=== PATIENT | female | born 1970 | race Caucasian/White ===

== ENCOUNTER 2017-04-05 10:56 | Inpatient (IN) | payer OTHER ==
[~2017-04-05] VITALS: Ht 165.1 cm; Wt 72.6 kg
[2017-04-05] VITALS (13 sets, daily range): BP systolic 102–128; BP diastolic 58–75; PULSE 102–123; TEMP 37.3–39.3; O2SAT 97–100; Ht 165.1 cm; Wt 72.6 kg
[~2017-04-05 10:56] MED LIST: CITA10TA8 PO; CRAN500C2 PO; MULT-506 PO
[2017-04-05] MEDS ORDERED: NORE5TAB5 PO (11:58)
[2017-04-05] MEDS ORDERED: FERR1TAB13 PO (11:58)
[2017-04-05] MEDS ORDERED: SODIUM CHLORIDE 0.9% 1000ML 1,000 ML IV STA ×2 (12:06)
[2017-04-05] MEDS ORDERED: ACETAMINOPHEN IV 650 MG in EMPTY BAG 0 ML IV STA (12:12)
--- NOTE | 2017-04-05 12:16 | EMERGENCY ROOM VISIT NOTE ---
History Report prepared by Garth: Ulices Lujan Under the Supervision of: Dr. Etelvina Barrientos M.D. First contact with patient: 11:41 Chief Complaint: FEVER Stated Complaint: IN FOR SURG., FEVER, V, SEVERE BACK/ABD. PAIN History of Present Illness The patient is a 46 year old female who presents to the Emergency Room with complaints of an acute fever occurring today. The patient was scheduled to have D&C and endometrial ablation today. She was at [facility] for pre- op when they detected the fever, so she was referred to the ED. The patient vomited en route to the ED. She has been very fatigued over the past week and her appetite has been very poor. She denies any urinary symptoms. The patient was having surgery for adenomyosis and fibroids found via pelvic US. The patient has been experiencing 9 weeks of constant vaginal bleeding. She doubles up on pads and has to change them frequently. The patient has also been experiencing pelvic cramping. She has never had a transfusion before. The patient had a D&C two years ago but did not have an ablation. She follows up with 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 She was found to be anemic one year ago even though she did not have bleeding issues at that time. Source of History: patient Onset: today Position: other (global) Quality: other (fever) Timing: other (acute) Associated Symptoms: + vomiting, + abdominal pain (pelvic), + fatigue, No urinary symptoms Review of Systems See HPI for pertinent positives & negatives. A total of 10 systems reviewed and were otherwise negative. Past Medical & Surgical Medical Problems: (1) [place] (2) Depression (3) Foot injury Surgical Problems: (1) H/O lumpectomy (2) H/O: Family History Cancer Social History Smoking Status: Never Smoker Alcohol Use: occasionally Drug Use: none Marital Status: Housing Status: lives with family Occupation Status: employed Current/Historical Medications Scheduled Ciprofloxacin Hcl (Cipro), 1 TAB PO BID Citalopram Hydrobromide (Celexa), 10 MG PO DAILY Cranberry (Vaccinium Macrocarp (Cranberry), 500 MG PO DAILY Enoxaparin (Lovenox), 70 MG SQ Q12@0800,2000 Ferrous Sulfate (Kp Ferrous Sulfate), 1 TAB PO DAILY Multivitamin (Multivitamin), 1 TAB PO DAILY Norethindrone (Aygestin), 2 TAB PO DAILY Warfarin Sod (Coumadin), 7.5 MG PO DAILY@16 Allergies Coded Allergies: No Known Allergies (Unverified , 04/05/17) Physical Exam Vital Signs Date Time Temp Pulse Resp B/P (MAP) Pulse Ox O2 Delivery O2 Flow Rate FiO2 04/05/17 13:10 119 20 124/73 99 Room Air 04/05/17 12:34 126 18 108/56 99 Room Air 04/05/17 12:19 128 04/05/17 11:00 37.8 123 18 118/58 100 Room Air Physical Exam Vital signs reviewed. General: Well-appearing female, in no significant distress. Noted to be tachycardic, normotensive, mildly febrile. HEENT: No scleral icterus, PERRLA, neck supple. Atraumatic. Cardiovascular: Regular rate and rhythm, no extra sounds. Pulmonary: Clear to auscultation bilaterally, normal work of breathing. Abdomen: Soft, mild left lower quadrant tenderness, nondistended, positive bowel sounds. Musculoskeletal: Atraumatic, no peripheral edema. Neurologic: Patient awake alert and oriented x 3, full strength in all 4 extremities. Cranial nerves 2 through 12 grossly intact. Skin: Warm, dry, no rash Medical Decision & Procedures ER Provider Diagnostic Interpretation: X-ray results as stated below per interpretation by me and the radiologist: Radiology results as stated below per my review and radiologist interpretation: CHEST ONE VIEW PORTABLE CLINICAL HISTORY: fever SEVERE BACK PAIN COMPARISON STUDY: No previous studies for comparison. FINDINGS: The cardiac and mediastinal contours are normal. There is no evidence of focal pulmonary consolidation. There is no evidence of failure. No pleural effusions are visualized.[ IMPRESSION: No active disease in the chest. Electronically signed by: Woodrow Webb M.D. 04/05/2017 12:36 PM Dictated Date/Time: 04/05/2017 12:30 PM EXAMINATION: PELVIC ULTRASOUND CLINICAL HISTORY: Dysfunctional uterine bleeding. Fever, left lower quadrant pelvic pain COMPARISON STUDY: FINDINGS: The uterus measured 12.6 x 7.9 x 9.5 cm. The uterus is heterogeneous in echotexture. Adenomyosis cannot be excluded. There is an equivocal 6 cm left fundal fibroid.. The endometrial stripe was difficult to visualize, but appear to measure 8 mm. The right ovary measured 17 x 27 x 14 mm. There is a 13 mm follicle.. The left ovary measured 31 x 18 x 33 mm. There is a 16 mm follicle.. There is no ultrasonographic evidence of ovarian torsion. It should be noted that ovarian torsion can be present with normal Doppler ultrasonographic findings. There was no evidence of pathologic free pelvic fluid. IMPRESSION: 1. Enlarged heterogeneous uterus with a possible 6 cm left fundal fibroid. Adenomyosis cannot be excluded. If further evaluation is desired, an MRI would be considered the test of choice. 2. Ultrasonographically normal ovaries. Electronically signed by: Woodrow Webb M.D. 04/05/2017 2:40 PM Dictated Date/Time: 04/05/2017 2:36 PM Laboratory Results Test 04/05/17 11:30 04/05/17 12:18 04/05/17 12:47 Direct Bilirubin 0.1 mg/dl (0-0.2) Total Creatine Kinase 42 U/L (26-192) Creatine Kinase MB < 0.5 ng/ml (0.5-3.6) Creatine Kinase MB Ratio (0-3.0) Bedside Hemoglobin 7.1 g/dl (12.0-16.0) Bedside Hematocrit 21 % (37-47) Bedside Sodium 139 mEq/L (135-144) Bedside Potassium 3.7 mEq/L (3.3-5.0) Bedside Chloride 108 mEq/L (101-112) Bedside Total CO2 17 mEq/l (24-31) Bedside Blood Urea Nitrogen 6 mg/dl (7-18) Bedside Creatinine 0.7 mg/dl (0.6-1.3) Bedside Glucose (other) 103 mg/dl (70-99) Bedside Ionized Calcium (Willy) 1.12 mmol/l (1.12-1.32) Bedside Lactic Acid Venous 0.79 mmol/L (0.90-1.70) Laboratory results per my review. Medications Administered Medications (Trade) Dose Ordered Sig/Davy Route Start Time Stop Time Status Last Admin Dose Admin Sodium Chloride 1,000 ml @ 125 mls/hr Q8H STAT IV 04/05/17 12:06 04/05/17 18:45 DC 04/05/17 13:40 125 MLS/HR Sodium Chloride 1,000 ml @ 999 mls/hr Q1H1M STAT IV 04/05/17 12:06 6/1/17 13:06 DC 04/05/17 12:32 999 MLS/HR Acetaminophen 650 mg/Empty Bag 65 ml @ 260 mls/hr NOW STAT IV 04/05/17 12:12 04/05/17 12:26 DC 04/05/17 12:32 260 MLS/HR ECG Indication: tachycardia Rate (beats per minute): 120 Rhythm: sinus tachycardia Findings: no ectopy, other (T wave flattening anterolateral leads) ED Course 1200: Past medical records reviewed. The patient was evaluated in room C9. A complete history and physical examination was performed. 1206: NSS 1000 ml @ 999 mls/hr, NSS 1000 ml @ 125 mls/hr. 1212: Acetaminophen 650 mg / empty bag 65 ml @ 260 mls/hr. 1230: Discussed the case with Dr. Garay (Service Station Cashier), who agreed to evaluate the patient. 1352: Dr. Garay is admitting the patient. 1415: Blood Consent signed. 1432: Tylenol 325 mg MN. 1518: Rocephin 1 gm IV. Medical Decision Differential diagnosis: Etiologies such as ectopic , dysfunction uterine bleeding, bleeding dyscrasia, trauma, infection, as well as others were entertained. Medication Reconciliation: I attest that I have personally reviewed the patient' s current medication list. Blood Pressure Screening: Patient was found to have normal blood pressure on screening and does not require follow-up. This pt was evaluated and appeared to be in no distress. IV access was obtained and lab work was drawn. Pt was type and crossed for 2 U PRBC. Hgb is 6.4. Pt is noted to be febrile and given 650 mg IV tylenol. Lactic acid is normal. Pt was hydrated with NSS. She remained tachycardic. Blood transfusion was ordered and pt was consented. UA is contaminated but questionable for infection. PT was given 1 gm IV ceftriaxone after blood cultures were drawn. A CT Chest was performed d/t persistent tachycardia, SOB, unexplained fever and progesterone use. This study is negative for PE. I discussed the case with Dr Garay of [facility]. He was asked to evaluate the pt for admission and further management. I offered to consult medicine at this time, but Dr Garay felt he would see the pt first. Pt is aware of the plan and agrees. Consults Time Called: 1220 Consulting Physician: Dr. Garay (Service Station Cashier) Returned Call: 1230 He agreed to evaluate the patient. Impression Primary Impression: Vaginal bleeding Additional Impressions: Severe anemia Fever UTI (urinary tract infection) Critical Care I have personally spent greater than 60 minutes of critical care time in the direct management of this patient. This includes bedside care, interpretation of diagnostic studies, and testing, discussion with consultants, patient, and family members, and other required patient management activities. This 60 minutes is in excess of all separately billable procedures. Scribe Attestation The scribe's documentation has been prepared under my direction and personally reviewed by me in its entirety. I confirm that the note above accurately reflects all work, treatment, procedures, and medical decision making performed by me. Departure Information Dispostion Admitted as an inpatient (by Service Station Cashier) Prescriptions Ciprofloxacin Hcl (CIPRO) 500 Mg Tab 1 TAB PO BID for 5 Days, #10 TAB Prov: Pooja. Lozano S 04/08/17 Warfarin Sod (Coumadin) 5 Mg Tab 7.5 MG PO DAILY@16 for 20 Days Prov: Pooja. Lozano S 04/08/17 Enoxaparin (LOVENOX) 80 Mg/0.8 Ml Inj 70 MG SQ Q12@0800,2000 for 10 Days Prov: Pooja. Lozano S 04/08/17 Referrals Vicky Lewis D.O. (PCP) Patient Instructions My [facility] Problem Qualifiers
[2017-04-05] MEDS ORDERED: ACETAMINOPHEN 1000 MG/100 ML IV IV ONE (12:20)
[2017-04-05 12:29] LABS: ISTAT CREATININE 0.7 mg/dl (0.6-1.3); ISTAT HEMOGLOBIN 7.1 g/dl (12.0-16.0); ISTAT IONIZED CALCIUM 1.12 mmol/l (1.12-1.32)
[2017-04-05 12:33] LABS: ALT/SGPT 51 U/L (12-78); BLOOD UREA NITROGEN 8 mg/dl (7-18); BUN/CREATININE RATIO 9.1 (10-20); CARBON DIOXIDE 19 mmol/L (21-32); CHLORIDE 110 mmol/L (98-107); CREATININE 0.88 mg/dl (0.60-1.20); GLUCOSE 99 mg/dl (70-99); MAGNESIUM 1.7 mg/dl (1.8-2.4); POTASSIUM 3.7 mmol/L (3.5-5.1); SODIUM 140 mmol/L (136-145)
[2017-04-05 12:34] LABS: HEMATOCRIT 20.2 % (37-47); MEAN CELL VOLUME 82.8 fL (80-100); MEAN CORPUSCULAR HEMOGLOBIN 26.2 pg (25-34); MEAN CORPUSCULAR HGB CONC 31.7 g/dl (32-36); MEAN PLATELET VOLUME 10.4 fL (7.4-10.4); PLATELET COUNT 256 K/uL (130-400); RED BLOOD COUNT 2.44 M/uL (4.2-5.4); WHITE BLOOD COUNT 13.15 K/uL (4.8-10.8)
[2017-04-05 12:35] LABS: CALCIUM 8.2 mg/dl (8.5-10.1)
[2017-04-05 12:37] LABS: ALKALINE PHOSPHATASE 61 U/L (45-117); AST/SGOT 17 U/L (15-37)
--- NOTE | 2017-04-05 12:38 | DIAGNOSTIC IMAGING REPORT ---
CHEST ONE VIEW PORTABLE CLINICAL HISTORY: fever SEVERE BACK PAIN COMPARISON STUDY: No previous studies for comparison. FINDINGS: The cardiac and mediastinal contours are normal. There is no evidence of focal pulmonary consolidation. There is no evidence of failure. No pleural effusions are visualized.[ IMPRESSION: No active disease in the chest. Electronically signed by: Woodrow Webb M.D. 04/05/2017 12:36 PM Dictated Date/Time: 04/05/2017 12:30 PM
[2017-04-05 12:54] LABS: BASO % 0.2 %; BASO ABS # 0.03 K/uL (0-0.2); COMPLETE YES; EOS % 0.3 %; HYPOCHROMIA PRESENT; IG% 0.6 %; LARGE PLATELETS 1+; LYMPH ABS # 0.53 K/uL (1.2-3.4); MONO % 0.5 %; NEUT % 94.4 %
[2017-04-05] MEDS ORDERED: LACTATED RINGER'S 1000ML 1,000 ML IV SCH ×2 (13:52→21:30)
[2017-04-05 13:56] LABS: URINE APPEARANCE CLEAR (CLEAR); URINE BILIRUBIN NEG (NEG); URINE COLOR YELLOW; URINE NITRITE NEG (NEG); URINE PH 5.5 (4.5-7.5); UROBILINOGEN NEG (NEG); ZZUR CULT IF INDIC CLEAN CATCH YES
[2017-04-05 13:59] LABS: MANUAL MICROSCOPIC REQUIRED? NO; REVIEW REQ? NO
[2017-04-05] MEDS ORDERED: ACETAMINOPHEN 325 MG SUPP PR STA (14:32)
--- NOTE | 2017-04-05 14:42 | DIAGNOSTIC IMAGING REPORT ---
EXAMINATION: PELVIC ULTRASOUND CLINICAL HISTORY: Dysfunctional uterine bleeding. Fever, left lower quadrant pelvic pain COMPARISON STUDY: FINDINGS: The uterus measured 12.6 x 7.9 x 9.5 cm. The uterus is heterogeneous in echotexture. Adenomyosis cannot be excluded. There is an equivocal 6 cm left fundal fibroid.. The endometrial stripe was difficult to visualize, but appear to measure 8 mm. The right ovary measured 17 x 27 x 14 mm. There is a 13 mm follicle.. The left ovary measured 31 x 18 x 33 mm. There is a 16 mm follicle.. There is no ultrasonographic evidence of ovarian torsion. It should be noted that ovarian torsion can be present with normal Doppler ultrasonographic findings. There was no evidence of pathologic free pelvic fluid. IMPRESSION: 1. Enlarged heterogeneous uterus with a possible 6 cm left fundal fibroid. Adenomyosis cannot be excluded. If further evaluation is desired, an MRI would be considered the test of choice. 2. Ultrasonographically normal ovaries. Electronically signed by: Woodrow Webb M.D. 04/05/2017 2:40 PM Dictated Date/Time: 04/05/2017 2:36 PM
[2017-04-05] MEDS ORDERED: OPTIRAY 320 IV PRN (15:00)
[2017-04-05] MEDS ORDERED: CEFTRIAXONE SOD INJ 1 GM ADDVIAL IV STA (15:18)
--- NOTE | 2017-04-05 16:12 | DIAGNOSTIC IMAGING REPORT ---
CT ANGIOGRAM OF THE CHEST CLINICAL HISTORY: Fever, shortness of breath, anemia. COMPARISON STUDY: Chest x-ray dated 04/05/2017 TECHNIQUE: Following the IV administration of 95 mL of [id number]-320, CT angiogram of the thorax was performed from the thoracic inlet to the lung bases utilizing the pulmonary embolus protocol. Images are reviewed in the axial, sagittal, and coronal planes. IV contrast was administered without complication. MIP imaging was performed. CT DOSE: 472.97 mGy.cm FINDINGS: No pathologically enlarged axillary mediastinal or hilar lymph nodes were visualized. There was no evidence of thoracic aortic dilatation. There is slightly suboptimal opacification of the peripheral pulmonary arteries. No central emboli are visualized. No pleural effusions are visualized. There is a 29 mm right lobe hepatic mass which approaches water attenuation is felt to represent a cyst. There is a 12 mm left lobe hepatic cyst. There is equivocal gallstone. The spleen appears prominent but was not imaged in its entirety. IMPRESSION: 1. No acute intrathoracic findings 2. No evidence of acute pulmonary embolism 3. No evidence of focal pulmonary consolidation Electronically signed by: Woodrow Webb M.D. 04/05/2017 4:10 PM Dictated Date/Time: 04/05/2017 4:03 PM
[2017-04-05] MEDS ORDERED: NURSING VERBAL MED ORDER ONE (18:30)
[2017-04-05] MEDS: IBUPROFEN 600 MG TAB PO PRN (18:55)
[2017-04-05] MEDS: NORETHINDRONE ACETATE 5 MG TAB PO SCH (19:28)
[2017-04-05] MEDS ORDERED: OXYCODONE/ACETAMINOPHEN 5-325 TAB PO PRN (21:00)
[2017-04-05] MEDS ORDERED: MAGNESIUM SULFATE 1GM / D5W 1 GM in PREMIXED IN D5W 100 ML IV STA (21:46)
[2017-04-05 22:01] LABS: HEMATOCRIT 22.8 % (37-47); MEAN CELL VOLUME 84.1 fL (80-100); MEAN CORPUSCULAR HEMOGLOBIN 27.7 pg (25-34); MEAN PLATELET VOLUME 10.1 fL (7.4-10.4); PLATELET COUNT 207 K/uL (130-400); RED BLOOD COUNT 2.71 M/uL (4.2-5.4); WHITE BLOOD COUNT 14.47 K/uL (4.8-10.8)
[2017-04-05 22:14] LABS: MEAN CORPUSCULAR HGB CONC 32.9 g/dl (32-36)
[2017-04-05 22:35] LABS: CREATININE 0.92 mg/dl (0.60-1.20)
[2017-04-05 22:36] LABS: ALB/GLOB RATIO 0.8 (0.9-2); BUN/CREATININE RATIO 7.1 (10-20); CALCIUM 7.3 mg/dl (8.5-10.1); POTASSIUM 3.6 mmol/L (3.5-5.1)
[2017-04-05] MEDS ORDERED: POTASSIUM CHLORIDE 10 MEQ TABCR PO STA (22:40)
[2017-04-05 22:50] LABS: PARTIAL THROMBOPLASTIN RATIO 0.9
[2017-04-05] MEDS ORDERED: ACETAMINOPHEN 325 MG TAB PO PRN (23:45)
[2017-04-06] VITALS (15 sets, daily range): BP systolic 106–124; BP diastolic 64–84; PULSE 81–99; TEMP 36.5–38.3; O2SAT 97–98
[2017-04-06 00:47] LABS: URINE APPEARANCE CLEAR (CLEAR); URINE BILIRUBIN NEG (NEG); URINE COLOR YELLOW; URINE EPITHELIAL CELL AUTO >30 /lpf (0-5); URINE NITRITE NEG (NEG); URINE PH 6.5 (4.5-7.5); URINE SPECIFIC GRAVITY 1.021 (1.000-1.030); UROBILINOGEN NEG (NEG); ZZUR CULT IF INDIC CLEAN CATCH YES
[2017-04-06 00:49] LABS: MANUAL MICROSCOPIC REQUIRED? NO; REVIEW REQ? YES
[2017-04-06] MEDS: IBUPROFEN 600 MG TAB PO PRN ×2 (03:22→16:06)
[2017-04-06] MEDS ORDERED: CIPROFLOXACIN / D5W 400 MG in PREMIXED IN D5W 200 ML IV ONE (04:00)
--- NOTE | 2017-04-06 05:12 | INTERNAL MEDICINE CONSULTATION ---
DATE OF CONSULTATION: 04/06/2017 PRIMARY CARE DOCTOR: Dr. Lewis Patient was seen on the request of Dr. Garay for evaluation of fever. HISTORY OF PRESENT ILLNESS: Hx obtained from px and records. No significant medical history except for uterine fibroids. In the last 3 months, patient noted heavy menstrual bleeding w/ cramps. An outpatient pelvic ultrasound showed uterus mildly enlarged and left posterior fibroid, question of adenomyosis, a 3.5 cm appearing right ovarian cyst. Endometrial biopsy was done as outpatient at [facility] on last March 02. Patient was also started on oral progestin. Plan was for the patient to go for elective D&C and hysteroscopy, [facility] endometrial ablation yesterday. In the last two weeks, note of left-sided discomfort going to the flank and upper leg in upper lobe different from menstrual cramps, achy, with some nausea. No dysuria, no diarrhea. She actually had to call off from work for two days due to illness. Px also noted stephan leg swelling and unquantified weight gain the last few weeks. no cp, intermittent sob. Yesterday, the patient was noted to be febrile at home. Usual left-sided abdominal cramps and vaginal bleeding. no cp, some exertional sob. Outpatient gynecologic procedure deferred. Patient was sent to the ER for evaluation. Pelvic ultrasound showed enlarged heterogeneous uterus with a 6 cm left bundle of fibroid. Chest x-ray, no active disease. CTA; no PE. UA trace WBC est, epith cells, ketones. Hemoglobin was noted to be 6.4 (from 9. 4 (03/27/17) from 11.7 (02/20/17) - outpx labs] Patient received IV ceftriaxone in the ER for poss UTI. Admitted under Gynecology service. Px has had 2 units of prbc blood transfusion Persistent fever during confinement. Px co generalized headache symptoms, not going to the neck. Co of achy intermittent L abd/flank pain from a few weeks ago. MEDICAL HISTORY: As above. SURGERIES: section HOME MEDICATIONS: Include; citalopram, multivitamins, norethindrone, cranberry and ferrous sulfate. ALLERGIES: No known drug allergies. FAMILY HISTORY: Pancreatic cancer, ovarian cancer, blood clots. 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 REVIEW OF SYSTEMS: As per HPI, all other ROS negative. PHYSICAL EXAMINATION: VITAL SIGNS: Blood pressure was noted to be 120/80, pulse rate 116, RR 20, temperature 38 and O2 sats 97 on room air. GENERAL: Noted to be slightly anxious, in no respiratory distress. SKIN: Pallor. HEENT: Pale palpebral conjunctivae. Dry mucosa. NECK: No JVD. Supple. CHEST: CTA HEART: Tachycardic. ABDOMEN: Some left sided abdominal tenderness. EXTREMITIES: bilateral lower extremity edema, no tenderness. NEUROLOGIC: No gross focality. LABORATORIES: Hemoglobin was noted to be 7.5, hematocrit 20.8, white cell count 14.4 and platelets 207. Sodium 141, potassium 4.6 chloride 109, CO2 21, BUN 70, creatinine 0.9 and glucose 102. UA : ketones. trace WBC esterase positive, epithelial cells. EKG as per my interpretation; sinus tachycardia, some T-wave flattening in inferior leads. ASSESSMENT : 1. Fever possible sources : possible sepsis [potential foci : complicated urinary tract infection (ro obstructive uropathy); ? endometritis (hx endometrial bx)] rule out deep vein thrombosis w/ px co stephan LE swelling Clinical dehydration contributory to the fever. 2. Acute on chronic anemia secondary to gynecologic blood loss Hg improved after pRBC transfusion RECOMMENDATIONS: Follow cultures. CT abdomen and pelvis for flank pain. 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 Dr. Reyna Lozano will follow the patient's progress. YOKO
[2017-04-06] MEDS ORDERED: LACTATED RINGER'S 1000ML 1,000 ML IV ONE (05:45)
--- NOTE | 2017-04-06 06:15 | Progress Note ---
Internal Med Progress Note Date of Service: Apr 06, 2017. Provider Documentation: ADDENDUM : Initial CT abd pelvis results d/w tele-radiologist program production specialist (Dr. Salazar) : mild perinephric stranding as a non-specific radiologic sign of upper UTI, uterine fibroid possibly impinging on urinary bladder - possible urinary retention sx as per tele-radiologist LE Duplex : 2 non-occlusive DVTs, LLE AP Fever 2 to poss complicated UTI and LLE DVT ff urine CS, Cipro for now OK to initiate anticoag as per discussion w/ Dr. Garay (Building Official) (low dose IV heparin for now; initiate oral anticoag (coumadin vs NOAC) if HH stable on IV heparin and claim agent bleed controlled) Will relay to AM provider. Px updated of developments and was amenable to the plan of care. Vital Signs: Date Time Temp Pulse Resp B/P (MAP) Pulse Ox O2 Delivery O2 Flow Rate FiO2 04/06/17 09:25 36.9 96 20 116/75 97 04/06/17 09:10 37.0 95 16 112/64 97 04/06/17 08:50 37.0 99 16 106/67 97 04/06/17 07:25 36.5 85 12 111/73 (86) 98 Room Air 04/06/17 03:15 37.0 88 18 114/73 (87) 97 Room Air 04/06/17 01:10 37.4 04/06/17 00:10 38.3 04/05/17 23:20 97 Room Air 04/05/17 23:20 37.8 116 20 124/75 (91) 97 Room Air 04/05/17 22:10 39.3 118 20 108/68 (81) 98 Room Air 04/05/17 21:15 39.0 116 22 117/69 (85) 100 Room Air 04/05/17 19:10 37.6 102 16 108/58 98 04/05/17 18:40 37.6 116 20 110/65 97 04/05/17 18:10 37.8 112 20 102/65 97 04/05/17 17:55 37.7 108 22 108/67 97 04/05/17 17:36 37.3 112 18 121/74 98 04/05/17 16:05 37.8 108 20 104/67 97 Room Air 04/05/17 16:05 97 Room Air 04/05/17 16:05 37.8 108 20 104/67 (79) 97 Room Air 04/05/17 15:46 37.8 117 18 112/70 97 04/05/17 15:38 37.8 117 18 112/70 97 04/05/17 15:08 37.8 123 16 118/74 98 04/05/17 14:53 38.3 120 18 128/68 98 04/05/17 14:39 04/05/17 14:38 38.5 121 20 116/67 97 04/05/17 13:10 119 20 124/73 99 Room Air 04/05/17 12:34 126 18 108/56 99 Room Air 04/05/17 12:19 128 04/05/17 11:00 37.8 123 18 118/58 100 Room Air Lab Results: Results Past 24 Hours Test 04/05/17 11:30 04/05/17 12:18 04/05/17 12:47 04/05/17 13:42 Range/Units White Blood Count 13.15 4.8-10.8 K/uL Red Blood Count 2.44 4.2-5.4 M/uL Hemoglobin 6.4 12.0-16.0 g/dL Hematocrit 20.2 37-47 % Mean Corpuscular Volume 82.8 80-100 fL Mean Corpuscular Hemoglobin 26.2 25-34 pg Mean Corpuscular Hemoglobin Concent 31.7 32-36 g/dl Platelet Count 256 130-400 K/uL Mean Platelet Volume 10.4 7.4-10.4 fL Neutrophils (%) (Auto) 94.4 % Lymphocytes (%) (Auto) 4.0 % Monocytes (%) (Auto) 0.5 % Eosinophils (%) (Auto) 0.3 % Basophils (%) (Auto) 0.2 % Neutrophils # (Auto) 12.41 1.4-6.5 K/uL Lymphocytes # (Auto) 0.53 1.2-3.4 K/uL Monocytes # (Auto) 0.06 0.11-0.59 K/uL Eosinophils # (Auto) 0.04 0-0.5 K/uL Basophils # (Auto) 0.03 0-0.2 K/uL RDW Standard Deviation 46.5 36.4-46.3 fL RDW Coefficient of Variation 15.3 11.5-14.5 % Immature Granulocyte % (Auto) 0.6 % Immature Granulocyte # (Auto) 0.08 0.00-0.02 K/uL Nucleated RBC Absolute Count (auto) 0.09 0-0 K/uL Nucleated Red Blood Cells % 0.7 % Large Platelets 1+ Hypochromasia PRESENT Sodium Level 140 136-145 mmol/L Potassium Level 3.7 3.5-5.1 mmol/L Chloride Level 110 98-107 mmol/L Carbon Dioxide Level 19 21-32 mmol/L Anion Gap 11.0 19.0 16-25 mmol/L Blood Urea Nitrogen 8 7-18 mg/dl Creatinine 0.88 0.60-1.20 mg/dl Estimated GFR () 91.3 Estimated GFR (Non- 78.8 BUN/Creatinine Ratio 9.1 10-20 Random Glucose 99 70-99 mg/dl Calcium Level 8.2 8.5-10.1 mg/dl Magnesium Level 1.7 1.8-2.4 mg/dl Total Bilirubin 0.4 0.2-1 mg/dl Direct Bilirubin 0.1 0-0.2 mg/dl Aspartate Amino Transf (AST/SGOT) 17 15-37 U/L Alanine Aminotransferase (ALT/SGPT) 51 12-78 U/L Alkaline Phosphatase 61 45-117 U/L Total Creatine Kinase 42 26-192 U/L Creatine Kinase MB < 0.5 0.5-3.6 ng/ml Creatine Kinase MB Ratio 0-3.0 Total Protein 6.7 6.4-8.2 gm/dl Albumin 3.1 3.4-5.0 gm/dl Bedside Hemoglobin 7.1 12.0-16.0 g/dl Bedside Hematocrit 21 37-47 % Bedside Sodium 139 135-144 mEq/L Bedside Potassium 3.7 3.3-5.0 mEq/L Bedside Chloride 108 101-112 mEq/L Bedside Total CO2 17 24-31 mEq/l Bedside Blood Urea Nitrogen 6 7-18 mg/dl Bedside Creatinine 0.7 0.6-1.3 mg/dl Bedside Glucose (other) 103 70-99 mg/dl Bedside Ionized Calcium ([place]) 1.12 1.12-1.32 mmol/l Bedside Lactic Acid Venous 0.79 0.90-1.70 mmol/L Urine Color YELLOW Urine Appearance CLEAR CLEAR Urine pH 5.5 4.5-7.5 Urine Specific [place] 1.010 1.000-1.030 Urine Protein NEG NEG Urine Glucose (UA) NEG NEG Urine Ketones 1+ NEG Urine Occult Blood 3+ NEG Urine Nitrite NEG NEG Urine Bilirubin NEG NEG Urine Urobilinogen NEG NEG Urine Leukocyte Esterase SMALL NEG Urine WBC (Auto) >30 0-5 /hpf Urine RBC (Auto) >30 0-4 /hpf Urine Hyaline Casts (Auto) 1-5 0-5 /lpf Urine Epithelial Cells (Auto) 10-20 0-5 /lpf Urine Bacteria (Auto) NEG NEG Test 04/05/17 21:43 04/05/17 21:47 04/05/17 22:23 04/06/17 00:10 Range/Units Thyroid Stimulating Hormone (TSH) 1.220 0.300-4.500 uIu/ml White Blood Count 14.47 4.8-10.8 K/uL Red Blood Count 2.71 4.2-5.4 M/uL Hemoglobin 7.5 12.0-16.0 g/dL Hematocrit 22.8 37-47 % Mean Corpuscular Volume 84.1 80-100 fL Mean Corpuscular Hemoglobin 27.7 25-34 pg Mean Corpuscular Hemoglobin Concent 32.9 32-36 g/dl RDW Standard Deviation 48.8 36.4-46.3 fL RDW Coefficient of Variation 15.7 11.5-14.5 % Platelet Count 207 130-400 K/uL Mean Platelet Volume 10.1 7.4-10.4 fL Nucleated RBC Absolute Count (auto) 0.05 0-0 K/uL Nucleated Red Blood Cells % 0.3 % Sodium Level 141 136-145 mmol/L Potassium Level 3.6 3.5-5.1 mmol/L Chloride Level 109 98-107 mmol/L Carbon Dioxide Level 21 21-32 mmol/L Anion Gap 11.0 3-11 mmol/L Blood Urea Nitrogen 7 7-18 mg/dl Creatinine 0.92 0.60-1.20 mg/dl Est Creatinine Clear Calc Drug Dose 76.3 ml/min Estimated GFR () 86.5 Estimated GFR (Non- 74.7 BUN/Creatinine Ratio 7.1 10-20 Random Glucose 102 70-99 mg/dl Calcium Level 7.3 8.5-10.1 mg/dl Total Bilirubin 0.6 0.2-1 mg/dl Aspartate Amino Transf (AST/SGOT) 15 15-37 U/L Alanine Aminotransferase (ALT/SGPT) 41 12-78 U/L Alkaline Phosphatase 46 45-117 U/L Total Protein 6.1 6.4-8.2 gm/dl Albumin 2.8 3.4-5.0 gm/dl Globulin 3.3 2.5-4.0 gm/dl Albumin/Globulin Ratio 0.8 0.9-2 Prothrombin Time 11.0 9.0-12.0 SECONDS Prothromb Time International Ratio 1.0 0.9-1.1 Activated Partial Thromboplast Time 22.9 21.0-31.0 SECONDS Partial Thromboplastin Ratio 0.9 Urine Color YELLOW Urine Appearance CLEAR CLEAR Urine pH 6.5 4.5-7.5 Urine Specific [place] 1.021 1.000-1.030 Urine Protein NEG NEG Urine Glucose (UA) NEG NEG Urine Ketones 1+ NEG Urine Occult Blood 1+ NEG Urine Nitrite NEG NEG Urine Bilirubin NEG NEG Urine Urobilinogen NEG NEG Urine Leukocyte Esterase SMALL NEG Urine WBC (Auto) 10-30 0-5 /hpf Urine RBC (Auto) 10-30 0-4 /hpf Urine Hyaline Casts (Auto) 0 0-5 /lpf Urine Epithelial Cells (Auto) >30 0-5 /lpf Urine Bacteria (Auto) NEG NEG Urine Renal Epithelial Cells 0-5 /lpf Test 04/06/17 06:40 04/06/17 09:47 Range/Units White Blood Count 17.93 4.8-10.8 K/uL Red Blood Count 2.56 4.2-5.4 M/uL Hemoglobin 6.7 12.0-16.0 g/dL Hematocrit 21.3 37-47 % Mean Corpuscular Volume 83.2 80-100 fL Mean Corpuscular Hemoglobin 26.2 25-34 pg Mean Corpuscular Hemoglobin Concent 31.5 32-36 g/dl Platelet Count 214 130-400 K/uL Mean Platelet Volume 10.1 7.4-10.4 fL Neutrophils (%) (Auto) 86.5 % Lymphocytes (%) (Auto) 7.5 % Monocytes (%) (Auto) 5.2 % Eosinophils (%) (Auto) 0.1 % Basophils (%) (Auto) 0.2 % Neutrophils # (Auto) 15.52 1.4-6.5 K/uL Lymphocytes # (Auto) 1.34 1.2-3.4 K/uL Monocytes # (Auto) 0.93 0.11-0.59 K/uL Eosinophils # (Auto) 0.01 0-0.5 K/uL Basophils # (Auto) 0.04 0-0.2 K/uL RDW Standard Deviation 47.0 36.4-46.3 fL RDW Coefficient of Variation 15.3 11.5-14.5 % Immature Granulocyte % (Auto) 0.5 % Immature Granulocyte # (Auto) 0.09 0.00-0.02 K/uL Large Platelets 1+ Polychromasia 1+ Activated Partial Thromboplast Time 23.6 21.0-31.0 SECONDS Partial Thromboplastin Ratio 0.9 Sodium Level 141 136-145 mmol/L Potassium Level 3.5 3.5-5.1 mmol/L Chloride Level 111 98-107 mmol/L Carbon Dioxide Level 22 21-32 mmol/L Anion Gap 8.0 3-11 mmol/L Blood Urea Nitrogen 7 7-18 mg/dl Creatinine 0.73 0.60-1.20 mg/dl Est Creatinine Clear Calc Drug Dose 96.1 ml/min Estimated GFR () 114.5 Estimated GFR (Non- 98.8 BUN/Creatinine Ratio 9.1 10-20 Random Glucose 108 70-99 mg/dl Calcium Level 7.2 8.5-10.1 mg/dl Magnesium Level 2.5 1.8-2.4 mg/dl Microbiology Results 04/05/17 Blood Culture, Received Pending 04/05/17 Blood Culture, Received Pending 04/05/17 Blood Culture, Received Pending 04/05/17 Blood Culture, Received Pending 04/06/17 Urine Culture, Received Pending 04/05/17 Urine Culture - Preliminary, Resulted Lactobacillus Species
--- NOTE | 2017-04-06 06:36 | DIAGNOSTIC IMAGING REPORT ---
CT HEAD WITHOUT CONTRAST (CT) CLINICAL HISTORY: Headache COMPARISON STUDY: No previous studies for comparison. TECHNIQUE: Axial CT of the brain is performed from the vertex to the skull base. IV contrast was not administered for this examination. CT DOSE: 1366.71 mGy.cm FINDINGS: No intra or extra-axial mass lesions are visualized. There is no CT evidence of acute cortical infarction. There is no evidence of midline shift. There is no acute hemorrhage. No calvarial fractures are visualized. There is possible mild cerebellar tonsillar ectopia There is no evidence of pathologic ventricular dilatation. There is mucosal thickening/fluid within the left maxillary and left sphenoid sinus. IMPRESSION: 1. Small left sphenoid sinus air-fluid level 2. Mild mucosal thickening the left maxilla sinus 3. No acute intracranial findings. Electronically signed by: Woodrow Webb M.D. 04/06/2017 6:35 AM Dictated Date/Time: 04/06/2017 6:32 AM
--- NOTE | 2017-04-06 06:50 | DIAGNOSTIC IMAGING REPORT ---
CT OF THE ABDOMEN AND PELVIS WITHOUT CONTRAST CLINICAL HISTORY: Abdominal and flank pain. Anemia. COMPARISON STUDY: Pelvic ultrasound April 05, 2017. TECHNIQUE: Axial images of the abdomen and pelvis were obtained without IV contrast. Images were reviewed in the axial, sagittal, and coronal planes. FINDINGS: Lung bases are clear. Several hepatic lesions are suboptimally assessed on this unenhanced exam but measure water attenuation and likely reflect cysts. The largest is a 2.8 cm lesion. There is borderline splenomegaly. Unenhanced images of the adrenal glands, kidneys and pancreas are normal. There is contrast within the collecting system from recent contrast-enhanced CT. There is no hydronephrosis. A 1.9 cm lesion within the midpole of the left kidney is suboptimally assessed on this unenhanced exam but measures near water attenuation likely reflects a cyst. There is contrast within the bladder. The uterus is enlarged and heterogeneous. Endometrium is prominent. These findings are suboptimally assessed by CT. There is a possible 5.1 cm right uterine fundal lesion. There is no evidence for a bowel obstruction. No pneumatosis, free air or portal venous gas is present. The appendix is normal. Pelvic calcifications reflect phleboliths. Skeletal structures are unremarkable. There are gallstones within the gallbladder. There is no pericholecystic infiltration. IMPRESSION: 1. Cholelithiasis. 2. Enlarged heterogeneous uterus and prominent endometrium, findings which are suboptimally assessed by CT. Possible 5.1 cm right fundal fibroid. These findings would be better depicted with MRI. 3. Suspected hepatic and left renal cysts. Electronically signed by: Zackery Adler M.D. 04/06/2017 6:49 AM Dictated Date/Time: 04/06/2017 6:39 AM
--- NOTE | 2017-04-06 06:54 | DIAGNOSTIC IMAGING REPORT ---
BILATERAL LOWER EXTREMITY VENOUS DOPPLER CLINICAL HISTORY: Bilateral leg swelling. COMPARISON STUDY: No previous studies for comparison. TECHNIQUE: Sonography of the deep venous system of the bilateral lower extremities was performed. Compression and augmentation were evaluated. FINDINGS: There was no deep venous thrombus within the right lower extremity. There was nonocclusive deep venous thrombus within the left posterior tibial and peroneal veins. IMPRESSION: 1. Nonocclusive deep venous thrombus within the left posterior tibial and peroneal veins. 2. No evidence of deep venous thrombus within the right lower extremity. Electronically signed by: Zackery Adler M.D. 04/06/2017 6:53 AM Dictated Date/Time: 04/06/2017 6:51 AM
[2017-04-06 07:19] LABS: PARTIAL THROMBOPLASTIN RATIO 0.9
[2017-04-06] MEDS ORDERED: HEPARIN IV LOW DOSE NO BOLUS SCH (07:26)
[2017-04-06 08:00] LABS: BUN/CREATININE RATIO 9.1 (10-20); CALCIUM 7.2 mg/dl (8.5-10.1); CREATININE 0.73 mg/dl (0.60-1.20); MAGNESIUM 2.5 mg/dl (1.8-2.4); POTASSIUM 3.5 mmol/L (3.5-5.1)
[2017-04-06 08:02] LABS: HEMATOCRIT 21.3 % (37-47); MEAN CELL VOLUME 83.2 fL (80-100); MEAN CORPUSCULAR HEMOGLOBIN 26.2 pg (25-34); MEAN CORPUSCULAR HGB CONC 31.5 g/dl (32-36); MEAN PLATELET VOLUME 10.1 fL (7.4-10.4); PLATELET COUNT 214 K/uL (130-400); RED BLOOD COUNT 2.56 M/uL (4.2-5.4); WHITE BLOOD COUNT 17.93 K/uL (4.8-10.8)
[2017-04-06] MEDS: LACTOBACILLUS ACIDOPHILUS (FLORANEX) TAB PO SCH ×3 (08:09→18:37)
[2017-04-06 08:25] LABS: BASO % 0.2 %; BASO ABS # 0.04 K/uL (0-0.2); COMPLETE YES; EOS % 0.1 %; IG% 0.5 %; LARGE PLATELETS 1+; LYMPH % 7.5 %; LYMPH ABS # 1.34 K/uL (1.2-3.4); MONO % 5.2 %; NEUT % 86.5 %; POLYCHROMASIA 1+
[2017-04-06] MEDS ORDERED: CIPROFLOXACIN CONSULT ACTIVE PRN ×2 (09:00)
[2017-04-06] MEDS: HEPARIN 25,000 UNIT/500ML D5W 500 ML IV PRN ×2 (10:54→18:14)
[2017-04-06 11:10] LABS: PARTIAL THROMBOPLASTIN RATIO 0.9
[2017-04-06 11:44] LABS: HEMATOCRIT 22.8 % (37-47); MEAN CELL VOLUME 84.4 fL (80-100); MEAN CORPUSCULAR HEMOGLOBIN 28.5 pg (25-34); MEAN PLATELET VOLUME 10.3 fL (7.4-10.4); PLATELET COUNT 191 K/uL (130-400); WHITE BLOOD COUNT 16.19 K/uL (4.8-10.8)
[2017-04-06 12:02] LABS: MEAN CORPUSCULAR HGB CONC 33.8 g/dl (32-36)
[2017-04-06 12:33] LABS: BASO % 0.2 %; BASO ABS # 0.03 K/uL (0-0.2); COMPLETE YES; EOS % 0.4 %; HYPOCHROMIA PRESENT; IG% 0.3 %; LYMPH % 8.5 %; LYMPH ABS # 1.38 K/uL (1.2-3.4); MONO % 6.1 %; NEUT % 84.5 %
--- NOTE | 2017-04-06 14:26 | Progress Note ---
Internal Med Progress Note Date of Service: Apr 06, 2017. Provider Documentation: SUBJECTIVE: Patient is doing better Afebrile now, no chills, flank pain is better, no dysuria/urinary frequency, abdominal pain OBJECTIVE: Vital Signs-as noted below Exam: General-AAOX3, no distress Neck-Supple Lungs-AEBE, no wheezing, rhonchi Heart-S1, S2 normal, no murmurs Abdomen-Soft, mild left abdominal tenderness, No distension, BS present Extremities-No edema Lab data as noted below. ASSESSMENT & PLAN: ASSESSMENT AND PLAN : FEVER SPIKES Possible pyelonephritis with fever, chills, left flank pain, nausea/vomiting, UA -partially positive with no urinary symptoms -Afebrile now, leucocytosis trending down -IV Rocephin -CT scan abd/pelvis - enlarged uterus/endometrium,but kidney are normal -Urine c/s - follow up. Monitor for any other sources of infection; Will add procalcitonin to AM labs to see if fever source is truly infectious ACUTE DVT Left post tibial and peroneal veins -IV Heparin SQ -Plan is for coumadin versus newer anticoagulants, as does have vaginal bleeding and may need procedure. Once gynecological issue stabilizes, may consider switching to newer anticoagulants. Discussed at length about coumadin /INR monitoring, side effects -Recently had CT scan chest which was negative for PE ACUTE ON CHRONIC ANEMIA Secondary to vaginal bleeding S/P PRBC 2 units -H & H monitoring ENDOMETRIUM/UTERINE ENLARGEMENT Has vaginal bleeding -Mx per primary team DVT prophylaxis, -IV Heparin DISPOSITION Medical mx in progress Vital Signs: Date Time Temp Pulse Resp B/P (MAP) Pulse Ox O2 Delivery O2 Flow Rate FiO2 04/06/17 12:00 36.8 84 20 118/76 (90) 97 Room Air 04/06/17 11:58 36.8 84 20 97 04/06/17 10:55 36.8 86 24 121/81 98 04/06/17 09:55 36.8 90 20 118/73 98 04/06/17 09:25 36.9 96 20 116/75 97 04/06/17 09:10 37.0 95 16 112/64 97 04/06/17 08:50 37.0 99 16 106/67 97 04/06/17 08:30 98 Room Air 04/06/17 07:25 36.5 85 12 111/73 (86) 98 Room Air 04/06/17 03:15 37.0 88 18 114/73 (87) 97 Room Air 04/06/17 01:10 37.4 04/06/17 00:10 38.3 04/05/17 23:20 97 Room Air 04/05/17 23:20 37.8 116 20 124/75 (91) 97 Room Air 04/05/17 22:10 39.3 118 20 108/68 (81) 98 Room Air 04/05/17 21:15 39.0 116 22 117/69 (85) 100 Room Air 04/05/17 19:10 37.6 102 16 108/58 98 04/05/17 18:40 37.6 116 20 110/65 97 04/05/17 18:10 37.8 112 20 102/65 97 04/05/17 17:55 37.7 108 22 108/67 97 04/05/17 17:36 37.3 112 18 121/74 98 04/05/17 16:05 37.8 108 20 104/67 97 Room Air 04/05/17 16:05 97 Room Air 04/05/17 16:05 37.8 108 20 104/67 (79) 97 Room Air 04/05/17 15:46 37.8 117 18 112/70 97 04/05/17 15:38 37.8 117 18 112/70 97 04/05/17 15:08 37.8 123 16 118/74 98 04/05/17 14:53 38.3 120 18 128/68 98 04/05/17 14:39 04/05/17 14:38 38.5 121 20 116/67 97 Lab Results: Results Past 24 Hours Test 04/05/17 21:43 04/05/17 21:47 04/05/17 22:23 04/06/17 00:10 Range/Units Thyroid Stimulating Hormone (TSH) 1.220 0.300-4.500 uIu/ml White Blood Count 14.47 4.8-10.8 K/uL Red Blood Count 2.71 4.2-5.4 M/uL Hemoglobin 7.5 12.0-16.0 g/dL Hematocrit 22.8 37-47 % Mean Corpuscular Volume 84.1 80-100 fL Mean Corpuscular Hemoglobin 27.7 25-34 pg Mean Corpuscular Hemoglobin Concent 32.9 32-36 g/dl RDW Standard Deviation 48.8 36.4-46.3 fL RDW Coefficient of Variation 15.7 11.5-14.5 % Platelet Count 207 130-400 K/uL Mean Platelet Volume 10.1 7.4-10.4 fL Nucleated RBC Absolute Count (auto) 0.05 0-0 K/uL Nucleated Red Blood Cells % 0.3 % Sodium Level 141 136-145 mmol/L Potassium Level 3.6 3.5-5.1 mmol/L Chloride Level 109 98-107 mmol/L Carbon Dioxide Level 21 21-32 mmol/L Anion Gap 11.0 3-11 mmol/L Blood Urea Nitrogen 7 7-18 mg/dl Creatinine 0.92 0.60-1.20 mg/dl Est Creatinine Clear Calc Drug Dose 76.3 ml/min Estimated GFR () 86.5 Estimated GFR (Non- 74.7 BUN/Creatinine Ratio 7.1 10-20 Random Glucose 102 70-99 mg/dl Calcium Level 7.3 8.5-10.1 mg/dl Total Bilirubin 0.6 0.2-1 mg/dl Aspartate Amino Transf (AST/SGOT) 15 15-37 U/L Alanine Aminotransferase (ALT/SGPT) 41 12-78 U/L Alkaline Phosphatase 46 45-117 U/L Total Protein 6.1 6.4-8.2 gm/dl Albumin 2.8 3.4-5.0 gm/dl Globulin 3.3 2.5-4.0 gm/dl Albumin/Globulin Ratio 0.8 0.9-2 Prothrombin Time 11.0 9.0-12.0 SECONDS Prothromb Time International Ratio 1.0 0.9-1.1 Activated Partial Thromboplast Time 22.9 21.0-31.0 SECONDS Partial Thromboplastin Ratio 0.9 Urine Color YELLOW Urine Appearance CLEAR CLEAR Urine pH 6.5 4.5-7.5 Urine Specific [place] 1.021 1.000-1.030 Urine Protein NEG NEG Urine Glucose (UA) NEG NEG Urine Ketones 1+ NEG Urine Occult Blood 1+ NEG Urine Nitrite NEG NEG Urine Bilirubin NEG NEG Urine Urobilinogen NEG NEG Urine Leukocyte Esterase SMALL NEG Urine WBC (Auto) 10-30 0-5 /hpf Urine RBC (Auto) 10-30 0-4 /hpf Urine Hyaline Casts (Auto) 0 0-5 /lpf Urine Epithelial Cells (Auto) >30 0-5 /lpf Urine Bacteria (Auto) NEG NEG Urine Renal Epithelial Cells 0-5 /lpf Test 04/06/17 06:40 04/06/17 10:46 04/06/17 11:35 Range/Units White Blood Count 17.93 16.19 4.8-10.8 K/uL Red Blood Count 2.56 2.70 4.2-5.4 M/uL Hemoglobin 6.7 7.7 12.0-16.0 g/dL Hematocrit 21.3 22.8 37-47 % Mean Corpuscular Volume 83.2 84.4 80-100 fL Mean Corpuscular Hemoglobin 26.2 28.5 25-34 pg Mean Corpuscular Hemoglobin Concent 31.5 33.8 32-36 g/dl Platelet Count 214 191 130-400 K/uL Mean Platelet Volume 10.1 10.3 7.4-10.4 fL Neutrophils (%) (Auto) 86.5 84.5 % Lymphocytes (%) (Auto) 7.5 8.5 % Monocytes (%) (Auto) 5.2 6.1 % Eosinophils (%) (Auto) 0.1 0.4 % Basophils (%) (Auto) 0.2 0.2 % Neutrophils # (Auto) 15.52 13.68 1.4-6.5 K/uL Lymphocytes # (Auto) 1.34 1.38 1.2-3.4 K/uL Monocytes # (Auto) 0.93 0.99 0.11-0.59 K/uL Eosinophils # (Auto) 0.01 0.06 0-0.5 K/uL Basophils # (Auto) 0.04 0.03 0-0.2 K/uL RDW Standard Deviation 47.0 47.7 36.4-46.3 fL RDW Coefficient of Variation 15.3 15.3 11.5-14.5 % Immature Granulocyte % (Auto) 0.5 0.3 % Immature Granulocyte # (Auto) 0.09 0.05 0.00-0.02 K/uL Large Platelets 1+ Polychromasia 1+ Activated Partial Thromboplast Time 23.6 23.5 21.0-31.0 SECONDS Partial Thromboplastin Ratio 0.9 0.9 Sodium Level 141 136-145 mmol/L Potassium Level 3.5 3.5-5.1 mmol/L Chloride Level 111 98-107 mmol/L Carbon Dioxide Level 22 21-32 mmol/L Anion Gap 8.0 3-11 mmol/L Blood Urea Nitrogen 7 7-18 mg/dl Creatinine 0.73 0.60-1.20 mg/dl Est Creatinine Clear Calc Drug Dose 96.1 ml/min Estimated GFR () 114.5 Estimated GFR (Non- 98.8 BUN/Creatinine Ratio 9.1 10-20 Random Glucose 108 70-99 mg/dl Calcium Level 7.2 8.5-10.1 mg/dl Magnesium Level 2.5 1.8-2.4 mg/dl Prothrombin Time 11.0 9.0-12.0 SECONDS Prothromb Time International Ratio 1.0 0.9-1.1 Nucleated RBC Absolute Count (auto) 0.05 0-0 K/uL Nucleated Red Blood Cells % 0.3 % Hypochromasia PRESENT Microbiology Results 04/05/17 Blood Culture, Received Pending 04/05/17 Blood Culture, Received Pending 04/06/17 Urine Culture, Received Pending
[2017-04-06] MEDS ORDERED: CEFTRIAXONE SOD INJ 1 GM in DEXTROSE 5% ADD-VANTAGE 50ML 50 ML IV SCH (16:00)
[2017-04-06] MEDS: WARFARIN SOD 5 MG TAB PO SCH (16:07)
[2017-04-06] MEDS: CIPROFLOXACIN / D5W 400 MG in PREMIXED IN D5W 200 ML IV SCH (16:07)
[2017-04-06] MEDS ORDERED: HEPARIN IV BOLUS 4,000 UNIT in SYRINGE 0 ML IV ONE (18:45)
[2017-04-06] MEDS: NORETHINDRONE ACETATE 5 MG TAB PO SCH (19:10)
[2017-04-07] VITALS (10 sets, daily range): BP systolic 120–138; BP diastolic 79–91; PULSE 79–91; TEMP 36.6–37; O2SAT 96–99
[2017-04-07] MEDS: IBUPROFEN 600 MG TAB PO PRN ×3 (01:11→21:23)
[2017-04-07] MEDS ORDERED: HEPARIN IV BOLUS 4,000 UNIT in SYRINGE 0 ML IV STA (01:20)
[2017-04-07] MEDS: CIPROFLOXACIN / D5W 400 MG in PREMIXED IN D5W 200 ML IV SCH ×2 (04:10→18:33)
[2017-04-07] MEDS: LACTOBACILLUS ACIDOPHILUS (FLORANEX) TAB PO SCH ×3 (07:58→18:33)
[2017-04-07 08:14] LABS: MEAN CELL VOLUME 83.9 fL (80-100); MEAN CORPUSCULAR HEMOGLOBIN 26.2 pg (25-34); MEAN CORPUSCULAR HGB CONC 31.3 g/dl (32-36); MEAN PLATELET VOLUME 10.4 fL (7.4-10.4); PLATELET COUNT 227 K/uL (130-400); RED BLOOD COUNT 2.86 M/uL (4.2-5.4); WHITE BLOOD COUNT 11.39 K/uL (4.8-10.8)
[2017-04-07 08:44] LABS: PARTIAL THROMBOPLASTIN RATIO 1.1; PROTHROMBIN TIME (PATIENT) 10.4 SECONDS (9.0-12.0)
[2017-04-07 08:55] LABS: BASO % 0.3 %; BASO ABS # 0.03 K/uL (0-0.2); COMPLETE YES; EOS % 1.8 %; IG% 0.7 %; LYMPH % 14.2 %; LYMPH ABS # 1.62 K/uL (1.2-3.4); MONO % 6.6 %; NEUT % 76.4 %; POLYCHROMASIA 1+
[2017-04-07 08:56] LABS: BUN/CREATININE RATIO 9.2 (10-20); CALCIUM 7.4 mg/dl (8.5-10.1); CREATININE 0.65 mg/dl (0.60-1.20); POTASSIUM 3.6 mmol/L (3.5-5.1)
[2017-04-07] MEDS ORDERED: HEPARIN IV BOLUS 4,000 UNIT in SYRINGE 0 ML IV ONE (10:00)
[2017-04-07] MEDS: HEPARIN 25,000 UNIT/500ML D5W 500 ML IV PRN ×3 (10:21→15:55)
--- NOTE | 2017-04-07 14:52 | Progress Note ---
Internal Med Progress Note Date of Service: Apr 07, 2017. Provider Documentation: SUBJECTIVE: Patient is doing better. Afebrile now, no chills, flank pain is better, no dysuria/urinary frequency, abdominal pain Still has some vaginal bleeding, but much improved than in past. OBJECTIVE: Vital Signs-as noted below Exam: General-AAOX3, no distress Neck-Supple Lungs-AEBE, no wheezing, rhonchi Heart-S1, S2 normal, no murmurs Abdomen-Soft, mild left abdominal tenderness, No distension, BS present, No flank tenderness. Extremities-No edema Lab data as noted below. ASSESSMENT & PLAN: ASSESSMENT AND PLAN : FEVER SPIKES : Possible pyelonephritis with fever, chills, left flank pain, nausea/vomiting, UA -partially positive with no urinary symptoms. Signs/CT scan not completely supportive for pyelonephritis, but symptoms have improved with current treatment with no fever spikes. -Afebrile > 24 hours; leucocytosis trending down -IV Rocephin (Day 2) -CT scan abd/pelvis - enlarged uterus/endometrium,but kidneys are normal -Urine c/s - pin point growth. Blood cultures x 2 negative. Procalcitonin 25 ACUTE DVT Left post tibial and peroneal veins -IV Heparin -Plan is for coumadin versus newer anticoagulants, as does have vaginal bleeding and may need procedure. Once gynecological issue stabilizes, may consider switching to newer anticoagulants. Discussed at length about coumadin /INR monitoring, side effects -Recently had CT scan chest which was negative for PE -Will discuss with Dr Garay about Lovenox SQ ACUTE ON CHRONIC ANEMIA Secondary to vaginal bleeding S/P PRBC 2 units -H & H monitoring - 7.5 today -Will transfuse 1 more unit today ENDOMETRIUM/UTERINE ENLARGEMENT Has vaginal bleeding -Mx per primary team DVT prophylaxis, -IV Heparin DISPOSITION Medical mx in progress Vital Signs: Date Time Temp Pulse Resp B/P (MAP) Pulse Ox O2 Delivery O2 Flow Rate FiO2 04/07/17 08:00 96 Room Air 04/07/17 07:46 36.6 79 18 127/85 (99) 96 Room Air 04/07/17 00:00 Room Air 04/06/17 22:58 36.9 81 18 124/84 (97) 97 Room Air 04/06/17 16:00 Room Air Lab Results: Results Past 24 Hours Test 04/06/17 17:00 6/3/17 00:46 04/07/17 07:45 Range/Units Activated Partial Thromboplast Time 25.1 27.1 28.2 21.0-31.0 SECONDS Partial Thromboplastin Ratio 1.0 1.0 1.1 Procalcitonin 25.17 0-0.5 ng/ml White Blood Count 11.39 4.8-10.8 K/uL Red Blood Count 2.86 4.2-5.4 M/uL Hemoglobin 7.5 12.0-16.0 g/dL Hematocrit 24.0 37-47 % Mean Corpuscular Volume 83.9 80-100 fL Mean Corpuscular Hemoglobin 26.2 25-34 pg Mean Corpuscular Hemoglobin Concent 31.3 32-36 g/dl Platelet Count 227 130-400 K/uL Mean Platelet Volume 10.4 7.4-10.4 fL Neutrophils (%) (Auto) 76.4 % Lymphocytes (%) (Auto) 14.2 % Monocytes (%) (Auto) 6.6 % Eosinophils (%) (Auto) 1.8 % Basophils (%) (Auto) 0.3 % Neutrophils # (Auto) 8.71 1.4-6.5 K/uL Lymphocytes # (Auto) 1.62 1.2-3.4 K/uL Monocytes # (Auto) 0.75 0.11-0.59 K/uL Eosinophils # (Auto) 0.20 0-0.5 K/uL Basophils # (Auto) 0.03 0-0.2 K/uL RDW Standard Deviation 47.2 36.4-46.3 fL RDW Coefficient of Variation 15.3 11.5-14.5 % Immature Granulocyte % (Auto) 0.7 % Immature Granulocyte # (Auto) 0.08 0.00-0.02 K/uL Nucleated RBC Absolute Count (auto) 0.03 0-0 K/uL Nucleated Red Blood Cells % 0.3 % Polychromasia 1+ Prothrombin Time 10.4 9.0-12.0 SECONDS Prothromb Time International Ratio 1.0 0.9-1.1 Sodium Level 142 136-145 mmol/L Potassium Level 3.6 3.5-5.1 mmol/L Chloride Level 112 98-107 mmol/L Carbon Dioxide Level 21 21-32 mmol/L Anion Gap 9.0 3-11 mmol/L Blood Urea Nitrogen 6 7-18 mg/dl Creatinine 0.65 0.60-1.20 mg/dl Est Creatinine Clear Calc Drug Dose 108.0 ml/min Estimated GFR () 123.4 Estimated GFR (Non- 106.5 BUN/Creatinine Ratio 9.2 10-20 Random Glucose 88 70-99 mg/dl Calcium Level 7.4 8.5-10.1 mg/dl
[2017-04-07] MEDS: WARFARIN SOD 5 MG TAB PO SCH (15:42)
[2017-04-07 16:46] LABS: PARTIAL THROMBOPLASTIN RATIO 1.1
[2017-04-07] MEDS: NORETHINDRONE ACETATE 5 MG TAB PO SCH (18:33)
[2017-04-07] MEDS: ENOXAPARIN 80 MG/0.8 ML SYR SQ SCH (21:15)
[2017-04-08] MEDS: CIPROFLOXACIN / D5W 400 MG in PREMIXED IN D5W 200 ML IV SCH (05:54)
[2017-04-08 06:32] VITALS: BP 107/77; PULSE 70; TEMP 36.7; O2SAT 98
[2017-04-08 07:28] LABS: HEMATOCRIT 27.4 % (37-47); MEAN CELL VOLUME 83.8 fL (80-100); MEAN CORPUSCULAR HEMOGLOBIN 26.6 pg (25-34); MEAN CORPUSCULAR HGB CONC 31.8 g/dl (32-36); MEAN PLATELET VOLUME 10.4 fL (7.4-10.4); PLATELET COUNT 289 K/uL (130-400); RED BLOOD COUNT 3.27 M/uL (4.2-5.4); WHITE BLOOD COUNT 9.76 K/uL (4.8-10.8)
[2017-04-08] MEDS: LACTOBACILLUS ACIDOPHILUS (FLORANEX) TAB PO SCH ×2 (07:39→11:54)
[2017-04-08] MEDS: IBUPROFEN 600 MG TAB PO PRN (07:40)
[2017-04-08] MEDS: ENOXAPARIN 80 MG/0.8 ML SYR SQ SCH (07:40)
[2017-04-08 07:43] LABS: INR 1.1 (0.9-1.1); PROTHROMBIN TIME (PATIENT) 11.4 SECONDS (9.0-12.0)
[2017-04-08 08:00] VITALS: O2SAT 98
[2017-04-08 08:09] LABS: BASO % 0.4 %; BASO ABS # 0.04 K/uL (0-0.2); COMPLETE YES; EOS % 1.7 %; IG% 0.8 %; LYMPH % 20.4 %; LYMPH ABS # 1.99 K/uL (1.2-3.4); MONO % 5.7 %; POLYCHROMASIA 1+
[2017-04-08 10:07] VITALS: BP 107/77; PULSE 70; TEMP 36.7; O2SAT 98
--- NOTE | 2017-04-08 12:36 | Progress Note ---
Internal Med Progress Note Date of Service: Apr 08, 2017. Provider Documentation: SUBJECTIVE: Patient is doing better and eager to be discharged. Afebrile, no chills, flank pain/Abdominal pain has resolved, no dysuria/urinary frequency. Still has some vaginal bleeding, but much improved than in past. OBJECTIVE: Vital Signs-as noted below Exam: General-AAOX3, no distress Neck-Supple Lungs-AEBE, no wheezing, rhonchi Heart-S1, S2 normal, no murmurs Abdomen-Soft, mild left abdominal tenderness, No distension, BS present, No flank tenderness. Extremities-No edema Lab data as noted below. ASSESSMENT & PLAN: ASSESSMENT AND PLAN : FEVER SPIKES : Resolved Possible pyelonephritis with fever, chills, left flank pain, nausea/vomiting, UA -partially positive with no urinary symptoms. Signs/CT scan not completely supportive for pyelonephritis, but symptoms have improved with current treatment with no fever spikes. -Afebrile > 48 hours; leucocytosis resolved -IV Rocephin (Day 2) --> Change to Ciprofloxacin x 5 more days to complete total course of antibiotics for 7 days. -CT scan abd/pelvis - enlarged uterus/endometrium,but kidneys are normal -Urine c/s - pin point growth. Blood cultures x 2 negative. Procalcitonin 25 ACUTE DVT Left post tibial and peroneal veins -IV Heparin--> Transitioned to Lovenox 70 mg q 12 hour on 04/07/17. Discussed with Dr Garay, should be okay to put her on lovenox/coumadin. -Plan is for coumadin versus newer anticoagulants, as does have vaginal bleeding and may need procedure for it. Once gynecological issue stabilizes, may consider switching to newer anticoagulants. INR is 1.2 today Discussed at length about coumadin /INR monitoring, side effects -Recently had CT scan chest which was negative for PE ACUTE ON CHRONIC ANEMIA Secondary to vaginal bleeding S/P PRBC 3 units since admission -H & H monitoring - 8.7 today -Continue with iron supplementation as prior to admission ENDOMETRIUM/UTERINE ENLARGEMENT Has vaginal bleeding -Mx per primary team -Will need bridging with lovenox/coumadin prior to surgery DVT prophylaxis, -IV Heparin--> Changed to lovenox /coumadin DISPOSITION Eager to be discharged Okay to discharge from medical point of view. SS confirmed, lovenox prescription covered by insurance Vital Signs: Date Time Temp Pulse Resp B/P (MAP) Pulse Ox O2 Delivery O2 Flow Rate FiO2 04/08/17 10:07 36.7 70 20 98 Room Air 04/08/17 08:00 98 Room Air 04/08/17 06:32 36.7 70 20 107/77 (87) 98 Room Air 04/08/17 00:15 Room Air 04/07/17 23:14 37.0 79 18 120/79 (93) 98 Room Air 04/07/17 18:23 36.9 86 18 125/87 04/07/17 17:25 36.8 87 18 136/91 04/07/17 16:30 36.8 82 18 129/87 04/07/17 16:00 99 Room Air 04/07/17 16:00 36.7 85 18 123/82 99 04/07/17 15:45 36.7 84 16 124/84 04/07/17 15:31 36.8 90 16 135/86 99 04/07/17 15:02 36.7 91 20 138/90 (106) 96 Room Air Lab Results: Results Past 24 Hours Test 04/07/17 16:30 04/08/17 06:35 Range/Units Activated Partial Thromboplast Time 28.9 25.6 21.0-31.0 SECONDS Partial Thromboplastin Ratio 1.1 1.0 White Blood Count 9.76 4.8-10.8 K/uL Red Blood Count 3.27 4.2-5.4 M/uL Hemoglobin 8.7 12.0-16.0 g/dL Hematocrit 27.4 37-47 % Mean Corpuscular Volume 83.8 80-100 fL Mean Corpuscular Hemoglobin 26.6 25-34 pg Mean Corpuscular Hemoglobin Concent 31.8 32-36 g/dl Platelet Count 289 130-400 K/uL Mean Platelet Volume 10.4 7.4-10.4 fL Neutrophils (%) (Auto) 71.0 % Lymphocytes (%) (Auto) 20.4 % Monocytes (%) (Auto) 5.7 % Eosinophils (%) (Auto) 1.7 % Basophils (%) (Auto) 0.4 % Neutrophils # (Auto) 6.92 1.4-6.5 K/uL Lymphocytes # (Auto) 1.99 1.2-3.4 K/uL Monocytes # (Auto) 0.56 0.11-0.59 K/uL Eosinophils # (Auto) 0.17 0-0.5 K/uL Basophils # (Auto) 0.04 0-0.2 K/uL RDW Standard Deviation 48.6 36.4-46.3 fL RDW Coefficient of Variation 15.7 11.5-14.5 % Immature Granulocyte % (Auto) 0.8 % Immature Granulocyte # (Auto) 0.08 0.00-0.02 K/uL Polychromasia 1+ Prothrombin Time 11.4 9.0-12.0 SECONDS Prothromb Time International Ratio 1.1 0.9-1.1
[2017-04-08] MEDS ORDERED: CMD5 PO (12:37)
[2017-04-08] MEDS ORDERED: LVNIS80 SQ (12:37)
[2017-04-08] MEDS ORDERED: CIPR1TAB10 PO (12:38)
--- NOTE | 2017-04-08 12:43 | Discharge Instructions ---
Discharge Instructions Date of Service Apr 08, 2017. Admission Reason for Admission: Anemia Discharge Discharge Diagnosis / Problem: 1. Acute DVT 2. Possible pyelonephritis Discharge Goals Goal(s): Diagnostic testing, Therapeutic intervention Activity Recommendations Activity Limitations: resume your previous activity . Instructions / Follow-Up Instructions / Follow-Up MEDICATION CHANGES: 1. New medication: Lovenox 70 mg q 12 hour till INR is between 2-3 2. New medication: Coumadin 7.5 mg daily at 4 pm till next appt with coumadin clinic. 3. New medication: Ciprofloxacin 500 mg PO BID x 5 more days to complete course of 7 days of antibiotics FOLLOW UP 1. Follow up with Dr Lewis on 04/12/17 at 1 PM 2. Follow up with coumadin clinic . They will call you for appt date/time Current Hospital Diet Patient's current hospital diet: Regular Diet Discharge Diet Recommended Diet: Regular Diet Pending Studies Studies pending at discharge: no Medical Emergencies . Who to Call and When: Medical Emergencies: If at any time you feel your situation is an emergency, please call 911 immediately. . Non-Emergent Contact Non-Emergency issues call your: Primary Care Provider . . "Provider Documentation" section prepared by Reyna Lozano. . VTE Core Measure Inpt VTE Proph given/why not?: Enoxaparin (Lovenox)SQ, Warfarin (Coumadin)
[2017-04-08] MEDS ORDERED: NURSING VERBAL MED ORDER ONE (14:00)
[2017-04-08] MEDS ORDERED: WARFARIN SOD 7.5 MG TAB PO ONE (16:00)
[2017-04-08] MEDS ORDERED: CIPROFLOXACIN 500 MG TAB PO ONE (16:00)
--- NOTE | 2017-04-14 14:30 | DISCHARGE SUMMARY ---
CHIEF COMPLAINT: Fatigue, shortness of breath and bleeding. HISTORY OF PRESENT ILLNESS: This is a 46-year-old who presented to the Emergency Room on 04/05/2017 after her surgery for D&C and endometrial ablation that day was cancelled at [facility] same day surgery. The patient was scheduled to undergo the above-mentioned surgery with Dr. Oscar. She, however, presented to preop not feeling well, very fatigued and appeared not quite well. Surgery was cancelled and she was sent to the ER for evaluation. In the ER, she reported having continuous bleeding. She has some fatigue. She had some shortness of breath. She was also having nausea, vomiting. In the ER stat H&H showed hemoglobin was 6.4, hematocrit was 20.2. She also had a low grade fever. Decision was therefore made to admit patient, transfuse the patient with 2 units while we work up her low grade fever. Upon evaluation, she was found to have a left tibia venous thrombosis. The patient was seen by medicine and placed on Lovenox subcutaneous. She did well and her fever resolved and was discharged home on 04/08/2017 on anticoagulation therapy and will follow up with the coag clinic as well as medicine. PAST MEDICAL HISTORY: 1. History of anemia. 2. Depression. 3. Foot injury. PAST SURGICAL HISTORY: History of lumpectomy and as well as a D&C in the past. SOCIAL HISTORY: The patient denies tobacco, drug or alcohol use. FAMILY HISTORY: Noncontributory. ALLERGIES: No known drug allergies. REVIEW OF SYSTEMS: Negative except as dictated in the HPI. PHYSICAL EXAMINATION: VITAL SIGNS: On 04/08/2017 showed a temperature of 36.7, pulse was 70, respiration of 20, blood pressure 107/77. HEART: S1, S2, regular rhythm and rate. LUNGS: Clear to auscultation bilaterally. ABDOMEN: Nontender, nondistended. PELVIC EXAM: Improved bleeding. EXTREMITIES: No cyanosis, clubbing or edema. LABORATORY DATA: Hemoglobin on 04/08/2017 on the last day of discharge hemoglobin was 8.7, hematocrit was 27.4. Coags: PT was 11.4, INR was 1.1, PTT was 25.6, PTT ratio was 1.0. CONDITION ON DISCHARGE: Stable. OPERATIONS: None. DISCHARGE DIAGNOSES: 1. Anemia from menorrhagia. 2. Left tibia deep vein thrombosis. PLAN ON DISCHARGE: The patient is discharged home on anticoagulation therapy. She is given instructions including activity, diet, follow-up appointment and medications. YOKO
--- NOTE | 2017-05-16 09:47 | History and Physical ---
History & Physical Date & Time of Service: May 05, 2017 at 09:37 Chief Complaint: Anemia Primary Care Physician: Vicky Lewis D.O. History of Present Illness Source: patient This is 46-year-old who presented to the Emergency room on 04/05/2017 after her surgery for dilation and curettage with endometrial ablation at [facility] was cancelled. . She presented to [facility] not feeling well. Surgery was canceled and she was sent to emergency room for evaluation. In the emergency room she reported having continuous bleeding. She has some fatigue. She had shortness of breath. She was also having nausea vomiting. In the Emergency room stat hemoglobin and hematocrit showed no 6.4 hematocrit of 20.2. She also had low-grade fever. Decision was therefore made to admit patient to look out for the fever and was transfused with 2 units PRBC Past Medical/Surgical History Medical Problems: (1) Depression Status: Chronic (2) Foot injury Status: Chronic Surgical Problems: (1) H/O lumpectomy Status: Resolved (2) H/O: Status: Resolved Family History Cancer Social History Smoking Status: Never Smoker Smokeless Tobacco Use: No Alcohol Use: none Drug Use: none Marital Status: Occupational Status: employed Allergies Coded Allergies: No Known Allergies (Unverified , 04/05/17) Home Medications Scheduled Citalopram Hydrobromide (Celexa), 10 MG PO DAILY Cranberry (Vaccinium Macrocarp (Cranberry), 500 MG PO DAILY Enoxaparin (Lovenox), 70 MG SQ Q12@0800,2000 Ferrous Sulfate (Kp Ferrous Sulfate), 1 TAB PO DAILY Multivitamin (Multivitamin), 1 TAB PO DAILY Norethindrone (Aygestin), 2 TAB PO DAILY Warfarin Sod (Coumadin), 7.5 MG PO DAILY@16 Physical Exam General Appearance: WD/WN, no apparent distress Head: normocephalic, atraumatic Eyes: normal inspection, PERRL, EOMI ENT: normal ENT inspection, hearing grossly normal, TMs normal, pharynx normal Neck: supple, no adenopathy, thyroid normal, no JVD Respiratory/Chest: chest non-tender, lungs clear, normal breath sounds Cardiovascular: regular rate, rhythm, no edema, no gallop Abdomen/GI: normal bowel sounds, non tender, soft Genitourinary - Female: external genitalia normal, normal pelvic exam Back: no CVA tenderness Extremities/Musculoskelatal: normal inspection, no calf tenderness, normal capillary refill 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 Anemia- Transfused with 2 Units PRBC 2. Fever of unknown origin- Admit and consult Hospitalist Advanced Directives Existing Living Will: No Existing Power of Pony Cylinder Press Operator: No VTE Prophylaxis VTE Risk Assessment Done? Y/N: Yes Risk Level: Low Given or contraindicated: Enoxaparin (Lovenox)SQ, Warfarin (Coumadin)
[2017-06-08] MEDS ORDERED: WARF2.5T8 PO (14:13)
[2017-06-08] MEDS ORDERED: WARF5TAB7 PO (14:13)
[2017-06-08] MEDS ORDERED: NORE5TAB5 PO (14:15)
[2017-06-08] MEDS ORDERED: ACET-1175 PO (14:17)
== END 2017-04-08 15:45 | disposition home or self-care (01) | DRG 300 ==
LOC: C.EDB 10:57 → C.MS4N 13:56 → OBSVTOIN 14:42 → ENRESERV 15:23 → C.MS4W 04-06 14:10
PROVIDERS: ADMIT Obstetrics & Gynecology; ATTEND Obstetrics & Gynecology
DX: I82.442 Acute embolism and thrombosis of left tibial vein (principal); N12 Tubulo-interstitial nephritis, not specified as acute or chronic; I82.4Z2 Acute embolism and thrombosis of unspecified deep veins of left distal lower extremity; D50.0 Iron deficiency anemia secondary to blood loss (chronic); R51 Headache; E86.0 Dehydration; D25.9 Leiomyoma of uterus, unspecified; N85.2 Hypertrophy of uterus; N93.9 Abnormal uterine and vaginal bleeding, unspecified; Z79.3 Long term (current) use of hormonal contraceptives; Z79.01 Long term (current) use of anticoagulants; Z79.899 Other long term (current) drug therapy

== ENCOUNTER 2017-06-13 11:15 | Observation (INO) | payer OTHER ==
[2017-06-13] VITALS (10 sets, daily range): BP systolic 113–144; BP diastolic 70–85; PULSE 84–95; TEMP 36.9–37.5; O2SAT 99–100; Ht 165.1 cm; Wt 88.3 kg
[~2017-06-13] VITALS: Ht 165.1 cm; Wt 88.3 kg
[~2017-06-13 11:15] MED LIST changes: +ACET-1175 PO; -CITA10TA8 PO; -CRAN500C2 PO; +FERR1TAB13 PO; +NORE5TAB5 PO; +WARF2.5T8 PO; +WARF5TAB7 PO
[2017-06-13] MEDS ORDERED: SODIUM CHLORIDE 0.9% 1000ML 1,000 ML IV STA (12:17)
[2017-06-13 12:46] LABS: HEMATOCRIT 22.4 % (37-47); MEAN CELL VOLUME 85.5 fL (80-100); MEAN CORPUSCULAR HEMOGLOBIN 26.3 pg (25-34); MEAN CORPUSCULAR HGB CONC 30.8 g/dl (32-36); MEAN PLATELET VOLUME 9.2 fL (7.4-10.4); PLATELET COUNT 337 K/uL (130-400); RED BLOOD COUNT 2.62 M/uL (4.2-5.4); WHITE BLOOD COUNT 6.06 K/uL (4.8-10.8)
[2017-06-13 12:51] LABS: BUN/CREATININE RATIO 15.4 (10-20); CALCIUM 8.1 mg/dl (8.5-10.1); CREATININE 0.7 mg/dl (0.60-1.20); POTASSIUM 3.9 mmol/L (3.5-5.1)
[2017-06-13 12:53] LABS: MANUAL MICROSCOPIC REQUIRED? YES; REVIEW REQ? NO; SULFASALICYLIC ACID POS (NEG); URINE APPEARANCE TURBID (CLEAR)
[2017-06-13 12:54] LABS: ALB/GLOB RATIO 1.1 (0.9-2)
[2017-06-13 12:55] LABS: URINE COLOR RED
[2017-06-13 13:04] LABS: URINE RBC >30 /hpf (0-4)
[2017-06-13 13:05] LABS: URINE BACTERIA 1+ (NEG); URINE WBC >30 /hpf (0-5)
[2017-06-13 13:16] LABS: BASO % 0.5 %; BASO ABS # 0.03 K/uL (0-0.2); COMPLETE YES; HYPOCHROMIA PRESENT; IG% 0.2 %; LYMPH % 35.5 %; LYMPH ABS # 2.15 K/uL (1.2-3.4); MONO % 5.8 %
--- NOTE | 2017-06-13 13:16 | DIAGNOSTIC IMAGING REPORT ---
PELVIC ULTRASOUND CLINICAL HISTORY: Excessive bleeding. COMPARISON STUDY: Pelvic ultrasound April 05, [address] April 06, 2017. TECHNIQUE: Transabdominal sonography of the pelvis was performed. The patient deferred transvaginal imaging. FINDINGS: As before, the uterus is enlarged and heterogeneous. The uterus measures 12.8 x 7.9 x 10.7 cm. The endometrium is not well visualized on this exam as it is obscured. The endometrium may measure 8 mm in thickness. Note is again made of a 6.5 x 5.9 x 6 cm left fundal fibroid. The right ovary measures 2.6 x 1.5 x 1.5 cm and the left measures 2.6 x 1.7 x 2.1 cm. IMPRESSION: 1. Enlarged heterogeneous uterus with a 6.5 cm left fundal fibroid. Heterogeneity of the myometrium raises the possibility of adenomyosis. 2. Unremarkable sonographic appearance of the ovaries. 3. Obscured endometrium which may measure 8 mm in thickness. Electronically signed by: Zackery Adler M.D. 06/13/2017 1:15 PM Dictated Date/Time: 06/13/2017 1:07 PM
[2017-06-13 13:57] LABS: INR 3.2 (0.9-1.1); PARTIAL THROMBOPLASTIN RATIO 1.3; PROTHROMBIN TIME (PATIENT) 35.7 SECONDS (9.0-12.0)
[2017-06-13] MEDS ORDERED: PHYTONADIONE INJ 10 MG in SODIUM CHLORIDE 0.9% 50ML 50 ML IV ONE (14:15)
[2017-06-13 14:17] LABS: PREG INTERNAL NEGATIVE QC NEG CLEAR BACKGROUND; PREG INTERNAL POSITIVE QC POS CONTROL LINE
--- NOTE | 2017-06-13 15:00 | EMERGENCY ROOM VISIT NOTE ---
History Report prepared by Garth: Obinna Otero Under the Supervision of: Dr. Schuyler Nuñez M.D. First contact with patient: 12:09 Chief Complaint: ED VAG BLEEDING Stated Complaint: EXCESSIVE BLEEDING, LOW BLOOD COUNT, DIZZY, FATIGU History of Present Illness The patient is a 46 year old female who presents to the Emergency Room with complaints of persistent vaginal bleeding beginning two weeks ago. The patient states that she has been going through two pads every two hours. She states that she had an episode of severe endometrial bleeding two months ago. She developed two DVTs following the surgery. The patient states that her bleeding stopped about 1.5 months ago, and was controlled for about a half a month. She is currently on Coumadin due to the DVTs. She is scheduled for a hysterectomy in two weeks. The patient also complains of abdominal cramping. She denies chance of . She states that she has not been sexually active for some time. Source of History: patient Onset: Two weeks ago Position: other (vagina) Symptom Intensity: 2 pads in 2 hours Quality: other (bleeding) Timing: other (persistent) Associated Symptoms: + abdominal pain ("cramping") Review of Systems See HPI for pertinent positives & negatives. A total of 10 systems reviewed and were otherwise negative. Past Medical & Surgical Medical Problems: (1) Burke (2) Deep vein thrombosis (DVT) of left lower extremity (3) Depression (4) Foot injury (5) History of hysteroscopy (6) Juvenile osteochondrosis of leg (7) Menorrhagia (8) Uterine leiomyoma Surgical Problems: (1) H/O lumpectomy (2) H/O: (3) S/P section (4) S/P tubal ligation Family History Cancer Social History Smoking Status: Never Smoker Alcohol Use: occasionally Drug Use: none Marital Status: Housing Status: lives with family Occupation Status: employed Current/Historical Medications Scheduled Acetaminophen (Tylenol), 650 MG PO PRN Enoxaparin (Enoxaparin Sodium), 40 MG SQ QAM Ferrous Sulfate (Kp Ferrous Sulfate), 1 TAB PO BID Megestrol Acetate (Megace), 40 MG PO TID Multivitamin (Multivitamin), 1 TAB PO QAM Allergies Coded Allergies: No Known Allergies (Unverified , 06/08/17) Physical Exam Vital Signs Date Time Temp Pulse Resp B/P (MAP) Pulse Ox O2 Delivery O2 Flow Rate FiO2 06/13/17 17:11 89 16 130/82 98 Room Air 06/13/17 16:53 37.0 95 16 139/75 100 06/13/17 16:38 37.0 84 16 130/76 99 06/13/17 16:08 37.1 92 16 120/80 100 06/13/17 15:53 37.2 95 16 118/73 99 06/13/17 15:52 37.2 85 16 118/73 99 Room Air 06/13/17 15:43 Room Air 06/13/17 14:45 37.2 92 20 144/82 100 06/13/17 14:30 87 20 114/70 100 06/13/17 14:15 37.2 94 20 118/85 100 06/13/17 14:00 37.5 88 20 113/79 100 06/13/17 13:52 36.9 85 16 128/73 100 0.0 06/13/17 13:47 36.9 88 20 155/75 100 Room Air 06/13/17 13:47 100 Room Air 06/13/17 11:26 36.9 92 18 128/75 99 Room Air Physical Exam GENERAL: Patient is a healthy-appearing well-nourished female HEAD: Normocephalic atraumatic EYES: Ocular movements intact pupils equal and react to light OROPHARYNX mucous membranes are moist no exudates present no erythema or edema present NECK: Supple no nuchal rigidity CHEST: Good equal expansion LUNGS: Clear and equal to auscultation CARDIAC: Normal S1 and S2 ABDOMEN: Soft nontender no guarding BACK: No CVA tenderness EXTREMITIES: No pain upon palpation normal muscle strength in all groups no clubbing cyanosis or edema NEURO: Patient is following commands and answering questions appropriately. Alert and oriented x3 Cranial Nerves 2-12 grossly intact Medical Decision & Procedures ER Provider Diagnostic Interpretation: US results as stated below per my review and radiologist interpretation: PELVIC ULTRASOUND FINDINGS: As before, the uterus is enlarged and heterogeneous. The uterus measures 12.8 x 7.9 x 10.7 cm. The endometrium is not well visualized on this exam as it is obscured. The endometrium may measure 8 mm in thickness. Note is again made of a 6.5 x 5.9 x 6 cm left fundal fibroid. The right ovary measures 2.6 x 1.5 x 1.5 cm and the left measures 2.6 x 1.7 x 2.1 cm. IMPRESSION: 1. Enlarged heterogeneous uterus with a 6.5 cm left fundal fibroid. Heterogeneity of the myometrium raises the possibility of adenomyosis. 2. Unremarkable sonographic appearance of the ovaries. 3. Obscured endometrium which may measure 8 mm in thickness. Electronically signed by: Zackery Adler M.D. Laboratory Results Test 06/13/17 11:55 06/13/17 12:05 06/13/17 13:34 Urine Color RED Urine Appearance TURBID (CLEAR) Urine pH (4.5-7.5) Urine Specific [place] 1.010 (1.000-1.030) Urine Protein (NEG) Urine Glucose (UA) (NEG) Urine Ketones (NEG) Urine Occult Blood (NEG) Urine Nitrite (NEG) Urine Bilirubin (NEG) Urine Urobilinogen (NEG) Urine Leukocyte Esterase (NEG) Urine RBC >30 /hpf (0-4) Urine WBC >30 /hpf (0-5) Urine Epithelial Cells 5-10 /lpf (0-5) Urine Bacteria 1+ (NEG) Immature Granulocyte % (Auto) 0.2 % White Blood Count 6.06 K/uL (4.8-10.8) Red Blood Count 2.62 M/uL (4.2-5.4) Hemoglobin 6.9 g/dL (12.0-16.0) Hematocrit 22.4 % (37-47) Mean Corpuscular Volume 85.5 fL (80-100) Mean Corpuscular Hemoglobin 26.3 pg (25-34) Mean Corpuscular Hemoglobin Concent 30.8 g/dl (32-36) Platelet Count 337 K/uL (130-400) Mean Platelet Volume 9.2 fL (7.4-10.4) Neutrophils (%) (Auto) 56.0 % Lymphocytes (%) (Auto) 35.5 % Monocytes (%) (Auto) 5.8 % Eosinophils (%) (Auto) 2.0 % Basophils (%) (Auto) 0.5 % Neutrophils # (Auto) 3.40 K/uL (1.4-6.5) Lymphocytes # (Auto) 2.15 K/uL (1.2-3.4) Monocytes # (Auto) 0.35 K/uL (0.11-0.59) Eosinophils # (Auto) 0.12 K/uL (0-0.5) Basophils # (Auto) 0.03 K/uL (0-0.2) Immature Granulocyte # (Auto) 0.01 K/uL (0.00-0.02) Hypochromasia PRESENT Total Bilirubin 0.4 mg/dl (0.2-1) Aspartate Amino Transf (AST/SGOT) 10 U/L (15-37) Alanine Aminotransferase (ALT/SGPT) 20 U/L (12-78) Alkaline Phosphatase 31 U/L (45-117) Total Protein 6.2 gm/dl (6.4-8.2) Albumin 3.3 gm/dl (3.4-5.0) Globulin 2.9 gm/dl (2.5-4.0) Albumin/Globulin Ratio 1.1 (0.9-2) Activated Partial Thromboplast Time 33.5 SECONDS (21.0-31.0) Partial Thromboplastin Ratio 1.3 Human Chorionic Gonadotropin, Qual NEG (NEG) Labs reviewed by ED physician. Medications Administered Medications (Trade) Dose Ordered Sig/Davy Route Start Time Stop Time Status Last Admin Dose Admin Sodium Chloride 1,000 ml @ 999 mls/hr Q1H1M STAT IV 06/13/17 12:17 06/13/17 13:17 DC 06/13/17 12:21 999 MLS/HR Phytonadione 10 mg/Sodium Chloride 51 ml @ 102 mls/hr ONE ONCE IV 06/13/17 14:15 06/13/17 14:44 DC 06/13/17 14:32 102 MLS/HR Lactated Ringer's 1,000 ml @ 125 mls/hr Q8H IV 06/13/17 17:59 06/15/17 08:37 DC 06/15/17 03:19 125 MLS/HR ED Course 1212: Past medical records reviewed. The patient was evaluated in room A10. A complete history and physical examination was performed. 1217: Ordered Sodium Chloride 1000 ml @ 999 mls/hr. 1415: Ordered Phytonadione 10 mg/Sodium Chloride 51 ml @ 102 mls/hr IV. 1415: Upon reexamination the patient is resting comfortably. I discussed results and treatment plan with the patient. She verbalizes agreement and understanding. I spoke with Dr. Garay from [facility]. The patient will be evaluated for further management. Medical Decision Differential diagnosis: Etiologies such as ectopic , dysfunction uterine bleeding, bleeding dyscrasia, trauma, infection, as well as others were entertained. This is a 46-year-old female who presents emergency Department with vaginal bleeding. The patient is on Coumadin. Her hemoglobin was found to be 6 therefore the patient was typed and screened and crossed. The patient was given vitamin K for her Coumadin level. I did discuss the case with Dr. Nogueira who stated he would admit the patient with a medicine consult. I also discussed the case with the medicine team. Patient was in agreement with the treatment plan. Consults Time Called: 1402 Consulting Physician: Dr. Garay -[facility] Returned Call: [phone] I discussed the patient's case with Dr. Garay, he has agreed to evaluate the patient for further management and care. Additional Consults: Time Called: 1411 [facility] Returned Call: [phone] Additional Comments: I discussed the patient's case with Mickie Johnston PA-C. Impression Primary Impression: Vaginal bleeding Additional Impression: Anemia Critical Care I have personally spent greater than 90 minutes of critical care time in the direct management of this patient. This includes bedside care, interpretation of diagnostic studies, and testing, discussion with consultants, patient, and family members, and other required patient management activities. This 90 minutes is in excess of all separately billable procedures. Scribe Attestation The scribe's documentation has been prepared under my direction and personally reviewed by me in its entirety. I confirm that the note above accurately reflects all work, treatment, procedures, and medical decision making performed by me. Departure Information Dispostion Being Evaluated By Surgeon Prescriptions Enoxaparin (Enoxaparin Sodium) 40 Mg/0.4 Ml Inj 40 MG SQ QAM, #30 Prov: Leandro Oscar ., DO 06/15/17 Megestrol Acetate (MEGACE) 40 Mg Tab 40 MG PO TID, #40 TAB Prov: Leandro Oscar ., DO 06/15/17 Referrals Vicky Lewis D.O. (PCP) Patient Instructions [facility] Problem Qualifiers Additional Impression: Anemia Anemia type: unspecified type Qualified Codes: D64.9 - Anemia, unspecified
--- NOTE | 2017-06-13 16:38 | Medical Consult ---
Consultation Date of Consultation: Jun 13, 2017. Attending Physician: Reason for Consultation: Uterine bleeding on coumadin History of Present Illness This is a 46yo F with PMH of uterine leiomyoma and h/o DVT who presents with worsening vaginal bleeding over the last 2 weeks. At the beginning of April, patient was scheduled for an endometrial ablation but felt SOB, dizzy and fatigued in pre-op and was sent to the ED. Was found to have acute blood loss anemia as well as a LLE DVT. Was discharged home on coumadin and has been compliant with coag clinic. INR has remained in a therapeutic range over the past few months. Denies any uterine bleeding until mid-May, when her uterine bleeding required her to wear two pads that she changed Q2 hrs. Over the past few days, frequency of bleeding increased, as well as passing more clots, so patient was advised by obgyn to return to the ED today. Patient was found to have a hgb of 6.9 and was transfused 2 units of prbcs. Of note, patient has been seeing heme in clinic for hypercoagulability testing in light of DVT. Currently endorses lightheadedness, fatigue, SOB, uterine bleeding and dull pain in her L calf with ambulation. Denies headache, LOC, palpitations, abd pain , nausea/vomiting, hematuria, hematochezia, melena. Patient is scheduled for total hysterectomy, cystoscopy and possible laparotomy with Dr. Oscar on June 29. Past Medical/Surgical History Medical Problems: (1) Anemia Status: Acute (2) Diarrhea Status: Acute (3) Fever Status: Acute (4) Foot injury Status: Chronic (5) Microcytic anemia Status: Acute (6) Severe anemia Status: Acute (7) Syncope Status: Acute (8) UTI (urinary tract infection) Status: Acute (9) Vaginal bleeding Status: Acute (10) Vaginal bleeding Status: Acute Family History Cancer FATHER (prostate) MOTHER (pancreatic- ) AUNT (ovarian cancer) Social History Smoking Status: Never Smoker Drug Use: none Marital Status: Housing Status: lives with family Occupation Status: employed Allergies Coded Allergies: No Known Allergies (Unverified , 06/08/17) Physical Exam Date Time Temp Pulse Resp B/P (MAP) Pulse Ox O2 Delivery O2 Flow Rate FiO2 06/13/17 16:08 37.1 92 16 120/80 100 06/13/17 15:53 37.2 95 16 118/73 99 06/13/17 15:52 37.2 85 16 118/73 99 Room Air 06/13/17 15:43 Room Air 06/13/17 14:45 37.2 92 20 144/82 100 06/13/17 14:30 87 20 114/70 100 06/13/17 14:15 37.2 94 20 118/85 100 06/13/17 14:00 37.5 88 20 113/79 100 06/13/17 13:52 36.9 85 16 128/73 100 0.0 06/13/17 13:47 36.9 88 20 155/75 100 Room Air 06/13/17 13:47 100 Room Air 06/13/17 11:26 36.9 92 18 128/75 99 Room Air General Appearance: + mild distress (Pale, fatigued in appearance. Conversational. ) Head: normocephalic, atraumatic Eyes: normal inspection, sclerae normal ENT: normal ENT inspection, hearing grossly normal Neck: supple, no adenopathy, thyroid normal, trachea midline Respiratory/Chest: chest non-tender, lungs clear, normal breath sounds, no respiratory distress, no accessory muscle use Cardiovascular: regular rate, rhythm, no murmur, normal peripheral pulses Abdomen/GI: normal bowel sounds, soft, + tenderness (Suprapubic/uterine TTP) Extremities/Musculoskelatal: normal inspection, normal capillary refill, no pedal edema, + calf tenderness (L calf TTP) Neurologic/Psych: no motor/sensory deficits, alert, normal mood/affect, oriented x 3 Skin: no rash, + pallor Laboratory Results Last 24 Hours Test 06/13/17 11:55 06/13/17 12:05 06/13/17 13:34 Urine Color RED Urine Appearance TURBID Urine pH Urine Specific [place] 1.010 Urine Protein Urine Glucose (UA) Urine Ketones Urine Occult Blood Urine Nitrite Urine Bilirubin Urine Urobilinogen Urine Leukocyte Esterase Urine RBC >30 /hpf Urine WBC >30 /hpf Urine Epithelial Cells 5-10 /lpf Urine Bacteria 1+ White Blood Count 6.06 K/uL Red Blood Count 2.62 M/uL Hemoglobin 6.9 g/dL Hematocrit 22.4 % Mean Corpuscular Volume 85.5 fL Mean Corpuscular Hemoglobin 26.3 pg Mean Corpuscular Hemoglobin Concent 30.8 g/dl Platelet Count 337 K/uL Mean Platelet Volume 9.2 fL Neutrophils (%) (Auto) 56.0 % Lymphocytes (%) (Auto) 35.5 % Monocytes (%) (Auto) 5.8 % Eosinophils (%) (Auto) 2.0 % Basophils (%) (Auto) 0.5 % Neutrophils # (Auto) 3.40 K/uL Lymphocytes # (Auto) 2.15 K/uL Monocytes # (Auto) 0.35 K/uL Eosinophils # (Auto) 0.12 K/uL Basophils # (Auto) 0.03 K/uL RDW Standard Deviation 55.2 fL RDW Coefficient of Variation 17.4 % Immature Granulocyte % (Auto) 0.2 % Immature Granulocyte # (Auto) 0.01 K/uL Hypochromasia PRESENT Sodium Level 142 mmol/L Potassium Level 3.9 mmol/L Chloride Level 113 mmol/L Carbon Dioxide Level 22 mmol/L Anion Gap 7.0 mmol/L Blood Urea Nitrogen 11 mg/dl Creatinine 0.70 mg/dl Est Creatinine Clear Calc Drug Dose 110.2 ml/min Estimated GFR () 120.4 Estimated GFR (Non- 103.9 BUN/Creatinine Ratio 15.4 Random Glucose 91 mg/dl Calcium Level 8.1 mg/dl Total Bilirubin 0.4 mg/dl Aspartate Amino Transf (AST/SGOT) 10 U/L Alanine Aminotransferase (ALT/SGPT) 20 U/L Alkaline Phosphatase 31 U/L Total Protein 6.2 gm/dl Albumin 3.3 gm/dl Globulin 2.9 gm/dl Albumin/Globulin Ratio 1.1 Prothrombin Time 35.7 SECONDS Prothromb Time International Ratio 3.2 Activated Partial Thromboplast Time 33.5 SECONDS Partial Thromboplastin Ratio 1.3 Human Chorionic Gonadotropin, Qual NEG Assessment & Plan This is a 46yo F with PMH of uterine leiomyoma and h/o DVT who presents with worsening vaginal bleeding over the last 2 weeks. 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 Oscar on 06/29/17 -Per Dr. Garay, surgery may be performed earlier than scheduled date but patient needs a stable H/H first -Will reevaluate tomorrow. Further recommendations as per Spar Machine Operator Helper Acute blood loss anemia: -Symptomatic; hgb of 6.9 -Transfuse 2 units of prbcs -Monitor H/H Supratherapeutic INR: -INR of 3.2 -Given Vit K due to active uterine bleeding -Hold coumadin. -Continue monitoring coags H/o L DVT: -Patient diagnosed with DVT April 05 -Has been on coumadin with a therapeutic INR -Still with pain to palpation of L calf -Bedside bilateral LE U/S ordered -Saw media sales consultant out-patient for hypercoagulability workup. Found to have elevated homocysteine with plans to recheck in 12 weeks -Consulted heme for recs -Discussed placing IVC filter with Dr. Otero in case it is needed final recommendations re: resuming coumadin/lovenox or IVC filter per Survey Questionnaire Designer ATTENDING ADDENDUM care coordinated with ANNABELLE Johnston please refer to her notes for full details, I agree with her notes patient seen and examined, records reviewed by myself as well on exam, patient seen resting in bed, comfortable has lightheadedness when ambulating denies active chest pain, dyspnea no other symptoms VS noted and reviewed oriented x 3, not in distress, speaks in sentences with no effort nor accessory muscle use normal rate, regular rhythm, no murmurs clear breath sounds bilaterally non distended, soft, nontender no bipedal edema, erythema, warmth no neuro deficits Hg 6.9 Crea 0.7 ASSESSMENT/PLAN> ACUTE BLOOD LOSS ANEMIA - from Vaginal Bleeding - maintain Hg > 8 RECENT DVT - diagnosed April 2017 - on coumadin, INR 3.2 Vit K IV given - discussed with Dr. Kinsey- patient's media sales consultant - recommend repeat Doppler US of the legs for tonight, no lovenox/coumadin/IVC filter Dr. Kinsey has been consulted may need low dose lovenox on discharge vs. IVC filter other diagnoses and plan of care as per ANNABELLE Johnston's notes Dean Hemphill MD
[2017-06-13] MEDS ORDERED: ACETAMINOPHEN 325 MG TAB PO PRN (17:30)
--- NOTE | 2017-06-13 18:13 | DIAGNOSTIC IMAGING REPORT ---
ULTRASOUND VENOUS DOPPLER LWR EXT BILA CLINICAL HISTORY: DVT. Follow-up study. EXCESSIVE BLEEDING, LOW BLOOD COUNT, DIZZINESS, FATIGUE. COMPARISON STUDY: April 06, 2017 FINDINGS: Real-time and color flow Doppler imaging were performed. Flow was seen within the femoral, popliteal and calf veins with no intraluminal thrombus demonstrated. The saphenous vein is patent. IMPRESSION: No evidence of deep venous thrombosis. Electronically signed by: Woodrow Webb M.D. 06/13/2017 6:12 PM Dictated Date/Time: 06/13/2017 6:11 PM
[2017-06-13] MEDS ORDERED: IV FLUIDS COMPLETED PRN (18:30)
[2017-06-13 19:26] LABS: HEMATOCRIT 26.2 % (37-47)
[2017-06-13] MEDS: LACTATED RINGER'S 1000ML 1,000 ML IV SCH (19:33)
[2017-06-13] MEDS: NORETHINDRONE ACETATE 5 MG TAB PO SCH (20:52)
[2017-06-13] MEDS: MEGESTROL ACETATE 40 MG TAB PO SCH (20:52)
[2017-06-13] MEDS: FERROUS SULFATE 325 MG TAB PO SCH (20:52)
[2017-06-14 02:08] LABS: HEMATOCRIT 24.2 % (37-47)
[2017-06-14] MEDS: LACTATED RINGER'S 1000ML 1,000 ML IV SCH ×3 (02:56→19:21)
[2017-06-14 03:00] VITALS: BP 114/76; PULSE 87; TEMP 36.8; O2SAT 98
[2017-06-14 06:51] LABS: HEMATOCRIT 25.4 % (37-47); MEAN CELL VOLUME 85.8 fL (80-100); MEAN CORPUSCULAR HEMOGLOBIN 26.7 pg (25-34); MEAN CORPUSCULAR HGB CONC 31.1 g/dl (32-36); MEAN PLATELET VOLUME 8.9 fL (7.4-10.4); PLATELET COUNT 266 K/uL (130-400); RED BLOOD COUNT 2.96 M/uL (4.2-5.4); WHITE BLOOD COUNT 5.73 K/uL (4.8-10.8)
[2017-06-14 06:58] LABS: INR 1.1 (0.9-1.1)
[2017-06-14 07:23] LABS: BUN/CREATININE RATIO 10.2 (10-20); CALCIUM 7.5 mg/dl (8.5-10.1); CREATININE 0.62 mg/dl (0.60-1.20); POTASSIUM 4.1 mmol/L (3.5-5.1)
[2017-06-14 07:40] VITALS: BP 118/79; PULSE 87; TEMP 36.7; O2SAT 97
--- NOTE | 2017-06-14 07:59 | HISTORY & PHYSICAL EXAMINATION ---
DATE OF ADMISSION: 06/13/2017 HISTORY OF PRESENT ILLNESS: The patient is a 46-year-old with known menorrhagia as well as uterine fibroids who was scheduled initially for endometrial ablation in April. On preop she was found to be lethargic and dizzy. Workup showed she had a left lower extremity DVT. Ablation was therefore postponed and the patient was placed on Coumadin. She had since done well on Coumadin. Her bleeding has improved. The patient had no bleeding after discharge in April. She is scheduled for hysterectomy on 06/29/2017. She, however, started having some more bleeding in mid May despite being placed on Aygestin 3 times a day. She was seen today again in the ER for heavy bleeding and CBC in the ER showed hemoglobin was 6.9. The patient has been transfused with 2 units of packed RBC. She has been seen by medicine and coags in the normal range in accordance with therapy treatment. In the ER she also had pelvic ultrasound as well as lower extremity ultrasound that is unremarkable. The patient has been admitted for observation. PAST MEDICAL HISTORY: 1. History of anemia. 2. History of diarrhea. 3. Menorrhagia and fibroid uterus. 4. Fall, syncope. PAST SURGICAL HISTORY: Unremarkable. SOCIAL HISTORY: The patient denies tobacco, drug or alcohol use. The patient is presently and lives with spouse and children. ALLERGIES: No known drug allergies. PHYSICAL EXAMINATION: GENERAL: Well-developed, well-nourished white female in no acute distress. HEART: S1, S2, regular rhythm and rate. LUNGS: Clear to auscultation bilaterally. ABDOMEN: Nontender, positive bowel sounds. EXTREMITIES: No cyanosis, clubbing or edema. PELVIC EXAMINATION: Mild to moderate amount of vaginal bleeding. ASSESSMENT AND PLAN: 1. She is a 46-year-old with menorrhagia and fibroid uterus. 2. Anemia as a result of diagnosis above in #1. PLAN: The patient has been transfused with 2 units. Had seen medicine and coags have been evaluated. We will try to stabilize patient's hemoglobin and reevaluate patient for surgery date. The hope is that surgery date can be moved up sooner than 06/29/2017. If not, all attempts will be made to stabilize her and get her ready for surgery on 06/29/2007.
[2017-06-14] MEDS: NORETHINDRONE ACETATE 5 MG TAB PO SCH ×2 (09:18→21:17)
[2017-06-14] MEDS: FERROUS SULFATE 325 MG TAB PO SCH ×2 (09:18→21:17)
[2017-06-14] MEDS: MEGESTROL ACETATE 40 MG TAB PO SCH ×3 (09:19→21:17)
[2017-06-14] MEDS: MULTIVITAMIN TAB PO SCH (09:19)
[2017-06-14 12:00] VITALS: BP 108/75; PULSE 90; TEMP 37.1; O2SAT 100
[2017-06-14] MEDS ORDERED: ENOXAPARIN 40 MG/0.4 ML SYR SQ ONE (15:17)
--- NOTE | 2017-06-14 15:18 | Progress Note ---
Medicine Progress Note Date & Time of Visit: Jun 14, 2017 at 15:16. (Mickie Johnston, P.A.-C.) Subjective Patient seen and examined. Doing much better today. Uterine bleeding has slowed down overnight with medication changes. Denies fatigue, lightheadedness, SOB, palpitations, weakness. (Mickie Johnston, P.A.-C.) Objective Last 8 Hrs Date Time Temp Pulse Resp B/P (MAP) Pulse Ox O2 Delivery O2 Flow Rate FiO2 06/14/17 12:00 37.1 90 16 108/75 (86) 100 Room Air 06/14/17 07:40 97 Room Air 06/14/17 07:40 36.7 87 16 118/79 (92) 97 Room Air Physical Exam: General Appearance: WD/WN, no apparent distress Head: normocephalic, atraumatic Eyes: normal inspection, PERRL, EOMI ENT: hearing grossly normal, pharynx normal Neck: supple, no JVD, no adenopathy Respiratory/Chest: lungs clear to auscultation. No wheezes, rales or rhonci. No respiratory distress or accessory muscle use Cardiovascular: regular rate, rhythm, no murmur, normal peripheral pulses Abdomen/GI: normal bowel sounds, soft, non-tender to palpation Extremities/Musculoskelatal: normal inspection, no calf tenderness, normal capillary refill, no pedal edema Neurologic/Psych: alert, normal mood/affect, oriented x 3 Skin: normal color, warm/dry Laboratory Results: Last 24 Hours Test 06/13/17 19:10 06/14/17 01:07 06/14/17 06:36 06/14/17 13:01 Hemoglobin 8.4 g/dL 7.9 g/dL 7.9 g/dL Hematocrit 26.2 % 24.2 % 25.4 % White Blood Count 5.73 K/uL Red Blood Count 2.96 M/uL Mean Corpuscular Volume 85.8 fL Mean Corpuscular Hemoglobin 26.7 pg Mean Corpuscular Hemoglobin Concent 31.1 g/dl RDW Standard Deviation 51.6 fL RDW Coefficient of Variation 16.3 % Platelet Count 266 K/uL Mean Platelet Volume 8.9 fL Prothrombin Time 12.0 SECONDS Prothromb Time International Ratio 1.1 Sodium Level 141 mmol/L Potassium Level 4.1 mmol/L Chloride Level 114 mmol/L Carbon Dioxide Level 24 mmol/L Anion Gap 3.0 mmol/L Blood Urea Nitrogen 6 mg/dl Creatinine 0.62 mg/dl Est Creatinine Clear Calc Drug Dose 124.4 ml/min Estimated GFR () 125.3 Estimated GFR (Non- 108.1 BUN/Creatinine Ratio 10.2 Random Glucose 86 mg/dl Calcium Level 7.5 mg/dl (Mickie Johnston, P.A.-C.) Assessment & Plan This is a 46yo F with PMH of uterine leiomyoma and h/o DVT who presents with worsening vaginal bleeding over the last 2 weeks. 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 Oscar on 06/29/17 -Discussed with and surgery will remain on scheduled date in 2 weeks Acute blood loss anemia: improved -Hgb of 7.9 today (increased from 6.9 yesterday) -Transfused 2 units of prbcs yesterday -Monitor H/H Subtherapeutic INR: -INR of 1.1 today after administration of Vit K and holding coumadin -INR was supratherapeutic at 3.2 yesterday -Consulted heme, appreciate recs -Continue monitoring coags H/o L DVT: -Patient diagnosed with DVT April 05 -Has been on coumadin with a therapeutic INR -Saw cost recorder out-patient for hypercoagulability workup. Found to have elevated homocysteine with plans to recheck in 12 weeks -Bedside bilateral LE U/S without evidence of DVTs -Discussed placing IVC filter vs Lovenox for surgery Thank you for this consultation. We will follow the patient with you during their hospital stay. You can reach a member of the [facility]05 via pager @ . Current Inpatient Medications: Current Inpatient Medications Medications (Trade) Dose Ordered Sig/Davy Route Start Time Stop Time Status Last Admin Dose Admin Acetaminophen (Tylenol Tab) 650 mg DAILY PRN PO 06/13/17 17:30 07/13/17 17:29 Multivitamins (Multivitamin Tab) 1 tab QAM PO 06/14/17 09:00 07/14/17 08:59 06/14/17 09:19 1 TAB Norethindrone Acetate (Aygestin Tab) 5 mg QAM PO 06/14/17 09:00 07/14/17 08:59 06/14/17 09:18 5 MG Norethindrone Acetate (Aygestin Tab) 10 mg QPM PO 06/13/17 21:00 07/13/17 20:59 06/13/17 20:52 10 MG Ferrous Sulfate (Feosol Tab) 325 mg BID PO 06/13/17 21:00 07/13/17 20:59 06/14/17 09:18 325 MG Lactated Ringer's 1,000 ml @ 125 mls/hr Q8H IV 06/13/17 17:59 07/13/17 17:58 06/14/17 10:43 125 MLS/HR Miscellaneous (Iv Fluids Completed) 1 ea PRN PRN N/A 06/13/17 18:30 06/13/18 18:29 Megestrol Acetate (Megace Tab) 40 mg TID PO 06/13/17 21:00 07/13/17 20:59 06/14/17 13:56 40 MG (Mickie Johnston ., P.A.-C.) ATTENDING ADDENDUM delayed entry date of service as noted above care coordinated with ANNABELLE Johnston please refer to her notes for full details, I agree with her notes patient seen and examined, records reviewed by myself as well on exam, patient seen resting in bed, comfortable states she feels much better bleeding has slowed denies chest pain, dyspnea, palpitations, dizziness in good spirits no other symptoms VS noted and reviewed oriented x 2, not in distress, speaks in sentences with no effort nor accessory muscle use normal rate, regular rhythm, no murmurs clear breath sounds bilaterally non distended, soft, nontender no bipedal edema, erythema, warmth no neuro deficits Hg 7.9 INR 1.1 ASSESSMENT/PLAN> VAGINAL BLEEDING, UTERINE FIBROIDS ON COUMADIN FOR RECENT DVT - bleeding resolving - INR 1.0 after vit k discussed with Dr. Kinsey she recommends for patient to change from coumadin to lovenox outpatient ff up with Dr. Kinsey ANEMIA - hg improved to 7.9 asymptomatic monitor as outpatient closely other diagnoses and plan of care as per ANNABELLE Johnston's notes Dean Hemphill MD (Dean Hemphill MD)
[2017-06-14 15:40] VITALS: BP 128/77; PULSE 89; TEMP 36.9; O2SAT 98
--- NOTE | 2017-06-14 16:36 | Progress Note ---
Subjective Date of Service: Jun 14, 2017. Subjective Pt evaluation today including: conversation w/ patient, physical exam Pain: 0 PO Intake: Regular diet Voiding: no voiding problems Doing well today, Bleeding has almost completely subsided. Ambulating without dizziness or SOB. Problem List Medical Problems: (1) Anemia Status: Acute (2) Diarrhea Status: Acute (3) Fever Status: Acute (4) Foot injury Status: Chronic (5) Microcytic anemia Status: Acute (6) Severe anemia Status: Acute (7) Syncope Status: Acute (8) UTI (urinary tract infection) Status: Acute (9) Vaginal bleeding Status: Acute (10) Vaginal bleeding Status: Acute Objective Vital Signs Date Time Temp Pulse Resp B/P (MAP) Pulse Ox O2 Delivery O2 Flow Rate FiO2 06/14/17 12:00 37.1 90 16 108/75 (86) 100 Room Air 06/14/17 07:40 97 Room Air 06/14/17 07:40 36.7 87 16 118/79 (92) 97 Room Air 06/14/17 03:00 36.8 87 16 114/76 (89) 98 Room Air 06/14/17 00:00 Room Air 06/13/17 19:15 37.0 89 18 124/77 (93) 100 Room Air 06/13/17 19:15 Room Air 06/13/17 17:11 89 16 130/82 98 Room Air 06/13/17 16:53 37.0 95 16 139/75 100 06/13/17 16:38 37.0 84 16 130/76 99 Physical Exam General Appearance: WD/WN, no apparent distress Respiratory/Chest: chest non-tender, lungs clear Cardiovascular: regular rate, rhythm Abdomen: normal bowel sounds, soft Neurologic/Psychiatric: alert, oriented x 3 Skin: normal color, warm/dry, no rash Laboratory Results Last 24 Hours Test 06/13/17 19:10 06/14/17 01:07 06/14/17 06:36 06/14/17 13:01 Hemoglobin 8.4 g/dL 7.9 g/dL 7.9 g/dL Hematocrit 26.2 % 24.2 % 25.4 % White Blood Count 5.73 K/uL Red Blood Count 2.96 M/uL Mean Corpuscular Volume 85.8 fL Mean Corpuscular Hemoglobin 26.7 pg Mean Corpuscular Hemoglobin Concent 31.1 g/dl RDW Standard Deviation 51.6 fL RDW Coefficient of Variation 16.3 % Platelet Count 266 K/uL Mean Platelet Volume 8.9 fL Prothrombin Time 12.0 SECONDS Prothromb Time International Ratio 1.1 Sodium Level 141 mmol/L Potassium Level 4.1 mmol/L Chloride Level 114 mmol/L Carbon Dioxide Level 24 mmol/L Anion Gap 3.0 mmol/L Blood Urea Nitrogen 6 mg/dl Creatinine 0.62 mg/dl Est Creatinine Clear Calc Drug Dose 124.4 ml/min Estimated GFR () 125.3 Estimated GFR (Non- 108.1 BUN/Creatinine Ratio 10.2 Random Glucose 86 mg/dl Calcium Level 7.5 mg/dl Assessment and Plan (1) Menorrhagia (2) Deep vein thrombosis (DVT) of left lower extremity (3) Uterine leiomyoma (4) Anemia This is a 46yo F with PMH of uterine leiomyoma and h/o DVT who presents with worsening vaginal bleeding over the last 2 weeks. Uterine bleeding, uterine leiomyoma: improving -Pelvis u/s unchanged enlarged fibroid uterus -Plans for total hysterectomy by Dr. Oscar on 06/29/17, surgery will remain on scheduled date in 2 weeks -Continue Megace as prescribed, bleeding much improved Acute blood loss anemia: improved -Hgb of 7.9 today (increased from 6.9 yesterday) -Transfused 2 units of prbcs yesterday -Monitor H/H Hx DVT: -Awaiting hematology consult on whether to start lovenox vs IVC filter.
[2017-06-14 19:20] VITALS: BP 112/76; PULSE 93; TEMP 36.8; O2SAT 99
[2017-06-14 23:35] VITALS: BP 106/73; PULSE 90; TEMP 36.8; O2SAT 99
[2017-06-15] MEDS: LACTATED RINGER'S 1000ML 1,000 ML IV SCH (03:19)
[2017-06-15 03:20] VITALS: BP 116/78; PULSE 84; TEMP 37; O2SAT 98
[2017-06-15] MEDS ORDERED: MGC40 PO (06:49)
[2017-06-15 07:34] LABS: HEMATOCRIT 25.5 % (37-47); MEAN CELL VOLUME 86.7 fL (80-100); MEAN CORPUSCULAR HEMOGLOBIN 27.9 pg (25-34); MEAN CORPUSCULAR HGB CONC 32.2 g/dl (32-36); MEAN PLATELET VOLUME 9.2 fL (7.4-10.4); PLATELET COUNT 286 K/uL (130-400); RED BLOOD COUNT 2.94 M/uL (4.2-5.4); WHITE BLOOD COUNT 5.52 K/uL (4.8-10.8)
[2017-06-15 07:40] LABS: PROTHROMBIN TIME (PATIENT) 10.5 SECONDS (9.0-12.0)
[2017-06-15 08:00] VITALS: BP 117/83; PULSE 90; TEMP 37; O2SAT 97
[2017-06-15] MEDS ORDERED: LVNIS40 SQ (08:09)
--- NOTE | 2017-06-15 08:13 | Discharge Instructions ---
Discharge Instructions Date of Service Jun 15, 2017. 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 Instructions / Follow-Up Instructions / Follow-Up ACTIVITY RECOMMENDATIONS: * Avoid tampons, douching, hot tubs, pools, and intercourse until your surgery. * May shower as usual. * No strenuous activity for 24-48 hours. After 24-48 hours, you can do anything you feel like doing (driving and sports are okay). RETURN TO SCHOOL/WORK: * You may return to school or work after 24 hours unless specified by your physician. DIET: * Resume previous diet. MEDICATIONS: Resume previous medications unless instructed otherwise by your surgeon. Ibuprofen 200mg 2-3 tablets every 4-6 hours as needed --OR-- Aleve 2 tablets every 8-12 hours as needed for post-operative discomfort Medications are over the counter. Tylenol may be used if above medications are contraindicated or not preferred. Medication should be taken with food or milk. do not take on an empty stomach. SPECIAL CARE INSTRUCTIONS: * Call office if you experience increased pelvic pain or discomfort not relieved by pain medicine, if you have foul smelling vaginal discharge, if you have bleeding that is heavier than a normal menstrual flow. If you are changing a maxi pad every 1- 2 hours, this is too heavy. vaginal spotting is normal for 1-2 weeks. FOLLOW UP VISIT: Call your doctor's office for a follow up appointment. Current Hospital Diet Patient's current hospital diet: Regular Diet Discharge Diet Recommended Diet: Regular Diet Pending Studies Studies pending at discharge: no Medical Emergencies . Who to Call and When: Medical Emergencies: If at any time you feel your situation is an emergency, please call 911 immediately. . Non-Emergent Contact Non-Emergency issues call your: Primary Care Provider, Photographer'S Assistant . . "Provider Documentation" section prepared by Leandro Oscar. . VTE Core Measure Inpt VTE Proph given/why not?: Enoxaparin (Lovenox)SQ
[2017-06-15] MEDS ORDERED: NURSING VERBAL MED ORDER ONE (08:30)
[2017-06-15] MEDS: NORETHINDRONE ACETATE 5 MG TAB PO SCH (08:57)
[2017-06-15] MEDS: MEGESTROL ACETATE 40 MG TAB PO SCH ×2 (08:57→13:08)
[2017-06-15] MEDS: FERROUS SULFATE 325 MG TAB PO SCH (08:57)
[2017-06-15] MEDS: MULTIVITAMIN TAB PO SCH (08:57)
[2017-06-15] MEDS ORDERED: ENOXAPARIN 40 MG/0.4 ML SYR SQ SCH (09:00)
--- NOTE | 2017-06-15 11:17 | Medical Consult ---
Consultation Date of Consultation: Jun 15, 2017. Attending Physician: Enmanuel Garay MD History of Present Illness Patient doing much better today. States that uterine bleeding has almost subsided. Denies any dizziness, palpitations, CP, SOB, calf pain, weakness. Ready to go home. Past Medical/Surgical History Medical Problems: (1) Anemia Status: Acute (2) Diarrhea Status: Acute (3) Fever Status: Acute (4) Foot injury Status: Chronic (5) Microcytic anemia Status: Acute (6) Severe anemia Status: Acute (7) Syncope Status: Acute (8) UTI (urinary tract infection) Status: Acute (9) Vaginal bleeding Status: Acute (10) Vaginal bleeding Status: Acute Family History Cancer FATHER (prostate) MOTHER (pancreatic- ) AUNT (ovarian cancer) Social History Smoking Status: Never Smoker Drug Use: none Marital Status: Housing Status: lives with family Occupation Status: employed Allergies Coded Allergies: No Known Allergies (Unverified , 06/08/17) Home Medications Reported Home Medications Medications Dose Route/Sig Max Daily Dose Days Date Category Dose Instructions Enoxaparin Sodium (Enoxaparin) 40 Mg/0.4 Ml Inj 40 Mg SQ QAM 06/15/17 Rx Megace (Megestrol Acetate) 40 Mg Tab 40 Mg PO TID 06/15/17 Rx Tylenol (Acetaminophen) 325 Mg Tab 650 Mg PO PRN 06/08/17 Reported Aygestin (Norethindrone Acetate) 5 Mg Tab 10 Mg PO QPM 06/08/17 Reported Jantoven (Warfarin Sodium) 2.5 Mg Tab 2.5 Mg PO 2XWEEK 06/08/17 Reported Sunday Jantoven (Warfarin Sodium) 5 Mg Tab 5 Mg PO 5XWEEK 06/08/17 Reported Sunday-PM Aygestin (Norethindrone Acetate) 5 Mg Tab 5 Mg PO QAM 04/05/17 Reported Kp Ferrous Sulfate (Ferrous Sulfate) 325 Mg Tab 1 Tab PO BID 04/05/17 Reported Multivitamin (Multivitamins) Tab 1 Tab PO QAM 04/30/08 Reported Current Inpatient Medications Current Inpatient Medications Medications (Trade) Dose Ordered Sig/Davy Route Start Time Stop Time Status Last Admin Dose Admin Acetaminophen (Tylenol Tab) 650 mg DAILY PRN PO 06/13/17 17:30 07/13/17 17:29 Multivitamins (Multivitamin Tab) 1 tab QAM PO 06/14/17 09:00 07/14/17 08:59 06/15/17 08:57 1 TAB Norethindrone Acetate (Aygestin Tab) 5 mg QAM PO 06/14/17 09:00 07/14/17 08:59 06/15/17 08:57 5 MG Norethindrone Acetate (Aygestin Tab) 10 mg QPM PO 06/13/17 21:00 07/13/17 20:59 06/14/17 21:17 10 MG Ferrous Sulfate (Feosol Tab) 325 mg BID PO 06/13/17 21:00 07/13/17 20:59 06/15/17 08:57 325 MG Miscellaneous (Iv Fluids Completed) 1 ea PRN PRN N/A 06/13/17 18:30 06/13/18 18:29 06/15/17 09:04 1 EA Megestrol Acetate (Megace Tab) 40 mg TID PO 06/13/17 21:00 07/13/17 20:59 06/15/17 08:57 40 MG Enoxaparin Sodium (Lovenox Inj) 40 mg QAM SQ 06/15/17 09:00 07/15/17 08:59 06/15/17 08:59 40 MG Review of Systems Ten systems reviewed and negative except as noted in the HPI. Physical Exam Date Time Temp Pulse Resp B/P (MAP) Pulse Ox O2 Delivery O2 Flow Rate FiO2 06/15/17 08:00 97 Room Air 06/15/17 08:00 37.0 90 18 117/83 (94) 97 Room Air 06/15/17 03:20 37.0 84 16 116/78 (91) 98 Room Air 06/14/17 23:35 Room Air 06/14/17 23:35 36.8 90 16 106/73 (84) 99 Room Air 06/14/17 19:20 36.8 93 16 112/76 (88) 99 Room Air 06/14/17 15:40 98 Room Air 06/14/17 15:40 36.9 89 16 128/77 (94) 98 Room Air 06/14/17 12:00 37.1 90 16 108/75 (86) 100 Room Air General Appearance: WD/WN, no apparent distress Head: normocephalic, atraumatic Eyes: normal inspection ENT: normal ENT inspection, hearing grossly normal Neck: supple, no adenopathy, thyroid normal, trachea midline Respiratory/Chest: chest non-tender, lungs clear, normal breath sounds, no respiratory distress Cardiovascular: regular rate, rhythm, no edema, no murmur Abdomen/GI: normal bowel sounds, non tender, soft, no organomegaly Extremities/Musculoskelatal: normal inspection, no calf tenderness, normal capillary refill, non-tender Neurologic/Psych: no motor/sensory deficits, alert, normal mood/affect, oriented x 3 Skin: normal color, warm/dry Laboratory Results Last 24 Hours Test 06/14/17 13:01 06/15/17 07:12 White Blood Count 5.52 K/uL Red Blood Count 2.94 M/uL Hemoglobin 8.2 g/dL Hematocrit 25.5 % Mean Corpuscular Volume 86.7 fL Mean Corpuscular Hemoglobin 27.9 pg Mean Corpuscular Hemoglobin Concent 32.2 g/dl RDW Standard Deviation 53.3 fL RDW Coefficient of Variation 16.7 % Platelet Count 286 K/uL Mean Platelet Volume 9.2 fL Prothrombin Time 10.5 SECONDS Prothromb Time International Ratio 1.0
--- NOTE | 2017-06-15 11:25 | Progress Note ---
Medicine Progress Note Date & Time of Visit: Jun 15, 2017 at 11:19. (Mickie Johnston, P.A.-C.) Subjective Patient doing much better today. States that uterine bleeding has almost subsided. Denies any dizziness, palpitations, CP, SOB, calf pain, weakness. Ready to go home. (Mickie Johnston, P.A.-C.) Objective Last 8 Hrs Date Time Temp Pulse Resp B/P (MAP) Pulse Ox O2 Delivery O2 Flow Rate FiO2 06/15/17 08:00 97 Room Air 06/15/17 08:00 37.0 90 18 117/83 (94) 97 Room Air 06/15/17 03:20 37.0 84 16 116/78 (91) 98 Room Air Physical Exam: General Appearance: WD/WN, no apparent distress Head: normocephalic, atraumatic Eyes: normal inspection, PERRL, EOMI ENT: hearing grossly normal, pharynx normal Neck: supple, no JVD, no adenopathy Respiratory/Chest: lungs clear to auscultation. No wheezes, rales or rhonci. No respiratory distress or accessory muscle use Cardiovascular: regular rate, rhythm, no murmur, normal peripheral pulses Abdomen/GI: normal bowel sounds, soft, non-tender to palpation Extremities/Musculoskelatal: normal inspection, no calf tenderness, normal capillary refill, no pedal edema Neurologic/Psych: alert, normal mood/affect, oriented x 3 Skin: normal color, warm/dry Laboratory Results: Last 24 Hours Test 06/14/17 13:01 06/15/17 07:12 White Blood Count 5.52 K/uL Red Blood Count 2.94 M/uL Hemoglobin 8.2 g/dL Hematocrit 25.5 % Mean Corpuscular Volume 86.7 fL Mean Corpuscular Hemoglobin 27.9 pg Mean Corpuscular Hemoglobin Concent 32.2 g/dl RDW Standard Deviation 53.3 fL RDW Coefficient of Variation 16.7 % Platelet Count 286 K/uL Mean Platelet Volume 9.2 fL Prothrombin Time 10.5 SECONDS Prothromb Time International Ratio 1.0 (Mickie Johnston, P.A.-C.) Assessment & Plan This is a 46yo F with PMH of uterine leiomyoma and h/o DVT who presents with worsening vaginal bleeding over the last 2 weeks. Uterine bleeding 2/2 uterine leiomyoma: improving -Per primary, Coremaker -Pelvis u/s with enlarged uterus with 6.5cm L fundal fibroid -Plans for total hysterectomy by Dr. Oscar on 06/29/17 Acute blood loss anemia: improved -Hgb of 8.2 today (increased from 7.9 yesterday) -Transfused 2 units of prbcs yesterday -Recheck CBC at [facility] follow-up in 1 week H/o L DVT: -Patient diagnosed with DVT April 05 -Bedside bilateral LE U/S without evidence of DVTs -Followed by [facility]. Stopped Coumadin indefinitely and started on Lovenox 40mg daily SQ -Homocysteine, methylmalonic acid and anti-cardiolipin IgM ab ordered -Instructed patient to schedule a 1 week follow-up with Dr. Kinsey to discuss labs Thank you for this consultation. We will follow the patient with you during their hospital stay. You can reach a member of the [facility] Hospitalist Team 28/05 via pager @ . Current Inpatient Medications: Current Inpatient Medications Medications (Trade) Dose Ordered Sig/Davy Route Start Time Stop Time Status Last Admin Dose Admin Acetaminophen (Tylenol Tab) 650 mg DAILY PRN PO 06/13/17 17:30 07/13/17 17:29 Multivitamins (Multivitamin Tab) 1 tab QAM PO 06/14/17 09:00 07/14/17 08:59 06/15/17 08:57 1 TAB Norethindrone Acetate (Aygestin Tab) 5 mg QAM PO 06/14/17 09:00 07/14/17 08:59 06/15/17 08:57 5 MG Norethindrone Acetate (Aygestin Tab) 10 mg QPM PO 06/13/17 21:00 07/13/17 20:59 06/14/17 21:17 10 MG Ferrous Sulfate (Feosol Tab) 325 mg BID PO 06/13/17 21:00 07/13/17 20:59 06/15/17 08:57 325 MG Miscellaneous (Iv Fluids Completed) 1 ea PRN PRN N/A 06/13/17 18:30 06/13/18 18:29 06/15/17 09:04 1 EA Megestrol Acetate (Megace Tab) 40 mg TID PO 06/13/17 21:00 07/13/17 20:59 06/15/17 08:57 40 MG Enoxaparin Sodium (Lovenox Inj) 40 mg QAM SQ 06/15/17 09:00 07/15/17 08:59 06/15/17 08:59 40 MG (Mickie Johnston ., P.A.-C.) ATTENDING ADDENDUM patient was already discharged before I was able to evaluate her discussed the case though with PA Mickie Johnston agree with her notes above Dean Hemphill MD (Dean Hemphill MD)
[2017-06-15 13:25] VITALS: BP 117/83; PULSE 90; TEMP 37; O2SAT 97
[2017-06-19 07:29] LABS: METHYLMALONIC ACID 118 NMOL/L (87-318)
--- NOTE | 2017-06-29 06:57 | Discharge Summary ---
Discharge Summary Date of Service Jun 29, 2017. Discharge Summary Admission Date: Jun 13, 2017 at 18:03 Discharge Date: Jun 15, 2017 Discharge Disposition: Home Principal Diagnosis: Anemia, Fibroid uterus, Heavy Menstrual bleeding, Hx DVT currently anticoagulated Consultations: Internal Medicine, Hematology/Oncology Medication Reconciliation New Medications: Enoxaparin (Enoxaparin Sodium) 40 Mg/0.4 Ml Inj 40 MG SQ QAM, #30 Megestrol Acetate (Megace) 40 Mg Tab 40 MG PO TID, #40 TAB Continued Medications: Acetaminophen (Tylenol) 325 Mg Tab 650 MG PO PRN, TAB Ferrous Sulfate (Kp Ferrous Sulfate) 325 Mg Tab 1 TAB PO BID, TAB Multivitamin (Multivitamin) Tab 1 TAB PO QAM Discontinued Medications: Norethindrone (Aygestin) 5 Mg Tab 5 MG PO QAM, TAB Norethindrone (Aygestin) 5 Mg Tab 10 MG PO QPM, TAB Warfarin Sod (Jantoven) 5 Mg Tab 5 MG PO 5XWEEK, TAB Sunday-PM Warfarin Sod (Jantoven) 2.5 Mg Tab 2.5 MG PO 2XWEEK, TAB Sunday Admission Information HPI (per Admitting provider): HISTORY OF PRESENT ILLNESS: The patient is a 46-year-old with known menorrhagia as well as uterine fibroids who was scheduled initially for endometrial ablation in April. On preop she was found to be lethargic and dizzy. Workup showed she had a left lower extremity DVT. Ablation was therefore postponed and the patient was placed on Coumadin. She had since done well on Coumadin. Her bleeding has improved. The patient had no bleeding after discharge in April. She is scheduled for hysterectomy on 06/29/2017. She, however, started having some more bleeding in mid May despite being placed on Aygestin 3 times a day. She was seen today again in the ER for heavy bleeding and CBC in the ER showed hemoglobin was 6.9. The patient has been transfused with 2 units of packed RBC. She has been seen by medicine and coags in the normal range in accordance with therapy treatment. In the ER she also had pelvic ultrasound as well as lower extremity ultrasound that is unremarkable. The patient has been admitted for observation. Physical Exam (per Admitting): GENERAL: Well-developed, well-nourished white female in no acute distress. HEART: S1, S2, regular rhythm and rate. LUNGS: Clear to auscultation bilaterally. ABDOMEN: Nontender, positive bowel sounds. EXTREMITIES: No cyanosis, clubbing or edema. PELVIC EXAMINATION: Mild to moderate amount of vaginal bleeding. Hospital Course (1) Menorrhagia (2) Deep vein thrombosis (DVT) of left lower extremity (3) Uterine leiomyoma (4) Anemia Patient was admitted on 06/13/2017 for acute anemia due to heavy bleeding. Has a known Fibroid uterus and is scheduled for a total laparoscopic hysterectomy on . She was diagnosed with an acute DVT in April and has been on coumadin since. On admission her Hemoglobin was found to be 6.9 and was symptomatic. She was transfused 2 units of PRBC. Medicine and Heme/onc was consulted. Her coumadin was stopped and was started on lovenox 40 mg SQ daily. She was switched to megace 40 mg TID and bleeding subsided. Repeat LE doppler revealed no DVT. She was discharged on 06/15/17 and was to follow up with Dr. Crowell (Heme/ Onc) within the next week. Will keep her scheduled surgery day. Discharged instructions were given. ATTENDING ADDENDUM patient was already discharged before I was able to evaluate her discussed the case though with ANNABELLE Johnston agree with her notes above Dean Hemphill MD Total time spent on discharge = 30 mins This includes examination of the patient, discharge planning, medication reconciliation, and communication with other providers. Discharge Instructions Discharge Instructions Date of Service Jun 15, 2017. Admission Reason for Admission: Menorrhagia Discharge Discharge Diagnosis / Problem: Anemia, Fibroid uterus, Abnormal Uterine Bleeding Discharge Goals Goal(s): Continuing SAND SIFTER care Activity Recommendations Activity Limitations: per Instructions/Follow-up section . Instructions / Follow-Up Instructions / Follow-Up ACTIVITY RECOMMENDATIONS: * Avoid tampons, douching, hot tubs, pools, and intercourse until your surgery. * May shower as usual. * No strenuous activity for 24-48 hours. After 24-48 hours, you can do anything you feel like doing (driving and sports are okay). RETURN TO SCHOOL/WORK: * You may return to school or work after 24 hours unless specified by your physician. DIET: * Resume previous diet. MEDICATIONS: Resume previous medications unless instructed otherwise by your surgeon. Ibuprofen 200mg 2-3 tablets every 4-6 hours as needed --OR-- Aleve 2 tablets every 8-12 hours as needed for post-operative discomfort Medications are over the counter. Tylenol may be used if above medications are contraindicated or not preferred. Medication should be taken with food or milk. do not take on an empty stomach. SPECIAL CARE INSTRUCTIONS: * Call office if you experience increased pelvic pain or discomfort not relieved by pain medicine, if you have foul smelling vaginal discharge, if you have bleeding that is heavier than a normal menstrual flow. If you are changing a maxi pad every 1- 2 hours, this is too heavy. vaginal spotting is normal for 1-2 weeks. FOLLOW UP VISIT: Call your doctor's office for a follow up appointment. Current Hospital Diet Patient's current hospital diet: Regular Diet Discharge Diet Recommended Diet: Regular Diet Pending Studies Studies pending at discharge: no Medical Emergencies . Who to Call and When: Medical Emergencies: If at any time you feel your situation is an emergency, please call 911 immediately. . Non-Emergent Contact Non-Emergency issues call your: Primary Care Provider, Pourer . . "Provider Documentation" section prepared by Leandro Oscar. . VTE Core Measure Inpt VTE Proph given/why not?: Enoxaparin (Lovenox)SQ Addendum: Mickie Johnston ., P.A.-Familia. on 06/15/17 @ 11:10 Discharge Inst - Addendum Addendum Provider: Addendum Notes were documented by provider Mickie Johnston. Please schedule a follow-up appt with Dr. Kinsey (hematology) in 1 week to discuss lab work. Continue with Lovenox 40mg SQ every morning. Problem Qualifiers (1) Menorrhagia: Menorrahagia type: with irregular cycle Qualified Codes: N92.1 - Excessive and frequent menstruation with irregular cycle (2) Deep vein thrombosis (DVT) of left lower extremity: Affected thrombotic vein of extremity: unspecified vein of extremity (3) Uterine leiomyoma: Uterine leiomyoma location: intramural Qualified Codes: D25.1 - Intramural leiomyoma of uterus (4) Anemia: Anemia type: unspecified type Qualified Codes: D64.9 - Anemia, unspecified
== END 2017-06-15 13:45 | disposition home or self-care (01) ==
LOC: C.EDB 11:17 → C.MS4N 18:03 → ENRESERV 18:15
PROVIDERS: ADMIT Obstetrics & Gynecology; ATTEND Obstetrics & Gynecology
DX: D62 Acute posthemorrhagic anemia (principal); D25.9 Leiomyoma of uterus, unspecified; N93.8 Other specified abnormal uterine and vaginal bleeding; F32.9 Major depressive disorder, single episode, unspecified; M92.8 Other specified juvenile osteochondrosis; Z86.718 Personal history of other venous thrombosis and embolism; Z79.01 Long term (current) use of anticoagulants

== ENCOUNTER 2017-06-29 05:09 | Inpatient (IN) | payer OTHER ==
[2017-06-08 14:18] VITALS: BMI 32.0
--- NOTE | 2017-06-08 14:47 | PAT Medication Instructions ---
Service Date Jun 08, 2017. Current Home Medication List Acetaminophen (Tylenol), 650 MG PO PRN Ferrous Sulfate (Kp Ferrous Sulfate), 1 TAB PO BID Multivitamin (Multivitamin), 1 TAB PO QAM Norethindrone (Aygestin), 5 MG PO QAM Norethindrone (Aygestin), 10 MG PO QPM Warfarin Sod (Jantoven), 5 MG PO 5XWEEK Warfarin Sod (Jantoven), 2.5 MG PO 2XWEEK Medication Instructions For Your Scheduled Surgery - Check with surgeon for instructions: Norethindrone (Aygestin), 5 MG PO QAM Norethindrone (Aygestin), 10 MG PO QPM - Check with surgeon/coumadin clinic for instructions: Warfarin Sod (Jantoven), 5 MG PO 5XWEEK Warfarin Sod (Jantoven), 2.5 MG PO 2XWEEK - Hold the following medications the morning of surgery: Ferrous Sulfate (Kp Ferrous Sulfate), 1 TAB PO BID Multivitamin (Multivitamin), 1 TAB PO QAM - Take the following medications the morning of surgery with a sip of water: Acetaminophen (Tylenol), 650 MG PO PRN (if needed) - Take the following medications as scheduled the night before surgery: Ferrous Sulfate (Kp Ferrous Sulfate), 1 TAB PO BID Acetaminophen (Tylenol), 650 MG PO PRN (if needed) If you have any questions please call us at [phone] or [phone] or [phone]
[2017-06-08 15:47] LABS: BASO % 0.8 %; BASO ABS # 0.05 K/uL (0-0.2); COMPLETE YES; EOS % 3.3 %; HEMATOCRIT 32.4 % (37-47); IG% 0.2 %; LYMPH % 40.4 %; LYMPH ABS # 2.53 K/uL (1.2-3.4); MEAN CELL VOLUME 86.2 fL (80-100); MEAN CORPUSCULAR HEMOGLOBIN 27.1 pg (25-34); MEAN CORPUSCULAR HGB CONC 31.5 g/dl (32-36); MEAN PLATELET VOLUME 10.3 fL (7.4-10.4); MONO % 6.5 %; NEUT % 48.8 %; PLATELET COUNT 301 K/uL (130-400); RED BLOOD COUNT 3.76 M/uL (4.2-5.4); WHITE BLOOD COUNT 6.27 K/uL (4.8-10.8)
[2017-06-08 15:51] LABS: BUN/CREATININE RATIO 13.2 (10-20); CALCIUM 8.5 mg/dl (8.5-10.1); CREATININE 0.76 mg/dl (0.60-1.20); POTASSIUM 3.9 mmol/L (3.5-5.1)
[2017-06-08 16:05] LABS: INR 2.4 (0.9-1.1); PARTIAL THROMBOPLASTIN RATIO 1.3
[~2017-06-29] VITALS: Ht 165.1 cm; Wt 88.5 kg
[2017-06-29] VITALS (8 sets, daily range): BP systolic 111–147; BP diastolic 64–83; PULSE 65–97; TEMP 36.3–37.4; O2SAT 96–100; Ht 165.1 cm; Wt 88.5 kg
[~2017-06-29 05:09] MED LIST changes: +LVNIS40 SQ; +MGC40 PO; -NORE5TAB5 PO; -WARF2.5T8 PO; -WARF5TAB7 PO
[2017-06-29] MEDS ORDERED: CEFAZOLIN 2000 MG/60 ML D5W 50 ML IV SCH (06:00)
[2017-06-29] MEDS ORDERED: LACTATED RINGER'S 1000ML 1,000 ML IV SCH ×3 (06:00→12:20)
[2017-06-29 06:14] LABS: INR 0.9 (0.9-1.1); PARTIAL THROMBOPLASTIN RATIO 0.9
[2017-06-29 06:22] LABS: HEMATOCRIT 31.5 % (37-47); MEAN CELL VOLUME 87.7 fL (80-100); MEAN CORPUSCULAR HEMOGLOBIN 26.7 pg (25-34); MEAN CORPUSCULAR HGB CONC 30.5 g/dl (32-36); MEAN PLATELET VOLUME 10.2 fL (7.4-10.4); PLATELET COUNT 306 K/uL (130-400); RED BLOOD COUNT 3.59 M/uL (4.2-5.4); WHITE BLOOD COUNT 5.22 K/uL (4.8-10.8)
[2017-06-29] MEDS ORDERED: MINERAL OIL LIGHT 10 ML BTL ONE (06:37)
[2017-06-29] MEDS ORDERED: METHYLENE BLUE 0.5% 10 ML VIAL ONE (06:37)
[2017-06-29] MEDS ORDERED: BUPIVACAINE 0.5 % 5 MG/1 ML MPF 30ML VIAL ONE (06:38)
--- NOTE | 2017-06-29 06:40 | History & Physical Bridge Note ---
H&P Re-Evaluation Bridge Note: I have examined the patient, reviewed the History & Physical and in the interval since the performance of the History & Physical I have noted the following changes of clinical significance: No changes noted
[2017-06-29] MEDS ORDERED: MIDAZOLAM HCL 1 MG/ML 2ML VIAL ONE (06:49)
[2017-06-29] MEDS ORDERED: FENTANYL CITRATE INJ 50 MCG/1 ML 2 ML VIAL ONE (06:49)
[2017-06-29] MEDS ORDERED: ALBUMIN HUMAN 5% 12.5 GM/250 ML VIAL IV ONE (07:15)
[2017-06-29] MEDS ORDERED: HYDROmorphone INJ 2 MG/ML SYR/VIAL ONE (07:27)
[2017-06-29] MEDS ORDERED: EpHEDrine SULFATE INJ 50 MG/ML AMP IV PRN (07:30)
[2017-06-29] MEDS ORDERED: HYDROmorphone INJ 1 MG/ML SYR IV PRN (07:30)
[2017-06-29] MEDS ORDERED: ATROPINE SULFATE 0.1 MG/ML 5ML SYR IV PRN (07:30)
[2017-06-29] MEDS ORDERED: ONDANSETRON INJ 2 MG/ML 2 ML VIAL IV PRN ×2 (07:30→10:45)
[2017-06-29] MEDS ORDERED: LARYING-O-JET KIT (LTA) ONE ×2 (08:04)
[2017-06-29] MEDS ORDERED: PROPOFOL IV EMULSION 10 MG/ML 20 ML VIAL IV ONE (08:04)
[2017-06-29] MEDS ORDERED: ONDANSETRON INJ 2 MG/ML 2 ML VIAL ONE (08:04)
[2017-06-29] MEDS ORDERED: ROCURONIUM BROMIDE 10 MG/ML 5 ML VIAL IV ONE (08:04)
[2017-06-29] MEDS ORDERED: LIDOCAINE HCL 2% 2 ML VIAL (20MG/ML) ONE (08:04)
[2017-06-29] MEDS ORDERED: DEXAMETHASONE SOD INJ 4 MG/ML VIAL ONE (08:04)
[2017-06-29] MEDS ORDERED: DiphenhydrAMINE HCL 50 MG/ML VIAL ONE (08:04)
[2017-06-29] MEDS ORDERED: NEOSTIGMINE METHYLSULFATE 5 MG/5 ML SYR ONE (10:28)
[2017-06-29] MEDS ORDERED: GLYCOPYRROLATE INJ 0.2 MG/ML VIAL ONE (10:28)
[2017-06-29] MEDS ORDERED: KETOROLAC TROMETHAMINE 30 MG/ML VIAL IV. PRN (10:45)
[2017-06-29] MEDS ORDERED: MAGNESIUM HYDROXIDE SUSP 30 ML UDC PO PRN (10:45)
[2017-06-29] MEDS ORDERED: BISACODYL 10 MG SUPP PR PRN (10:45)
[2017-06-29] MEDS ORDERED: SENNA 8.6 MG TAB PO PRN (10:45)
--- NOTE | 2017-06-29 10:51 | [facility] Post Operative Brief Note ---
Immediate Operative Summary Operative Date Jun 29, 2017. Pre-Operative Diagnosis Heavy Menstral Bleeding, Fibroid uterus, Anemia, Hx DVT on anticoagulation Post-Operative Diagnosis Heavy Menstral Bleeding, Fibroid uterus, Anemia, Hx DVT on anticoagulation Procedure(s) Performed Total Laparoscopic Hysterectomy, with Cystoscopy Surgeon Dr. Leandro Oscar Dna Analyst Surgeon(s) Dr. Evelio Yao Estimated Blood Loss 100 ml Findings On bimanual exam uterus was enlarged at midline and freely mobile. On laparoscopic exam uterus was enlarged due to known fibroids. Bilateral ovaries and tubes were grossly normal. No other intraabdominal or pelvic pathology noted. The uterus and cervix were successfully removed laparoscopically and removed from the vagina. Anesthesia was instructed to push methylene blue. Once the vaginal cuff was closed laparoscopically a cystoscopy was performed. There was no injury or suture noted within the bladder wall. Bilateral ureteral ostia spilled blue tinged urine indicating bilateral ureters were intact. The patient tolerated the surgery well and was sent to recovery with stable vital signs. Fluids (cc crystalloids) 1400 crystalloids, 200 albumin Specimens Permanent A: Uterus and cervix Drains Espinoza to gravity Anesthesia General Complication(s) None Disposition Recovery Room / PACU
[2017-06-29] MEDS: FENTANYL CITRATE INJ 50 MCG/1 ML 2 ML VIAL IV PRN ×2 (10:57→11:10)
--- NOTE | 2017-06-29 11:55 | Anesthesiology Progress Note ---
Anesthesia Post Op Note Date & Time Jun 29, 2017 at 11:55 Vital Signs Pain Intensity: 3 Vital Signs Past 12 Hours Date Time Temp Pulse Resp B/P (MAP) Pulse Ox O2 Delivery O2 Flow Rate FiO2 06/29/17 11:36 123/71 06/29/17 11:32 63 16 100 06/29/17 11:32 63 16 06/29/17 11:31 132/70 06/29/17 11:29 67 16 100 06/29/17 11:29 67 16 06/29/17 11:26 124/74 06/29/17 11:24 67 16 06/29/17 11:24 37.0 06/29/17 11:24 66 16 100 06/29/17 11:23 66 17 100 06/29/17 11:23 66 17 06/29/17 11:21 124/63 06/29/17 11:18 64 15 100 06/29/17 11:18 64 15 06/29/17 11:16 122/71 06/29/17 11:13 70 17 100 06/29/17 11:13 70 17 06/29/17 11:11 128/75 06/29/17 11:08 65 18 06/29/17 11:08 65 18 100 06/29/17 11:07 68 16 100 06/29/17 11:07 69 16 06/29/17 11:06 118/71 06/29/17 11:02 71 20 06/29/17 11:02 71 20 100 06/29/17 11:01 122/68 06/29/17 10:57 68 16 06/29/17 10:57 68 16 99 06/29/17 10:56 116/69 06/29/17 10:52 71 17 100 06/29/17 10:52 71 17 06/29/17 10:51 119/74 06/29/17 10:47 70 16 06/29/17 10:47 36. 75 16 120/72 100 Mask 10 06/29/17 10:47 69 16 120/72 100 06/29/17 05:35 37.1 86 18 145/82 (103) 98 Room Air Notes Mental Status: alert / awake / arousable, participated in evaluation Pt Amnestic to Procedure: Yes Nausea / Vomiting: adequately controlled Pain: adequately controlled Airway Patency, RR, SpO2: stable & adequate BP & HR: stable & adequate Hydration State: stable & adequate Anesthetic Complications: no major complications apparent
--- NOTE | 2017-06-29 12:17 | OPERATIVE REPORT ---
DATE OF OPERATION: 06/29/2017 PREOPERATIVE DIAGNOSES: 1. Heavy menstrual bleeding. 2. Fibroid uterus. 3. Anemia. 4. History of deep venous thrombosis and is currently anticoagulated. POSTOPERATIVE DIAGNOSES: Same. OPERATIVE PROCEDURE: Total laparoscopic hysterectomy and cystoscopy. SURGEON: Dr. Leandro Oscar. DATA SOLUTIONS ARCHITECT: Dr. Evelio Yao. ANESTHESIA: General. ESTIMATED BLOOD LOSS: 100 mL. IV FLUIDS: 1400 mL crystalloids and 200 mL albumin. URINE OUTPUT: 140 mL clear yellow urine. SPECIMENS: Uterus and cervix to pathology. DRAINS: Espinoza to gravity. COMPLICATIONS: None. DISPOSITION: Recovery room. OPERATIVE FINDINGS: On bimanual exam, uterus was enlarged at midline and freely mobile. Bilateral adnexa were clear to palpation. On laparoscopic exam, uterus was enlarged due to known fibroids. Bilateral ovaries and tubes were grossly normal. No other intra-abdominal or pelvic pathology noted. The uterus and cervix were successfully removed laparoscopically and removed from the vagina. Anesthesia was then instructed to push methylene blue. Once the vaginal cuff was closed laparoscopically, a cystoscopy was performed. There was no injury or suture noted within the bladder wall. Bilateral ureteral ostia spilled blue-tinged urine indicating bilateral ureters were intact. The patient tolerated the surgery well and was sent to recovery with stable vital signs. OPERATIVE PROCEDURE IN DETAIL: The patient was taken to the operating room, where general anesthesia was administered. Once anesthesia was found to be adequate, the patient was placed in the dorsal lithotomy position and was prepped and draped in a manner appropriate for the procedure. A weighted speculum was placed into the vagina and the anterior lip of the cervix was grasped with a single tooth tenaculum. The uterus was then sounded to 12 cm. A small VCare uterine manipulator was placed within the uterus in an anteverted fashion and was suture ligated to the cervix at 12 o'clock and 6 o'clock positions with 0 Vicryl suture. Once to the VCare was in place, the single tooth tenaculum and weighted speculum were removed from the vagina. A sterile Espinoza catheter was placed within the bladder and remained indwelling throughout the entire procedure. The patient was then ready for the laparoscopic portion of the procedure. Attention was directed towards the abdomen. 0.5% Marcaine was injected below the umbilicus. An 11-mm skin incision was made below the umbilicus in a horizontal fashion. The fascia was grasped with Raquel clamps and a Veress needle was then placed within the abdomen. Normal saline was injected with no fecal content aspirated. A pneumoperitoneum was then created. The Veress needle was then removed and an 11-mm trocar was placed within the abdomen under direct laparoscopic visualization. The pneumoperitoneum was maintained. The patient was then placed within a steep Trendelenburg position and the bowel was displaced superiorly away from the pelvis. A second 11-mm skin incision was made on the left side of the abdomen in a horizontal fashion and a second 11-mm trocar was placed within the abdomen under direct laparoscopic visualization. A third 11-mm skin incision made on the right side of the abdomen and a third 11-mm trocar was placed within the abdomen under direct laparoscopic visualization. A thorough examination of the abdomen and pelvis was then performed. Attention was then directed towards the right adnexa, where the round ligament was cauterized and transected. The uteroovarian ligament was cauterized and transected, continued inferiorly through the broad ligament, cauterized and transected as we continued inferiorly. Attention was then directed towards the left adnexa. The left round ligament was cauterized and transected. The left uteroovarian ligament was cauterized and transected, continued inferiorly through to the broad ligament. The broad ligament was then and the anterior leaf of broad ligament was cauterized and transected across the lower uterine segment, creating a bladder flap. The bladder was pushed away from the lower uterine segment. Likewise, the right side of the broad ligament was and the anterior leaf of the broad ligament was cauterized and transected, completing the bladder flap across the entire lower uterus. The bladder was pushed away from the lower uterus, bilateral ascending uterine arteries were cauterized and transected, continued inferiorly through the cardinal-uterosacral complex, cauterizing and transecting as we continued inferiorly. Once we were at the level of the VCare manipulator, we transected the cervix circumferentially with the LigaSure, successfully amputating it from the vaginal cuff. The specimen was then pulled through the vagina. The uterus was noted to be quite enlarged and in order to accommodate removal of the uterus, had to be removed in multiple pieces from the vagina. Once the entire specimen was successfully removed, a sterile glove with a sponge within it was placed within the vagina to maintain a pneumoperitoneum. The entire abdomen and pelvis were then copiously irrigated with warm saline solution. Excellent hemostasis was noted at bilateral pedicles and cuff. The vaginal cuff was then closed with 0 Polysorb suture with the EndoStitch in a continuous locking fashion. Again, excellent hemostasis was noted. A second layer of 0 Polysorb was used in an imbricating fashion to incorporate the peritoneum in a continuous running fashion. Again, the abdomen was copiously irrigated and all fluid was aspirated. Anesthesia was instructed to push methylene blue. At this point, all instruments were removed from the abdomen and all the CO2 was allowed to percolate through open cannulas. Attention was directed towards the perineum, where the Espinoza catheter was removed. A cystoscopy was performed. The cystoscope was introduced into the bladder. Thorough examination was performed noting no injury or suture within the bladder wall. Bilateral ureteral openings expelled blue-tinged urine, indicating bilateral ureters were intact. At this point, the cystoscope was removed and a second sterile Espinoza catheter was placed within the bladder. The glove was removed from the vagina. At this point, the procedure was found to be complete. Attention was redirected towards the abdomen, where all 3 trocars were removed from the abdomen. The fascia of all 3 incisions were reapproximated with 0 Vicryl suture in a [id number] interrupted fashion. All 3 skin incisions were then closed with 4-0 Monocryl in a subcuticular fashion. Excellent hemostasis was noted at all 3 incisions. All sponge and instrument counts were found to be correct x2. The patient tolerated the procedure well and was sent to recovery with stable vital signs. I attest to the content of the Intraoperative Record and any orders documented therein. Any exception s are noted below.
[2017-06-29] MEDS: OXYCODONE/ACETAMINOPHEN 5-325 TAB PO PRN ×3 (15:42→23:24)
[2017-06-29] MEDS: IBUPROFEN 600 MG TAB PO PRN ×2 (17:53→23:23)
[2017-06-29 19:17] LABS: HEMATOCRIT 28.4 % (37-47)
[2017-06-30 03:50] VITALS: BP 122/71; PULSE 87; TEMP 36.8; O2SAT 98
[2017-06-30] MEDS: IBUPROFEN 600 MG TAB PO PRN ×2 (03:59→08:51)
[2017-06-30] MEDS: OXYCODONE/ACETAMINOPHEN 5-325 TAB PO PRN ×2 (03:59→08:51)
[2017-06-30 06:02] LABS: BASO % 0.2 %; BASO ABS # 0.02 K/uL (0-0.2); EOS % 0.2 %; HEMATOCRIT 26.5 % (37-47); IG% 0.1 %; LYMPH % 20.3 %; LYMPH ABS # 1.69 K/uL (1.2-3.4); MEAN CELL VOLUME 87.5 fL (80-100); MEAN CORPUSCULAR HEMOGLOBIN 25.7 pg (25-34); MEAN CORPUSCULAR HGB CONC 29.4 g/dl (32-36); MEAN PLATELET VOLUME 9.6 fL (7.4-10.4); MONO % 9.4 %; NEUT % 69.8 %; PLATELET COUNT 281 K/uL (130-400); RED BLOOD COUNT 3.03 M/uL (4.2-5.4); WHITE BLOOD COUNT 8.33 K/uL (4.8-10.8)
[2017-06-30 06:37] LABS: ANISOCYTOSIS PRESENT; COMPLETE YES; POLYCHROMASIA 1+
[2017-06-30 06:39] LABS: BUN/CREATININE RATIO 13.9 (10-20); CALCIUM 7.9 mg/dl (8.5-10.1); CREATININE 0.88 mg/dl (0.60-1.20); POTASSIUM 4.2 mmol/L (3.5-5.1)
[2017-06-30 07:40] VITALS: O2SAT 99
[2017-06-30 07:44] VITALS: BP 115/74; PULSE 85; TEMP 36.8; O2SAT 99
--- NOTE | 2017-06-30 08:43 | OB/GYN Progress Note ---
[facility] Progress Note Date of Service: Jun 30, 2017. Postop day1 Patient is seen and examined Feels well, no complaints Pain is under control with meds No CP/ SOB/ Dizziness/ N&V/ VB/ Leg pain OOB WITHOUT dizziness Tolerating regular diet Ambulating, voiding without difficulty Date Time Temp Pulse Resp B/P (MAP) Pulse Ox O2 Delivery O2 Flow Rate FiO2 06/30/17 07:44 36.8 85 18 115/74 (88) 99 Room Air 06/30/17 07:40 99 Room Air 06/30/17 03:50 36.8 87 18 122/71 (88) 98 Room Air 06/29/17 23:15 96 Room Air 06/29/17 23:15 37.0 82 20 115/66 (82) 96 Room Air 06/29/17 19:10 37.4 82 18 123/76 (92) 97 Room Air 06/29/17 15:35 96 Room Air 06/29/17 15:35 36.8 97 18 147/83 (104) 96 Room Air 06/29/17 14:00 36.3 65 16 111/64 (80) 98 Room Air 06/29/17 12:45 36.6 68 18 136/82 (100) 97 Room Air 06/29/17 12:15 36.6 74 18 129/69 (89) 98 Room Air 06/29/17 11:45 36.8 81 18 123/70 (87) 100 Nasal Cannula 2.0 06/29/17 11:45 100 Nasal Cannula 2.0 06/29/17 11:45 100 Nasal Cannula 2.0 06/29/17 11:36 123/71 06/29/17 11:32 63 16 100 06/29/17 11:32 63 16 06/29/17 11:31 132/70 06/29/17 11:29 67 16 100 06/29/17 11:29 67 16 06/29/17 11:26 124/74 06/29/17 11:24 67 16 06/29/17 11:24 37.0 06/29/17 11:24 66 16 100 06/29/17 11:23 66 17 100 06/29/17 11:23 66 17 06/29/17 11:21 124/63 06/29/17 11:18 64 15 100 06/29/17 11:18 64 15 06/29/17 11:16 122/71 06/29/17 11:13 70 17 100 06/29/17 11:13 70 17 06/29/17 11:11 128/75 06/29/17 11:08 65 18 06/29/17 11:08 65 18 100 06/29/17 11:07 68 16 100 06/29/17 11:07 69 16 06/29/17 11:06 118/71 06/29/17 11:02 71 20 06/29/17 11:02 71 20 100 06/29/17 11:01 122/68 06/29/17 10:57 68 16 06/29/17 10:57 68 16 99 06/29/17 10:56 116/69 06/29/17 10:52 71 17 100 06/29/17 10:52 71 17 06/29/17 10:51 119/74 06/29/17 10:47 70 16 06/29/17 10:47 36. 75 16 120/72 100 Mask 10 06/29/17 10:47 69 16 120/72 100 PE: General: Alert, orientedx3, NAD CVS: S1S2 RRR Lungs: CTAB Abd: soft, NT, ND, BS+, Incisions C/D/I No VB Ext: NT, no edema, no erythema, SCD's on AP: 46 yo female s/p TLH, Cystoscopy , pod#1 VSS Afebrile doing well Anemic, asymptomatic, on iron h/o DVT, on Lovenox, followed by Hematology DC home, f/u in office All questions were answered Instructions were given when to call
[2017-06-30] MEDS ORDERED: MTR600X PO (08:44)
[2017-06-30] MEDS ORDERED: OXYC-57 PO (08:44)
--- NOTE | 2017-06-30 08:45 | Discharge Instructions ---
Discharge Instructions Date of Service Jun 30, 2017. Admission Reason for Admission: Heavy Menstrual Bleeding, Fibroid Uterus, Anemia, Discharge Discharge Diagnosis / Problem: Laparoscopic Hysterectomy Discharge Goals Goal(s): Routine recovery after surgery Activity Recommendations Activity Limitations: as noted below Lifting Limitations: no more than 10 pounds Exercise/Sports Limitations: until after follow-up appointment May Resume Sexual Activity: after follow-up appointment Shower/Bathe: keep incision dry Driving or Machine Use: SPECIAL CARE INSTRUCTIONS: * Check temperature twice daily for one week. Report any elevation over 100.4 degrees Fahrenheit (38.0 degrees Celsius). * Call office in the next few days for return appointment. * You may experience some vaginal spotting and/or bleeding, this is normal for one or two weeks and should not alarm you. * Post-operative discomfort may consist of a sore throat, a "bloated" feeling and pain in the shoulders. These are normal symptoms which usually only last for two or three days. FOLLOW UP VISIT: Keep any scheduled doctor appointments. . Current Hospital Diet Patient's current hospital diet: Regular Diet Discharge Diet Recommended Diet: Regular Diet Procedures Procedures Performed: Total Laparoscopic Hysterectomy, with Cystoscopy Pending Studies Studies pending at discharge: no Medical Emergencies . Who to Call and When: Medical Emergencies: If at any time you feel your situation is an emergency, please call 911 immediately. . Non-Emergent Contact Non-Emergency issues call your: Surgeon Call Non-Emergent contact if: you have a fever, temperature is above 100.5, your pain is not controlled, your pain is worsening, wound has increased drainage, wound has increased redness . . "Provider Documentation" section prepared by Evelio Yao. . VTE Core Measure Inpt VTE Proph given/why not?: Enoxaparin (Lovenox)SQ
[2017-06-30] MEDS ORDERED: ENOXAPARIN 40 MG/0.4 ML SYR SQ SCH (09:00)
[2017-06-30 12:20] VITALS: BP 115/74; PULSE 85; TEMP 36.8; O2SAT 99
--- NOTE | 2017-07-03 16:39 | Discharge Summary ---
Discharge Summary Date of Service Jul 03, 2017. Discharge Summary Admission Date: Jun 29, 2017 at 09:27 Discharge Date: Jun 30, 2017 Discharge Disposition: Home Principal Diagnosis: Heavy Menstrual bleeding, Fibroid uterus, Anemia, Hx of DVT on anticoagulation Procedures: Total Laparoscopic hysterectomy, Cystoscopy Medication Reconciliation New Medications: Ibuprofen (Ibuprofen) 600 Mg Tab 600 MG PO Q4H PRN for Pain, DUNAWAY, Cramping, Edema, #40 TAB Oxycodone/Acetaminophen 5MG/325MG (Percocet 5MG/325MG) Tab 1-2 TAB PO Q4H PRN for DUNAWAY, Cramping, edema, #20 TAB PAIN Continued Medications: Enoxaparin (Enoxaparin Sodium) 40 Mg/0.4 Ml Inj 40 MG SQ QAM, #30 Ferrous Sulfate (Kp Ferrous Sulfate) 325 Mg Tab 1 TAB PO BID, TAB Multivitamin (Multivitamin) Tab 1 TAB PO QAM Discontinued Medications: Acetaminophen (Tylenol) 325 Mg Tab 650 MG PO PRN, TAB Megestrol Acetate (Megace) 40 Mg Tab 40 MG PO TID, #40 TAB Admission Information HPI (per Admitting provider): Patient is a 47 y/o patient with a known enlarged fibroid uterus has been having heavy menstrual bleeding fo more then 6 months causing severe anemia at times. She required blood transfusions due to the anemia. She was found to have a DVT during her admission in March and was starting on coumadin. Since then she has been admitted one more time 2 weeks ago for severe bleeding and anemia. Her coumadin was stopped and switched to lovenox 40 mg SQ daily. Due to the amount of bleeding she is having we decided to proceed with a hysterectomy. She is currently being followed by hematology and her PCP. Risks, benefits and alternatives to the procedure were discussed with the patient and informed consent was signed. Physical Exam (per Admitting): General Appearance: WD/WN, no apparent distress Respiratory/Chest: chest non-tender, lungs clear Cardiovascular: regular rate, rhythm Abdomen/GI: normal bowel sounds, soft Genitourinary - Female: external genitalia normal, normal cervix, normal ovaries and adnexa, + abnormal uterine size Neurologic/Psych: alert, oriented x 3 Skin: normal color, warm/dry, no rash Hospital Course Patient underwent a total laparoscopic hysterectomy and cystoscopy on the day of admission without complications. Her postop recovery was uneventful. Her calzada catheter was removed the evening of her surgery. Her pain was controlled throughout her stay. Her diet and activity were advanced as tolerated. Her incisions were clean/dry/intact. She was discharged home on POD # 1 with discharge instructions. Total time spent on discharge = 30 mins This includes examination of the patient, discharge planning, medication reconciliation, and communication with other providers. Discharge Instructions POST OPERATIVE: BOWEL FUNCTION/MEDICATIONS: 1. Constipation pain and discomfort are the most common complaints 5-7 days after surgery. Points 2-6 address the things that can help. 2. Chewing gum can help stimulate the gut and help improve digestion and motility. 3. Milk of Magnesia 1-2 times per day until return of bowel function. 4. Colace is a stool softener that helps. Taking this 2-3 times per day until bowel function returns to normal is highly recommended. 5. Dulcolax is a laxative that may be used if several days have passed without a bowel movement. Alternatively Miralax may be used daily instead. 6. Drink plenty of fluids as this will also reduce constipation. 7. Narcotic pain medications will be prescribed by your physician. They are safe to use and we encourage you to use them. If you are not allergic, ibuprofen will also be prescribed. Many patients will be able to transition off of the narcotic medications to ibuprofen by postoperative day 3. ACTIVITY RECOMMENDATIONS: 1. Get plenty of rest and listen to your body. If you are tired, take a nap. 2. You may shower, but do not take a tub bath until you see your doctor at the 2 week post operative visit. 3. Absolutely NO intercourse and nothing in the vagina until you are examined by your doctor at the 6 week visit. At that visit it will be determined when such activities can be resumed. This can range from 6-12 weeks after your surgery depending on healing time. 4. The main physical activity in the first week should be walking. By the second week you can slowly increase activity. There are no limits on walking up and down stairs. 5. Do not lift more than 5-10 lbs for 4 weeks. Remember the "one-handed rule", i.e. if you can lift something with only one hand it's likely okay. 6. Minimize tomography technologist like vacuuming and exercising for 4 weeks. "Overdoing it" can lead to incisions not healing, pain and vaginal bleeding , so again, listen to your body. 7. Driving can be resumed when you feel able. Do not drive within 24 hours of taking a narcotic medication. EXPECTATIONS: 1. Vaginal spotting, bleeding and discharge are common after surgery. There may even be an odor to the discharge which is often related to sutures used in the vagina. If you experience heavy vaginal bleeding, call the office number day or night [phone]. 2. Bladder discomfort is common after surgery from the catheter. This usually resolves in 1-2 weeks. 3. By the end of the 3rd or 4th week you should be feeling much better. It may take up to 6 weeks for your energy levels to return to normal. 4. Narcotic medications have side effects such as: dizziness, headache, nausea and/or vomiting. If you suspect your pain medication is causing problems, call our office and we may be able to prescribe an alternate medication. 5. The skin incisions are often covered with a liquid bandage. This will gradually peel off over time. CALL THE OFFICE IF YOU HAVE ANY OF THE FOLLOWIN. Temperature of 101 degrees or higher. 2. Severe abdominal or pelvic pain not relieved by pain medication. 3. Persistent nausea or vomiting. 4. Increased pain with urination or difficulty urinating. 5. Bright red bleeding that soaks more than 1 pad per hour. CONTACT PHONE NUMBERS: Main Office: [phone] FOLLOW-UP: Post-Operative Appointments: * Individual instructions will have been given about the timing of your first examination, but this is usually at the end of the second week home. * You will need to call the office at [phone] soon after discharge to make the appointment for your post-op check-up if it has not already been scheduled. * Additional information regarding activity, sexual intercourse and when to return to work will be given at this appointment. WE WISH YOU A SPEEDY RECOVERY!
== END 2017-06-30 12:20 | disposition home or self-care (01) | DRG 743 ==
LOC: C.ACU 05:09 → C.MS4N 09:27 → ENRESERV 11:58
PROVIDERS: ADMIT Obstetrics & Gynecology; ATTEND Obstetrics & Gynecology
PROC: 0UT94ZZ Resection of Uterus, Percutaneous Endoscopic Approach (ICD-10-PCS; principal; 2017-06-29 07:00)
PROC: 0UTC4ZZ Resection of Cervix, Percutaneous Endoscopic Approach (ICD-10-PCS; principal; 2017-06-29 07:00)
DX: N92.4 Excessive bleeding in the premenopausal period (principal); D25.9 Leiomyoma of uterus, unspecified; D64.9 Anemia, unspecified; Z86.718 Personal history of other venous thrombosis and embolism; Z79.01 Long term (current) use of anticoagulants

== ENCOUNTER → 2017-07-13 | Outpatient (CLI) | payer OTHER ==
[~2017-07-13] MED LIST changes: -ACET-1175 PO; -MGC40 PO; +MTR600X PO; +OXYC-57 PO
--- NOTE | 2017-07-13 11:32 | DIAGNOSTIC IMAGING REPORT ---
BILATERAL LOWER EXTREMITY VENOUS DOPPLER CLINICAL HISTORY: Elevated d-dimer. History of deep venous thrombus. COMPARISON STUDY: Bilateral lower extremity venous Doppler June 13, 2017. TECHNIQUE: Sonography of the deep venous system of the bilateral lower extremities was performed. Compression and augmentation were evaluated. FINDINGS: The bilateral common femoral, superficial femoral and popliteal veins were compressible. Augmentation was normal. Flow was shown within the deep calf vessels. IMPRESSION: No evidence of deep venous thrombus within the bilateral lower extremities. Electronically signed by: Zackery Adler M.D. 07/13/2017 11:31 AM Dictated Date/Time: 07/13/2017 11:30 AM
== END | disposition home or self-care (01) ==
LOC: C.ULTRBC 11:02
PROVIDERS: ATTEND Internal Medicine Hematology & Oncology
DX: Z86.718 Personal history of other venous thrombosis and embolism (principal); R79.89 Other specified abnormal findings of blood chemistry

== ENCOUNTER 2021-11-02 13:45 | Inpatient (IN) ==
[2021-11-02 14:55] LABS: Basophils # (auto) 0.02 K/uL (0-0.2); Basophils % (auto) 0.3 %; Eosinophils # (auto) 0.13 K/uL (0-0.5); Eosinophils % (auto) 1.7 %; Hematocrit (blood only) 33.4 % (37-47); Hemoglobin 10.8 g/dL (12.0-16.0); Immature Granulocytes # (auto) 0.03 K/uL (0.00-0.02); Immature Granulocytes % (auto) 0.4 %; Lymphocytes # (auto) 1.44 K/uL (1.2-3.4); Lymphocytes % (auto) 18.9 %; Mean Corpuscular Hemoglobin 31.5 pg (25-34); Mean Corpuscular Hgb Conc 32.3 g/dL (32-36); Mean Corpuscular Volume 97.4 fL (80-100); Mean Platelet Volume 8.7 fL (7.4-10.4); Monocytes # (auto) 0.09 K/uL (0.11-0.59); Monocytes % (auto) 1.2 %; Neutrophils # (auto) 5.89 K/uL (1.4-6.5); Neutrophils % (auto) 77.5 %; Platelet Count 254 K/uL (130-400); RDW Coefficient of Variation 16.5 % (11.5-14.5); RDW Standard Deviation 58.6 fL (36.4-46.3); Red Blood Count 3.43 M/uL (4.2-5.4)
[2021-11-02 15:19] LABS: Albumin Level 3.7 gm/dl (3.4-5.0); BUN Creatinine Ratio 10.4 (10-20); Calcium 9.1 mg/dl (8.5-10.1); Creatinine Clr Calc Pharmacy 105.4 ml/min; Est GFR (African American) 122.3 ml/min; Est GFR (Non-African American) 105.5 ml/min; Potassium 3.1 mmol/L (3.5-5.1)
[2021-11-02 15:21] LABS: Bilirubin,Total 0.6 mg/dl (0.2-1); Globulin 3.7 gm/dl (2.5-4.0); Total Protein 7.4 gm/dl (6.4-8.2)
--- NOTE | 2021-11-02 16:08 | Emergency Department Note ---
History of Present Illness General Chief complaint: Abnormal Labs/Diagnostic Testing Stated complaint: POSSIBLE PE ON SCAN YESTERDAY-DOC REF Time Seen by Provider: 11/02/21 15:36 Source: patient History of Present Illness Provider complaint: Pulmonary emboli Onset (ago): day(s) Location: chest Pain Consistency: + constant Quality: + other (Pulmonary emboli) Relieved By: + none Associated symptoms: + cough; no chest pain, no fever/chills, no headaches, no nausea/vomiting, no shortness of breath or no weakness This is a 51-year-old female sent here by her oncologist due to a abnormal CT scan from yesterday. The patient had the CT scan of her chest, abdomen and pelvis yesterday which showed multiple bilateral pulmonary emboli in the lower lobes. She does not really have any symptoms such as shortness of breath or chest pain but does state that she has been coughing for about a week. She is fully vaccinated and boostered for COVID-19. She had a COVID-19 PCR test last week which was negative. She denies any palpitations, fever, abdominal pain, vomiting, diarrhea, hematuria, black or bloody stools or headaches. She has had a hysterectomy. She does state that she did have a blood clot in the right leg which was unprovoked years ago and she was on a blood thinner for about 3 months. She had genetic testing afterwards which was negative. She does have a history of breast cancer and is scheduled to have mastectomy and axillary dissection in [place] on November 08. Home Medications Medication Instructions Recorded Confirmed Type cranberry 1,000 mg capsule 1,000 mg PO BID 11/02/21 11/02/21 History escitalopram oxalate 5 mg tablet 5 mg PO DAILY 11/02/21 11/02/21 History ibuprofen 200 mg tablet 400 mg PO DAILY PRN 11/02/21 11/02/21 History lorazepam 0.5 mg tablet 0.5 mg PO BID PRN 11/02/21 11/02/21 History multivitamin with minerals 1 tab PO DAILY 11/02/21 11/02/21 History (Multiple Vitamin-Minerals) ondansetron HCl 8 mg tablet 8 mg PO Q8 PRN 11/02/21 11/02/21 History prochlorperazine maleate 10 mg 10 mg PO Q6 PRN 11/02/21 11/02/21 History tablet Allergies Allergy/AdvReac Type Severity Reaction Status Date / Time No Known Allergies Allergy Unverified 11/02/21 16:50 Past Med/Surg History Medical History Anemia Breast cancer Deep vein thrombosis (DVT) of left lower extremity Depression History of hysteroscopy "04/05/2017 hysteroscopy endometrial ablation" Uterine leiomyoma Surgical History History of breast biopsy History of tubal ligation Family History Sister Breast cancer Father Prostate cancer Mother FH: pancreatic cancer Social History Smoking Status: Never smoker Hx Alcohol Use: Yes Alcohol Intake Frequency: Monthly or Less Hx Substance Use: No Feels Safe at Home: Yes Review of Systems See HPI for pertinent positives & negatives. and A total of 10 systems reviewed and were otherwise negative Physical Exam Vital Signs Vital Signs - 24 hr 11/02/21 14:10 11/02/21 17:02 Temperature 36.8 C Temperature Source Temporal Artery Scan Pulse Rate 112 H Pulse Rate [Finger] 96 H Pulse Rhythm [Finger] Regular Pulse Strength [Finger] Normal Respiratory Rate 19 16 Respiratory Effort / Characteristics Non-Labored Spontaneous Respiratory Depth Normal Respiratory Pattern Regular Blood Pressure 128/73 Blood Pressure [Right Arm] 140/90 Blood Pressure Mean 91 Blood Pressure Mean [Right Arm] 106 Blood Pressure Position [Right Arm] Semi-fowlers Pulse Oximetry 98 98 Oxygen Delivery Method Room Air Room Air Sepsis Recent Fever Within 48 Hours No Sepsis New/Unexplained Change in Mental Status N/A Sepsis Action Taken by Nursing No Action Required Constitutional: Vital signs reviewed. Eyes: Pupils are equal round reactive to light. Conjunctiva are noninjected. ENT: Pharynx is clear without erythema or exudate. Mucous membranes are moist. Neck supple without meningeal signs. Respiratory: Clear to auscultation bilaterally. Breath sounds are equal bilaterally. Cardiovascular: Tachycardic. Regular rhythm. GI: Soft, nondistended and nontender. Bowel sounds are present. Musculoskeletal: No peripheral edema. No lower extremity tenderness. Integumentary: No cyanosis. or jaundice. Neurological: The patient is awake and alert. No focal deficits. Psychiatric: Normal affect. Not anxious appearing. Medical Decision Making Differential Diagnosis Pulmonary emboli, DVT, right heart strain, anemia, breast cancer Medical Records Attestation: I reviewed the patient's medical records. I did perform a limited focused review of portions of the patient's old chart on the electronic medical record. The patient has had no recent pertinent visits to this hospital. I did obtain records through the [employer] system. She did have a CT of her chest with contrast 11/01/2021 which demonstrated multiple bilateral pulmonary emboli seen in multiple lower lobe vessels. No mention of pulmonary infarct was noted. She does have cholelithiasis as well as signs of esophagitis. She also had a PET scan in April of this year when she was diagnosed with lung cancer but the results are not available her last CBC was October 20, 2021 with a white count of 2.6, hemoglobin 9.1 and platelet count of 117. Home Medications Current Medication List: was personally reviewed by me Laboratory Data Attestation: I reviewed the patient's lab results. Result diagrams: 11/02/21 14:43 11/02/21 14:43 Lab Results 11/02/21 11/02/21 11/02/21 Range/Units 14:43 14:43 17:04 WBC 7.60 (4.8-10.8) K/uL RBC 3.43 L (4.2-5.4) M/uL Hgb 10.8 L (12.0-16.0) g/dL Hct 33.4 L (37-47) % MCV 97.4 (80-100) fL MCH 31.5 (25-34) pg MCHC 32.3 (32-36) g/dL RDW Std Deviation 58.6 H (36.4-46.3) fL RDW Coeff of Elizabeth 16.5 H (11.5-14.5) % Plt Count 254 (130-400) K/uL MPV 8.7 (7.4-10.4) fL Immature Gran % (Auto) 0.4 % Neut % (Auto) 77.5 % Lymph % (Auto) 18.9 % [place] % (Auto) 1.2 % Eos % (Auto) 1.7 % Baso % (Auto) 0.3 % Neut # (Auto) 5.89 (1.4-6.5) K/uL Lymph # (Auto) 1.44 (1.2-3.4) K/uL [place] # (Auto) 0.09 L (0.11-0.59) K/uL Eos # (Auto) 0.13 (0-0.5) K/uL Baso # (Auto) 0.02 (0-0.2) K/uL Immature Gran # (Auto) 0.03 H (0.00-0.02) K/uL Sodium 138 (136-145) mmol/L Potassium 3.1 L (3.5-5.1) mmol/L Chloride 106 (98-107) mmol/L Carbon Dioxide 25 (21-32) mmol/L Anion Gap 7.0 (3-11) BUN 6 L (7-18) mg/dl Creatinine 0.60 (0.6-1.2) mg/dl Est Cr Clr Drug Dosing 105.4 ml/min Est GFR ( Amer) 122.3 ml/min Est GFR (Non-Af Amer) 105.5 ml/min BUN/Creatinine Ratio 10.4 (10-20) Glucose 96 (70-99) mg/dl Calcium 9.1 (8.5-10.1) mg/dl Magnesium 2.1 (1.8-2.4) mg/dl Total Bilirubin 0.6 (0.2-1) mg/dl AST 27 (15-37) U/L ALT 39 (12-78) Alkaline Phosphatase 81 (45-117) U/L Total Protein 7.4 (6.4-8.2) gm/dl Albumin 3.7 (3.4-5.0) gm/dl Globulin 3.7 (2.5-4.0) gm/dl Albumin/Globulin Ratio 1.0 (0.9-2) SARS-CoV-2, RNA, NAAT NEGATIVE (NEGATIVE) Imaging Data Radiologist's Impression: Venous Doppler Study 11/02/21 16:01 US venous doppler LE BI CLINICAL HISTORY: Breast cancer with leg swelling COMPARISON: None available at the time of this dictation. TECHNIQUE: Bilateral lower extremity real-time compression venous ultrasound with Color Doppler imaging. Utilizing real-time ultrasonic imaging multiple real time high-resolution ultrasonic images with compression and noncompression maneuvers of the deep venous system in addition to color doppler imaging were performed from the common femoral vein through the proximal calf veins. FINDINGS: On the right side, there is normal compressibility of the deep venous system from the common femoral vein through the proximal calf veins. No current evidence of acute thrombosis is identified. On the left side, there is nonocclusive thrombus present within the left popliteal vein, posterior tibial veins peroneal veins of the calf. The proximal common femoral and superficial femoral veins are patent. Impression: Positive for deep vein is some kyphosis within the left popliteal vein and veins of the calf. No evidence for DVT on the right. ACT 112: Negative or not required by law. Electronically signed by: Grant Hou M.D. 11/02/2021 5:14 PM ECG Data Attestation: I personally reviewed and interpreted this ECG as follows: Indication: + tachycardia Rate (beats per minute): 106 Rhythm: + sinus tachycardia ECG [place]: + Normal ECG ST segments: no ST elevation ECG Findings: no PVCs MDM Narrative I did evaluate the patient as noted above. The patient is presenting with a mild cough. She has developed bilateral PEs in the setting of breast cancer. She has had a prior unprovoked DVT years ago and had negative genetic testing. Currently she is mostly asymptomatic other than a mild cough. She does have tachycardia which she does not notice. She does not complain of any palpitations. IV access was established. I did place an order for continuous cardiac monitoring. The monitor showed sinus tachycardia at a rate of 107 bpm. I did order and personally review the patient's 12-lead EKG as described above. She does have sinus tachycardia. I did order and review the patient's blood work as noted in the electronic medical record. Her white count is 7.6. Hemoglobin is 10.8 which is improved from earlier this month. Platelet count is 254. Electrolytes are unremarkable other than a potassium of 3.1. I did recommend hospitalization given her tachycardia and bilateral pulmonary emboli. I did order a Doppler ultrasound of lower extremities. I did review the images myself as well as the radiology report as described above. She does have nonocclusive DVT in the left calf. No DVT on the right. I did discuss case with the hospitalist and gearcase assembler. She was started on IV heparin by the hospitalist. On reassessment her heart rate has come down to the 90s. Impression & Plan Pulmonary embolism, bilateral, Breast cancer, Acute deep vein thrombosis (DVT) of left lower extremity, Tachycardia Discharge Plan Visit Data Chief Complaint: Abnormal Labs/Diagnostic Testing Stated Complaint: POSSIBLE PE ON SCAN YESTERDAY-DOC REF ED Provider: Constantin Smith Discharge Problem: Pulmonary embolism, bilateral, Breast cancer, Acute deep vein thrombosis (DVT) of left lower extremity, Tachycardia Patient Disposition: Being Evaluated by Hospitalist Forms Stand Alone Forms: My [facility] Prescriptions Prescriptions: No Action prochlorperazine maleate 10 mg tablet 10 mg PO Q6 PRN (Reason: Nausea) RF: 0 escitalopram oxalate 5 mg tablet 5 mg PO DAILY RF: 0 ondansetron HCl 8 mg tablet 8 mg PO Q8 PRN (Reason: Nausea) RF: 0 lorazepam 0.5 mg tablet 0.5 mg PO BID PRN (Reason: Anxiety) RF: 0 ibuprofen 200 mg Tablet 400 mg PO DAILY PRN (Reason: as directed) RF: 0 Multiple Vitamin-Minerals Tablet 1 tab PO DAILY RF: 0 cranberry 1,000 mg Capsule 1,000 mg PO BID RF: 0 Referrals Referrals: Vicky Lewis DO [Primary Care Provider] -
--- NOTE | 2021-11-02 16:35 | History & Physical Report ---
Date of Service November 02, 2021 Assessment & Plan (1) Bilateral pulmonary embolism: Plan: LLE DVT Sinus tachycardia likely secondary to PE Patient is 51-year-old female with PMH h/o provoked LLE DVT in 2017 secondary to age 46 and OCP use, current right breast cancer s/p chemo, is to have right mastectomy in 11/2021, depression presented to ER for abnormal outpatient CT chest scan on 11/01/2021: Multiple bilateral pulmonary emboli in multiple lower lobe vessels BLE Doppler: nonocclusive thrombus present within the left popliteal vein, posterior tibial veins peroneal veins of the calf. Denies CP, SOB Start Heparin IV Will likely need to coordinate with rn new graduate further anticoagulation plan (2) Breast cancer: Plan: History Right Breast cancer. S/P Chemo Follows with rn new graduate [facility] [place]. Has planned mastectomy in 11/2021 (3) Hypokalemia: Plan: K: 3.1 Magnesium level pending Replace and monitor (4) Depression: Plan: Continue escitalopram DVT Prophylaxis On IV Heparin for PE/DVT present upon admission Full Code as per discussion with pt Follows with Dr Lewis for routine care Pt was seen and care coordinated with Dr Ahuja. See addendum History of Present Illness Chief Complaint: Abnormal CT scan-PE Primary Care Provider: Vicky Lewis DO Patient is 51-year-old female with PMH h/o DVT, current right breast cancer s/p chemo, is to have right mastectomy in 11/2021, depression presented to ER for abnormal CT chest scan. Patient had outpatient CT chest 11/01/2021 for further evaluation of her breast cancer progression. Multiple bilateral pulmonary emboli in multiple lower lobe vessels were seen and patient was referred to ER. Patient reports finished course of chemo around 10/10/2021. She reports that she has had fatigue and decreased appetite throughout and after chemo. She states couple weeks ago started having dry cough. Denies any hemoptysis. Denies shortness of breath or chest pain, extremity pain or edema. Patient with history of left lower extremity DVT in 2017 that was considered provoked as she was 46 years old and was on OCPs for menorrhagia. Denies fever/chills, diaphoresis, N/V/D/C, DUNAWAY, dizziness, syncope, vision changes, neck pain, orthopnea, palpitations, sore throat, choking, otalgia, rhinorrhea, abdominal pain, paresthesias, weakness, extremity weakness, extremity edema or erythema, rashes, urinary symptoms. Allergies Allergy/AdvReac Type Severity Reaction Status Date / Time No Known Allergies Allergy Unverified 11/02/21 16:50 Home Medications Medication Instructions Recorded Confirmed Type cranberry 1,000 mg capsule 1,000 mg PO BID 11/02/21 11/02/21 History escitalopram oxalate 5 mg tablet 5 mg PO DAILY 11/02/21 11/02/21 History ibuprofen 200 mg tablet 400 mg PO DAILY PRN 11/02/21 11/02/21 History lorazepam 0.5 mg tablet 0.5 mg PO BID PRN 11/02/21 11/02/21 History multivitamin with minerals 1 tab PO DAILY 11/02/21 11/02/21 History (Multiple Vitamin-Minerals) ondansetron HCl 8 mg tablet 8 mg PO Q8 PRN 11/02/21 11/02/21 History prochlorperazine maleate 10 mg 10 mg PO Q6 PRN 11/02/21 11/02/21 History tablet Past Med/Surg History Medical History Anemia Breast cancer Deep vein thrombosis (DVT) of left lower extremity Depression History of hysteroscopy "04/05/2017 hysteroscopy endometrial ablation" Uterine leiomyoma Surgical History History of breast biopsy History of hysterectomy History of tubal ligation Family History Sister Breast cancer Father Prostate cancer Mother FH: pancreatic cancer Social History Smoking Status: Never smoker Hx Alcohol Use: Yes Alcohol Intake Frequency: Monthly or Less Hx Substance Use: No Feels Safe at Home: Yes Review of Systems Review of Systems: All systems reviewed & are unremarkable except as noted in HPI & below Physical Exam Physical Exam: General: no distress, WDWN Head: normocephalic, atraumatic Eyes: PERRL, EOM's intact, conjunctiva non-injected, anicteric ENT: normal inspection external ears, nose, mucous membranes moist Neck: supple, trachea midline Lungs: clear, no respiratory distress, no wheezing/rhonchi/rales CV: tachycardia, rate 106, regular rhythm, no murmur Abd: normal BS, soft, non-tender Ext: left calf appears slightly larger than right, no cyanosis, erythema or calf tenderness Neuro: A&O x 3, no focal deficits noted, normal affect Skin: warm, dry Results & Data Results & Data ([facility] [place]) Vital Signs (Past 12 Hours) Vital Signs Temp Pulse Resp BP Pulse Ox 11/02/21 14:10 36.8 C 112 H 19 128/73 98 Laboratory Results Short CBC 11/02/21 Range/Units 14:43 WBC 7.60 (4.8-10.8) K/uL Hgb 10.8 L (12.0-16.0) g/dL Hct 33.4 L (37-47) % Plt Count 254 (130-400) K/uL BMP 11/02/21 14:43 Sodium 138 Potassium 3.1 L Chloride 106 Carbon Dioxide 25 BUN 6 L Creatinine 0.60 Glucose 96 Calcium 9.1 Liver Function 11/02/21 Range/Units 14:43 Total Bilirubin 0.6 (0.2-1) mg/dl AST 27 (15-37) U/L ALT 39 (12-78) Alkaline Phosphatase 81 (45-117) U/L Albumin 3.7 (3.4-5.0) gm/dl Diagnostic Findings Venous Doppler Study 11/02/21 16:01 US venous doppler LE BI CLINICAL HISTORY: Breast cancer with leg swelling COMPARISON: None available at the time of this dictation. TECHNIQUE: Bilateral lower extremity real-time compression venous ultrasound with Color Doppler imaging. Utilizing real-time ultrasonic imaging multiple real time high-resolution ultrasonic images with compression and noncompression maneuvers of the deep venous system in addition to color doppler imaging were performed from the common femoral vein through the proximal calf veins. FINDINGS: On the right side, there is normal compressibility of the deep venous system from the common femoral vein through the proximal calf veins. No current evidence of acute thrombosis is identified. On the left side, there is nonocclusive thrombus present within the left popliteal vein, posterior tibial veins peroneal veins of the calf. The proximal common femoral and superficial femoral veins are patent. Impression: Positive for deep vein is some kyphosis within the left popliteal vein and veins of the calf. No evidence for DVT on the right. ACT 112: Negative or not required by law. Electronically signed by: Grant Hou M.D. 11/02/2021 5:14 PM Supervising Physician Co-Signing Physician Notes Attending addendum The patient was seen and examined in emergency room She was sent to the emergency room with findings of pulmonary embolism on CT scan of the chest which was done routinely for evaluation of her Rt breast cancer She has minimal cough without any hemoptysis and does not have any shortness of breath or chest pain Denies any pain in the calf or swelling On examination Lying in bed comfortably Hemodynamically stable with pulse at the upper limit of normal at 96 Chestclear to auscultate bilaterally HeartS1-S2, regular, no murmur Abdomenbenign Extremitiesno edema and no calf tenderness CNSalert, awake and oriented x3 Her imaging studies, labs and EKG reviewed Noted to have bilateral pulmonary embolism in lower lobe vessels with left leg DVT with history of right breast cancer Intravenous heparin has been started and will eventually changed preferred anticoagulation as per the oncologist-doctor [facility] in [place]. Agree with assessment and plan as outlined above by JATIN Mason Dr (1) Breast cancer Breast location: unspecified site of breast Estrogen receptor status: unspecified Laterality: right Patient sex: female Qualified Code(s): C50.911 - Malignant neoplasm of unspecified site of right female breast
[2021-11-02] MEDS ORDERED: POTASSIUM CHLORIDE CRTAB 20 MEQ TABCR PO STA (16:39)
[2021-11-02 16:46] LABS: Magnesium 2.1 mg/dl (1.8-2.4)
--- NOTE | 2021-11-02 16:46 | Electrocardiogram Report ---
Test Reason : Blood Pressure : / mmHG Vent. Rate : 106 BPM Atrial Rate : 106 BPM P-R Int : 144 ms QRS Dur : 082 ms QT Int : 350 ms P-R-T Axes : 024 011 025 degrees QTc Int : 464 ms Sinus tachycardia Otherwise normal ECG When compared with ECG of 08-JUN-2017 15:00, Nonspecific T wave abnormality, improved in Inferior leads T wave amplitude has decreased in Anterior leads Confirmed by Ghulam García ([id number]) on 11/02/2021 4:46:22 PM Referred By: REFERRED SELF Confirmed By:Don García
--- NOTE | 2021-11-02 17:15 | Ultrasound Report ---
US venous doppler LE BI CLINICAL HISTORY: Breast cancer with leg swelling COMPARISON: None available at the time of this dictation. TECHNIQUE: Bilateral lower extremity real-time compression venous ultrasound with Color Doppler imagi ng. Utilizing real-time ultrasonic imaging multiple real time high-resolution ultrasonic images with comp ression and noncompression maneuvers of the deep venous system in addition to color doppler imaging w ere performed from the common femoral vein through the proximal calf veins. FINDINGS: On the right side, there is normal compressibility of the deep venous system from the common femoral vein through the proximal calf veins. No current evidence of acute thrombosis is identified. On the left side, there is nonocclusive thrombus present within the left popliteal vein, posterior ti bial veins peroneal veins of the calf. The proximal common femoral and superficial femoral veins are patent. Impression: Positive for deep vein is some kyphosis within the left popliteal vein and veins of the calf. No evid ence for DVT on the right. ACT 112: Negative or not required by law. Electronically signed by: Grant Hou M.D. 11/02/2021 5:14 PM
[2021-11-02] MEDS: Heparin IV Adult Wt-Based Standard WITH Bolus Protocol IV SCH ×4 (19:05→19:35)
[2021-11-02] MEDS ORDERED: HEPARIN 25000 UNIT/500 ML D5W IV ONE (19:09)
[2021-11-02] MEDS ORDERED: HEPARIN SOD (PORCINE) 1000 UNIT/ML ONE (19:09)
[2021-11-02 19:24] LABS: Partial Thromboplastin Time 25.1 Seconds (21.0-31.0)
[2021-11-02] MEDS ORDERED: HEPARIN SOD (PORCINE) 1000 UNIT/ML IV ONE (19:30)
[2021-11-02] MEDS ORDERED: HEPARIN SODIUM/DEXTROSE 25,000 UNITS/500 ML BAG IV SCH (19:30)
[2021-11-02] MEDS ORDERED: POTASSIUM CHLORIDE 10 MEQ TABCR PO ONE (19:42)
[2021-11-02] MEDS ORDERED: ACETAMINOPHEN 325 MG TAB PO PRN (20:09)
[2021-11-02] MEDS ORDERED: POTASSIUM CHLORIDE CRTAB 20 MEQ TABCR PO ONE (21:00)
[2021-11-03 01:56] LABS: Basophils # (auto) 0.02 K/uL (0-0.2); Basophils % (auto) 0.3 %; Eosinophils # (auto) 0.16 K/uL (0-0.5); Eosinophils % (auto) 2.7 %; Hematocrit (blood only) 31.5 % (37-47); Hemoglobin 9.8 g/dL (12.0-16.0); Immature Granulocytes # (auto) 0.02 K/uL (0.00-0.02); Immature Granulocytes % (auto) 0.3 %; Lymphocytes # (auto) 1.07 K/uL (1.2-3.4); Lymphocytes % (auto) 18.3 %; Mean Corpuscular Hemoglobin 30.2 pg (25-34); Mean Corpuscular Hgb Conc 31.1 g/dL (32-36); Mean Corpuscular Volume 96.9 fL (80-100); Mean Platelet Volume 9.2 fL (7.4-10.4); Monocytes # (auto) 0.74 K/uL (0.11-0.59); Monocytes % (auto) 12.7 %; Neutrophils # (auto) 3.83 K/uL (1.4-6.5); Neutrophils % (auto) 65.7 %; Platelet Count 245 K/uL (130-400); RDW Coefficient of Variation 16.5 % (11.5-14.5); RDW Standard Deviation 58.9 fL (36.4-46.3); Red Blood Count 3.25 M/uL (4.2-5.4); White Blood Count 5.84 K/uL (4.8-10.8)
[2021-11-03 03:03] LABS: Albumin Level 3.3 gm/dl (3.4-5.0); BUN Creatinine Ratio 11.4 (10-20); Bilirubin,Total 0.6 mg/dl (0.2-1); Calcium 8.8 mg/dl (8.5-10.1); Est GFR (African American) 125.9 ml/min; Est GFR (Non-African American) 108.6 ml/min; Globulin 3.2 gm/dl (2.5-4.0); Magnesium 2.1 mg/dl (1.8-2.4); Phosphorus 3.6 mg/dl (2.5-4.9); Potassium 3.5 mmol/L (3.5-5.1); Total Protein 6.5 gm/dl (6.4-8.2)
[2021-11-03 03:12] LABS: Partial Thromboplastin Ratio 1.5; Partial Thromboplastin Time 38.7 Seconds (21.0-31.0)
[2021-11-03] MEDS ORDERED: CEROVITE ADV FORMULA TAB PO SCH (09:00)
[2021-11-03] MEDS ORDERED: ESCITALOPRAM OXALATE 10 MG TAB PO SCH (09:00)
[2021-11-03 09:53] LABS: Partial Thromboplastin Ratio 1.5; Partial Thromboplastin Time 39.4 Seconds (21.0-31.0)
[2021-11-03] MEDS ORDERED: APIXABAN 5 MG TABLET PO SCH (17:00)
--- NOTE | 2021-11-03 19:55 | Discharge Summary ---
Date of Service November 03, 2021 Admission HPI Per Admitting Provider Patient is 51-year-old female with PMH h/o DVT, current right breast cancer s/p chemo, is to have right mastectomy in 11/2021, depression presented to ER for abnormal CT chest scan. Patient had outpatient CT chest 11/01/2021 for further evaluation of her breast cancer progression. Multiple bilateral pulmonary emboli in multiple lower lobe vessels were seen and patient was referred to ER. Patient reports finished course of chemo around 10/10/2021. She reports that she has had fatigue and decreased appetite throughout and after chemo. She states couple weeks ago started having dry cough. Denies any hemoptysis. Denies shortness of breath or chest pain, extremity pain or edema. Patient with history of left lower extremity DVT in 2017 that was considered provoked as she was 46 years old and was on OCPs for menorrhagia. Denies fever/chills, diaphoresis, N/V/D/C, DUNAWAY, dizziness, syncope, vision changes, neck pain, orthopnea, palpitations, sore throat, choking, otalgia, rhinorrhea, abdominal pain, paresth esias, weakness, extremity weakness, extremity edema or erythema, rashes, urinary symptoms. Admission Exam Per Admitting Provider General: no distress, WDWN Head: normocephalic, atraumatic Eyes: PERRL, EOM's intact, conjunctiva non-injected, anicteric ENT: normal inspection external ears, nose, mucous membranes moist Neck: supple, trachea midline Lungs: clear, no respiratory distress, no wheezing/rhonchi/rales CV: tachycardia, rate 106, regular rhythm, no murmur Abd: normal BS, soft, non-tender Ext: left calf appears slightly larger than right, no cyanosis, erythema or calf tenderness Neuro: A&O x 3, no focal deficits noted, normal affect Skin: warm, dry Principal Diagnosis Bilateral PE LLE DVT Discharge Exam GENERAL: Alert and oriented x3. NAD, on RA. HEENT: No pallor, no icterus. Pupils equal, round and reactive to light. Oral mucosa moist. NECK: No JVD, no neck masses. HEART: S1 and S2 heard. Regular rate and rhythm. No murmur, no gallop. RESPIRATORY SYSTEM: Normal AP diameter. No accessory muscle use. No wheezing, no crackles. ABDOMEN: Soft, bowel sounds present, nontender, no distention. CENTRAL NERVOUS SYSTEM: No facial droop. Speech is clear. Obeys simple commands. Moves extremities. EXTREMITIES: No edema, no erythema seen. Discharge Data Allergies Allergy/AdvReac Type Severity Reaction Status Date / Time No Known Allergies Allergy Unverified 11/02/21 16:50 Consultations 11/02/21 16:19 ED Decision to Admit Stat Ordered Studies 11/02/21 16:01 US venous doppler [facility] Stat Hospital Course (1) Pulmonary embolism, bilateral: 51-year-old female with PMH h/o provoked LLE DVT in 2017 secondary to age 46 and OCP use, current right breast cancer s/p chemo, is to have right mastectomy in 11/2021, depression presented to ER 11/[address] chest scan on 11/01/2021: Multiple bilateral pulmonary emboli in multiple lower lobe vessels. Her bilateral lower extremity Doppler scan was positive for DVT in LLE. She was put on heparin drip, transition to Eliquis [patient agreeable to the cost of Eliquis which is 60$ a month for her]. Discussed with oyster farmer Dr. Ronan Lozano regarding the choice of anticoagulation for her given previous DVT and history of cancer. Agreed with Eliquis indefinitely. Patient made aware. I tried to contact her surgery Dr. Office [[phone]] multiple times and left message on the voicemail, did not get any reply call. Patient made aware about this. Patient to be discharged on Eliquis, to follow-up with her PCP and her oncology and surgery Dr. for further plan on her elective mastectomy for Rt breast cancer. Following instructions were communicated to the patient at the point of discharge: Follow-up with your primary care physician within a week time. Follow-up with your cancer and surgery Dr. For further discussion on the breast cancer and surgery. You will be started on Eliquis from evening of 11/03/2021, start with 10 mg every 12 hours for 7 days followed by 5 mg every 12 hours afterwards. First dose will be given in the hospital, not the time, take second dose 12 hours later. Can take half an hour early or later at a time to make the schedule work for you gradually. Take medications as prescribed. Total Time Total Time Spent Total Time Spent (In Minutes): 45 Discharge Plan Discharge Items Patient Disposition: Home - Self-Care Reason For Visit: PE Discharge Diagnosis: Bilateral PE LLE DVT Activity: Resume your previous activity Non-emergency contact: Primary Care Provider Call non-emergency contact if: you have any medication questions, your symptoms worsen and your temperature is above 101 Follow-up/Referrals: Vicky Lewis DO [Primary Care Provider] - (Date & Time 11/09/2021 2:20 PM Provider Vicky Lewis DO Department [facility] ) Diet: Regular Addtl Attending Provider Instructions: Follow-up with your primary care physician within a week time. Follow-up with your cancer and surgery DrGilma For further discussion on the breast cancer and surgery. You will be started on Eliquis from evening of 11/03/2021, start with 10 mg every 12 hours for 7 days followed by 5 mg every 12 hours afterwards. First dose will be given in the hospital, not the time, take second dose 12 hours later. Can take half an hour early or later at a time to make the schedule work for you gradually. Take medications as prescribed. Pending Studies at Discharge: No Stand-Alone Forms: [employer], Smoking Cessation Medications and DC Order Prescriptions: New Eliquis 5 mg tablet 5 mg PO Q12H Qty: 74 RF: 0 Continued prochlorperazine maleate 10 mg tablet 10 mg PO Q6 PRN (Reason: Nausea) RF: 0 escitalopram oxalate 5 mg tablet 5 mg PO DAILY RF: 0 ondansetron HCl 8 mg tablet 8 mg PO Q8 PRN (Reason: Nausea) RF: 0 lorazepam 0.5 mg tablet 0.5 mg PO BID PRN (Reason: Anxiety) RF: 0 ibuprofen 200 mg Tablet 400 mg PO DAILY PRN (Reason: as directed) RF: 0 Multiple Vitamin-Minerals Tablet 1 tab PO DAILY RF: 0 cranberry 1,000 mg Capsule 1,000 mg PO BID RF: 0 Discharge Orders: Discharge Order (Routine); Ordered 11/03/21 Ordered By: Rudi Kohli Admission Data Admit Date/Time: 11/02/21 16:38 Attending Provider: Rudi Kohli Admit Provider: Janine Ahuja Primary Care Provider: Vicky Lewis Other Providers: Janine Ahuja Other Interventions: Discharge Summary Assessment (RN) Last Done: 11/03/21 15:50
== END 2021-11-03 15:50 | disposition home or self-care (01) | DRG 299 ==
LOC: ED 13:45 → EDINP 16:38 → SUATTDRO 16:38 → EDINP 20:10

== ENCOUNTER 2022-05-22 11:07 | Inpatient (IN) ==
[2022-05-22] MEDS ORDERED: SODIUM CHLORIDE 0.9% 1000ML 1,000 ML IV ONE (11:32)
[2022-05-22 11:53] LABS: Hematocrit (blood only) 29.3 % (34.1-44.9); Hemoglobin 9.1 g/dl (12.0-16.0); Mean Corpuscular Hemoglobin 26.2 pg (25.0-34.0); Mean Corpuscular Hgb Conc 31.1 g/dL (32.0-36.0); Mean Corpuscular Volume 84.4 fL (80.0-100.0); Mean Platelet Volume 9.6 fL (9.4-12.3); Nucleated RBC # (auto) 0.04 K/uL (0-0); Nucleated RBC % (auto) 0.6 %; Platelet Count 170 K/uL (130-400); RDW Coefficient of Variation 17.7 % (11.5-14.5); RDW Standard Deviation 51.2 fL (36.4-46.3); Red Blood Count 3.47 M/uL (3.93-5.22); White Blood Count 7.08 K/ul (4.8-10.8)
[2022-05-22 12:04] LABS: INR 1.1 (0.9-1.1); Partial Thromboplastin Ratio 1.1; Partial Thromboplastin Time 29.3 Seconds (21.0-31.0); Prothrombin Time 11.4 Seconds (9.0-12.0)
[2022-05-22 12:19] LABS: Alanine Aminotransferase 20 U/L (7-52); Albumin Globulin Ratio 0.9 (0.9-2); Albumin Level 3.2 gm/dl (3.4-5.0); Alkaline Phosphatase 290 U/L (34-104); Anion Gap 10 (3-11); Aspartate Aminotransferase 75 U/L (13-39); Bilirubin,Total 0.5 mg/dl (0.2-1.0); Blood Urea Nitrogen 17 mg/dl (6-23); Calcium 8.5 mg/dl (8.5-10.1); Carbon Dioxide 25 mmol/L (21-32); Chloride 98 mmol/L (98-107); Est GFR (African American) 133.5 ml/min; Est GFR (Non-African American) 115.2 ml/min; Globulin 3.6 gm/dl (2.5-4.0); Glucose 114 mg/dl (70-99(Fasting)); Lipase 14 U/L (11-82); Magnesium 1.7 mg/dl (1.7-2.4); Phosphorus 3.1 mg/dl (2.5-4.9); Potassium 3.8 mmol/L (3.5-5.1); Sodium 133 mmol/L (136-145); Total Protein 6.8 gm/dl (6.0-8.3)
[2022-05-22 12:23] LABS: Basophils # (auto) 0.02 K/uL (0-0.2); Basophils % (auto) 0.3 %; Eosinophils # (auto) 0.01 K/uL (0-0.50); Eosinophils % (auto) 0.1 %; Immature Granulocytes # (auto) 0.44 K/uL (0.00-0.02); Immature Granulocytes % (auto) 6.2 %; Lymphocytes # (auto) 0.23 K/uL (1.2-3.4); Lymphocytes % (auto) 3.2 %; Monocytes # (auto) 0.55 K/uL (0.24-0.82); Monocytes % (auto) 7.8 %; Neutrophils # (auto) 5.83 K/uL (1.4-6.5); Neutrophils % (auto) 82.4 %
--- NOTE | 2022-05-22 12:38 | XRay Report ---
XR chest 1V portable HISTORY: Right-sided Chest Pain COMPARISON: Radiation oncology chest CT 04/04/2022. FINDINGS: There is a large right pleural effusion resulting in near-complete opacification of the rig ht hemithorax. This has significantly increased in size in the interval. This results in mild left me diastinal shift. No pneumothorax. The heart is normal in size. Left subclavian Port-A-Cath terminates in the SVC. A few small patchy density at the left lung base favor subsegmental atelectasis. IMPRESSION: A large right pleural effusion resulting in near complete opacification of the right hemithorax. This has significantly increased in size in the interval. This results in mild left mediastinal shift. ACT 112: Negative or not required by law. Electronically signed by: Vito Brewster M.D. 05/22/2022 12:37 PM
--- NOTE | 2022-05-22 13:01 | Electrocardiogram Report ---
Test Reason : Blood Pressure : / mmHG Vent. Rate : 123 BPM Atrial Rate : 123 BPM P-R Int : 120 ms QRS Dur : 072 ms QT Int : 314 ms P-R-T Axes : 035 036 023 degrees QTc Int : 449 ms Sinus tachycardia Low voltage QRS Borderline ECG When compared with ECG of 24-NOV-2021 05:18, Criteria for Inferior infarct are no longer Present ST no longer elevated in Lateral leads Nonspecific T wave abnormality has replaced inverted T waves in Inferior leads Confirmed by Jalen Rosa ([id number]) on 05/22/2022 1:00:44 PM Referred By: Confirmed By:Jalen Rosa
[2022-05-22] MEDS ORDERED: OPTIRAY 320 125ml IV ONE (13:37)
--- NOTE | 2022-05-22 14:03 | CT Scan Report ---
CT angio chest PE protocol CLINICAL HISTORY: SOB, breast CA, h/o PE, r/o new PE TECHNIQUE: Multidetector row helical CT of the chest was performed with angiographic protocol. Romano l and sagittal reformations were obtained. Coronal and sagittal MIPS were obtained from the axial zack a set and were submitted for review. Automated dose lowering techniques and/or adjustment according to patient size were utilized for this exam. CT DOSE: 525.07 mGycm Comparison: Comparison is made to CTA chest 04/05/2017 and PET/CT 01/25/2022 FINDINGS: Lungs and pleura: Large right and small left pleural effusions have developed in the interval. The ri ght lung is almost entirely collapsed and enhances normally. Mild atelectasis is seen in the left juan g. No suspicious pulmonary nodules are seen. Heart and pericardium: Heart size is normal. No pericardial effusion. Vessels: No evidence of pulmonary embolism. Mediastinum and karla: Unremarkable. Chest wall and lower neck: A portacatheter seen. Body wall edema is seen bilaterally. Bilateral promi nent lymph nodes are seen in the axilla measuring up to 12 mm in short axis. Abdomen: Unremarkable. Bones: Mottled appearance of the thoracic spine is seen, more heterogeneous than on prior exam. These may represent foci of bony metastasis. IMPRESSION: 1. No evidence of pulmonary embolism. 2. Large right and small left pleural effusion with almost complete collapse of the right lung. 3. Prominent bilateral axillary lymph nodes are seen. These are less prominent than on prior PET/CT. 4. Body wall edema and skin thickening is seen, right somewhat greater than left. These may represen t post radiation changes. 5. Irregular appearance of the bones may represent metastatic disease, correlate with PET/CT and/or bone scan if desired. ACT 112: Negative or not required by law. Electronically signed by: Mayco Casper M.D. 05/22/2022 2:01 PM
--- NOTE | 2022-05-22 14:57 | Critical Care Consultation ---
Date of Consultation May 22, 2022 Assessment & Plan (1) Large pleural effusion: (2) Acute dyspnea: (3) History of pulmonary embolism: Plan 51-year-old female with a history of metastatic breast cancer and pulm embolism presenting to the hospital due to shortness of breath. She was found to have a very large right pleural effusion with mediastinal shift. Neurologic: History of anxiety. Continue home medications. Pulmonary: Large right pleural effusion likely malignant. We will plan to place a pigtail catheter tomorrow morning to allow for a washout period with the Eliquis. In the interim, we will start her on heparin infusion without a bolus to bridge until she gets the pigtail catheter placed. Cardiovascular: History of grade 1 diastolic dysfunction. Will need repeat echo given history of Adriamycin likely bilateral effusions. Tachycardia likely secondary to hy poxia, shortness of breath and anxiety. Will monitor on telemetry. Gastrointestinal: Mild transaminitis. Will monitor. Low-salt diet Renal: No issues. Infectious disease: No issues. We will send cultures from the pleural fluid. Hematologic: Hold Eliquis. Anemia likely from chronic disease. History of pulmonary embolism. We will start the patient on a heparin infusion and hold Eliquis. We will hold the heparin at 4 AM. Endocrine: Maintain euglycemia. VTE prophylaxis: SCDs, heparin CODE STATUS: Full Family at bedside: Updated at bedside Disposition: ICU History of Present Illness Reason for Consultation: Opacification of the right lung with pleural effusion History of Present Illness 51-year-old female with a history of invasive carcinoma with invasive ductal carcinoma of the breast diagnosed 04/01/2021. She underwent Adriamycin, Cytoxan, Taxol and carboplatinum. She was also on pembrolizumab. She has received palliative radiation and immunotherapy with Imfinzi which was then changed to Trodelvy. She presents to the ER today due to increasing shortness of breath. ICU was consulted for large right pleural effusion with compressive atelectasis and deviation of the mediastinal structures to the contralateral side. Patient is on Eliquis due to history of pulmonary embolism. She had a DVT in 2016 and a PE in October 2021. Upon review, labs suggest mild worsening anemia. Platelet count normal. INR 1.1. PTT 29.3. BUN normal. Creatinine normal. AST mildly elevated at 75. Alkaline phosphatase 290. Sodium mildly decreased at 133. Echo from 04/23/2021 with normal left ventricular systolic function. Grade 1 diastolic dysfunction. She has shortness of breath that came on rather suddenly over the course of her Sunday or Sunday. She has had significant orthopnea. She notes conversational dyspnea. She also has an occasional cough. Allergies Allergy/AdvReac Type Severity Reaction Status Date / Time No Known Allergies Allergy Verified 05/09/22 12:49 Home Medications Medication Instructions Recorded Confirmed Type escitalopram oxalate 5 mg tablet 5 mg PO DAILY 11/02/21 05/22/22 History apixaban 5 mg tablet (Eliquis) 5 mg PO Q12H #74 tabs 11/03/21 05/22/22 Rx oxycodone 5 mg tablet 5 mg PO BID PRN Pain 02/27/22 05/22/22 History omeprazole 20 mg capsule,delayed 20 mg PO DAILY 05/09/22 05/22/22 History release Patient History Medical History Anemia Breast cancer S/p chemo and radiation 2 cycles of AC, then 2 cycles of AC with pembrolizumab, then taxol/carbo with pembrolizumab. She had minimal response to neoadjuvant therapy, and was evaluated for surgery. Staging scans at that time revealed both PE and bilateral breast involvement with left axillary involvement consistent with metastatic disease. She was placed on anticoagulation--this development precluded surgery. She then had Trodelvy with minimal response and was referred for XRT to the right breast due to the bulk of the tumor. Then completed XRT to the left breast. Depression Fibroid uterus Heavy menstrual bleeding History of DVT (deep vein thrombosis) History of hysteroscopy "04/05/2017 hysteroscopy endometrial ablation" History of pulmonary embolism Juvenile osteochondrosis of leg Menorrhagia Uterine leiomyoma Wrist fracture, left Surgical repair Surgical History History of breast biopsy History of hysterectomy S/P section S/P laparoscopic hysterectomy S/P tubal ligation Family History Sister Breast cancer Father Prostate cancer Mother FH: pancreatic cancer Social History Smoking Status: Never smoker Hx Alcohol Use: No Hx Substance Use: No Preferred Language: Belarusian Communication Ability: Effective Er Tech Required: No Beliefs That Will Affect Care: None marital status: Current Living Situation: Family current occupational status: employed Feels Safe at Home: Yes Diet Comment: healthier choices caffeine: Yes (tea daily) during the past year weight has: decreased > 10 lbs Assistive Devices: Contacts and Glasses Review of Systems Review of Systems: All systems reviewed & are unremarkable except as noted in HPI & below Physical Exam Physical Exam: Constitutional: Thin and frail appearing female no apparent distress. Eyes: Pupils are equal round and reactive to light. Conjunctivae are normal. Anicteric sclera. Ears nose, mouth and throat: Deferred. Neck: Trachea is midline. Visual inspection is normal. Respiratory: Diminished lung sounds on the right. Mild conversational dyspnea. Cardiovascular: Regular rate and rhythm. No murmurs. No edema. Gastrointestinal: Normal bowel sounds, soft, nontender and nondistended. No hepatosplenomegaly noted. Musculoskeletal: No cyanosis. Patient is able to move all extremities. Skin: No rashes, warm dry and intact. Neurologic: No obvious focal neurological deficits seen. Psychiatric: Alert and oriented x3 with a euthymic affect. Results & Data Results & Data ([facility]) Vital Signs (Past 12 Hours) Vital Signs Temp Pulse Pulse Resp BP BP Pulse Ox 05/22/22 13:45 119 H 19 96 05/22/22 13:45 143/92 H 05/22/22 13:39 93 05/22/22 13:05 115 H 21 95 05/22/22 13:05 128/86 05/22/22 13:00 116 H 28 H 05/22/22 11:08 118 H 28 H 143/90 H 95 05/22/22 11:08 05/22/22 12:30 118 H 19 93 05/22/22 12:00 118 H 28 H 95 05/22/22 11:30 119 H 30 H 172/81 H 96 05/22/22 11:25 121 H 28 H 92 05/22/22 11:32 119 H 26 H 95 05/22/22 11:32 91 05/22/22 11:32 26 H 91 05/22/22 11:32 119 H 28 H 172/81 H 90 05/22/22 11:32 05/22/22 11:09 36.8 C 125 H 24 124/72 92 O2 Del Method O2 Flow Rate 05/22/22 13:45 05/22/22 13:45 05/22/22 13:39 05/22/22 13:05 05/22/22 13:05 05/22/22 13:00 05/22/22 11:08 Nasal Cannula 05/22/22 11:08 Nasal Cannula 05/22/22 12:30 05/22/22 12:00 05/22/22 11:30 05/22/22 11:25 05/22/22 11:32 Nasal Cannula 2 05/22/22 11:32 Room Air 0 05/22/22 11:32 Room Air 05/22/22 11:32 Room Air 05/22/22 11:32 Nasal Cannula 2 05/22/22 11:09 Room Air Coding Level of Care Code 13744 Inpt Consult Level 5 Diagnoses Large pleural effusion J90 Acute dyspnea R06.00 History of pulmonary embolism Z86.711
[2022-05-22] MEDS ORDERED: LORazepam 0.5 MG TAB PO ONE (15:01)
--- NOTE | 2022-05-22 16:29 | History & Physical Report ---
Date of Service May 22, 2022 Assessment & Plan (1) Large pleural effusion: Plan: Admit to ICU Patient presenting from home with reports of worsening shortness of breath x 1 week In the ED, CXR shows large right pleural effusion resulting in mild left mediastinal shift Currently on 2 L O2, however no documented hypoxia. Tachycardic, BP stable Highly suspicious for malignant effusion due to currently active breast cancer Case discussed with accounts collector, Dr. Hayden -- planning on chest tube placement (2) Breast cancer: Plan: S/p chemo and radiation, recently completed radiation treatment to the left breast Follows with [facility] medical oncology and [facility] radiation oncology (3) Anemia: Plan: Hgb 9.1 Likely due to malignancy No signs of bleeding at this time No indication for transfusion Monitor CBC (4) History of DVT (deep vein thrombosis): (5) History of pulmonary embolism: Plan: Holding Eliquis due to large pleural effusion requiring intervention (6) DVT prophylaxis: Plan: SCDs for now History of Present Illness Chief Complaint: Shortness of breath Primary Care Provider: Fartun Saunders DO 51-year-old female with PMH active breast cancer s/p chemo and radiation, history of DVT and PE on Eliquis, and other problems to below who presents the ED for evaluation of shortness of breath. Patient reports progressive worsening shortness of breath over the past 1 week. Reports that she gets short of breath with minimal exertion and conversation. Patient reports she recently completed radiation to the left breast for breast cancer. She states that she had a PET scan completed today as well. Patient was to undergo surgery at the beginning of the year however due to DVT and PE, this was postponed. Patient also reports feelings of anxiety and palpitations. No chest pain. Reports having episodes of diaphoresis. No lightheadedness, dizziness, syncopal events. Reports that she has had about a 50 pound weight loss since her initial diagnosis. Weight has been maintained recently. Denies abdominal pain, nausea, vomiting, diarrhea. No other recent illnesses, fevers, chills. Denies urinary symptoms. In the ED, CXR shows A large right pleural effusion resulting in near complete opacification of the right hemithorax which results in mild left mediastinal shift. Patient is currently on 2 L of oxygen however no documented hypoxia. She is tachycardic, BP is stable. Labs unremarkable. Allergies Allergy/AdvReac Type Severity Reaction Status Date / Time No Known Allergies Allergy Verified 05/09/22 12:49 Home Medications Medication Instructions Recorded Confirmed Type escitalopram oxalate 5 mg tablet 5 mg PO DAILY 11/02/21 05/22/22 History apixaban 5 mg tablet (Eliquis) 5 mg PO Q12H #74 tabs 11/03/21 05/22/22 Rx oxycodone 5 mg tablet 5 mg PO BID PRN Pain 02/27/22 05/22/22 History omeprazole 20 mg capsule,delayed 20 mg PO DAILY 05/09/22 05/22/22 History release Past Med/Surg History Medical History Anemia Breast cancer S/p chemo and radiation 2 cycles of AC, then 2 cycles of AC with pembrolizumab, then taxol/carbo with pembrolizumab. She had minimal response to neoadjuvant therapy, and was evaluated for surgery. Staging scans at that time revealed both PE and bilateral breast involvement with left axillary involvement consistent with metastatic disease. She was placed on anticoagulation--this development precluded surgery. She then had Trodelvy with minimal response and was referred for XRT to the right breast due to the bulk of the tumor. Then completed XRT to the left breast. Depression Fibroid uterus Heavy menstrual bleeding History of DVT (deep vein thrombosis) History of hysteroscopy "04/05/2017 hysteroscopy endometrial ablation" History of pulmonary embolism Juvenile osteochondrosis of leg Menorrhagia Uterine leiomyoma Wrist fracture, left Surgical repair Surgical History History of breast biopsy History of hysterectomy S/P section S/P laparoscopic hysterectomy S/P tubal ligation Family History Sister Breast cancer Father Prostate cancer Mother FH: pancreatic cancer Social History Smoking Status: Never smoker Hx Alcohol Use: No Hx Substance Use: No Preferred Language: Kiswahili Communication Ability: Effective Professor Of Theatre Required: No Beliefs That Will Affect Care: None marital status: Current Living Situation: Family current occupational status: employed Feels Safe at Home: Yes Diet Comment: healthier choices caffeine: Yes (tea daily) during the past year weight has: decreased > 10 lbs Assistive Devices: Contacts and Glasses Review of Systems Review of Systems: ROS per HPI, all other systems reviewed and negative Physical Exam Constitutional: WD/WN, vitals as above + ill appearing; no acute distress Eyes: PERRL, conjunctivae normal, anicteric sclerae ENMT: external ear and nose normal, oropharynx normal Respiratory: + labored breathing; no respiratory distress and + not able to speak in complete sentence Auscultation: + diminished lung sounds (right) Cardiovascular: Rate/Rhythm: regular rhythm and + tachycardic Vessels: normal peripheral pulses Extremities: no edema Gastrointestinal (Abdomen): normal bowel sounds, soft, nontender, no hepatosplenomegaly Musculoskeletal: no cyanosis or clubbing, extremities motor strength 5/5 Skin: no rashes, warm and dry Neurologic: PERRL, EOMI, accommodation nl, no face palsy, no dysarthria Psychiatric: A+Ox3, euthymic affect Results & Data Results & Data ([facility]) Vital Signs (Past 12 Hours) Vital Signs Temp Pulse Pulse Resp BP BP Pulse Ox 05/22/22 16:00 129 H 36 H 94 05/22/22 16:00 136/87 05/22/22 15:30 126 H 37 H 94 05/22/22 15:30 135/91 05/22/22 15:01 128 H 50 H 95 05/22/22 15:01 129/95 05/22/22 15:00 124 H 33 H 94 05/22/22 14:30 123 H 19 95 05/22/22 14:30 150/103 H 05/22/22 14:00 120 H 20 95 05/22/22 14:00 140/103 H 05/22/22 13:45 119 H 19 96 05/22/22 13:45 143/92 H 05/22/22 13:39 93 05/22/22 13:05 115 H 21 95 05/22/22 13:05 128/86 05/22/22 13:00 116 H 28 H 95 05/22/22 11:08 118 H 28 H 143/90 H 95 05/22/22 11:08 05/22/22 12:30 118 H 19 93 05/22/22 12:00 118 H 28 H 95 05/22/22 11:30 119 H 30 H 172/81 H 96 05/22/22 11:25 121 H 28 H 92 05/22/22 11:32 119 H 26 H 95 05/22/22 11:32 91 05/22/22 11:32 26 H 91 05/22/22 11:32 119 H 28 H 172/81 H 90 05/22/22 11:32 05/22/22 11:09 36.8 C 125 H 24 124/72 92 O2 Del Method O2 Flow Rate 05/22/22 16:00 05/22/22 16:00 05/22/22 15:30 05/22/22 15:30 05/22/22 15:01 05/22/22 15:01 05/22/22 15:00 05/22/22 14:30 05/22/22 14:30 05/22/22 14:00 05/22/22 14:00 05/22/22 13:45 05/22/22 13:45 05/22/22 13:39 05/22/22 13:05 05/22/22 13:05 05/22/22 13:00 05/22/22 11:08 Nasal Cannula 05/22/22 11:08 Nasal Cannula 05/22/22 12:30 05/22/22 12:00 05/22/22 11:30 05/22/22 11:25 05/22/22 11:32 Nasal Cannula 2 05/22/22 11:32 Room Air 0 05/22/22 11:32 Room Air 05/22/22 11:32 Room Air 05/22/22 11:32 Nasal Cannula 2 05/22/22 11:09 Room Air Laboratory Results Short CBC 05/22/22 Range/Units 11:43 WBC 7.08 (4.8-10.8) K/ul Hgb 9.1 L (12.0-16.0) g/dl Hct 29.3 L (34.1-44.9) % Plt Count 170 (130-400) K/uL BMP 05/22/22 11:43 Sodium 133 L Potassium 3.8 Chloride 98 Carbon Dioxide 25 BUN 17 Creatinine 0.46 L Glucose 114 H Calcium 8.5 Liver Function 05/22/22 Range/Units 11:43 Total Bilirubin 0.5 (0.2-1.0) mg/dl AST 75 H (13-39) U/L ALT 20 (7-52) U/L Alkaline Phosphatase 290 H (34-104) U/L Albumin 3.2 L (3.4-5.0) gm/dl Diagnostic Findings Chest X-Ray 05/22/22 11:32 XR chest 1V portable HISTORY: Right-sided Chest Pain COMPARISON: Radiation oncology chest CT 04/04/2022. FINDINGS: There is a large right pleural effusion resulting in near-complete opacification of the right hemithorax. This has significantly increased in size in the interval. This results in mild left mediastinal shift. No pneumothorax. The heart is normal in size. Left subclavian Port-A-Cath terminates in the SVC. A few small patchy density at the left lung base favor subsegmental atelectasis. IMPRESSION: A large right pleural effusion resulting in near complete opacification of the right hemithorax. This has significantly increased in size in the interval. This results in mild left mediastinal shift. ACT 112: Negative or not required by law. Electronically signed by: Vito Brewster M.D. 05/22/2022 12:37 PM Chest CTA 05/22/22 12:23 CT angio chest PE protocol CLINICAL HISTORY: SOB, breast CA, h/o PE, r/o new PE TECHNIQUE: Multidetector row helical CT of the chest was performed with angiographic protocol. Coronal and sagittal reformations were obtained. Coronal and sagittal MIPS were obtained from the axial data set and were submitted for review. Automated dose lowering techniques and/or adjustment according to patient size were utilized for this exam. CT DOSE: 525.07 mGycm Comparison: Comparison is made to CTA chest 04/05/2017 and PET/CT 01/25/2022 FINDINGS: Lungs and pleura: Large right and small left pleural effusions have developed in the interval. The right lung is almost entirely collapsed and enhances normally. Mild atelectasis is seen in the left lung. No suspicious pulmonary nodules are seen. Heart and pericardium: Heart size is normal. No pericardial effusion. Vessels: No evidence of pulmonary embolism. Mediastinum and karla: Unremarkable. Chest wall and lower neck: A portacatheter seen. Body wall edema is seen bilaterally. Bilateral prominent lymph nodes are seen in the axilla measuring up to 12 mm in short axis. Abdomen: Unremarkable. Bones: Mottled appearance of the thoracic spine is seen, more heterogeneous than on prior exam. These may represent foci of bony metastasis. IMPRESSION: 1. No evidence of pulmonary embolism. 2. Large right and small left pleural effusion with almost complete collapse of the right lung. 3. Prominent bilateral axillary lymph nodes are seen. These are less prominent than on prior PET/CT. 4. Body wall edema and skin thickening is seen, right somewhat greater than left. These may represent post radiation changes. 5. Irregular appearance of the bones may represent metastatic disease, correlate with PET/CT and/or bone scan if desired. ACT 112: Negative or not required by law. Electronically signed by: Mayco Casper M.D. 05/22/2022 2:01 PM Code Status & VTE Plan Code Status Patient is a full code as per my discussion with her. VTE Prophylaxis Plan VTE Prophylaxis will be ordered: Yes Supervising Physician Co-Signing Physician Notes Patient was seen and examined independently at bedside. Chart reviewed. Case discussed with Jazmine WEAVER and agree with the documentation above. In summary, this is a 51 year old female with metastatic breast carcinoma s/p chemoradiation and PE on eliquis, who presented to the ED with worsening shortness of breath for the past week. Found to have large right pleural effusion with mediastinal shift in work up, likely malignant. On exam, sitting in bed, on 2 L NC, conversationally dyspneic, AAO, diminished breath sounds on right, tachycardic, abd benign, no LE edema. Seen by accounts collector- Admit to ICU, plan for pigtail catheter, repeat echo. Hold eliquis. Rest as per the note above. (1) Breast cancer Breast location: unspecified site of breast Estrogen receptor status: unspecified Laterality: right Patient sex: female Qualified Code(s): C50.911 - Malignant neoplasm of unspecified site of right female breast
[2022-05-22] MEDS ORDERED: Heparin IV Adult Wt-Based Standard *NO* Bolus Protocol IV SCH (17:00)
[2022-05-22] MEDS ORDERED: ICU PROTOCOL FOR HYPERGLYCEMIA PRN (17:35)
[2022-05-22] MEDS: HEPARIN SODIUM/DEXTROSE 25,000 UNITS/500 ML BAG IV SCH (17:36)
[2022-05-22] MEDS: oxyCODONE HCL IR 5 MG TAB (IMMEDIATE RELEASE) PO PRN (19:45)
--- NOTE | 2022-05-22 22:25 | Emergency Department Note ---
Impression & Plan Large pleural effusion, Breast cancer, History of pulmonary embolism, On apixaban therapy ED Provider Note NAME: ANITA HARMON AGE: 51 SEX: F ARRIVES VIA: Walk-In INFORMANT: Patient. ED PROVIDER(S): Krystian Aguero MD CHIEF COMPLAINT: Shortness of breath PLAN: Disposition: Admit MEDICAL DECISION MAKING: The patient is a pleasant 51-year-old woman with a past medical history of breast cancer currently undergoing radiation treatment, history of PE on Eliquis who presents to the emergency department company by her for evaluation of worsening shortness of breath over the past week in the setting of recently completing radiation treatment shortly prior. She reports rapid progressive symptoms of shortness of breath. She reports mild cough but denies any productive sputum. She denies any fevers, chills, nausea vomiting, diarrhea or urinary symptoms. She reports she has been taking her Eliquis as prescribed and does not miss doses. She last took her Eliquis this morning. On arrival the patient is uncomfortable, moderately dyspneic with increased work of breathing with respiratory rate in the 20s, heart rate in the 110s and blood pressure otherwise stable. Her O2 saturation was as low as 91% on room air but with work of breathing and so patient was placed on nasal cannula. She does appear clinically dry. Lung sounds are diminished in the right lung basurto and left base. EKG demonstrates sinus tachycardia without overt acute ischemia. Chest x-ray demonstrates whiteout of right hemithorax with mediastinal shift which has significantly progressed when compared to CT on April 04. WBC and platelets within normal limits. H/H approximate to prior range of values. Chemistry without metabolic acidosis. BUN/creatinine> consistent with patient's clinically dry appearance. Electrolytes without significant abnormality. AST 75, increased from prior nonspecific. LFTs otherwise unremarkable. High-sensitivity troponin 9.0, within normal limits. Lipase is within normal limits. TSH within normal limits. COVID-19 RNA, NAAT test was negative. CTA of the chest was performed and was negative for PE however further characterizes the patient's large right-sided pleural effusion. Prominent bilateral axillary lymph nodes are seen. These are less prominent than prior PET/CT. Note is made of body wall edema and skin thickening that is likely consistent with postradiation changes. Question of possible bony metas tatic disease is seen. Findings reviewed with the patient and her at the bedside. They do a gree with plan for admission for further management including pulmonary consultation for thoracentesis. Case was discussed with Jazmine WEAVER with Dr. Lo, [facility] hospitalist, who will evaluate the patient for admission. Triage Nursing notes reviewed and agree them. Prior medical records reviewed Vital Signs: reviewed and remarkable for tachycardia, tachypnea, low O2 saturation. Differential diagnosis: Reactive airway disease, pneumonia, pneumothorax, COPD, CHF, infections, cardiac ischemia, pulmonary embolism, musculoskeletal, gastrointestinal, as well as other pathologies. ER treatment provided: See below. Diagnostics interpreted by me: ECG: Sinus tachycardia, 123 bpm, no ectopy, no overt ST elevation or depression, QTC 449, QRS 72. Cardiac Monitoring: An order for continuous cardiac monitoring was placed and demonstrated Sinus tachycardia, 123 bpm, no ectopy. Laboratory studies: See below Imaging studies: See below Consultation(s): Jazmine WEAVER [facility], HPI: The patient is a pleasant 51-year-old woman with a past medical history of breast cancer currently undergoing radiation treatment, history of PE on Eliquis who presents to the emergency department company by her for evaluation of worsening shortness of breath over the past week in the setting of recently completing radiation treatment shortly prior. She reports rapid progressive symptoms of shortness of breath. She reports mild cough but denies any productive sputum. She denies any fevers, chills, nausea vomiting, diarrhea or urinary symptoms. She reports she has been taking her Eliquis as prescribed and does not miss doses. She last took her Eliquis this morning. ROS: See above HPI for pertinent positives & negatives. A total of 10 systems reviewed and were otherwise negative. VITALS:See Below PHYSICAL EXAMINATION: GENERAL: Awake, alert, uncomfortable/dyspneic-appearing, in no distress HENT: Normocephalic, atraumatic. Oropharynx with dry mucous membranes and otherwise unremarkable. EYES: Normal conjunctiva. Sclera non-icteric. NECK: Supple. No nuchal rigidity. FROM. No JVD. RESPIRATORY: Lung sounds are diminished in the right lung basurto and left base. Mild increased WOB. CARDIAC: Regular rate, normal rhythm. Extremities warm and well perfused. Pulses equal. ABDOMEN: Soft, non-distended. No tenderness to palpation. No rebound or guarding. No masses. RECTAL: Deferred. MUSCULOSKELETAL: Chest examination reveals no tenderness. The back is symmetrical on inspection without obvious abnormality. There is no CVA tenderness to palpation. No joint edema. LOWER EXTREMITIES: Calves are equal size bilaterally and non-tender. No edema. No discoloration. NEURO: Normal sensorium. No sensory or motor deficits noted. SKIN: No rash or jaundice noted. Krystian Aguero MD Past Med/Surg History Medical History Anemia Breast cancer S/p chemo and radiation 2 cycles of AC, then 2 cycles of AC with pembrolizumab, then taxol/carbo with pembrolizumab. She had minimal response to neoadjuvant therapy, and was evaluated for surgery. Staging scans at that time revealed both PE and bilateral breast involvement with left axillary involvement consistent with metastatic disease. She was placed on anticoagulation--this development precluded surgery. She then had Trodelvy with minimal response and was referred for XRT to the right breast due to the bulk of the tumor. Then completed XRT to the left breast. Depression Fibroid uterus Heavy menstrual bleeding History of DVT (deep vein thrombosis) History of hysteroscopy "04/05/2017 hysteroscopy endometrial ablation" History of pulmonary embolism Juvenile osteochondrosis of leg Menorrhagia Uterine leiomyoma Wrist fracture, left Surgical repair Surgical History History of breast biopsy History of hysterectomy S/P section S/P laparoscopic hysterectomy S/P tubal ligation Family History Sister Breast cancer Father Prostate cancer Mother FH: pancreatic cancer Social History Smoking Status: Never smoker Hx Alcohol Use: No Hx Substance Use: No Preferred Language: Jamaican Communication Ability: Effective 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: No Beliefs That Will Affect Care: None marital status: Current Living Situation: Family current occupational status: employed Feels Safe at Home: Yes Diet Comment: healthier choices caffeine: Yes (tea daily) during the past year weight has: decreased > 10 lbs Assistive Devices: Contacts and Glasses Allergies Allergies Allergy/AdvReac Type Severity Reaction Status Date / Time No Known Allergies Allergy Verified 05/09/22 12:49 Home Meds Home Medications Medication Instructions Recorded Confirmed escitalopram oxalate 5 mg tablet 5 mg PO DAILY 11/02/21 05/22/22 oxycodone 5 mg tablet 5 mg PO BID PRN Pain 02/27/22 05/22/22 omeprazole 20 mg capsule,delayed 20 mg PO DAILY 05/09/22 05/22/22 release Previous Rx's Medication Instructions Recorded apixaban 5 mg tablet (Eliquis) 5 mg PO Q12H #74 tabs 11/03/21 Results & Data (ED) Vital Signs Vital Signs - 24 hr 05/22/22 11:09 05/22/22 11:32 05/22/22 11:32 Temperature 36.8 C Temperature Source Temporal Artery Scan Pulse Rate 125 H Pulse Rate [Apical] 119 H Pulse Rate from SpO2 Sensor Pulse Rhythm Pulse Rhythm [Apical] Regular Pulse Strength [Apical] Normal Respiratory Rate 24 28 H Respiratory Effort / Characteristics Non-Labored Spontaneous Labored Short of Breath SOB on Exertion Short of Breath SOB on Exertion Respiratory Depth Normal Normal Normal Respiratory Pattern Tachypnea Tachypnea Tachypnea Blood Pressure 124/72 Blood Pressure [Right Arm] 172/81 H Blood Pressure Mean 89 Blood Pressure Mean [Right Arm] 111 Blood Pressure Position Sitting Blood Pressure Position [Right Arm] Lying Pulse Oximetry 92 90 Oxygen Delivery Method Room Air Nasal Cannula Room Air Oxygen Flow Rate 2 Sepsis Recent Fever Within 48 Hours No Sepsis New/Unexplained Change in Mental Status N/A Sepsis Action Taken by Nursing No Action Required Oxygen Flow Rate - Titration Pulse Oximetry Post Tiitration 05/22/22 11:32 05/22/22 11:32 05/22/22 11:32 Temperature Temperature Source Pulse Rate 119 H Pulse Rate [Apical] Pulse Rate from SpO2 Sensor Pulse Rhythm Regular Pulse Rhythm [Apical] Pulse Strength [Apical] Respiratory Rate 26 H 26 H Respiratory Effort / Characteristics Non-Labored Spontaneous Respiratory Depth Respiratory Pattern Blood Pressure Blood Pressure [Right Arm] Blood Pressure Mean Blood Pressure Mean [Right Arm] Blood Pressure Position Blood Pressure Position [Right Arm] Pulse Oximetry 91 91 95 Oxygen Delivery Method Room Air Room Air Nasal Cannula Oxygen Flow Rate 0 2 Sepsis Recent Fever Within 48 Hours Sepsis New/Unexplained Change in Mental Status Sepsis Action Taken by Nursing Oxygen Flow Rate - Titration 2 Pulse Oximetry Post Tiitration 95 05/22/22 11:25 05/22/22 11:30 05/22/22 12:00 Temperature Temperature Source Pulse Rate 121 H 119 H 118 H Pulse Rate [Apical] Pulse Rate from SpO2 Sensor 121 H 118 H 118 H Pulse Rhythm Pulse Rhythm [Apical] Pulse Strength [Apical] Respiratory Rate 28 H 30 H 28 H Respiratory Effort / Characteristics Respiratory Depth Respiratory Pattern Blood Pressure 172/81 H Blood Pressure [Right Arm] Blood Pressure Mean 111 Blood Pressure Mean [Right Arm] Blood Pressure Position Blood Pressure Position [Right Arm] Pulse Oximetry 92 96 95 Oxygen Delivery Method Oxygen Flow Rate Sepsis Recent Fever Within 48 Hours Sepsis New/Unexplained Change in Mental Status Sepsis Action Taken by Nursing Oxygen Flow Rate - Titration Pulse Oximetry Post Tiitration 05/22/22 12:30 05/22/22 11:08 05/22/22 11:08 Temperature Temperature Source Pulse Rate 118 H Pulse Rate [Apical] 118 H Pulse Rate from SpO2 Sensor 120 H Pulse Rhythm Pulse Rhythm [Apical] Regular Pulse Strength [Apical] Normal Respiratory Rate 19 28 H Respiratory Effort / Characteristics Non-Labored Spontaneous Respiratory Depth Normal Respiratory Pattern Regular Blood Pressure Blood Pressure [Right Arm] 143/90 H Blood Pressure Mean Blood Pressure Mean [Right Arm] 107 Blood Pressure Position Blood Pressure Position [Right Arm] Lying Pulse Oximetry 93 95 Oxygen Delivery Method Nasal Cannula Nasal Cannula Oxygen Flow Rate Sepsis Recent Fever Within 48 Hours Sepsis New/Unexplained Change in Mental Status Sepsis Action Taken by Nursing Oxygen Flow Rate - Titration Pulse Oximetry Post Tiitration 05/22/22 13:00 05/22/22 13:05 05/22/22 13:05 Temperature Temperature Source Pulse Rate 116 H 115 H Pulse Rate [Apical] Pulse Rate from SpO2 Sensor 116 H 114 H Pulse Rhythm Pulse Rhythm [Apical] Pulse Strength [Apical] Respiratory Rate 28 H 21 Respiratory Effort / Characteristics Respiratory Depth Respiratory Pattern Blood Pressure 128/86 Blood Pressure [Right Arm] Blood Pressure Mean 100 Blood Pressure Mean [Right Arm] Blood Pressure Position Blood Pressure Position [Right Arm] Pulse Oximetry 95 95 Oxygen Delivery Method Oxygen Flow Rate Sepsis Recent Fever Within 48 Hours Sepsis New/Unexplained Change in Mental Status Sepsis Action Taken by Nursing Oxygen Flow Rate - Titration Pulse Oximetry Post Tiitration 05/22/22 13:39 05/22/22 13:45 05/22/22 13:45 Temperature Temperature Source Pulse Rate 119 H Pulse Rate [Apical] Pulse Rate from SpO2 Sensor 122 H 121 H Pulse Rhythm Pulse Rhythm [Apical] Pulse Strength [Apical] Respiratory Rate 19 Respiratory Effort / Characteristics Respiratory Depth Respiratory Pattern Blood Pressure 143/92 H Blood Pressure [Right Arm] Blood Pressure Mean 109 Blood Pressure Mean [Right Arm] Blood Pressure Position Blood Pressure Position [Right Arm] Pulse Oximetry 93 96 Oxygen Delivery Method Oxygen Flow Rate Sepsis Recent Fever Within 48 Hours Sepsis New/Unexplained Change in Mental Status Sepsis Action Taken by Nursing Oxygen Flow Rate - Titration Pulse Oximetry Post Tiitration 05/22/22 14:00 05/22/22 14:00 05/22/22 14:30 Temperature Temperature Source Pulse Rate 120 H Pulse Rate [Apical] Pulse Rate from SpO2 Sensor 121 H Pulse Rhythm Pulse Rhythm [Apical] Pulse Strength [Apical] Respiratory Rate 20 Respiratory Effort / Characteristics Respiratory Depth Respiratory Pattern Blood Pressure 140/103 H 150/103 H Blood Pressure [Right Arm] Blood Pressure Mean 115 118 Blood Pressure Mean [Right Arm] Blood Pressure Position Blood Pressure Position [Right Arm] Pulse Oximetry 95 Oxygen Delivery Method Oxygen Flow Rate Sepsis Recent Fever Within 48 Hours Sepsis New/Unexplained Change in Mental Status Sepsis Action Taken by Nursing Oxygen Flow Rate - Titration Pulse Oximetry Post Tiitration 05/22/22 14:30 Temperature Temperature Source Pulse Rate 123 H Pulse Rate [Apical] Pulse Rate from SpO2 Sensor 122 H Pulse Rhythm Pulse Rhythm [Apical] Pulse Strength [Apical] Respiratory Rate 19 Respiratory Effort / Characteristics Respiratory Depth Respiratory Pattern Blood Pressure Blood Pressure [Right Arm] Blood Pressure Mean Blood Pressure Mean [Right Arm] Blood Pressure Position Blood Pressure Position [Right Arm] Pulse Oximetry 95 Oxygen Delivery Method Oxygen Flow Rate Sepsis Recent Fever Within 48 Hours Sepsis New/Unexplained Change in Mental Status Sepsis Action Taken by Nursing Oxygen Flow Rate - Titration Pulse Oximetry Post Tiitration Laboratory Data Attestation: I reviewed the patient's lab results. Result diagrams: 05/22/22 11:43 05/22/22 11:43 Lab Results 05/22/22 05/22/22 05/22/22 Range/Units 11:43 11:43 11:43 WBC 7.08 (4.8-10.8) K/ul RBC 3.47 L (3.93-5.22) M/uL Hgb 9.1 L (12.0-16.0) g/dl Hct 29.3 L (34.1-44.9) % MCV 84.4 (80.0-100.0) fL MCH 26.2 (25.0-34.0) pg MCHC 31.1 L (32.0-36.0) g/dL RDW Std Deviation 51.2 H (36.4-46.3) fL RDW Coeff of Elizabeth 17.7 H (11.5-14.5) % Plt Count 170 (130-400) K/uL MPV 9.6 (9.4-12.3) fL Immature Gran % (Auto) 6.2 % Neut % (Auto) 82.4 % Lymph % (Auto) 3.2 % Glascock % (Auto) 7.8 % Eos % (Auto) 0.1 % Baso % (Auto) 0.3 % Neut # (Auto) 5.83 (1.4-6.5) K/uL Lymph # (Auto) 0.23 L (1.2-3.4) K/uL Gl[place]ock # (Auto) 0.55 (0.24-0.82) K/uL Eos # (Auto) 0.01 (0-0.50) K/uL Baso # (Auto) 0.02 (0-0.2) K/uL Immature Gran # (Auto) 0.44 H (0.00-0.02) K/uL Absolute Nucleated RBC 0.04 H (0-0) K/uL Nucleated RBC % (auto) 0.6 % PT 11.4 (9.0-12.0) Seconds INR 1.1 (0.9-1.1) APTT 29.3 (21.0-31.0) Seconds PTT Ratio 1.1 Sodium 133 L (136-145) mmol/L Potassium 3.8 (3.5-5.1) mmol/L Chloride 98 (98-107) mmol/L Carbon Dioxide 25 (21-32) mmol/L Anion Gap 10 (3-11) BUN 17 (6-23) mg/dl Creatinine 0.46 L (0.6-1.2) mg/dl Est Cr Clr Drug Dosing Not Reportable Est GFR ( Amer) 133.5 ml/min Est GFR (Non-Af Amer) 115.2 ml/min BUN/Creatinine Ratio 37.0 H (10-20) Glucose 114 H (70-99(Fasting)) mg/dl Calcium 8.5 (8.5-10.1) mg/dl Phosphorus 3.1 (2.5-4.9) mg/dl Magnesium 1.7 (1.7-2.4) mg/dl Total Bilirubin 0.5 (0.2-1.0) mg/dl AST 75 H (13-39) U/L ALT 20 (7-52) U/L Alkaline Phosphatase 290 H (34-104) U/L Troponin I High Sens 9.0 (0-14) pg/ml Total Protein 6.8 (6.0-8.3) gm/dl Albumin 3.2 L (3.4-5.0) gm/dl Globulin 3.6 (2.5-4.0) gm/dl Albumin/Globulin Ratio 0.9 (0.9-2) Lipase 14 (11-82) U/L TSH (0.300-4.500) uIu/ml 05/22/22 Range/Units 11:43 WBC (4.8-10.8) K/ul RBC (3.93-5.22) M/uL Hgb (12.0-16.0) g/dl Hct (34.1-44.9) % MCV (80.0-100.0) fL MCH (25.0-34.0) pg MCHC (32.0-36.0) g/dL RDW Std Deviation (36.4-46.3) fL RDW Coeff of Elizabeth (11.5-14.5) % Plt Count (130-400) K/uL MPV (9.4-12.3) fL Immature Gran % (Auto) % Neut % (Auto) % Lymph % (Auto) % [place]ock % (Auto) % Eos % (Auto) % Baso % (Auto) % Neut # (Auto) (1.4-6.5) K/uL Lymph # (Auto) (1.2-3.4) K/uL [place]ock # (Auto) (0.24-0.82) K/uL Eos # (Auto) (0-0.50) K/uL Baso # (Auto) (0-0.2) K/uL Immature Gran # (Auto) (0.00-0.02) K/uL Absolute Nucleated RBC (0-0) K/uL Nucleated RBC % (auto) % PT (9.0-12.0) Seconds INR (0.9-1.1) APTT (21.0-31.0) Seconds PTT Ratio Sodium (136-145) mmol/L Potassium (3.5-5.1) mmol/L Chloride (98-107) mmol/L Carbon Dioxide (21-32) mmol/L Anion Gap (3-11) BUN (6-23) mg/dl Creatinine (0.6-1.2) mg/dl Est Cr Clr Drug Dosing Est GFR ( Amer) ml/min Est GFR (Non-Af Amer) ml/min BUN/Creatinine Ratio (10-20) Glucose (70-99(Fasting)) mg/dl Calcium (8.5-10.1) mg/dl Phosphorus (2.5-4.9) mg/dl Magnesium (1.7-2.4) mg/dl Total Bilirubin (0.2-1.0) mg/dl AST (13-39) U/L ALT (7-52) U/L Alkaline Phosphatase (34-104) U/L Troponin I High Sens (0-14) pg/ml Total Protein (6.0-8.3) gm/dl Albumin (3.4-5.0) gm/dl Globulin (2.5-4.0) gm/dl Albumin/Globulin Ratio (0.9-2) Lipase (11-82) U/L TSH 2.248 (0.300-4.500) uIu/ml Administered Medications Acetaminophen (Acetaminophen 325 Mg Tab) 650 mg PO Q6H PRN PRN Reason: Pain Stop: 06/21/22 23:49 Last Admin: 05/22/22 23:57 Dose: 650 mg Documented By: BOOGIE Heparin Sodium/Dextrose (Heparin Sodium/Dextrose) 25,000 units in 500 mls @ 21 mls/hr IV .[id number] [facility]; Protocol Stop: 06/21/22 17:14 Last Titration: 05/23/22 00:06 Dose: 1,050 units/hr, 21 mls/hr Documented By: BOOGIE Co-signed By: NENO Titration: 05/22/22 18:53 Dose: 1,000 units/hr, 20 mls/hr Documented By: POLINA Co-signed By: AMPARO Admin: 05/22/22 17:36 Dose: 1,000 units/hr, 20 mls/hr Documented By: POLINA Co-signed By: KJL Oxycodone HCl (Oxycodone Hcl Ir 5 Mg Tab (Immediate Release)) 5 mg PO BID PRN PRN Reason: severe pain Stop: 06/05/22 17:34 Last Admin: 05/22/22 19:45 Dose: 5 mg Documented By: AMPARO Discontinued Medications Sodium Chloride (Nss 1000ml) 1,000 mls @ 999 mls/hr IV .[id number] ONE Stop: 05/22/22 12:32 Last Infusion: 05/22/22 14:15 Dose: 0 mls/hr Documented By: Admin: 05/22/22 12:00 Dose: 999 mls/hr Documented By: GONZALO Ioversol (Optiray 320 125ml) 119 ml IV ONCE ONE Stop: 05/22/22 13:38 Last Admin: 05/22/22 13:37 Dose: 119 ml Documented By: BRIAN Lorazepam (Lorazepam 0.5 Mg Tab) 0.5 mg PO ONE ONE Stop: 05/22/22 15:02 Last Admin: 05/22/22 15:12 Dose: 0.5 mg Documented By: GONZALO Imaging Data Radiologist's Impression: Chest CTA 05/22/22 12:23 CT angio chest PE protocol CLINICAL HISTORY: SOB, breast CA, h/o PE, r/o new PE TECHNIQUE: Multidetector row helical CT of the chest was performed with angiographic protocol. Coronal and sagittal reformations were obtained. Coronal and sagittal MIPS were obtained from the axial data set and were submitted for review. Automated dose lowering techniques and/or adjustment according to patient size were utilized for this exam. CT DOSE: 525.07 mGycm Comparison: Comparison is made to CTA chest 04/05/2017 and PET/CT 01/25/2022 FINDINGS: Lungs and pleura: Large right and small left pleural effusions have developed in the interval. The right lung is almost entirely collapsed and enhances normally. Mild atelectasis is seen in the left lung. No suspicious pulmonary nodules are seen. Heart and pericardium: Heart size is normal. No pericardial effusion. Vessels: No evidence of pulmonary embolism. Mediastinum and karla: Unremarkable. Chest wall and lower neck: A portacatheter seen. Body wall edema is seen bilaterally. Bilateral prominent lymph nodes are seen in the axilla measuring up to 12 mm in short axis. Abdomen: Unremarkable. Bones: Mottled appearance of the thoracic spine is seen, more heterogeneous than on prior exam. These may represent foci of bony metastasis. IMPRESSION: 1. No evidence of pulmonary embolism. 2. Large right and small left pleural effusion with almost complete collapse of the right lung. 3. Prominent bilateral axillary lymph nodes are seen. These are less prominent than on prior PET/CT. 4. Body wall edema and skin thickening is seen, right somewhat greater than left. These may represent post radiation changes. 5. Irregular appearance of the bones may represent metastatic disease, correlate with PET/CT and/or bone scan if desired. ACT 112: Negative or not required by law. Electronically signed by: Mayco Casper M.D. 05/22/2022 2:01 PM Discharge Plan Visit Data Chief Complaint: Shortness of Breath/Dyspnea Stated Complaint: SOB ED Provider: Krystian Aguero Discharge Problem: Large pleural effusion, Breast cancer, History of pulmonary embolism, On apixaban therapy Patient Disposition: Admitted As Inpatient Discharge Instructions Interventions: ED Discharge Assessment Last Done: 05/22/22 17:30
[2022-05-22] MEDS: ACETAMINOPHEN 325 MG TAB PO PRN (23:57)
[2022-05-23 00:03] LABS: Partial Thromboplastin Ratio 1.6; Partial Thromboplastin Time 44.4 Seconds (21.0-31.0)
[2022-05-23] MEDS ORDERED: RAPID SEQUENCE INDUCTION BAG ONE (05:39)
[2022-05-23] MEDS ORDERED: PROPOFOL IV EMULSION 10 MG/ML 100 ML VIAL IV ONE (05:40)
[2022-05-23 06:14] LABS: Hematocrit (blood only) 27.6 % (34.1-44.9); Hemoglobin 8.4 g/dl (12.0-16.0); Mean Corpuscular Hemoglobin 25.7 pg (25.0-34.0); Mean Corpuscular Hgb Conc 30.4 g/dL (32.0-36.0); Mean Corpuscular Volume 84.4 fL (80.0-100.0); Mean Platelet Volume 9.9 fL (9.4-12.3); Nucleated RBC # (auto) 0.06 K/uL (0-0); Nucleated RBC % (auto) 0.9 %; Platelet Count 141 K/uL (130-400); RDW Coefficient of Variation 17.5 % (11.5-14.5); RDW Standard Deviation 51.6 fL (36.4-46.3); Red Blood Count 3.27 M/uL (3.93-5.22); White Blood Count 6.59 K/ul (4.8-10.8)
[2022-05-23 06:40] LABS: BUN Creatinine Ratio 32.6 (10-20); Calcium 8.5 mg/dl (8.5-10.1); Creatinine Clr Calc Pharmacy 130.2 ml/min; Est GFR (African American) 133.5 ml/min; Est GFR (Non-African American) 115.2 ml/min; Potassium 4.2 mmol/L (3.5-5.1)
--- NOTE | 2022-05-23 07:57 | Hospitalist Progress Note ---
Date of Service May 23, 2022 Assessment & Plan (1) Large pleural effusion: Plan: Admitted to ICU Patient presenting from home with reports of worsening shortness of breath x 1 week In the ED, CXR shows large right pleural effusion resulting in mild left mediastinal shift On admission on 2 L O2, however no documented hypoxia. Tachycardic, BP stable Highly suspicious for malignant effusion due to currently active breast cancer Case discussed with managing manager, Dr. Hayden -- planning on chest tube placement 05/23 -status post chest tube placement After procedure patient feels better, however she is now requiring 5 L of oxygen, and she has been tachycardic Pleural fluid sent to lab Echocardiogram obtained Technically limited study with patient in sinus tachycardia. LV cavity is small. There is mild concentric LVH. No regional wall motion abnormality noted. EF greater than 70%. There is no gross valvular disease. There is trivial apical pericardial effusion of no hemodynamic significance. (2) Breast cancer: Plan: S/p chemo and radiation, recently completed radiation treatment to the left breast Follows with [facility] medical oncology and [facility] radiation oncology (3) Anemia: Plan: Hgb 9.1 Likely due to malignancy No signs of bleeding at this time No indication for transfusion Monitor CBC (4) History of DVT (deep vein thrombosis): (5) History of pulmonary embolism: Plan: Holding Eliquis due to large pleural effusion requiring intervention, pt on IV heparin (6) DVT prophylaxis: Plan: SCDs for now Admission and Anticipated Discharge Date Admission Date: May 22, 2022 Subjective Patient seen in follow-up of shortness of breath secondary to large pleural effusion, in the setting of metastatic breast cancer Patient history of PE, on Eliquis, was switched to IV heparin on admission yesterday S/p chest tube placement today w/ pulmonary Currently reports feeling better However she now has increased oxygen requirement, on 5 L, and she has been tachycardic Echo obtained Patient's children at the bedside She denies any fevers, chills, chest pain, abdominal pain, nausea or vomiting. Reports improved breathing. Minimal cough. Review of Systems Review of Systems: All systems reviewed & are unremarkable except as noted in Subjective Physical Exam Physical Exam: Constitutional:L WD/WN, + ill appe aring; no acute di stress Eyes: PERRL, EOMI, conju nctivae normal, an icteric sclerae ENMT: external ear and n ose normal, oropha rynx normal Respiratory: no respiratory dis tress, diminished breath sounds on r ight. no wheezing Cardiovascular:L Rate/Rhythm: regul ar rhythm and + ta chycardic Extrem ities: no edema Gastrointestinal ( Abdomen): normal bowel sound s, soft, nontender Musculoskeletal: extremities motor strength 5/5 Skin: no rashes, warm an d dry Neurologic: PERRL, EOMI, no fa ce palsy, no dysar thria, moves extre mities Psychiatric: A+Ox3, euthymic af fect Results & Data Results & Data ([facility] [place]) Vital Signs (Past 12 Hours) Vital Signs Temp Pulse Resp BP Pulse Ox O2 Del Method O2 Flow Rate 05/23/22 06:00 113 H 37 H 94 05/23/22 06:00 123/50 L 05/23/22 05:30 111 H 36 H 93 05/23/22 05:00 113 H 24 96 05/23/22 05:00 115/79 05/23/22 04:30 115 H 25 H 95 Nasal Cannula 2 05/23/22 04:00 112 H 35 H 93 05/23/22 04:00 36.9 C 119/82 Nasal Cannula 2 05/23/22 03:00 110 H 23 96 05/23/22 03:00 113/82 05/23/22 02:00 117 H 27 H 95 05/23/22 02:00 115/87 05/23/22 01:00 119 H 26 H 94 05/23/22 01:00 113/87 05/23/22 00:00 124 H 37 H 94 05/23/22 00:00 124/83 05/22/22 23:27 126 H 05/22/22 23:10 134/87 05/22/22 23:10 37.3 C 128 H 44 H 92 05/22/22 23:00 128 H 40 H 93 05/22/22 23:15 Nasal Cannula 2 05/22/22 22:00 127 H 43 H 94 05/22/22 21:30 131 H 46 H 93 05/22/22 21:00 142 H 49 H 91 05/22/22 20:30 132 H 47 H 92 05/22/22 20:00 131 H 44 H 92 Laboratory Results 05/23/22 05/23/22 05/22/22 Range/Units 05:49 05:49 23:36 WBC 6.59 (4.8-10.8) K/ul RBC 3.27 L (3.93-5.22) M/uL Hgb 8.4 L (12.0-16.0) g/dl Hct 27.6 L (34.1-44.9) % MCV 84.4 (80.0-100.0) fL MCH 25.7 (25.0-34.0) pg MCHC 30.4 L (32.0-36.0) g/dL RDW Std Deviation 51.6 H (36.4-46.3) fL RDW Coeff of Elizabeth 17.5 H (11.5-14.5) % Plt Count 141 (130-400) K/uL MPV 9.9 (9.4-12.3) fL Immature Gran % (Auto) % Neut % (Auto) % Lymph % (Auto) % [place] % (Auto) % Eos % (Auto) % Baso % (Auto) % Neut # (Auto) (1.4-6.5) K/uL Lymph # (Auto) (1.2-3.4) K/uL [place] # (Auto) (0.24-0.82) K/uL Eos # (Auto) (0-0.50) K/uL Baso # (Auto) (0-0.2) K/uL Immature Gran # (Auto) (0.00-0.02) K/uL Absolute Nucleated RBC 0.06 H (0-0) K/uL Nucleated RBC % (auto) 0.9 % PT (9.0-12.0) Seconds INR (0.9-1.1) APTT (21.0-31.0) Seconds PTT Ratio Sodium 132 L (136-145) mmol/L Potassium 4.2 (3.5-5.1) mmol/L Chloride 98 (98-107) mmol/L Carbon Dioxide 26 (21-32) mmol/L Anion Gap 8 (3-11) BUN 15 (6-23) mg/dl Creatinine 0.46 L (0.6-1.2) mg/dl Est Cr Clr Drug Dosing 130.2 Est GFR ( Amer) 133.5 ml/min Est GFR (Non-Af Amer) 115.2 ml/min BUN/Creatinine Ratio 32.6 H (10-20) Glucose 110 H (70-99(Fasting)) mg/dl POC Glucose 128 H (70-99) mg/dl Calcium 8.5 (8.5-10.1) mg/dl Phosphorus (2.5-4.9) mg/dl Magnesium (1.7-2.4) mg/dl Total Bilirubin (0.2-1.0) mg/dl AST (13-39) U/L ALT (7-52) U/L Alkaline Phosphatase (34-104) U/L Troponin I High Sens (0-14) pg/ml Total Protein (6.0-8.3) gm/dl Albumin (3.4-5.0) gm/dl Globulin (2.5-4.0) gm/dl Albumin/Globulin Ratio (0.9-2) Lipase (11-82) U/L TSH (0.300-4.500) uIu/ml Nasal Screen MRSA (PCR) (Negative) SARS-CoV-2, RNA, NAAT (NEGATIVE) 05/22/22 05/22/22 05/22/22 Range/Units 23:34 17:25 15:45 WBC (4.8-10.8) K/ul RBC (3.93-5.22) M/uL Hgb (12.0-16.0) g/dl Hct (34.1-44.9) % MCV (80.0-100.0) fL MCH (25.0-34.0) pg MCHC (32.0-36.0) g/dL RDW Std Deviation (36.4-46.3) fL RDW Coeff of Elizabeth (11.5-14.5) % Plt Count (130-400) K/uL MPV (9.4-12.3) fL Immature Gran % (Auto) % Neut % (Auto) % Lymph % (Auto) % [place] % (Auto) % Eos % (Auto) % Baso % (Auto) % Neut # (Auto) (1.4-6.5) K/uL Lymph # (Auto) (1.2-3.4) K/uL [place] # (Auto) (0.24-0.82) K/uL Eos # (Auto) (0-0.50) K/uL Baso # (Auto) (0-0.2) K/uL Immature Gran # (Auto) (0.00-0.02) K/uL Absolute Nucleated RBC (0-0) K/uL Nucleated RBC % (auto) % PT (9.0-12.0) Seconds INR (0.9-1.1) APTT 44.4 H (21.0-31.0) Seconds PTT Ratio 1.6 Sodium (136-145) mmol/L Potassium (3.5-5.1) mmol/L Chloride (98-107) mmol/L Carbon Dioxide (21-32) mmol/L Anion Gap (3-11) BUN (6-23) mg/dl Creatinine (0.6-1.2) mg/dl Est Cr Clr Drug Dosing Est GFR ( Amer) ml/min Est GFR (Non-Af Amer) ml/min BUN/Creatinine Ratio (10-20) Glucose (70-99(Fasting)) mg/dl POC Glucose (70-99) mg/dl Calcium (8.5-10.1) mg/dl Phosphorus (2.5-4.9) mg/dl Magnesium (1.7-2.4) mg/dl Total Bilirubin (0.2-1.0) mg/dl AST (13-39) U/L ALT (7-52) U/L Alkaline Phosphatase (34-104) U/L Troponin I High Sens (0-14) pg/ml Total Protein (6.0-8.3) gm/dl Albumin (3.4-5.0) gm/dl Globulin (2.5-4.0) gm/dl Albumin/Globulin Ratio (0.9-2) Lipase (11-82) U/L TSH (0.300-4.500) uIu/ml Nasal Screen MRSA (PCR) Negative (Negative) SARS-CoV-2, RNA, NAAT NEGATIVE (NEGATIVE) 05/22/22 05/22/22 05/22/22 Range/Units 11:43 11:43 11:43 WBC (4.8-10.8) K/ul RBC (3.93-5.22) M/uL Hgb (12.0-16.0) g/dl Hct (34.1-44.9) % MCV (80.0-100.0) fL MCH (25.0-34.0) pg MCHC (32.0-36.0) g/dL RDW Std Deviation (36.4-46.3) fL RDW Coeff of Elizabeth (11.5-14.5) % Plt Count (130-400) K/uL MPV (9.4-12.3) fL Immature Gran % (Auto) % Neut % (Auto) % Lymph % (Auto) % [place] % (Auto) % Eos % (Auto) % Baso % (Auto) % Neut # (Auto) (1.4-6.5) K/uL Lymph # (Auto) (1.2-3.4) K/uL [place] # (Auto) (0.24-0.82) K/uL Eos # (Auto) (0-0.50) K/uL Baso # (Auto) (0-0.2) K/uL Immature Gran # (Auto) (0.00-0.02) K/uL Absolute Nucleated RBC (0-0) K/uL Nucleated RBC % (auto) % PT 11.4 (9.0-12.0) Seconds INR 1.1 (0.9-1.1) APTT 29.3 (21.0-31.0) Seconds PTT Ratio 1.1 Sodium 133 L (136-145) mmol/L Potassium 3.8 (3.5-5.1) mmol/L Chloride 98 (98-107) mmol/L Carbon Dioxide 25 (21-32) mmol/L Anion Gap 10 (3-11) BUN 17 (6-23) mg/dl Creatinine 0.46 L (0.6-1.2) mg/dl Est Cr Clr Drug Dosing Not Reportable Est GFR ( Amer) 133.5 ml/min Est GFR (Non-Af Amer) 115.2 ml/min BUN/Creatinine Ratio 37.0 H (10-20) Glucose 114 H (70-99(Fasting)) mg/dl POC Glucose (70-99) mg/dl Calcium 8.5 (8.5-10.1) mg/dl Phosphorus 3.1 (2.5-4.9) mg/dl Magnesium 1.7 (1.7-2.4) mg/dl Total Bilirubin 0.5 (0.2-1.0) mg/dl AST 75 H (13-39) U/L ALT 20 (7-52) U/L Alkaline Phosphatase 290 H (34-104) U/L Troponin I High Sens 9.0 (0-14) pg/ml Total Protein 6.8 (6.0-8.3) gm/dl Albumin 3.2 L (3.4-5.0) gm/dl Globulin 3.6 (2.5-4.0) gm/dl Albumin/Globulin Ratio 0.9 (0.9-2) Lipase 14 (11-82) U/L TSH 2.248 (0.300-4.500) uIu/ml Nasal Screen MRSA (PCR) (Negative) SARS-CoV-2, RNA, NAAT (NEGATIVE) 05/22/22 Range/Units 11:43 WBC 7.08 (4.8-10.8) K/ul RBC 3.47 L (3.93-5.22) M/uL Hgb 9.1 L (12.0-16.0) g/dl Hct 29.3 L (34.1-44.9) % MCV 84.4 (80.0-100.0) fL MCH 26.2 (25.0-34.0) pg MCHC 31.1 L (32.0-36.0) g/dL RDW Std Deviation 51.2 H (36.4-46.3) fL RDW Coeff of Elizabeth 17.7 H (11.5-14.5) % Plt Count 170 (130-400) K/uL MPV 9.6 (9.4-12.3) fL Immature Gran % (Auto) 6.2 % Neut % (Auto) 82.4 % Lymph % (Auto) 3.2 % [place] % (Auto) 7.8 % Eos % (Auto) 0.1 % Baso % (Auto) 0.3 % Neut # (Auto) 5.83 (1.4-6.5) K/uL Lymph # (Auto) 0.23 L (1.2-3.4) K/uL [place] # (Auto) 0.55 (0.24-0.82) K/uL Eos # (Auto) 0.01 (0-0.50) K/uL Baso # (Auto) 0.02 (0-0.2) K/uL Immature Gran # (Auto) 0.44 H (0.00-0.02) K/uL Absolute Nucleated RBC 0.04 H (0-0) K/uL Nucleated RBC % (auto) 0.6 % PT (9.0-12.0) Seconds INR (0.9-1.1) APTT (21.0-31.0) Seconds PTT Ratio Sodium (136-145) mmol/L Potassium (3.5-5.1) mmol/L Chloride (98-107) mmol/L Carbon Dioxide (21-32) mmol/L Anion Gap (3-11) BUN (6-23) mg/dl Creatinine (0.6-1.2) mg/dl Est Cr Clr Drug Dosing Est GFR ( Amer) ml/min Est GFR (Non-Af Amer) ml/min BUN/Creatinine Ratio (10-20) Glucose (70-99(Fasting)) mg/dl POC Glucose (70-99) mg/dl Calcium (8.5-10.1) mg/dl Phosphorus (2.5-4.9) mg/dl Magnesium (1.7-2.4) mg/dl Total Bilirubin (0.2-1.0) mg/dl AST (13-39) U/L ALT (7-52) U/L Alkaline Phosphatase (34-104) U/L Troponin I High Sens (0-14) pg/ml Total Protein (6.0-8.3) gm/dl Albumin (3.4-5.0) gm/dl Globulin (2.5-4.0) gm/dl Albumin/Globulin Ratio (0.9-2) Lipase (11-82) U/L TSH (0.300-4.500) uIu/ml Nasal Screen MRSA (PCR) (Negative) SARS-CoV-2, RNA, NAAT (NEGATIVE) Medications Administered Current Inpatient Medications Acetaminophen (Acetaminophen 325 Mg Tab) 650 mg PO Q6H PRN PRN Reason: Pain Stop: 06/21/22 23:49 Last Admin: 05/22/22 23:57 Dose: 650 mg Escitalopram Oxalate (Escitalopram Oxalate 10 Mg Tab) 5 mg PO DAILY JAREN Stop: 06/22/22 08:59 Heparin Sodium/Dextrose (Heparin Sodium/Dextrose) 25,000 units in 500 mls @ 0 mls/hr IV .Q0M JAREN; Protocol Stop: 06/21/22 17:14 Last Titration: 05/23/22 04:03 Dose: 0 units/hr, 0 mls/hr Miscellaneous (Icu Protocol For Hyperglycemia) 1 each N/A PRN PRN; Protocol PRN Reason: Hyperglycemia Protocol Stop: 05/24/22 17:34 Oxycodone HCl (Oxycodone Hcl Ir 5 Mg Tab (Immediate Release)) 5 mg PO BID PRN PRN Reason: severe pain Stop: 06/05/22 17:34 Last Admin: 05/22/22 19:45 Dose: 5 mg Pantoprazole Sodium (Pantoprazole 40 Mg Tab) 40 mg PO DAILY JAREN Stop: 06/22/22 08:59
[2022-05-23] MEDS: ESCITALOPRAM OXALATE 10 MG TAB PO SCH (08:08)
[2022-05-23] MEDS: PANTOprazole 40 MG TAB PO SCH (08:08)
[2022-05-23 08:29] LABS: Partial Thromboplastin Ratio 1.1; Partial Thromboplastin Time 28.9 Seconds (21.0-31.0)
--- NOTE | 2022-05-23 10:47 | Procedure Note ---
Procedure Note Date of Service May 23, 2022 Note PIGTAIL CATHETER PLACEMENT NOTE: Procedure: Pigtail Catheter Chest Tube Placement Indication: Large right pleural effusion Anesthesia: 10 ml Lidocaine 1% Written consent was obtained and placed on the chart. Timeout was done prior to the procedure. Prior to procedure, chest x-ray films were reviewed by myself and demonstrated a large right pleural effusion with mediastinal shift. A time-out was completed verifying correct patient, procedure, site, positioning, and implant(s) or special equipment if applicable. Utilizing bedside ultrasound, chest wall was evaluated for location for optimal chest tube placement. Location between the fifth and sixth ribs were marked on the skin using gentle pressure. The right sided chest wall was prepped with chlorhexidine and draped in the typical sterile fashion. 10 mL of 1% Lidocaine without epinephrine was used to anesthetize the skin down to the dorsal surface of the fifth rib. Straw-colored fluid return confirmed entry into the pleural space. Lidocaine was injected into the pleural space for increased anesthetization. Introducer needle on syringe was inserted in perpendicular fashion taking care to ride just above the dorsal surface of the fifth rib. Entry into the pleural space was heralded by straw- colored fluid return into the syringe while under gentle aspiration. Guide wire was advanced into the pleural space without resistance and the introducer needle was subsequently removed. Scalpel was used to make small incision of the superficial tissue, parallel to the direction of the rib anatomy. Dilator was advanced uneventfully over the guide wire into the pleural space. 14 [place] Pigtail Catheter was inserted into the pleural space. Inner introducer and guide wire were removed. Drain was immediately connected to pre-prepared NETTIE pleur- evac system. Pigtail was sutured securely in place and sterile dressing was applied. Chest tube was placed to -20 cmH2O suction. Patient tolerated procedure well. Blood Loss: Minimal Complications: None Post procedure Chest X-ray was ordered. Coding CPT Codes Pulmonary/Thoracic - Pulmonary and Thoracic: 86282 Tube thoracostomy ([id number]) Pulmonary/Thoracic - Pulmonary and Thoracic: 92538 US, Chest, real time with imaging documentation ([id number]) [facility] [place], [place] Procedure Codes (Charges) Pulmonary/Thoracic Procedure 1: Pulmonary and Thoracic: 21420 Tube thoracostomy Procedure 2: Pulmonary and Thoracic: 77360 US, Chest, real time with imaging documentation
--- NOTE | 2022-05-23 11:11 | XRay Report ---
XR chest 1V portable CLINICAL HISTORY: S/P Thoracentesis TECHNIQUE: Single frontal radiograph of the chest was obtained. Comparison: Comparison is made to chest radiograph 05/22/2022 FINDINGS: Left portacatheter stable. Interval placement of a right pleural drain with the tip in the right andie thorax. Cardiomegaly is noted. Moderate right pleural effusion has decreased in size from prior exam. There is small left pleural effusion. Mild airspace opacity in the right lung. IMPRESSION: 1. Interval placement of right pleural catheter. No evidence of pneumothorax. The right pleural effu avelina is slightly decreased in size, now moderate. There is a trace left pleural effusion. 2. Right airspace opacity likely reflects atelectasis with or without superimposed aspiration. ACT 112: Negative or not required by law. Electronically signed by: Mayco Casper M.D. 05/23/2022 11:10 AM
[2022-05-23 11:28] LABS: Albumin Level 3.2 gm/dl (3.4-5.0); Bilirubin,Total 0.7 mg/dl (0.2-1.0); Total Protein 6.8 gm/dl (6.0-8.3)
--- NOTE | 2022-05-23 11:55 | Critical Care Progress Note ---
Date of Service May 23, 2022 Assessment & Plan (1) Large pleural effusion: (2) Acute dyspnea: (3) History of pulmonary embolism: Plan 51-year-old female with a history of metastatic breast cancer and pulm embolism presenting to the hospital due to shortness of breath. She was found to have a very large right pleural effusion with mediastinal shift. Neurologic: History of anxiety. Continue home medications. Pulmonary: Pigtail catheter placed at bedside with 2 L of fluid evacuated over a span of 30 minutes. Continue drainage to -10 cm suction. Cytology, cultures and cell counts pending. Shortness of breath improved status post pigtail catheter placement. High likelihood of malignant pleural effusion. She has a history of DVT and PE and was previously on Eliquis. Continue heparin for today and consider starting Eliquis in the next day or 2. Cardiovascular: History of grade 1 diastolic dysfunction. Repeat echo pending. Tachycardia likely secondary to hypoxia, shortness of breath and anxiety. Will monitor on telemetry. Gastrointestinal: Mild transaminitis. Will monitor. Low-salt diet Renal: No issues. Infectious disease: No issues. We will send cultures from the pleural fluid. Hematologic: Restart heparin 2 hours after pigtail catheter insertion. Endocrine: Maintain euglycemia. VTE prophylaxis: SCDs, heparin CODE STATUS: Full Family at bedside: Updated at bedside Disposition: ICU Stable for downgrade out of ICU. Admission and Anticipated Discharge Date Admission Date: May 22, 2022 Subjective Patient seen and examined today. She has slight improvement in shortness of breath prior to the placement of the chest tube. After placing chest tube approximately 2 L of pleural fluid was evacuated. She had significant improvement in her shortness of breath. She did start having a cough. She denies any fevers, chills or night sweats. Heart rate currently in the 110s. Hemodynamically stable. Review of Systems Review of Systems: All systems reviewed & are unremarkable except as noted in HPI & below Physical Exam Physical Exam: Constitutional: Thin and frail appearing female no apparent distress. Eyes: Pupils are equal round and reactive to light. Conjunctivae are normal. Anicteric sclera. Ears nose, mouth and throat: Deferred. Neck: Trachea is midline. Visual inspection is normal. Respiratory: Diminished lung sounds on the right. Mild conversational dyspnea. Cardiovascular: Regular rate and rhythm. No murmurs. No edema. Gastrointestinal: Normal bowel sounds, soft, nontender and nondistended. No hepatosplenomegaly noted. Musculoskeletal: No cyanosis. Patient is able to move all extremities. Skin: No rashes, warm dry and intact. Neurologic: No obvious focal neurological deficits seen. Psychiatric: Alert and oriented x3 with a euthymic affect. Results & Data Results & Data ([facility]) Vital Signs (Past 12 Hours) Vital Signs Temp Pulse Resp BP Pulse Ox O2 Del Method O2 Flow Rate 05/23/22 08:00 Nasal Cannula 2 05/23/22 06:00 113 H 37 H 94 05/23/22 06:00 123/50 L 05/23/22 05:30 111 H 36 H 93 05/23/22 05:00 113 H 24 96 05/23/22 05:00 115/79 05/23/22 04:30 115 H 25 H 95 Nasal Cannula 2 05/23/22 04:00 112 H 35 H 93 05/23/22 04:00 36.9 C 119/82 Nasal Cannula 2 05/23/22 03:00 110 H 23 96 05/23/22 03:00 113/82 05/23/22 02:00 117 H 27 H 95 05/23/22 02:00 115/87 05/23/22 01:00 119 H 26 H 94 05/23/22 01:00 113/87 05/23/22 00:00 124 H 37 H 94 05/23/22 00:00 124/83 Coding Level of Care Code 72410 Subseq Hosp Care Lvl 3 Diagnoses Large pleural effusion J90 Acute dyspnea R06.00 History of pulmonary embolism Z86.711
[2022-05-23 11:57] LABS: Appearance Pleural Fluid Slightly Hazy; Color Pleural Fluid Straw; RBC Pleural Fluid (A) 4000 /uL; WBC Pleural Fluid (A) 481 /uL
[2022-05-23 11:58] LABS: Mono,Macrophage,Mesothelial 40 %; Neutrophils, Fluid 10 %
[2022-05-23 11:59] LABS: Other Cells Pleural Cells 50 %
[2022-05-23 12:03] LABS: Total Protein Pleural Fluid 3.5 gm/dl
[2022-05-23] MEDS: ACETAMINOPHEN 325 MG TAB PO PRN ×2 (13:23→19:29)
[2022-05-23] MEDS ORDERED: METOPROLOL TARTRATE 25 MG TAB PO ONE (14:48)
[2022-05-23] MEDS: oxyCODONE HCL IR 5 MG TAB (IMMEDIATE RELEASE) PO PRN ×2 (15:03→22:47)
[2022-05-23] MEDS ORDERED: ALBUMIN 25% 12.5 GM/50 ML VIAL IV ONE (15:11)
[2022-05-23] MEDS ORDERED: Nursing to Pharmacy Communication SCH (16:30)
[2022-05-23] MEDS: HEPARIN SODIUM/DEXTROSE 25,000 UNITS/500 ML BAG IV SCH ×2 (20:27→23:20)
[2022-05-23] MEDS: METOPROLOL TARTRATE 25 MG TAB PO SCH (20:44)
[2022-05-23 22:58] LABS: Partial Thromboplastin Ratio 1.6; Partial Thromboplastin Time 44.7 Seconds (21.0-31.0)
[2022-05-24] MEDS: ACETAMINOPHEN 325 MG TAB PO PRN ×3 (03:53→19:31)
[2022-05-24 06:04] LABS: Hematocrit (blood only) 27.2 % (34.1-44.9); Hemoglobin 8.4 g/dl (12.0-16.0); Mean Corpuscular Hemoglobin 25.8 pg (25.0-34.0); Mean Corpuscular Hgb Conc 30.9 g/dL (32.0-36.0); Mean Corpuscular Volume 83.4 fL (80.0-100.0); Mean Platelet Volume 10.2 fL (9.4-12.3); Nucleated RBC # (auto) 0.05 K/uL (0-0); Nucleated RBC % (auto) 0.9 %; Platelet Count 119 K/uL (130-400); RDW Coefficient of Variation 17.7 % (11.5-14.5); RDW Standard Deviation 50.7 fL (36.4-46.3); Red Blood Count 3.26 M/uL (3.93-5.22); White Blood Count 5.52 K/ul (4.8-10.8)
[2022-05-24 06:26] LABS: Albumin Globulin Ratio 0.9 (0.9-2); Albumin Level 2.8 gm/dl (3.4-5.0); BUN Creatinine Ratio 37.3 (10-20); Bilirubin,Total 0.5 mg/dl (0.2-1.0); Calcium 8.2 mg/dl (8.5-10.1); Creatinine Clr Calc Pharmacy 117.4 ml/min; Est GFR (Non-African American) 111.3 ml/min; Globulin 3.1 gm/dl (2.5-4.0); Magnesium 1.7 mg/dl (1.7-2.4); Phosphorus 3.5 mg/dl (2.5-4.9); Potassium 4.5 mmol/L (3.5-5.1); Total Protein 5.9 gm/dl (6.0-8.3)
[2022-05-24 06:39] LABS: Partial Thromboplastin Ratio 1.8
[2022-05-24] MEDS ORDERED: AZITHROMYCIN 250 MG TAB PO ONE (07:15)
--- NOTE | 2022-05-24 07:42 | Critical Care Progress Note ---
Date of Service May 24, 2022 Assessment & Plan (1) Large pleural effusion: (2) Acute dyspnea: (3) History of pulmonary embolism: Plan 51-year-old female with a history of metastatic breast cancer and pulm embolism presenting to the hospital due to shortness of breath. She was found to have a very large right pleural effusion with mediastinal shift. Neurologic: History of anxiety. Continue home medications. Well-controlled at this time. Pulmonary: Right pigtail catheter in place with approximately 3 L of fluid removed. There remains a small right pleural effusion. There is also significant infiltrate on the right based on today's chest x-ray. We will start empiric antibiotics with azithromycin and Rocephin. Procalcitonin ordered. 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 May need to consider a CT of her chest since the fluid has largely been drained. May need to consider placement of a Pleurx catheter depending on how fast the fluid reaccumulate's. Chest tube suction increased to -20 cm H2O. She has a history of DVT and PE and was previously on Eliquis. Continue heparin for today and consider starting Eliquis in the next day or 2. Cardiovascular: History of grade 1 diastolic dysfunction. Repeat echo with evidence of a hyperdynamic LVEF. Minimal pericardial effusion. Heart rate improving with the drainage of pleural fluid and the initiation of metoprolol tartrate 12.5 mg twice daily. Gastrointestinal: Mild transaminitis. Will monitor. Low-salt diet which she is tolerating. Renal: No issues. Infectious disease: Pleural fluid cultures pending. The fluid does not look like jesus empyema. Starting Rocephin and azithromycin as noted above for possible pneumonia. Procalcitonin pending. Hematologic: Continue heparin infusion and consider transitioning to Eliquis in the next 1 to 2 days. Endocrine: Maintain euglycemia. VTE prophylaxis: SCDs, heparin infusion CODE STATUS: Full Family at bedside: Not available bedside at this time. Disposition: Downgrade out of ICU Stable for downgrade out of ICU. Admission and Anticipated Discharge Date Admission Date: May 22, 2022 Subjective Patient's shortness of breath has improved significantly. She is currently on 4 L of oxygen saturating at 99%. Chest pain is minimal. She has some mild pain around the chest tube insertion site. She did have some dizziness yesterday when standing, but this has resolved. Her heart rate is improved. She was given metoprolol 12.5 mg p.o. last night. Otherwise, hemodynamically stable. Review of Systems Review of Systems: All systems reviewed & are unremarkable except as noted in HPI & below Physical Exam Physical Exam: Constitutional: Frail appearing female in no apparent distress. Eyes: Pupils are equal round and reactive to light. Conjunctivae are normal. Anicteric sclera. Ears nose, mouth and throat: Deferred. Neck: Trachea is midline. Visual inspection is normal. Respiratory: Diminished lung sounds on the right. Mild conversational dyspnea. Cardiovascular: Regular rate and rhythm. No murmurs. No edema. Gastrointestinal: Normal bowel sounds, soft, nontender and nondistended. No hepatosplenomegaly noted. Musculoskeletal: No cyanosis. Patient is able to move all extremities. Skin: No rashes, warm dry and intact. Neurologic: No obvious focal neurological deficits seen. Psychiatric: Alert and oriented x3 with a euthymic affect. Results & Data Results & Data ([facility]) Vital Signs (Past 12 Hours) Vital Signs Temp Pulse Resp BP Pulse Ox O2 Del Method O2 Flow Rate 05/24/22 06:15 107 H 15 99 05/24/22 06:00 109 H 15 98 05/24/22 05:45 109 H 17 98 05/24/22 05:30 113 H 19 96 05/24/22 05:15 100 H 16 99 05/24/22 05:00 111 H 23 05/24/22 04:45 113 H 18 98 05/24/22 04:30 112 H 21 97 05/24/22 04:00 111 H 25 H 93 05/24/22 04:00 36.8 C 102/69 05/24/22 03:30 36.8 C 112 H 22 93 05/24/22 03:00 113 H 23 93 05/24/22 03:00 82/57 L 05/24/22 02:30 111 H 23 93 05/24/22 02:00 108 H 18 05/24/22 02:00 92/62 L 05/24/22 01:01 109/69 05/24/22 01:01 109 H 26 H 05/24/22 01:00 110 H 24 94 Nasal Cannula 4 05/24/22 00:00 111 H 21 05/24/22 00:00 91/58 L 05/23/22 23:00 113 H 28 H 95 05/23/22 23:00 92/62 L 05/23/22 22:49 36.8 C 113 H 32 H 96 Nasal Cannula 4 05/23/22 22:49 96/68 L 05/23/22 22:00 115 H 26 H 97 05/23/22 22:00 87/72 L 05/23/22 21:00 115 H 29 H 95 05/23/22 21:00 94/63 L 05/23/22 23:16 Nasal Cannula 4 05/23/22 23:00 112 H 05/23/22 21:44 Nasal Cannula 4 05/23/22 20:43 88/68 L 05/23/22 20:43 112 H 28 H 96 05/23/22 20:30 115 H 24 95 05/23/22 20:01 84/68 L 05/23/22 20:01 113 H 35 H 95 05/23/22 20:00 116 H 28 H 95 05/23/22 20:00 80/55 L Coding Level of Care Code 50273 Subseq Hosp Care Lvl 3 Diagnoses Large pleural effusion J90 Acute dyspnea R06.00 History of pulmonary embolism Z86.711
[2022-05-24] MEDS: cefTRIAXone SODIUM 1,000 MG in DEXTROSE 5% 50 ML IV SCH (07:50)
[2022-05-24] MEDS: ESCITALOPRAM OXALATE 10 MG TAB PO SCH (07:50)
--- NOTE | 2022-05-24 07:50 | XRay Report ---
XR chest 1V portable CLINICAL HISTORY: Follow up chest tube. Evaluate for pleural effusion and pneumothorax. COMPARISON STUDY: No previous studies for comparison. TECHNIQUE: 1 view of the chest FINDINGS: Single frontal view of the chest demonstrates the heart size to again be enlarged. Pigtail catheter c hest 2 is again seen in the right lung base. There has been interval decrease in right pleural effusi on. However, there is a large confluent alveolar opacity within the right lung most characteristic of pneumonia. There is also very small left pleural effusion . The left hemithorax is clear. Central venous cathete r is again seen. There is no evidence for vascular congestion. There is no acute osseous pathology. IMPRESSION: 1. Pigtail catheter at the right lung base with interval decrease in right pleural effusion and no ev idence for pneumothorax. 2. Large confluent alveolar opacity involving the right lower lobe most characteristic of pneumonia. 3. Small left pleural effusion is also present. ACT 112: Negative or not required by law. Electronically signed by: Grant Hou M.D. 05/24/2022 7:48 AM
[2022-05-24] MEDS: PANTOprazole 40 MG TAB PO SCH (07:51)
[2022-05-24] MEDS: METOPROLOL TARTRATE 25 MG TAB PO SCH ×2 (07:51→21:03)
[2022-05-24] MEDS: oxyCODONE HCL IR 5 MG TAB (IMMEDIATE RELEASE) PO PRN ×2 (08:00→21:02)
--- NOTE | 2022-05-24 08:20 | Hospitalist Progress Note ---
Date of Service May 24, 2022 Assessment & Plan (1) Large pleural effusion: Plan: Admitted to ICU initially Patient presenting from home with reports of worsening shortness of breath x 1 week In the ED, CXR shows large right pleural effusion resulting in mild left me diastinal shift On admission on 2 L O2, however no documented hypoxia. Tachycardic, BP stable Highly suspicious for malignant effusion due to currently active breast cancer Case discussed with software engineer mobile, Dr. Hayden -- planning on chest tube placement 05/23 -status post chest tube placement - about 3L of fluid removed After procedure patient feels better, however she is now requiring 5 L of oxygen, and she has been tachycardic Pleural fluid sent to lab Pleural fluid culture pending, cytology pending 05/24 -significant infiltrate on the right based on today's chest x-ray. Started on azithromycin and Rocephin by Pulmonary. Procalcitonin pending This infiltrate may also represent lymphangitic carcinomatosis and/or immunotherapy related toxicity. May need to consider a CT of her chest since the fluid has largely been drained. May need to consider placement of a Pleurx catheter depending on how fast the fluid reaccumulate's. Chest tube suction increased to -20 cm H2O. Echocardiogram obtained Technically limited study with patient in sinus tachycardia. LV cavity is small. There is mild concentric LVH. No regional wall motion abnormality noted. EF greater than 70%. There is no gross valvular disease. There is trivial apical pericardial effusion of no hemodynamic significance. (2) Breast cancer: Plan: S/p chemo and radiation, recently completed radiation treatment to the left breast Follows with [facility] medical oncology and [facility] radiation oncology Patient's oncologist, Dr. Murcia ([phone]) - contacted ct today, June 01, and was updated. She also called and checked in with the patient. (3) Anemia: Plan: Hgb 9.1 Likely due to malignancy No signs of bleeding at this time No indication for transfusion Monitor CBC (4) History of DVT (deep vein thrombosis): (5) History of pulmonary embolism: Plan: Holding Eliquis due to large pleural effusion requiring intervention, pt on IV heparin - consider to restart Eliquis in next day or 2 (6) DVT prophylaxis: Plan: SCDs for now Admission and Anticipated Discharge Date Admission Date: May 22, 2022 Subjective Patient seen in follow-up of shortness of breath secondary to large pleural effusion, in the setting of metastatic breast cancer Patient w/ history of PE, on Eliquis, was switched to IV heparin on admission S/p chest tube placement w/ pulmonary Currently reports feeling better However she now has increased oxygen requirement, on 4 L, and she has been tachycardic Echo obtained Patient's children at the bedside Pt denies any fevers, chills, chest pain, abdominal pain, nausea or vomiting. Reports improved breathing. Minimal cough. Patient's oncologist at [facility], Dr. Murcia, phone #[phone], contacted me and was updated, she did also contacted the patient. Review of Systems Review of Systems: All systems reviewed & are unremarkable except as noted in Subjective Physical Exam Physical Exam: Constitutional:L WD/WN, + ill appe aring; no acute di stress Eyes: PERRL, EOMI, conju nctivae normal, an icteric sclerae ENMT: external ear and n ose normal, oropha rynx normal Respiratory: no respiratory dis tress, diminished breath sounds on r ight. no wheezing Cardiovascular:L Rate/Rhythm: regul ar rhythm and + ta chycardic Extrem ities: no edema Gastrointestinal ( Abdomen): normal bowel sound s, soft, nontender Musculoskeletal: extremities motor strength 5/5 Skin: no rashes, warm an d dry Neurologic: PERRL, EOMI, no fa ce palsy, no dysar thria, moves extre mities Psychiatric: A+Ox3, euthymic af fect Results & Data Results & Data ([facility]) Vital Signs (Past 12 Hours) Vital Signs Temp Pulse Resp BP Pulse Ox O2 Del Method O2 Flow Rate 05/24/22 06:15 107 H 15 99 05/24/22 06:00 109 H 15 98 05/24/22 05:45 109 H 17 98 05/24/22 05:30 113 H 19 96 05/24/22 05:15 100 H 16 99 05/24/22 05:00 111 H 23 05/24/22 04:45 113 H 18 98 05/24/22 04:30 112 H 21 97 05/24/22 04:00 111 H 25 H 93 05/24/22 04:00 36.8 C 102/69 05/24/22 03:30 36.8 C 112 H 22 93 05/24/22 03:00 113 H 23 93 05/24/22 03:00 82/57 L 05/24/22 02:30 111 H 23 93 05/24/22 02:00 108 H 18 05/24/22 02:00 92/62 L 05/24/22 01:01 109/69 05/24/22 01:01 109 H 26 H 05/24/22 01:00 110 H 24 94 Nasal Cannula 4 05/24/22 00:00 111 H 21 05/24/22 00:00 91/58 L 05/23/22 23:00 113 H 28 H 95 05/23/22 23:00 92/62 L 05/23/22 22:49 36.8 C 113 H 32 H 96 Nasal Cannula 4 05/23/22 22:49 96/68 L 05/23/22 22:00 115 H 26 H 97 05/23/22 22:00 87/72 L 05/23/22 21:00 115 H 29 H 95 05/23/22 21:00 94/63 L 05/23/22 23:16 Nasal Cannula 4 05/23/22 23:00 112 H 05/23/22 21:44 Nasal Cannula 4 05/23/22 20:43 88/68 L 05/23/22 20:43 112 H 28 H 96 05/23/22 20:30 115 H 24 95 Laboratory Results 05/24/22 05/24/22 05/24/22 Range/Units 05:29 05:29 05:29 WBC 5.52 (4.8-10.8) K/ul RBC 3.26 L (3.93-5.22) M/uL Hgb 8.4 L (12.0-16.0) g/dl Hct 27.2 L (34.1-44.9) % MCV 83.4 (80.0-100.0) fL MCH 25.8 (25.0-34.0) pg MCHC 30.9 L (32.0-36.0) g/dL RDW Std Deviation 50.7 H (36.4-46.3) fL RDW Coeff of Elizabeth 17.7 H (11.5-14.5) % Plt Count 119 L (130-400) K/uL MPV 10.2 (9.4-12.3) fL Absolute Nucleated RBC 0.05 H (0-0) K/uL Nucleated RBC % (auto) 0.9 % APTT 49.0 H* (21.0-31.0) Seconds PTT Ratio 1.8 Sodium 129 L (136-145) mmol/L Potassium 4.5 (3.5-5.1) mmol/L Chloride 96 L (98-107) mmol/L Carbon Dioxide 26 (21-32) mmol/L Anion Gap 7 (3-11) BUN 19 (6-23) mg/dl Creatinine 0.51 L (0.6-1.2) mg/dl Est Cr Clr Drug Dosing 117.4 ml/min Est GFR ( Amer) 129.0 ml/min Est GFR (Non-Af Amer) 111.3 ml/min BUN/Creatinine Ratio 37.3 H (10-20) Glucose 112 H (70-99(Fasting)) mg/dl POC Glucose (70-99) mg/dl Lactate (0.4-2.0) mmol/L Calcium 8.2 L (8.5-10.1) mg/dl Phosphorus 3.5 (2.5-4.9) mg/dl Magnesium 1.7 (1.7-2.4) mg/dl Total Bilirubin 0.5 (0.2-1.0) mg/dl AST 44 H (13-39) U/L ALT 15 (7-52) U/L Alkaline Phosphatase 259 H (34-104) U/L Lactate Dehydrogenase (86-244) U/L Total Protein 5.9 L (6.0-8.3) gm/dl Albumin 2.8 L (3.4-5.0) gm/dl Globulin 3.1 (2.5-4.0) gm/dl Albumin/Globulin Ratio 0.9 (0.9-2) Fluid Neutrophils % % Fluid Meso/Macro/Bradley % % Fluid Comment Pleural Fluid Source Pleural Color Pleural Appearance Pleural pH (7.3-7.4) Pleural WBC /uL Pleural RBC /uL Pleural Other Cells % Pleural Total Protein gm/dl Pleural LDH U/L Pleural Glucose mg/dl Pleural Amylase U/L 05/23/22 05/23/22 05/23/22 Range/Units 22:33 20:49 17:18 WBC (4.8-10.8) K/ul RBC (3.93-5.22) M/uL Hgb (12.0-16.0) g/dl Hct (34.1-44.9) % MCV (80.0-100.0) fL MCH (25.0-34.0) pg MCHC (32.0-36.0) g/dL RDW Std Deviation (36.4-46.3) fL RDW Coeff of Elizabeth (11.5-14.5) % Plt Count (130-400) K/uL MPV (9.4-12.3) fL Absolute Nucleated RBC (0-0) K/uL Nucleated RBC % (auto) % APTT 44.7 H (21.0-31.0) Seconds PTT Ratio 1.6 Sodium (136-145) mmol/L Potassium (3.5-5.1) mmol/L Chloride (98-107) mmol/L Carbon Dioxide (21-32) mmol/L Anion Gap (3-11) BUN (6-23) mg/dl Creatinine (0.6-1.2) mg/dl Est Cr Clr Drug Dosing ml/min Est GFR ( Amer) ml/min Est GFR (Non-Af Amer) ml/min BUN/Creatinine Ratio (10-20) Glucose (70-99(Fasting)) mg/dl POC Glucose 129 H (70-99) mg/dl Lactate 2.1 H* (0.4-2.0) mmol/L Calcium (8.5-10.1) mg/dl Phosphorus (2.5-4.9) mg/dl Magnesium (1.7-2.4) mg/dl Total Bilirubin (0.2-1.0) mg/dl AST (13-39) U/L ALT (7-52) U/L Alkaline Phosphatase (34-104) U/L Lactate Dehydrogenase (86-244) U/L Total Protein (6.0-8.3) gm/dl Albumin (3.4-5.0) gm/dl Globulin (2.5-4.0) gm/dl Albumin/Globulin Ratio (0.9-2) Fluid Neutrophils % % Fluid Meso/Macro/Bradley % % Fluid Comment Pleural Fluid Source Pleural Color Pleural Appearance Pleural pH (7.3-7.4) Pleural WBC /uL Pleural RBC /uL Pleural Other Cells % Pleural Total Protein gm/dl Pleural LDH U/L Pleural Glucose mg/dl Pleural Amylase U/L 05/23/22 05/23/22 05/23/22 Range/Units 15:30 10:48 10:48 WBC (4.8-10.8) K/ul RBC (3.93-5.22) M/uL Hgb (12.0-16.0) g/dl Hct (34.1-44.9) % MCV (80.0-100.0) fL MCH (25.0-34.0) pg MCHC (32.0-36.0) g/dL RDW Std Deviation (36.4-46.3) fL RDW Coeff of Elizabeth (11.5-14.5) % Plt Count (130-400) K/uL MPV (9.4-12.3) fL Absolute Nucleated RBC (0-0) K/uL Nucleated RBC % (auto) % APTT (21.0-31.0) Seconds PTT Ratio Sodium (136-145) mmol/L Potassium (3.5-5.1) mmol/L Chloride (98-107) mmol/L Carbon Dioxide (21-32) mmol/L Anion Gap (3-11) BUN (6-23) mg/dl Creatinine (0.6-1.2) mg/dl Est Cr Clr Drug Dosing ml/min Est GFR ( Amer) ml/min Est GFR (Non-Af Amer) ml/min BUN/Creatinine Ratio (10-20) Glucose (70-99(Fasting)) mg/dl POC Glucose (70-99) mg/dl Lactate 3.1 H* (0.4-2.0) mmol/L Calcium (8.5-10.1) mg/dl Phosphorus (2.5-4.9) mg/dl Magnesium (1.7-2.4) mg/dl Total Bilirubin 0.7 (0.2-1.0) mg/dl AST (13-39) U/L ALT (7-52) U/L Alkaline Phosphatase (34-104) U/L Lactate Dehydrogenase 2257 H (86-244) U/L Total Protein 6.8 (6.0-8.3) gm/dl Albumin 3.2 L (3.4-5.0) gm/dl Globulin (2.5-4.0) gm/dl Albumin/Globulin Ratio (0.9-2) Fluid Neutrophils % % Fluid Meso/Macro/Bradley % % Fluid Comment Pleural Fluid Source Pleural Color Pleural Appearance Pleural pH (7.3-7.4) Pleural WBC /uL Pleural RBC /uL Pleural Other Cells % Pleural Total Protein gm/dl Pleural LDH U/L Pleural Glucose mg/dl Pleural Amylase U/L 05/23/22 05/23/22 05/23/22 Range/Units 10:40 10:40 10:40 WBC (4.8-10.8) K/ul RBC (3.93-5.22) M/uL Hgb (12.0-16.0) g/dl Hct (34.1-44.9) % MCV (80.0-100.0) fL MCH (25.0-34.0) pg MCHC (32.0-36.0) g/dL RDW Std Deviation (36.4-46.3) fL RDW Coeff of Elizabeth (11.5-14.5) % Plt Count (130-400) K/uL MPV (9.4-12.3) fL Absolute Nucleated RBC (0-0) K/uL Nucleated RBC % (auto) % APTT (21.0-31.0) Seconds PTT Ratio Sodium (136-145) mmol/L Potassium (3.5-5.1) mmol/L Chloride (98-107) mmol/L Carbon Dioxide (21-32) mmol/L Anion Gap (3-11) BUN (6-23) mg/dl Creatinine (0.6-1.2) mg/dl Est Cr Clr Drug Dosing ml/min Est GFR ( Amer) ml/min Est GFR (Non-Af Amer) ml/min BUN/Creatinine Ratio (10-20) Glucose (70-99(Fasting)) mg/dl POC Glucose (70-99) mg/dl Lactate (0.4-2.0) mmol/L Calcium (8.5-10.1) mg/dl Phosphorus (2.5-4.9) mg/dl Magnesium (1.7-2.4) mg/dl Total Bilirubin (0.2-1.0) mg/dl AST (13-39) U/L ALT (7-52) U/L Alkaline Phosphatase (34-104) U/L Lactate Dehydrogenase (86-244) U/L Total Protein (6.0-8.3) gm/dl Albumin (3.4-5.0) gm/dl Globulin (2.5-4.0) gm/dl Albumin/Globulin Ratio (0.9-2) Fluid Neutrophils % 10 % Fluid Meso/Macro/Bradley % 40 % Fluid Comment Pleural Fluid Source R.LUNG Pleural Color Straw Pleural Appearance Slightly Hazy Pleural pH 7.43 H (7.3-7.4) Pleural WBC 481 /uL Pleural RBC 4000 /uL Pleural Other Cells 50 % Pleural Total Protein 3.5 gm/dl Pleural LDH 1443 U/L Pleural Glucose 104 mg/dl Pleural Amylase 21 U/L 05/23/22 Range/Units 07:57 WBC (4.8-10.8) K/ul RBC (3.93-5.22) M/uL Hgb (12.0-16.0) g/dl Hct (34.1-44.9) % MCV (80.0-100.0) fL MCH (25.0-34.0) pg MCHC (32.0-36.0) g/dL RDW Std Deviation (36.4-46.3) fL RDW Coeff of Elizabeth (11.5-14.5) % Plt Count (130-400) K/uL MPV (9.4-12.3) fL Absolute Nucleated RBC (0-0) K/uL Nucleated RBC % (auto) % APTT 28.9 (21.0-31.0) Seconds PTT Ratio 1.1 Sodium (136-145) mmol/L Potassium (3.5-5.1) mmol/L Chloride (98-107) mmol/L Carbon Dioxide (21-32) mmol/L Anion Gap (3-11) BUN (6-23) mg/dl Creatinine (0.6-1.2) mg/dl Est Cr Clr Drug Dosing ml/min Est GFR ( Amer) ml/min Est GFR (Non-Af Amer) ml/min BUN/Creatinine Ratio (10-20) Glucose (70-99(Fasting)) mg/dl POC Glucose (70-99) mg/dl Lactate (0.4-2.0) mmol/L Calcium (8.5-10.1) mg/dl Phosphorus (2.5-4.9) mg/dl Magnesium (1.7-2.4) mg/dl Total Bilirubin (0.2-1.0) mg/dl AST (13-39) U/L ALT (7-52) U/L Alkaline Phosphatase (34-104) U/L Lactate Dehydrogenase (86-244) U/L Total Protein (6.0-8.3) gm/dl Albumin (3.4-5.0) gm/dl Globulin (2.5-4.0) gm/dl Albumin/Globulin Ratio (0.9-2) Fluid Neutrophils % % Fluid Meso/Macro/Bradley % % Fluid Comment Pleural Fluid Source Pleural Color Pleural Appearance Pleural pH (7.3-7.4) Pleural WBC /uL Pleural RBC /uL Pleural Other Cells % Pleural Total Protein gm/dl Pleural LDH U/L Pleural Glucose mg/dl Pleural Amylase U/L Medications Administered Current Inpatient Medications Acetaminophen (Acetaminophen 325 Mg Tab) 650 mg PO Q6H PRN PRN Reason: Pain Stop: 06/21/22 23:49 Last Admin: 05/24/22 03:53 Dose: 650 mg Azithromycin (Azithromycin 250 Mg Tab) 250 mg PO QAM JAREN; Protocol Stop: 06/01/22 08:59 Escitalopram Oxalate (Escitalopram Oxalate 10 Mg Tab) 5 mg PO DAILY JAREN Stop: 06/22/22 08:59 Last Admin: 05/24/22 07:50 Dose: 5 mg Heparin Sodium/Dextrose (Heparin Sodium/Dextrose) 25,000 units in 500 mls @ 22 mls/hr IV .[id number] JAREN; Protocol Stop: 06/21/22 17:14 Last Titration: 05/24/22 06:51 Dose: 1,100 units/hr, 22 mls/hr Ceftriaxone Sodium 1,000 mg/ (Dextrose) 60 mls @ 100 mls/hr IV DAILY [facility]; Protocol Stop: 05/31/22 07:29 Last Admin: 05/24/22 07:50 Dose: 100 mls/hr Metoprolol Tartrate (Metoprolol Tartrate 25 Mg Tab) 12.5 mg PO BID JAREN Stop: 06/22/22 20:59 Last Admin: 05/24/22 07:51 Dose: 12.5 mg Miscellaneous ([facility] Protocol For Hyperglycemia) 1 each N/A PRN PRN; Protocol PRN Reason: Hyperglycemia Protocol Stop: 05/24/22 17:34 Oxycodone HCl (Oxycodone Hcl Ir 5 Mg Tab (Immediate Release)) 5 mg PO BID PRN PRN Reason: severe pain Stop: 06/05/22 17:34 Last Admin: 05/24/22 08:00 Dose: 5 mg Pantoprazole Sodium (Pantoprazole 40 Mg Tab) 40 mg PO DAILY [facility] Stop: 06/22/22 08:59 Last Admin: 05/24/22 07:51 Dose: 40 mg
[2022-05-24] MEDS: MAGNESIUM OXIDE 400 MG TAB PO SCH (08:49)
[2022-05-24] MEDS: HEPARIN SODIUM/DEXTROSE 25,000 UNITS/500 ML BAG IV SCH (19:32)
[2022-05-25] MEDS: ACETAMINOPHEN 325 MG TAB PO PRN ×3 (03:49→21:54)
[2022-05-25 06:17] LABS: Partial Thromboplastin Ratio 1.5; Partial Thromboplastin Time 40.6 Seconds (21.0-31.0)
--- NOTE | 2022-05-25 08:00 | XRay Report ---
XR chest 1V portable HISTORY: Evaluate chest tube placement. COMPARISON: Chest 05/24/2022. FINDINGS: A right basilar chest tube remains unchanged in position. Small right pleural effusion and right mid to lower lung zone densities persist. A small left pleural effusions also unchanged. Left s ubclavian Port-A-Cath with its at the SVC. The heart remains borderline enlarged. IMPRESSION: 1. Right basilar pleural chest tube is unchanged in position. 2. Small bilateral pleural effusions persist. 3. Right mid to lower lung zone airspace opacities are also unchanged. ACT 112: Negative or not required by law. Electronically signed by: Vito Brewster M.D. 05/25/2022 7:58 AM
[2022-05-25] MEDS: HEPARIN SODIUM/DEXTROSE 25,000 UNITS/500 ML BAG IV SCH ×3 (08:08→18:38)
[2022-05-25] MEDS: cefTRIAXone SODIUM 1,000 MG in DEXTROSE 5% 50 ML IV SCH (08:17)
[2022-05-25] MEDS: PANTOprazole 40 MG TAB PO SCH (08:18)
[2022-05-25] MEDS: ESCITALOPRAM OXALATE 10 MG TAB PO SCH (08:18)
[2022-05-25] MEDS: AZITHROMYCIN 250 MG TAB PO SCH (08:18)
[2022-05-25] MEDS: METOPROLOL TARTRATE 25 MG TAB PO SCH ×2 (08:18→20:11)
[2022-05-25] MEDS: MAGNESIUM OXIDE 400 MG TAB PO SCH (08:18)
[2022-05-25] MEDS: oxyCODONE HCL IR 5 MG TAB (IMMEDIATE RELEASE) PO PRN ×3 (08:24→18:37)
--- NOTE | 2022-05-25 11:52 | Pulmonology Progress Note ---
Date of Service May 25, 2022 Assessment & Plan (1) Large pleural effusion: (2) Acute dyspnea: (3) History of pulmonary embolism: Plan 51-year-old female with a history of metastatic breast cancer and pulm embolism presenting to the hospital due to shortness of breath. She was found to have a very large right pleural effusion with mediastinal shift. Awaiting for cytology result for the pleural effusion. Highly suspect malignant pleural effusion. If cytology is positive, will discontinue the pigtail catheter and evaluate for reaccumulation of fluid. We will need to consider Pleurx catheter placement in the future if recurrence of fluid. If cytology is negative, will await for drainage from the pleural catheter to decrease. Continue heparin given her history of PE. Will need to transition to oral anticoagulation in the near future once the catheter is out. Continue Rocephin and azithromycin for possible pneumonia. Chest x-ray results from today reviewed which indicate small bilateral effusions and a large right lower lobe infiltrate. Will continue to follow with you. Admission and Anticipated Discharge Date Admission Date: May 22, 2022 Subjective Patient's respiratory status has significantly improved with drainage from the pigtail catheter. She denies cough. She is not needing a nasal cannula at this time. She is sitting up in a chair. Review of Systems Review of Systems: All systems reviewed & are unremarkable except as noted in HPI & below Physical Exam Physical Exam: Constitutional: Frail appearing female in no apparent distress. Eyes: Pupils are equal round and reactive to light. Conjunctivae are normal. Anicteric sclera. Ears nose, mouth and throat: Deferred. Neck: Trachea is midline. Visual inspection is normal. Respiratory: Diminished lung sounds on the right. Mild conversational dyspnea. Cardiovascular: Regular rate and rhythm. No murmurs. No edema. Gastrointestinal: Normal bowel sounds, soft, nontender and nondistended. No hepatosplenomegaly noted. Musculoskeletal: No cyanosis. Patient is able to move all extremities. Skin: No rashes, warm dry and intact. Pigtail catheter in place. Catheter appears intact with no erythema. Neurologic: No obvious focal neurological deficits seen. Psychiatric: Alert and oriented x3 with a euthymic affect. Results & Data Results & Data ([facility]) Vital Signs (Past 12 Hours) Vital Signs Temp Pulse Resp BP Pulse Ox O2 Del Method O2 Flow Rate 05/25/22 08:00 36.5 C 111 H 21 97 Nasal Cannula 2 05/25/22 08:00 108/65 05/25/22 07:00 106 H 21 96 05/25/22 07:00 107/76 05/25/22 08:00 Nasal Cannula 2 05/25/22 05:00 113/78 05/25/22 05:00 110 H 14 98 05/25/22 04:00 104 H 18 95 05/25/22 04:00 106/67 05/25/22 03:00 104 H 17 96 05/25/22 03:00 111/61 05/25/22 02:00 103 H 16 98 05/25/22 02:00 97/72 L 05/25/22 01:00 101 H 25 H 98 05/25/22 01:00 100/70 05/25/22 00:00 36.6 C 104 H 17 97 05/25/22 00:00 102/62 PG Care Time/CCT Total # of Minutes Spent Total Time Spent with Patient: Total time spent is greater than 50% in coordination of care (as documented) at patient's floor/unit and/or counseling patient: Coding Level of Care Code 74914 Subseq Hosp Care Lvl 2 Diagnoses Large pleural effusion J90 Acute dyspnea R06.00 History of pulmonary embolism Z86.711
[2022-05-25 13:09] LABS: Partial Thromboplastin Ratio 1.3; Partial Thromboplastin Time 35.6 Seconds (21.0-31.0)
[2022-05-25] MEDS ORDERED: HEPARIN SOD (PORCINE) 1000 UNIT/ML IV ONE (13:54)
--- NOTE | 2022-05-25 14:00 | Hospitalist Progress Note ---
Date of Service May 25, 2022 Assessment & Plan (1) Large pleural effusion: Plan: Admitted to ICU initially Patient presenting from home with reports of worsening shortness of breath x 1 week In the ED, CXR shows large right pleural effusion resulting in mild left me diastinal shift On admission on 2 L O2, however no documented hypoxia. Tachycardic, BP stable Highly suspicious for malignant effusion due to currently active breast cancer Case discussed with director pharmacy services, Dr. Hayden -- planning on chest tube placement 05/23 -status post chest tube placement - about 3L of fluid removed After procedure patient feels better, however she is now requiring 5 L of oxygen, and she has been tachycardic Pleural fluid sent to lab Pleural fluid culture pending, cytology pending 05/24 -significant infiltrate on the right based on today's chest x-ray. Started on azithromycin and Rocephin by Pulmonary for poss. pneumonia. 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 May need to consider a CT of her chest since the fluid has largely been drained. May need to consider placement of a Pleurx catheter depending on how fast the fluid reaccumulate's. Chest tube suction increased to -20 cm H2O. 05/25 -Patient is now off supplemental oxygen, and breathing on room air. Cytology Malignant cells present consistent with metastatic adenocarcinoma, breast primary. - Estrogen receptor: Negative (0%). - Progesterone receptor: Negative (0%). - HER-2/rosa overexpression by immunohistochemistry: Negative (score 1+). Echocardiogram obtained Technically limited study with patient in sinus tachycardia. LV cavity is small. There is mild concentric LVH. No regional wall motion abnormality noted. EF greater than 70%. There is no gross valvular disease. There is trivial apical pericardial effusion of no hemodynamic significance. (2) Breast cancer: Plan: S/p chemo and radiation, recently completed radiation treatment to the left breast Follows with [facility] medical oncology and [facility] radiation oncology Patient's oncologist, Dr. Murcia ([phone]) - contacted nd on 05/24 and was updated. She also called and checked in with the patient. (3) Anemia: Plan: Hgb ~9 Likely due to malignancy No signs of bleeding at this time No indication for transfusion Monitor CBC (4) History of DVT (deep vein thrombosis): (5) History of pulmonary embolism: Plan: Holding Eliquis due to large pleural effusion requiring intervention, pt on IV heparin - consider to restart Eliquis in next day or 2 (6) DVT prophylaxis: Plan: IV heparin Admission and Anticipated Discharge Date Admission Date: May 22, 2022 Subjective Patient seen in follow-up of shortness of breath secondary to large pleural effusion, in the setting of metastatic breast cancer Patient w/ history of PE, on Eliquis, was switched to IV heparin on admission S/p chest tube placement w/ pulmonary Currently reports feeling better, she is now breathing on room air, saturating in the 90% Pt denies any fevers, chills, chest pain, abdominal pain, nausea or vomiting. Patient's oncologist at [facility], Dr. Murcia, phone #[phone], contacted me yesterday and was updated, she also contacted the patient. Review of Systems Review of Systems: All systems reviewed & are unremarkable except as noted in Subjective Physical Exam Physical Exam: Constitutional:L WD/WN, + ill appe aring; no acute di stress Eyes: PERRL, EOMI, conju nctivae normal, an icteric sclerae ENMT: external ear and n ose normal, oropha rynx normal Respiratory: no respiratory dis tress, diminished breath sounds on r ight. no wheezing Cardiovascular:L Rate/Rhythm: regul ar rhythm and + ta chycardic Extrem ities: no edema Gastrointestinal ( Abdomen): normal bowel sound s, soft, nontender Musculoskeletal: extremities motor strength 5/5 Skin: no rashes, warm an d dry Neurologic: PERRL, EOMI, no fa ce palsy, no dysar thria, moves extre mities Psychiatric: A+Ox3, euthymic af fect Results & Data Results & Data ([facility]) Vital Signs (Past 12 Hours) Vital Signs Temp Pulse Resp BP Pulse Ox O2 Del Method O2 Flow Rate 05/25/22 12:00 19 92 Room Air 05/25/22 11:25 37.0 C 114 H 26 H 94 Room Air 05/25/22 11:25 92/63 L 05/25/22 10:00 106 H 27 H 91 05/25/22 08:00 36.5 C 111 H 21 97 Nasal Cannula 2 05/25/22 08:00 108/65 05/25/22 07:00 106 H 21 96 05/25/22 07:00 107/76 05/25/22 08:00 Nasal Cannula 2 05/25/22 05:00 113/78 05/25/22 05:00 110 H 14 98 05/25/22 04:00 104 H 18 95 05/25/22 04:00 106/67 05/25/22 03:00 104 H 17 96 05/25/22 03:00 111/61 05/25/22 02:00 103 H 16 98 05/25/22 02:00 97/72 L Laboratory Results 05/25/22 05/25/22 05/25/22 Range/Units 12:29 05:28 05:28 WBC 5.09 (4.8-10.8) K/ul RBC 2.84 L (3.93-5.22) M/uL Hgb 7.4 L (12.0-16.0) g/dl Hct 24.7 L (34.1-44.9) % MCV 87.0 (80.0-100.0) fL MCH 26.1 (25.0-34.0) pg MCHC 30.0 L (32.0-36.0) g/dL RDW Std Deviation 52.6 H (36.4-46.3) fL RDW Coeff of Elizabeth 17.4 H (11.5-14.5) % Plt Count 98 L (130-400) K/uL MPV 10.5 (9.4-12.3) fL Absolute Nucleated RBC 0.03 H (0-0) K/uL Nucleated RBC % (auto) 0.6 % APTT 35.6 H (21.0-31.0) Seconds PTT Ratio 1.3 Sodium 128 L (136-145) mmol/L Potassium 4.8 (3.5-5.1) mmol/L Chloride 94 L (98-107) mmol/L Carbon Dioxide 29 (21-32) mmol/L Anion Gap 5 (3-11) BUN 14 (6-23) mg/dl Creatinine 0.48 L (0.6-1.2) mg/dl Est Cr Clr Drug Dosing 124.8 ml/min Est GFR ( Amer) 131.6 ml/min Est GFR (Non-Af Amer) 113.6 ml/min BUN/Creatinine Ratio 29.2 H (10-20) Glucose 93 (70-99(Fasting)) mg/dl Calcium 8.3 L (8.5-10.1) mg/dl Phosphorus 3.4 (2.5-4.9) mg/dl Magnesium 1.7 (1.7-2.4) mg/dl HER-2 (FISH) 05/25/22 05/23/22 Range/Units 05:25 10:31 WBC (4.8-10.8) K/ul RBC (3.93-5.22) M/uL Hgb (12.0-16.0) g/dl Hct (34.1-44.9) % MCV (80.0-100.0) fL MCH (25.0-34.0) pg MCHC (32.0-36.0) g/dL RDW Std Deviation (36.4-46.3) fL RDW Coeff of Elizabeth (11.5-14.5) % Plt Count (130-400) K/uL MPV (9.4-12.3) fL Absolute Nucleated RBC (0-0) K/uL Nucleated RBC % (auto) % APTT 40.6 H (21.0-31.0) Seconds PTT Ratio 1.5 Sodium (136-145) mmol/L Potassium (3.5-5.1) mmol/L Chloride (98-107) mmol/L Carbon Dioxide (21-32) mmol/L Anion Gap (3-11) BUN (6-23) mg/dl Creatinine (0.6-1.2) mg/dl Est Cr Clr Drug Dosing ml/min Est GFR ( Amer) ml/min Est GFR (Non-Af Amer) ml/min BUN/Creatinine Ratio (10-20) Glucose (70-99(Fasting)) mg/dl Calcium (8.5-10.1) mg/dl Phosphorus (2.5-4.9) mg/dl Magnesium (1.7-2.4) mg/dl HER-2 (FISH) Pending Medications Administered Current Inpatient Medications Acetaminophen (Acetaminophen 325 Mg Tab) 650 mg PO Q6H PRN PRN Reason: Pain Stop: 06/21/22 23:49 Last Admin: 05/25/22 11:18 Dose: 650 mg Azithromycin (Azithromycin 250 Mg Tab) 250 mg PO QAM [facility]; Protocol Stop: 06/01/22 08:59 Last Admin: 05/25/22 08:18 Dose: 250 mg Escitalopram Oxalate (Escitalopram Oxalate 10 Mg Tab) 5 mg PO DAILY [facility] Stop: 06/22/22 08:59 Last Admin: 05/25/22 08:18 Dose: 5 mg Heparin Sodium/Dextrose (Heparin Sodium/Dextrose) 25,000 units in 500 mls @ 25 mls/hr IV .Q20H [facility]; Protocol Stop: 06/21/22 17:14 Last Admin: 05/25/22 13:59 Dose: Not Given Ceftriaxone Sodium 1,000 mg/ (Dextrose) 60 mls @ 100 mls/hr IV DAILY [facility]; Protocol Stop: 05/31/22 07:29 Last Infusion: 05/25/22 09:19 Dose: Infused Magnesium Oxide (Magnesium Oxide 400 Mg Tab) 400 mg PO QAM [facility] Stop: 06/23/22 08:59 Last Admin: 05/25/22 08:18 Dose: 400 mg Metoprolol Tartrate (Metoprolol Tartrate 25 Mg Tab) 12.5 mg PO BID [facility] Stop: 06/22/22 20:59 Last Admin: 05/25/22 08:18 Dose: 12.5 mg Oxycodone HCl (Oxycodone Hcl Ir 5 Mg Tab (Immediate Release)) 5 mg PO BID PRN PRN Reason: severe pain Stop: 06/05/22 17:34 Last Admin: 05/25/22 13:58 Dose: 5 mg Pantoprazole Sodium (Pantoprazole 40 Mg Tab) 40 mg PO DAILY [facility] Stop: 06/22/22 08:59 Last Admin: 05/25/22 08:18 Dose: 40 mg
[2022-05-25 14:45] LABS: BUN Creatinine Ratio 29.2 (10-20); Calcium 8.3 mg/dl (8.5-10.1); Creatinine Clr Calc Pharmacy 124.8 ml/min; Est GFR (African American) 131.6 ml/min; Est GFR (Non-African American) 113.6 ml/min; Magnesium 1.7 mg/dl (1.7-2.4); Phosphorus 3.4 mg/dl (2.5-4.9); Potassium 4.8 mmol/L (3.5-5.1)
[2022-05-25 14:51] LABS: Hematocrit (blood only) 24.7 % (34.1-44.9); Hemoglobin 7.4 g/dl (12.0-16.0); Mean Corpuscular Hemoglobin 26.1 pg (25.0-34.0); Mean Platelet Volume 10.5 fL (9.4-12.3); Nucleated RBC # (auto) 0.03 K/uL (0-0); Nucleated RBC % (auto) 0.6 %; Platelet Count 98 K/uL (130-400); RDW Coefficient of Variation 17.4 % (11.5-14.5); RDW Standard Deviation 52.6 fL (36.4-46.3); Red Blood Count 2.84 M/uL (3.93-5.22); White Blood Count 5.09 K/ul (4.8-10.8)
[2022-05-25] MEDS ORDERED: MAGNESIUM SULFATE / D5W 1 GM/100 ML BAG IV ONE (18:48)
[2022-05-25] MEDS ORDERED: oxyCODONE HCL IR 5 MG TAB (IMMEDIATE RELEASE) PO STA (19:26)
[2022-05-25 20:46] LABS: Partial Thromboplastin Ratio 1.6; Partial Thromboplastin Time 44.8 Seconds (21.0-31.0)
[2022-05-26 03:26] LABS: Partial Thromboplastin Time 54.5 Seconds (21.0-31.0)
[2022-05-26] MEDS: oxyCODONE HCL IR 5 MG TAB (IMMEDIATE RELEASE) PO PRN ×4 (05:12→22:29)
[2022-05-26 06:55] LABS: Hematocrit (blood only) 23.3 % (34.1-44.9); Hemoglobin 7.5 g/dl (12.0-16.0); Mean Corpuscular Hemoglobin 26.5 pg (25.0-34.0); Mean Corpuscular Hgb Conc 32.2 g/dL (32.0-36.0); Mean Corpuscular Volume 82.3 fL (80.0-100.0); Nucleated RBC # (auto) 0.04 K/uL (0-0); Nucleated RBC % (auto) 0.7 %; Platelet Count 80 K/uL (130-400); RDW Coefficient of Variation 17.3 % (11.5-14.5); RDW Standard Deviation 49.7 fL (36.4-46.3); Red Blood Count 2.83 M/uL (3.93-5.22); White Blood Count 5.71 K/ul (4.8-10.8)
[2022-05-26] MEDS: HEPARIN SODIUM/DEXTROSE 25,000 UNITS/500 ML BAG IV SCH ×2 (06:56→17:33)
[2022-05-26 06:59] LABS: BUN Creatinine Ratio 23.8 (10-20); Calcium 8.1 mg/dl (8.5-10.1); Creatinine Clr Calc Pharmacy 142.6 ml/min; Est GFR (African American) 137.5 ml/min; Est GFR (Non-African American) 118.7 ml/min; Magnesium 1.8 mg/dl (1.7-2.4); Potassium 4.8 mmol/L (3.5-5.1)
--- NOTE | 2022-05-26 08:24 | Hospitalist Progress Note ---
Date of Service May 26, 2022 Assessment & Plan (1) Large pleural effusion: Plan: Admitted to ICU initially Patient presenting from home with reports of worsening shortness of breath x 1 week In the ED, CXR shows large right pleural effusion resulting in mild left me diastinal shift On admission on 2 L O2, however no documented hypoxia. Tachycardic, BP stable Highly suspicious for malignant effusion due to currently active breast cancer Case discussed with slide fasteners inspector, Dr. Hayden -- planning on chest tube placement 05/23 -status post chest tube placement - about 3L of fluid removed After procedure patient feels better, however she is now requiring 5 L of oxygen, and she has been tachycardic Pleural fluid sent to lab Pleural fluid culture pending, cytology ordered 05/24 -significant infiltrate on the right based on today's chest x-ray. Started on azithromycin and Rocephin by Pulmonary for poss. pneumonia. 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 May need to consider a CT of her chest since the fluid has largely been drained. May need to consider placement of a Pleurx catheter depending on how fast the fluid reaccumulate's. Chest tube suction increased to -20 cm H2O. 05/25 -Patient is now off supplemental oxygen, and breathing on room air. Cytology Malignant cells present consistent with metastatic adenocarcinoma, breast primary. - Estrogen receptor: Negative (0%). - Progesterone receptor: Negative (0%). - HER-2/rosa overexpression by immunohistochemistry: Negative (score 1+). Echocardiogram obtained Technically limited study with patient in sinus tachycardia. LV cavity is small. There is mild concentric LVH. No regional wall motion abnormality noted. EF greater than 70%. There is no gross valvular disease. There is trivial apical pericardial effusion of no hemodynamic significance. (2) Breast cancer: Plan: S/p chemo and radiation, recently completed radiation treatment to the left breast Follows with [facility] medical oncology and [facility] radiation oncology Patient's oncologist, Dr. Murcia ([phone]) - contacted co on 05/24 and was updated. She also called and checked in with the patient. (3) Anemia: Plan: Hgb ~9 Likely due to malignancy No signs of bleeding at this time No indication for transfusion Monitor CBC (4) History of DVT (deep vein thrombosis): (5) History of pulmonary embolism: Plan: Holding Eliquis due to large pleural effusion requiring intervention, pt on IV heparin - consider to restart Eliquis in next day or 2 (6) DVT prophylaxis: Plan: IV heparin Admission and Anticipated Discharge Date Admission Date: May 22, 2022 Subjective Patient seen in follow-up of shortness of breath secondary to large pleural effusion, in the setting of metastatic breast cancer Patient w/ history of PE, on Eliquis, was switched to IV heparin on admission S/p chest tube placement w/ pulmonary (CT removed) Currently reports feeling better, she is now breathing on room air vs. 2L Pt denies any fevers, chills, chest pain, abdominal pain, nausea or vomiting. Patient's oncologist at [facility], Dr. Murcia, phone #[phone], contacted me and was updated, she also contacted the patient. Review of Systems Review of Systems: All systems reviewed & are unremarkable except as noted in Subjective Physical Exam Physical Exam: Constitutional:L WD/WN, + ill appe aring; no acute di stress Eyes: PERRL, EOMI, conju nctivae normal, an icteric sclerae ENMT: external ear and n ose normal, oropha rynx normal Respiratory: no respiratory dis tress, diminished breath sounds on r ight. no wheezing Cardiovascular:L Rate/Rhythm: regul ar rhythm and + ta chycardic Extrem ities: no edema Gastrointestinal ( Abdomen): normal bowel sound s, soft, nontender Musculoskeletal: extremities motor strength 5/5 Skin: no rashes, warm an d dry Neurologic: PERRL, EOMI, no fa ce palsy, no dysar thria, moves extre mities Psychiatric: A+Ox3, euthymic af fect Results & Data Results & Data ([facility]) Vital Signs (Past 12 Hours) Vital Signs Temp Pulse Resp BP Pulse Ox O2 Del Method O2 Flow Rate 05/26/22 07:47 Nasal Cannula 2 05/26/22 06:54 107 H 05/26/22 06:00 104 H 21 90 05/26/22 05:00 104 H 18 96 05/26/22 04:00 104 H 17 95 05/26/22 04:00 96/64 L 05/26/22 03:00 98 H 18 92 05/26/22 02:00 100 H 23 99/74 L 95 05/26/22 01:58 99/74 L 05/26/22 01:58 100 H 12 93 05/26/22 01:00 96 H 18 93 05/26/22 00:00 97 H 25 H 95 05/25/22 23:00 100 H 18 94 05/26/22 00:00 99 H 05/25/22 22:30 36.9 C 113 H 28 H 106/69 100 Nasal Cannula 2 05/25/22 22:00 107 H 30 H 95 05/25/22 21:00 105 H 19 95 Laboratory Results 05/26/22 05/26/22 05/26/22 Range/Units 06:02 06:02 02:46 WBC 5.71 (4.8-10.8) K/ul RBC 2.83 L (3.93-5.22) M/uL Hgb 7.5 L (12.0-16.0) g/dl Hct 23.3 L (34.1-44.9) % MCV 82.3 D (80.0-100.0) fL MCH 26.5 (25.0-34.0) pg MCHC 32.2 (32.0-36.0) g/dL RDW Std Deviation 49.7 H (36.4-46.3) fL RDW Coeff of Elizabeth 17.3 H (11.5-14.5) % Plt Count 80 L (130-400) K/uL MPV 10.0 (9.4-12.3) fL Absolute Nucleated RBC 0.04 H (0-0) K/uL Nucleated RBC % (auto) 0.7 % APTT 54.5 H* (21.0-31.0) Seconds PTT Ratio 2.0 Sodium 127 L (136-145) mmol/L Potassium 4.8 (3.5-5.1) mmol/L Chloride 92 L (98-107) mmol/L Carbon Dioxide 28 (21-32) mmol/L Anion Gap 7 (3-11) BUN 10 (6-23) mg/dl Creatinine 0.42 L (0.6-1.2) mg/dl Est Cr Clr Drug Dosing 142.6 ml/min Est GFR ( Amer) 137.5 ml/min Est GFR (Non-Af Amer) 118.7 ml/min BUN/Creatinine Ratio 23.8 H (10-20) Glucose 99 (70-99(Fasting)) mg/dl Calcium 8.1 L (8.5-10.1) mg/dl Phosphorus 4.0 (2.5-4.9) mg/dl Magnesium 1.8 (1.7-2.4) mg/dl HER-2 (FISH) 05/25/22 05/25/22 05/25/22 Range/Units 20:09 12:29 05:28 WBC (4.8-10.8) K/ul RBC (3.93-5.22) M/uL Hgb (12.0-16.0) g/dl Hct (34.1-44.9) % MCV (80.0-100.0) fL MCH (25.0-34.0) pg MCHC (32.0-36.0) g/dL RDW Std Deviation (36.4-46.3) fL RDW Coeff of Elizabeth (11.5-14.5) % Plt Count (130-400) K/uL MPV (9.4-12.3) fL Absolute Nucleated RBC (0-0) K/uL Nucleated RBC % (auto) % APTT 44.8 H 35.6 H (21.0-31.0) Seconds PTT Ratio 1.6 1.3 Sodium 128 L (136-145) mmol/L Potassium 4.8 (3.5-5.1) mmol/L Chloride 94 L (98-107) mmol/L Carbon Dioxide 29 (21-32) mmol/L Anion Gap 5 (3-11) BUN 14 (6-23) mg/dl Creatinine 0.48 L (0.6-1.2) mg/dl Est Cr Clr Drug Dosing 124.8 ml/min Est GFR ( Amer) 131.6 ml/min Est GFR (Non-Af Amer) 113.6 ml/min BUN/Creatinine Ratio 29.2 H (10-20) Glucose 93 (70-99(Fasting)) mg/dl Calcium 8.3 L (8.5-10.1) mg/dl Phosphorus 3.4 (2.5-4.9) mg/dl Magnesium 1.7 (1.7-2.4) mg/dl HER-2 (FISH) 07/21/22 07/19/22 Range/Units 05:28 10:31 WBC 5.09 (4.8-10.8) K/ul RBC 2.84 L (3.93-5.22) M/uL Hgb 7.4 L (12.0-16.0) g/dl Hct 24.7 L (34.1-44.9) % MCV 87.0 (80.0-100.0) fL MCH 26.1 (25.0-34.0) pg MCHC 30.0 L (32.0-36.0) g/dL RDW Std Deviation 52.6 H (36.4-46.3) fL RDW Coeff of Elizabeth 17.4 H (11.5-14.5) % Plt Count 98 L (130-400) K/uL MPV 10.5 (9.4-12.3) fL Absolute Nucleated RBC 0.03 H (0-0) K/uL Nucleated RBC % (auto) 0.6 % APTT (21.0-31.0) Seconds PTT Ratio Sodium (136-145) mmol/L Potassium (3.5-5.1) mmol/L Chloride (98-107) mmol/L Carbon Dioxide (21-32) mmol/L Anion Gap (3-11) BUN (6-23) mg/dl Creatinine (0.6-1.2) mg/dl Est Cr Clr Drug Dosing ml/min Est GFR ( Amer) ml/min Est GFR (Non-Af Amer) ml/min BUN/Creatinine Ratio (10-20) Glucose (70-99(Fasting)) mg/dl Calcium (8.5-10.1) mg/dl Phosphorus (2.5-4.9) mg/dl Magnesium (1.7-2.4) mg/dl HER-2 (FISH) Pending Medications Administered Current Inpatient Medications Acetaminophen (Acetaminophen 325 Mg Tab) 650 mg PO Q6H PRN PRN Reason: Pain Stop: 06/21/22 23:49 Last Admin: 05/25/22 21:54 Dose: 650 mg Azithromycin (Azithromycin 250 Mg Tab) 250 mg PO QAM [facility]; Protocol Stop: 06/01/22 08:59 Last Admin: 05/25/22 08:18 Dose: 250 mg Escitalopram Oxalate (Escitalopram Oxalate 10 Mg Tab) 5 mg PO DAILY [facility] Stop: 06/22/22 08:59 Last Admin: 05/25/22 08:18 Dose: 5 mg Heparin Sodium/Dextrose (Heparin Sodium/Dextrose) 25,000 units in 500 mls @ 0 mls/hr IV .Q0M [facility]; Protocol Stop: 06/21/22 17:14 Last Admin: 05/26/22 06:56 Dose: Not Given Ceftriaxone Sodium 1,000 mg/ (Dextrose) 60 mls @ 100 mls/hr IV DAILY [facility]; Protocol Stop: 05/31/22 07:29 Last Infusion: 05/25/22 09:19 Dose: Infused Magnesium Oxide (Magnesium Oxide 400 Mg Tab) 400 mg PO QAM [facility] Stop: 06/23/22 08:59 Last Admin: 05/25/22 08:18 Dose: 400 mg Metoprolol Tartrate (Metoprolol Tartrate 25 Mg Tab) 12.5 mg PO BID [facility] Stop: 06/22/22 20:59 Last Admin: 05/25/22 20:11 Dose: 12.5 mg Oxycodone HCl (Oxycodone Hcl Ir 5 Mg Tab (Immediate Release)) 5 mg PO Q4 PRN PRN Reason: severe pain Stop: 06/05/22 17:34 Last Admin: 05/26/22 05:12 Dose: 5 mg Pantoprazole Sodium (Pantoprazole 40 Mg Tab) 40 mg PO DAILY [facility] Stop: 06/22/22 08:59 Last Admin: 05/25/22 08:18 Dose: 40 mg
[2022-05-26] MEDS: MAGNESIUM OXIDE 400 MG TAB PO SCH (08:30)
[2022-05-26] MEDS: PANTOprazole 40 MG TAB PO SCH (08:30)
[2022-05-26] MEDS: ESCITALOPRAM OXALATE 10 MG TAB PO SCH (08:30)
[2022-05-26] MEDS: cefTRIAXone SODIUM 1,000 MG in DEXTROSE 5% 50 ML IV SCH (08:31)
[2022-05-26] MEDS: AZITHROMYCIN 250 MG TAB PO SCH (08:31)
[2022-05-26] MEDS ORDERED: Nursing to Pharmacy Communication SCH (09:15)
--- NOTE | 2022-05-26 10:45 | Pulmonology Progress Note ---
Date of Service May 26, 2022 Assessment & Plan (1) Large pleural effusion: (2) Acute dyspnea: (3) History of pulmonary embolism: Plan 51-year-old female with a history of metastatic breast cancer and pulm embolism presenting to the hospital due to shortness of breath. She was found to have a very large right pleural effusion with mediastinal shift. Malignant effusion identified on cytology. High likelihood of recurrence of pleural effusion. Ultrasound today demonstrated minimal effusion. We will consider Pleurx catheter in the near future should there be recurrence of fluid accumulation. Continue heparin. Continue Rocephin and azithromycin for possible pneumonia. Will continue to follow with you. Admission and Anticipated Discharge Date Admission Date: May 22, 2022 Subjective Patient seen and examined. Symptoms remain the same as yesterday. No increased shortness of breath. Pain is minimal. Appetite is good. Review of Systems Review of Systems: All systems reviewed & are unremarkable except as noted in HPI & below Physical Exam Physical Exam: Constitutional: Frail appearing female in no apparent distress. Eyes: Pupils are equal round and reactive to light. Conjunctivae are normal. Anicteric sclera. Ears nose, mouth and throat: Deferred. Neck: Trachea is midline. Visual inspection is normal. Respiratory: Diminished lung sounds on the right. Mild conversational dyspnea. Cardiovascular: Regular rate and rhythm. No murmurs. No edema. Gastrointestinal: Normal bowel sounds, soft, nontender and nondistended. No hepatosplenomegaly noted. Musculoskeletal: No cyanosis. Patient is able to move all extremities. Skin: No rashes, warm dry and intact. Neurologic: No obvious focal neurological deficits seen. Psychiatric: Alert and oriented x3 with a euthymic affect. Results & Data Results & Data ([facility]) Vital Signs (Past 12 Hours) Vital Signs Pulse Resp BP Pulse Ox O2 Del Method O2 Flow Rate 05/26/22 09:03 97/68 L 05/26/22 07:47 Nasal Cannula 2 05/26/22 06:54 107 H 05/26/22 06:00 104 H 21 90 05/26/22 05:00 104 H 18 96 05/26/22 04:00 104 H 17 95 05/26/22 04:00 96/64 L 05/26/22 03:00 98 H 18 92 05/26/22 02:00 100 H 23 99/74 L 95 05/26/22 01:58 99/74 L 05/26/22 01:58 100 H 12 93 05/26/22 01:00 96 H 18 93 05/26/22 00:00 97 H 25 H 95 05/25/22 23:00 100 H 18 94 05/26/22 00:00 99 H PG Care Time/CCT Total # of Minutes Spent Total Time Spent with Patient: Total time spent is greater than 50% in coordination of care (as documented) at patient's floor/unit and/or counseling patient: Coding Level of Care Code 67197 Subseq Hosp Care Lvl 2 Diagnoses Large pleural effusion J90 Acute dyspnea R06.00 History of pulmonary embolism Z86.711
[2022-05-26] MEDS: METOPROLOL TARTRATE 25 MG TAB PO SCH ×2 (11:22→20:10)
[2022-05-26] MEDS: ACETAMINOPHEN 325 MG TAB PO PRN (14:38)
[2022-05-26 15:28] LABS: Partial Thromboplastin Ratio 1.4; Partial Thromboplastin Time 39.5 Seconds (21.0-31.0)
[2022-05-26 23:35] LABS: Partial Thromboplastin Ratio 1.6; Partial Thromboplastin Time 44.4 Seconds (21.0-31.0)
[2022-05-27] MEDS: oxyCODONE HCL IR 5 MG TAB (IMMEDIATE RELEASE) PO PRN ×4 (04:26→21:51)
[2022-05-27 07:18] LABS: Calcium 8.2 mg/dl (8.5-10.1); Creatinine Clr Calc Pharmacy 149.7 ml/min; Est GFR (African American) 139.8 ml/min; Est GFR (Non-African American) 120.6 ml/min; Potassium 4.9 mmol/L (3.5-5.1)
[2022-05-27 07:26] LABS: Hematocrit (blood only) 21.6 % (34.1-44.9); Hemoglobin 6.9 g/dl (12.0-16.0); Mean Corpuscular Hgb Conc 31.9 g/dL (32.0-36.0); Mean Corpuscular Volume 81.5 fL (80.0-100.0); Mean Platelet Volume 9.8 fL (9.4-12.3); Nucleated RBC # (auto) 0.02 K/uL (0-0); Nucleated RBC % (auto) 0.3 %; Platelet Count 70 K/uL (130-400); RDW Coefficient of Variation 17.2 % (11.5-14.5); RDW Standard Deviation 48.9 fL (36.4-46.3); Red Blood Count 2.65 M/uL (3.93-5.22); White Blood Count 6.46 K/ul (4.8-10.8)
[2022-05-27 07:27] LABS: Anisocytosis Present; Basophils # (auto) 0.01 K/uL (0-0.2); Basophils % (auto) 0.2 %; Eosinophils # (auto) 0.04 K/uL (0-0.50); Eosinophils % (auto) 0.6 %; Immature Granulocytes # (auto) 0.41 K/uL (0.00-0.02); Immature Granulocytes % (auto) 6.3 %; Lymphocytes # (auto) 0.19 K/uL (1.2-3.4); Lymphocytes % (auto) 2.9 %; Monocytes # (auto) 0.57 K/uL (0.24-0.82); Monocytes % (auto) 8.8 %; Neutrophils # (auto) 5.24 K/uL (1.4-6.5); Neutrophils % (auto) 81.2 %
--- NOTE | 2022-05-27 07:31 | Hospitalist Progress Note ---
Date of Service May 27, 2022 Assessment & Plan (1) Large pleural effusion: Plan: Admitted to ICU initially Patient presenting from home with reports of worsening shortness of breath x 1 week In the ED, CXR shows large right pleural effusion resulting in mild left me diastinal shift On admission on 2 L O2, however no documented hypoxia. Tachycardic, BP stable Highly suspicious for malignant effusion due to currently active breast cancer Case discussed with terrazzo supervisor, Dr. Hayden -- planning on chest tube placement Echocardiogram obtained Technically limited study with patient in sinus tachycardia. LV cavity is small. There is mild concentric LVH. No regional wall motion abnormality noted. EF greater than 70%. There is no gross valvular disease. There is trivial apical pericardial effusion of no hemodynamic significance. 05/23 -status post chest tube placement - about 3L of fluid removed Pleural fluid culture pending, cytology ordered Cytology Malignant cells present consistent with metastatic adenocarcinoma, breast primary. - Estrogen receptor: Negative (0%). - Progesterone receptor: Negative (0%). - HER-2/rosa overexpression by immunohistochemistry: Negative (score 1+). Poss. PNA 05/24 -significant infiltrate on the right based on today's chest x-ray. Procal 0.54 Started on azithromycin and Rocephin by Pulmonary for poss. pneumonia. Per pulm. 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 May need to consider a CT of her chest since the fluid has largely been drained. May need to consider placement of a Pleurx catheter depending on how fast the fluid reaccumulate's. (2) Breast cancer: Plan: S/p chemo and radiation, recently completed radiation treatment to the left breast Follows with [facility] medical oncology and [facility] radiation oncology Patient's oncologist, Dr. Murcia ([phone]) - contacted sc on 05/24 and was updated. She also called and checked in with the patient. (3) Anemia: Plan: Hgb ~9 on admission Likely due to malignancy 05/27 - Now hemoglobin 6.9, obtained blood consent, will transfuse 1 unit of PRBCs No signs of bleeding at this time Monitor CBC Thrombocytopenia/ ? HIT -Patient has been on IV heparin on and off, during this admission -Plt count has been decreasing during this admission Recommend not to resume IV heparin, which was now stopped, as possible concern for HIT -At home patient is on Eliquis for DVT/PE -She was switched to IV heparin due to procedure/chest tube Hyponatremia -Seems to be somewhat chronic, likely due to poor p.o. intake, on admission also fluid overload/ pl. effusion -Sodium now 124 (05/27) -Encourage p.o. intake -Obtain urine osmolality, urine sodium, recheck BMP in the afternoon (4) History of DVT (deep vein thrombosis): (5) History of pulmonary embolism: Plan: Holding Eliquis due to large pleural effusion requiring intervention, pt on IV heparin - now stopped, as above - consider to restart Eliquis in next day or 2 (6) DVT prophylaxis: Plan: was on IV heparin, as above Admission and Anticipated Discharge Date Admission Date: May 22, 2022 Subjective Patient seen in follow-up of shortness of breath secondary to large pleural effusion, in the setting of metastatic breast cancer Patient w/ history of PE, on Eliquis, was switched to IV heparin on admission S/p chest tube placement w/ pulmonary (CT removed) Currently reports feeling better, she is now breathing on room air Pt denies any fevers, chills, chest pain, abdominal pain, nausea or vomiting. Patient's oncologist at [facility], Dr. Murcia, phone #[phone], contacted me and was updated, she also contacted the patient. Patient anemic, thrombocytopenia, hyponatremia Blood consent obtained, will transfuse 1 unit of PRBCs IV Heparin stopped, recommended to resume heparin products as possible concern for HIT Encourage p.o. intake, recheck sodium level in the afternoon, urine osm, urine sodium Review of Systems Review of Systems: All systems reviewed & are unremarkable except as noted in Subjective Physical Exam Physical Exam: Constitutional:L WD/WN, + ill appe aring; no acute di stress Eyes: PERRL, EOMI, conju nctivae normal, an icteric sclerae ENMT: external ear and n ose normal, oropha rynx normal Respiratory: no respiratory dis tress, diminished breath sounds on r ight. no wheezing Cardiovascular:L Rate/Rhythm: regul ar rhythm and + ta chycardic Extrem ities: no edema Gastrointestinal ( Abdomen): normal bowel sound s, soft, nontender Musculoskeletal: extremities motor strength 5/5 Skin: no rashes, warm an d dry Neurologic: PERRL, EOMI, no fa ce palsy, no dysar thria, moves extre mities Psychiatric: A+Ox3, euthymic af fect Results & Data Results & Data ([facility]) Vital Signs (Past 12 Hours) Vital Signs Temp Pulse Pulse Resp BP BP Pulse Ox 05/27/22 04:00 36.9 C 05/27/22 06:00 110 H 17 05/27/22 05:00 110 H 15 05/27/22 04:09 116 H 6 L 104/65 05/27/22 03:00 109 H 18 05/27/22 02:00 107 H 20 05/27/22 01:00 109 H 17 05/27/22 00:00 109 H 14 05/26/22 23:00 116 H 24 05/26/22 22:00 111 H 23 97 05/26/22 23:00 36.9 C 05/26/22 19:45 05/27/22 00:00 109 H 05/26/22 21:00 117 H 20 96 05/26/22 20:12 118 H 36 H 90/64 L 96 05/26/22 20:10 36.9 C 119 H 24 90/64 L 96 O2 Del Method O2 Flow Rate 05/27/22 04:00 05/27/22 06:00 05/27/22 05:00 05/27/22 04:09 05/27/22 03:00 05/27/22 02:00 05/27/22 01:00 05/27/22 00:00 05/26/22 23:00 05/26/22 22:00 05/26/22 23:00 05/26/22 19:45 Nasal Cannula 2 05/27/22 00:00 05/26/22 21:00 05/26/22 20:12 05/26/22 20:10 Nasal Cannula 2 Laboratory Results 05/27/22 05/27/22 05/26/22 Range/Units 06:43 06:43 22:56 WBC 6.46 (4.8-10.8) K/ul RBC 2.65 L (3.93-5.22) M/uL Hgb 6.9 L* (12.0-16.0) g/dl Hct 21.6 L (34.1-44.9) % MCV 81.5 (80.0-100.0) fL MCH 26.0 (25.0-34.0) pg MCHC 31.9 L (32.0-36.0) g/dL RDW Std Deviation 48.9 H (36.4-46.3) fL RDW Coeff of Elizabeth 17.2 H (11.5-14.5) % Plt Count 70 L (130-400) K/uL MPV 9.8 (9.4-12.3) fL Immature Gran % (Auto) 6.3 % Neut % (Auto) 81.2 % Lymph % (Auto) 2.9 % [place] % (Auto) 8.8 % Eos % (Auto) 0.6 % Baso % (Auto) 0.2 % Neut # (Auto) 5.24 (1.4-6.5) K/uL Lymph # (Auto) 0.19 L (1.2-3.4) K/uL [place] # (Auto) 0.57 (0.24-0.82) K/uL Eos # (Auto) 0.04 (0-0.50) K/uL Baso # (Auto) 0.01 (0-0.2) K/uL Immature Gran # (Auto) 0.41 H (0.00-0.02) K/uL Absolute Nucleated RBC 0.02 H (0-0) K/uL Nucleated RBC % (auto) 0.3 % Anisocytosis Present APTT 44.4 H (21.0-31.0) Seconds PTT Ratio 1.6 Sodium 124 L (136-145) mmol/L Potassium 4.9 (3.5-5.1) mmol/L Chloride 89 L (98-107) mmol/L Carbon Dioxide 30 (21-32) mmol/L Anion Gap 5 (3-11) BUN 10 (6-23) mg/dl Creatinine 0.40 L (0.6-1.2) mg/dl Est Cr Clr Drug Dosing 149.7 ml/min Est GFR ( Amer) 139.8 ml/min Est GFR (Non-Af Amer) 120.6 ml/min BUN/Creatinine Ratio 25.0 H (10-20) Glucose 99 (70-99(Fasting)) mg/dl Calcium 8.2 L (8.5-10.1) mg/dl 07/ Range/Units 14:45 WBC (4.8-10.8) K/ul RBC (3.93-5.22) M/uL Hgb (12.0-16.0) g/dl Hct (34.1-44.9) % MCV (80.0-100.0) fL MCH (25.0-34.0) pg MCHC (32.0-36.0) g/dL RDW Std Deviation (36.4-46.3) fL RDW Coeff of Elizabeth (11.5-14.5) % Plt Count (130-400) K/uL MPV (9.4-12.3) fL Immature Gran % (Auto) % Neut % (Auto) % Lymph % (Auto) % [place] % (Auto) % Eos % (Auto) % Baso % (Auto) % Neut # (Auto) (1.4-6.5) K/uL Lymph # (Auto) (1.2-3.4) K/uL [place] # (Auto) (0.24-0.82) K/uL Eos # (Auto) (0-0.50) K/uL Baso # (Auto) (0-0.2) K/uL Immature Gran # (Auto) (0.00-0.02) K/uL Absolute Nucleated RBC (0-0) K/uL Nucleated RBC % (auto) % Anisocytosis APTT 39.5 H (21.0-31.0) Seconds PTT Ratio 1.4 Sodium (136-145) mmol/L Potassium (3.5-5.1) mmol/L Chloride (98-107) mmol/L Carbon Dioxide (21-32) mmol/L Anion Gap (3-11) BUN (6-23) mg/dl Creatinine (0.6-1.2) mg/dl Est Cr Clr Drug Dosing ml/min Est GFR ( Amer) ml/min Est GFR (Non-Af Amer) ml/min BUN/Creatinine Ratio (10-20) Glucose (70-99(Fasting)) mg/dl Calcium (8.5-10.1) mg/dl Medications Administered Current Inpatient Medications Acetaminophen (Acetaminophen 325 Mg Tab) 650 mg PO Q6H PRN PRN Reason: Pain Stop: 06/21/22 23:49 Last Admin: 05/26/22 14:38 Dose: 650 mg Azithromycin (Azithromycin 250 Mg Tab) 250 mg PO QAM FOR[facility], 1928[facility]1983; Protocol Stop: 06/01/22 08:59 Last Admin: 05/26/22 08:31 Dose: 250 mg Escitalopram Oxalate (Escitalopram Oxalate 10 Mg Tab) 5 mg PO DAILY FOR[facility]LY [facility], [facility]1983 Stop: 06/22/22 08:59 Last Admin: 05/26/22 08:30 Dose: 5 mg Heparin Sodium/Dextrose (Heparin Sodium/Dextrose) 25,000 units in 500 mls @ 0 mls/hr IV .Q0M FOR[facility], [facility]–1983; Protocol Stop: 06/21/22 17:14 Last Titration: 05/27/22 04:18 Dose: 0 units/hr, 0 mls/hr Ceftriaxone Sodium 1,000 mg/ (Dextrose) 60 mls @ 100 mls/hr IV DAILY FOR[facility]LY [facility], 1928–1983; Protocol Stop: 05/31/22 07:29 Last Infusion: 05/26/22 09:09 Dose: Infused Magnesium Oxide (Magnesium Oxide 400 Mg Tab) 400 mg PO QAM FOR[facility], 1928[facility]1983 Stop: 06/23/22 08:59 Last Admin: 05/26/22 08:30 Dose: 400 mg Metoprolol Tartrate (Metoprolol Tartrate 25 Mg Tab) 12.5 mg PO BID [facility], 1928[facility]1983 Stop: 06/22/22 20:59 Last Admin: 05/26/22 20:10 Dose: 12.5 mg Oxycodone HCl (Oxycodone Hcl Ir 5 Mg Tab (Immediate Release)) 5 mg PO Q4 PRN PRN Reason: severe pain Stop: 06/05/22 17:34 Last Admin: 05/27/22 04:26 Dose: 5 mg Pantoprazole Sodium (Pantoprazole 40 Mg Tab) 40 mg PO DAILY [facility], [facility]1983 Stop: 06/22/22 08:59 Last Admin: 05/26/22 08:30 Dose: 40 mg
[2022-05-27] MEDS ORDERED: SODIUM CHLORIDE 0.9% 250 ML IV PRN (08:08)
[2022-05-27] MEDS: METOPROLOL TARTRATE 25 MG TAB PO SCH ×2 (09:01→20:12)
[2022-05-27] MEDS: AZITHROMYCIN 250 MG TAB PO SCH (09:02)
[2022-05-27] MEDS: ESCITALOPRAM OXALATE 10 MG TAB PO SCH (09:02)
[2022-05-27] MEDS: cefTRIAXone SODIUM 1,000 MG in DEXTROSE 5% 50 ML IV SCH (09:02)
[2022-05-27] MEDS: PANTOprazole 40 MG TAB PO SCH (09:02)
[2022-05-27] MEDS: MAGNESIUM OXIDE 400 MG TAB PO SCH (09:02)
--- NOTE | 2022-05-27 10:00 | XRay Report ---
SINGLE VIEW CHEST CLINICAL HISTORY: Pleural effusion. FINDINGS: An AP, portable, upright chest radiograph is compared to study dated 05/25/2022 and correlat ed with chest CT dated 05/22/2022. A left subclavian central venous infusion port is unchanged in posi tion. The cardiomediastinal silhouette is unremarkable. A pleural drain at the right lung base has be en removed. There are residual pleural effusions with right greater than left basilar consolidation. Wires obscure the right apex. No pneumothorax is clearly seen. The bony thorax is grossly intact. IMPRESSION: 1. A right pleural drain has been removed. No pneumothorax is clearly identified. 2. Residual pleural effusions with right greater than left basilar consolidation. This is similar to the 05/25/2022 examination. ACT 112: Negative or not required by law. Electronically signed by: Corky Hodges M.D. 05/27/2022 9:58 AM
[2022-05-27 10:49] LABS: Fibrinogen 766 mg/dl (184-400); Partial Thromboplastin Time 27.3 Seconds (21.0-31.0); Prothrombin Time 10.8 Seconds (9.0-12.0)
[2022-05-27] MEDS ORDERED: ALBUMIN 5% 250 ML IV ONE (11:15)
--- NOTE | 2022-05-27 11:32 | Pulmonology Progress Note ---
Date of Service May 27, 2022 Assessment & Plan (1) Large pleural effusion: (2) Acute dyspnea: (3) History of pulmonary embolism: (4) Thrombocytopenia: (5) Acute anemia: Plan 51-year-old female with a history of metastatic breast cancer and pulm embolism presenting to the hospital due to shortness of breath. She was found to have a very large right pleural effusion with mediastinal shift. Malignant effusion identified on cytology. High likelihood of recurrence of pleural effusion. Ultrasound of the pleural effusion today appears similar to yesterday. Chest x-ray is also similar. We will hold off on Pleurx catheter today and reevaluate tomorrow. Patient also with worsening anemia, thrombocytopenia and hyponatremia. All of these findings may be secondary to her malignancy. Haptoglobin, LDH, PF4 antibody and hematology consult placed. Patient is receiving 1 unit of packed RBCs. Hold heparin infusion. May need to consider the initiation of argatroban or restarting a DOAC. Hesitant to restart DOAC at this time due to the need for further pleural procedure. Hyponatremia work-up including urine sodium, serum osmolality and urine osmolality. We will start salt tabs today. Likely multifactorial due to poor p.o. intake and SIADH. Thank you for allowing us to participate in the care of the patient. We will continue to follow with you. Admission and Anticipated Discharge Date Admission Date: May 22, 2022 Subjective Patient seen and examined. Clinical condition largely unchanged from yesterday. She denies any significant shortness of breath at present. No fevers or chills. No chest pain. No obvious signs of bleeding. Ultrasound of the right pleural space performed at bedside which demonstrates a small to moderate loculated effusion. Review of Systems Review of Systems: All systems reviewed & are unremarkable except as noted in HPI & below Physical Exam Physical Exam: Constitutional: Frail appearing female in no apparent distress. Eyes: Pupils are equal round and reactive to light. Conjunctivae are normal. Anicteric sclera. Ears nose, mouth and throat: Deferred. Neck: Trachea is midline. Visual inspection is normal. Respiratory: Diminished lung sounds on the right. Mild conversational dyspnea. Cardiovascular: Regular rate and rhythm. No murmurs. No edema. Gastrointestinal: Normal bowel sounds, soft, nontender and nondistended. No hepatosplenomegaly noted. Musculoskeletal: No cyanosis. Patient is able to move all extremities. Skin: No rashes, warm dry and intact. Neurologic: No obvious focal neurological deficits seen. Psychiatric: Alert and oriented x3 with a euthymic affect. Results & Data Results & Data ([facility]) Vital Signs (Past 12 Hours) Vital Signs Temp Pulse Resp BP Pulse Ox O2 Del Method 05/27/22 10:34 36.8 C 20 105/65 92 05/27/22 10:17 38.8 C H 105 H 24 92/56 L 91 05/27/22 09:15 90 Room Air 05/27/22 09:00 119 H 27 H 05/27/22 09:00 105/65 05/27/22 08:01 125/75 05/27/22 08:01 121 H 20 05/27/22 08:00 121 H 16 05/27/22 07:00 116 H 20 05/27/22 04:00 36.9 C 05/27/22 06:00 110 H 17 05/27/22 05:00 110 H 15 05/27/22 04:09 116 H 6 L 104/65 05/27/22 03:00 109 H 18 05/27/22 02:00 107 H 20 05/27/22 01:00 109 H 17 05/27/22 00:00 109 H 14 05/27/22 00:00 109 H PG Care Time/CCT Total # of Minutes Spent Total Time Spent with Patient: Total time spent is greater than 50% in coordination of care (as documented) at patient's floor/unit and/or counseling patient: Coding Level of Care Code 07561 Subseq Hosp Care Lvl 3 Diagnoses Large pleural effusion J90 Acute dyspnea R06.00 History of pulmonary embolism Z86.711 Thrombocytopenia D69.6 Acute anemia D64.9
[2022-05-27] MEDS: SODIUM CHLORIDE 1 GM TABLET PO SCH (12:50)
[2022-05-27 15:56] LABS: Hematocrit (blood only) 25.3 % (34.1-44.9); Hemoglobin 8.1 g/dl (12.0-16.0)
[2022-05-27 16:20] LABS: BUN Creatinine Ratio 27.8 (10-20); Calcium 8.2 mg/dl (8.5-10.1); Creatinine Clr Calc Pharmacy 166.4 ml/min; Est GFR (African American) 144.7 ml/min; Est GFR (Non-African American) 124.9 ml/min; Potassium 4.7 mmol/L (3.5-5.1)
[2022-05-27 17:22] LABS: Appearance Urine Clear (Clear); Bacteria Urine Automated Negative (Negative); Bilirubin Urine Negative (Negative); Blood Urine Negative (Negative); Color Urine Orange; Epithelial Cell Urine Auto >30 /lpf (0-5); Glucose Urine UA Negative (Negative); Ketones Urine Negative (Negative); Leukocyte Esterase Urine 1+ (Negative); Nitrite Urine Negative (Negative); Protein Urine 1+ (Negative); RBC Urine Automated 0-4 /hpf (0-4); Specific Gravity Urine 1.021 (1.000-1.030); Urobilinogen Urine Negative (Negative)
[2022-05-28] MEDS: oxyCODONE HCL IR 5 MG TAB (IMMEDIATE RELEASE) PO PRN ×6 (01:54→23:11)
[2022-05-28 08:14] LABS: Hematocrit (blood only) 24.8 % (34.1-44.9); Hemoglobin 7.9 g/dl (12.0-16.0); Mean Corpuscular Hemoglobin 27.1 pg (25.0-34.0); Mean Corpuscular Hgb Conc 31.9 g/dL (32.0-36.0); Mean Corpuscular Volume 85.2 fL (80.0-100.0); Mean Platelet Volume 10.3 fL (9.4-12.3); Nucleated RBC # (auto) 0.03 K/uL (0-0); Nucleated RBC % (auto) 0.5 %; Platelet Count 69 K/uL (130-400); RDW Coefficient of Variation 17.9 % (11.5-14.5); RDW Standard Deviation 53.3 fL (36.4-46.3); Red Blood Count 2.91 M/uL (3.93-5.22); White Blood Count 6.12 K/ul (4.8-10.8)
--- NOTE | 2022-05-28 08:21 | XRay Report ---
XR chest 1V portable CLINICAL HISTORY: Pleural effusion. Breast cancer COMPARISON STUDY: Chest CT May 22, 2022. Chest radiograph May 27, 2022. FINDINGS: Left subclavian [id number] is in place. Cardiomediastinal silhouette is stable. There is no pneumothorax. Bilateral pleural effusions are similar to prior exam. Right pleural effusion has i ncreased since size since chest radiograph May 25, 2022. No evidence for pulmonary edema. IMPRESSION: 1. Small to moderate right and small left pleural effusions. 2. No pneumothorax. ACT 112: Negative or not required by law. Electronically signed by: Zackery Adler M.D. 05/28/2022 8:20 AM
[2022-05-28 08:39] LABS: BUN Creatinine Ratio 26.5 (10-20); Calcium 8.3 mg/dl (8.5-10.1); Creatinine Clr Calc Pharmacy 176.1 ml/min; Est GFR (African American) 147.4 ml/min; Est GFR (Non-African American) 127.2 ml/min; Potassium 4.6 mmol/L (3.5-5.1)
[2022-05-28 08:50] LABS: Basophils # (auto) 0.01 K/uL (0-0.2); Basophils % (auto) 0.2 %; Eosinophils # (auto) 0.02 K/uL (0-0.50); Eosinophils % (auto) 0.3 %; Immature Granulocytes # (auto) 0.39 K/uL (0.00-0.02); Immature Granulocytes % (auto) 6.4 %; Lymphocytes # (auto) 0.15 K/uL (1.2-3.4); Lymphocytes % (auto) 2.5 %; Monocytes # (auto) 0.62 K/uL (0.24-0.82); Monocytes % (auto) 10.1 %; Neutrophils # (auto) 4.93 K/uL (1.4-6.5); Neutrophils % (auto) 80.5 %; RBC Morphology Unremarkable
[2022-05-28] MEDS: cefTRIAXone SODIUM 1,000 MG in DEXTROSE 5% 50 ML IV SCH (10:13)
[2022-05-28] MEDS: METOPROLOL TARTRATE 25 MG TAB PO SCH ×2 (10:13→20:51)
[2022-05-28] MEDS: MAGNESIUM OXIDE 400 MG TAB PO SCH (10:14)
[2022-05-28] MEDS: ESCITALOPRAM OXALATE 10 MG TAB PO SCH (10:14)
[2022-05-28] MEDS: AZITHROMYCIN 250 MG TAB PO SCH (10:14)
[2022-05-28] MEDS: PANTOprazole 40 MG TAB PO SCH (10:15)
[2022-05-28] MEDS: SODIUM CHLORIDE 1 GM TABLET PO SCH (10:15)
--- NOTE | 2022-05-28 10:29 | Pulmonology Progress Note ---
Date of Service May 28, 2022 Assessment & Plan (1) Large pleural effusion: (2) Acute dyspnea: (3) History of pulmonary embolism: (4) Thrombocytopenia: (5) Acute anemia: (6) Hyponatremia: Plan 51-year-old female with a history of metastatic breast cancer and pulm embolism presenting to the hospital due to shortness of breath. She was found to have a very large right pleural effusion with mediastinal shift. Malignant effusion identified on cytology. High likelihood of recurrence of pleural effusion. Pleural effusion appears stable at this time. We will hold off on Pleurx catheter placement until the patient has more symptoms. Patient also with worsening anemia, thrombocytopenia and hyponatremia. All of these findings may be secondary to her malignancy. LDH is very elevated suggesting possible hemolysis. Haptoglobin and PF4 antibody pending. Continue to hold heparin infusion. Hematology consult placed. She has a history of PE and has an increased risk of blood clot given her malignancy. Will defer further anticoagulation to the primary team. Hyponatremia likely a mixture of poor solute intake and SIADH from malignancy and active pulmonary process. Salt tabs started with improvement of sodium. Recommended total course of 7 days of antibiotics which could be transitioned to oral antibiotics for possible pneumonia. Pleural fluid cultures negative today. Thank you for allowing us to participate in the care of the patient. Okay from a pulmonary perspective to discharge later today or tomorrow. Admission and Anticipated Discharge Date Admission Date: May 22, 2022 Subjective Patient seen and examined. She notes that she tolerates ambulating around her room. She is currently using oxygen at a flow rate of 2 L/min via nasal cannula. No cough. Minimal chest pain. She feels significantly improved compared to her hospital admission. She has an appointment scheduled with her outpatient oncologist at [facility] on . Patient is aware that she has metastatic breast cancer to the right pleural space. Review of Systems Review of Systems: All systems reviewed & are unremarkable except as noted in HPI & below Physical Exam Physical Exam: Constitutional: Frail appearing female in no apparent distress. Eyes: Pupils are equal round and reactive to light. Conjunctivae are normal. Anicteric sclera. Ears nose, mouth and throat: Deferred. Neck: Trachea is midline. Visual inspection is normal. Respiratory: Diminished lung sounds on the right. No tachypnea. Cardiovascular: Regular rate and rhythm. No murmurs. No edema. Gastrointestinal: Normal bowel sounds, soft, nontender and nondistended. No hepatosplenomegaly noted. Musculoskeletal: No cyanosis. Patient is able to move all extremities. Skin: No rashes, warm dry and intact. Neurologic: No obvious focal neurological deficits seen. Psychiatric: Alert and oriented x3 with a euthymic affect. Results & Data Results & Data ([facility]) Vital Signs (Past 12 Hours) Vital Signs Temp Pulse Pulse Resp BP Pulse Ox O2 Del Method 05/28/22 02:51 36.6 C 107 H 18 99/65 L 95 05/27/22 23:00 36.8 C 112 H 18 101/70 95 Nasal Cannula 05/27/22 22:58 118 H O2 Flow Rate 05/28/22 02:51 05/27/22 23:00 2 05/27/22 22:58 PG Care Time/CCT Total # of Minutes Spent Total Time Spent with Patient: Total time spent is greater than 50% in coordination of care (as documented) at patient's floor/unit and/or counseling patient: Coding Level of Care Code 87729 Subseq Hosp Care Lvl 2 Diagnoses Large pleural effusion J90 Acute dyspnea R06.00 History of pulmonary embolism Z86.711 Thrombocytopenia D69.6 Acute anemia D64.9 Hyponatremia E87.1
--- NOTE | 2022-05-28 11:08 | Hospitalist Progress Note ---
Date of Service May 28, 2022 Assessment & Plan (1) Large pleural effusion: Plan: Admitted to ICU initially Patient presenting from home with reports of worsening shortness of breath x 1 week In the ED, CXR shows large right pleural effusion resulting in mild left me diastinal shift On admission on 2 L O2, however no documented hypoxia. Tachycardic, BP stable Highly suspicious for malignant effusion due to currently active breast cancer Case discussed with medical records technician, Dr. Hayden -- planning on chest tube placement Echocardiogram obtained Technically limited study with patient in sinus tachycardia. LV cavity is small. There is mild concentric LVH. No regional wall motion abnormality noted. EF greater than 70%. There is no gross valvular disease. There is trivial apical pericardial effusion of no hemodynamic significance. 05/23 -status post chest tube placement - about 3L of fluid removed Pleural fluid culture pending, cytology ordered Cytology Malignant cells present consistent with metastatic adenocarcinoma, breast primary. - Estrogen receptor: Negative (0%). - Progesterone receptor: Negative (0%). - HER-2/rosa overexpression by immunohistochemistry: Negative (score 1+). Poss. PNA 05/24 -significant infiltrate on the right based on today's chest x-ray. Procal 0.54 Started on azithromycin and Rocephin by Pulmonary for poss. pneumonia. Per pulm. 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 May need to consider a CT of her chest since the fluid has largely been drained. May need to consider placement of a Pleurx catheter depending on how fast the fluid reaccumulate's. Ok to switch to PO Abx and finish treatment as outpt (2) Breast cancer: Plan: S/p chemo and radiation, recently completed radiation treatment to the left breast Follows with [facility] medical oncology and [facility] radiation oncology Patient's oncologist, Dr. Murcia ([phone]) - contacted mt on 05/24 and was updated. She also called and checked in with the patient. (3) Anemia: Plan: Hgb ~9 on admission Likely due to malignancy 05/27 - Now hemoglobin 6.9, obtained blood consent, transfused 1 unit of PRBCs No signs of bleeding at this time Monitor CBC Thrombocytopenia/ ? HIT -Patient has been on IV heparin on and off, during this admission -Plt count has been decreasing during this admission Recommend not to resume IV heparin, which was now stopped, as possible concern for HIT -At home patient is on Eliquis for DVT/PE -She was switched to IV heparin due to procedure/chest tube - discussed w/Rita (heme), ok to restart Eliquis Hyponatremia -Seems to be somewhat chronic, likely due to poor p.o. intake, on admission also fluid overload/ pl. effusion, SIADH -Sodium 124 (05/27) -Encourage p.o. intake -Obtain urine osmolality, urine sodium, recheck BMP in the afternoon -started sodium tab (4) History of DVT (deep vein thrombosis): (5) History of pulmonary embolism: Plan: Held Eliquis due to large pleural effusion requiring intervention on admission,was on IV heparin - now stopped, as above - restarted Eliquis (6) DVT prophylaxis: Plan: was on IV heparin, as above Admission and Anticipated Discharge Date Admission Date: May 22, 2022 Subjective Patient seen in follow-up of shortness of breath secondary to large pleural effusion, in the setting of metastatic breast cancer Patient w/ history of PE, on Eliquis, was switched to IV heparin on admission S/p chest tube placement w/ pulmonary (CT removed) Currently reports feeling better, she is now breathing on room air vs 2L Pt denies any fevers, chills, chest pain, abdominal pain, nausea or vomiting. Patient's oncologist at [facility], Dr. Murcia, phone #[phone], contacted me and was updated, she also contacted the patient. Patient anemic, thrombocytopenic, hyponatremic Blood consent obtained, transfused 1 unit of PRBCs IV Heparin stopped, recommend not to resume heparin products as possible concern for HIT Encourage p.o. intake, recheck sodium level, urine osm, urine sodium Discussed with Dr. Salinas, restart Eliquis Review of Systems Review of Systems: All systems reviewed & are unremarkable except as noted in Subjective Physical Exam Physical Exam: Constitutional:L WD/WN, + chronica lly ill appearing; no acute distress Eyes: PERRL, EOMI, conju nctivae normal, an icteric sclerae ENMT: external ear and n ose normal, oropha rynx normal Respiratory: no respiratory dis tress, diminished breath sounds on r ight. no wheezing Cardiovascular:L Rate/Rhythm: regul ar rhythm and + ta chycardic Extrem ities: no edema Gastrointestinal ( Abdomen): normal bowel sound s, soft, nontender Musculoskeletal: extremities motor strength 5/5 Skin: no rashes, warm an d dry Neurologic: PERRL, EOMI, no fa ce palsy, no dysar thria, moves extre mities Psychiatric: A+Ox3, euthymic af fect Results & Data Results & Data ([facility]) Vital Signs (Past 12 Hours) Vital Signs Temp Pulse Resp BP Pulse Ox 05/28/22 02:51 36.6 C 107 H 18 99/65 L 95 Laboratory Results 05/28/22 05/28/22 05/27/22 Range/Units 06:59 06:59 17:00 WBC 6.12 (4.8-10.8) K/ul RBC 2.91 L (3.93-5.22) M/uL Hgb 7.9 L (12.0-16.0) g/dl Hct 24.8 L (34.1-44.9) % MCV 85.2 (80.0-100.0) fL MCH 27.1 (25.0-34.0) pg MCHC 31.9 L (32.0-36.0) g/dL RDW Std Deviation 53.3 H (36.4-46.3) fL RDW Coeff of Elizabeth 17.9 H (11.5-14.5) % Plt Count 69 L (130-400) K/uL MPV 10.3 (9.4-12.3) fL Immature Gran % (Auto) 6.4 % Neut % (Auto) 80.5 % Lymph % (Auto) 2.5 % Dunn % (Auto) 10.1 % Eos % (Auto) 0.3 % Baso % (Auto) 0.2 % Neut # (Auto) 4.93 (1.4-6.5) K/uL Lymph # (Auto) 0.15 L (1.2-3.4) K/uL Dunn # (Auto) 0.62 (0.24-0.82) K/uL Eos # (Auto) 0.02 (0-0.50) K/uL Baso # (Auto) 0.01 (0-0.2) K/uL Immature Gran # (Auto) 0.39 H (0.00-0.02) K/uL Absolute Nucleated RBC 0.03 H (0-0) K/uL Nucleated RBC % (auto) 0.5 % RBC Morphology Unremarkable Peripher Smr Path Cons Haptoglobin Sodium 126 L (136-145) mmol/L Potassium 4.6 (3.5-5.1) mmol/L Chloride 90 L (98-107) mmol/L Carbon Dioxide 29 (21-32) mmol/L Anion Gap 7 (3-11) BUN 9 (6-23) mg/dl Creatinine 0.34 L (0.6-1.2) mg/dl Est Cr Clr Drug Dosing 176.1 ml/min Est GFR ( Amer) 147.4 ml/min Est GFR (Non-Af Amer) 127.2 ml/min BUN/Creatinine Ratio 26.5 H (10-20) Glucose 95 (70-99(Fasting)) mg/dl Lactate (0.4-2.0) mmol/L Calcium 8.3 L (8.5-10.1) mg/dl Lactate Dehydrogenase (86-244) U/L Serotonin Release Assay Procalcitonin (0-0.5) ng/ml Urine Color [place] Urine Appearance Clear (Clear) Urine pH 6.0 (4.5-7.5) Ur Specific [place] 1.021 (1.000-1.030) Urine Protein 1+ H (Negative) Urine Glucose (UA) Negative (Negative) Urine Ketones Negative (Negative) Urine Blood Negative (Negative) Urine Nitrite Negative (Negative) Urine Bilirubin Negative (Negative) Urine Urobilinogen Negative (Negative) Ur Leukocyte Esterase 1+ H (Negative) Urine WBC (Auto) 10-30 H (0-5) /hpf Urine RBC (Auto) 0-4 (0-4) /hpf U Hyaline Cast (Auto) 5-10 H (0-5) /lpf U Epithel Cells (Auto) >30 H (0-5) /lpf Urine Bacteria (Auto) Negative (Negative) Ur Renal Epithelial Cell Not Reportable Urine Osmolality (500-800) mOsm/kg Ur Random Sodium mmol/L Heparin Depend Plt Ab Crossmatch 05/27/22 05/27/22 05/27/22 Range/Units 17:00 17:00 15:41 WBC (4.8-10.8) K/ul RBC (3.93-5.22) M/uL Hgb (12.0-16.0) g/dl Hct (34.1-44.9) % MCV (80.0-100.0) fL MCH (25.0-34.0) pg MCHC (32.0-36.0) g/dL RDW Std Deviation (36.4-46.3) fL RDW Coeff of Elizabeth (11.5-14.5) % Plt Count (130-400) K/uL MPV (9.4-12.3) fL Immature Gran % (Auto) % Neut % (Auto) % Lymph % (Auto) % Dunn % (Auto) % Eos % (Auto) % Baso % (Auto) % Neut # (Auto) (1.4-6.5) K/uL Lymph # (Auto) (1.2-3.4) K/uL Dunn # (Auto) (0.24-0.82) K/uL Eos # (Auto) (0-0.50) K/uL Baso # (Auto) (0-0.2) K/uL Immature Gran # (Auto) (0.00-0.02) K/uL Absolute Nucleated RBC (0-0) K/uL Nucleated RBC % (auto) % RBC Morphology Peripher Smr Path Cons Haptoglobin Sodium 124 L (136-145) mmol/L Potassium 4.7 (3.5-5.1) mmol/L Chloride 89 L (98-107) mmol/L Carbon Dioxide 28 (21-32) mmol/L Anion Gap 7 (3-11) BUN 10 (6-23) mg/dl Creatinine 0.36 L (0.6-1.2) mg/dl Est Cr Clr Drug Dosing 166.4 ml/min Est GFR ( Amer) 144.7 ml/min Est GFR (Non-Af Amer) 124.9 ml/min BUN/Creatinine Ratio 27.8 H (10-20) Glucose 109 H (70-99(Fasting)) mg/dl Lactate (0.4-2.0) mmol/L Calcium 8.2 L (8.5-10.1) mg/dl Lactate Dehydrogenase (86-244) U/L Serotonin Release Assay Procalcitonin (0-0.5) ng/ml Urine Color Urine Appearance (Clear) Urine pH (4.5-7.5) Ur Specific [place] (1.000-1.030) Urine Protein (Negative) Urine Glucose (UA) (Negative) Urine Ketones (Negative) Urine Blood (Negative) Urine Nitrite (Negative) Urine Bilirubin (Negative) Urine Urobilinogen (Negative) Ur Leukocyte Esterase (Negative) Urine WBC (Auto) (0-5) /hpf Urine RBC (Auto) (0-4) /hpf U Hyaline Cast (Auto) (0-5) /lpf U Epithel Cells (Auto) (0-5) /lpf Urine Bacteria (Auto) (Negative) Ur Renal Epithelial Cell Urine Osmolality 569 (500-800) mOsm/kg Ur Random Sodium 11 mmol/L Heparin Depend Plt Ab Crossmatch 05/27/22 05/27/22 05/27/22 Range/Units 15:41 11:33 11:33 WBC (4.8-10.8) K/ul RBC (3.93-5.22) M/uL Hgb 8.1 L (12.0-16.0) g/dl Hct 25.3 L (34.1-44.9) % MCV (80.0-100.0) fL MCH (25.0-34.0) pg MCHC (32.0-36.0) g/dL RDW Std Deviation (36.4-46.3) fL RDW Coeff of Elizabeth (11.5-14.5) % Plt Count (130-400) K/uL MPV (9.4-12.3) fL Immature Gran % (Auto) % Neut % (Auto) % Lymph % (Auto) % Dunn % (Auto) % Eos % (Auto) % Baso % (Auto) % Neut # (Auto) (1.4-6.5) K/uL Lymph # (Auto) (1.2-3.4) K/uL Dunn # (Auto) (0.24-0.82) K/uL Eos # (Auto) (0-0.50) K/uL Baso # (Auto) (0-0.2) K/uL Immature Gran # (Auto) (0.00-0.02) K/uL Absolute Nucleated RBC (0-0) K/uL Nucleated RBC % (auto) % RBC Morphology Peripher Smr Path Cons Haptoglobin Pending Sodium (136-145) mmol/L Potassium (3.5-5.1) mmol/L Chloride (98-107) mmol/L Carbon Dioxide (21-32) mmol/L Anion Gap (3-11) BUN (6-23) mg/dl Creatinine (0.6-1.2) mg/dl Est Cr Clr Drug Dosing ml/min Est GFR ( Amer) ml/min Est GFR (Non-Af Amer) ml/min BUN/Creatinine Ratio (10-20) Glucose (70-99(Fasting)) mg/dl Lactate (0.4-2.0) mmol/L Calcium (8.5-10.1) mg/dl Lactate Dehydrogenase 2842 H (86-244) U/L Serotonin Release Assay Procalcitonin (0-0.5) ng/ml Urine Color Urine Appearance (Clear) Urine pH (4.5-7.5) Ur Specific [place] (1.000-1.030) Urine Protein (Negative) Urine Glucose (UA) (Negative) Urine Ketones (Negative) Urine Blood (Negative) Urine Nitrite (Negative) Urine Bilirubin (Negative) Urine Urobilinogen (Negative) Ur Leukocyte Esterase (Negative) Urine WBC (Auto) (0-5) /hpf Urine RBC (Auto) (0-4) /hpf U Hyaline Cast (Auto) (0-5) /lpf U Epithel Cells (Auto) (0-5) /lpf Urine Bacteria (Auto) (Negative) Ur Renal Epithelial Cell Urine Osmolality (500-800) mOsm/kg Ur Random Sodium mmol/L Heparin Depend Plt Ab Crossmatch 05/27/22 05/27/22 05/27/22 Range/Units 11:33 11:33 11:33 WBC (4.8-10.8) K/ul RBC (3.93-5.22) M/uL Hgb (12.0-16.0) g/dl Hct (34.1-44.9) % MCV (80.0-100.0) fL MCH (25.0-34.0) pg MCHC (32.0-36.0) g/dL RDW Std Deviation (36.4-46.3) fL RDW Coeff of Elizabeth (11.5-14.5) % Plt Count (130-400) K/uL MPV (9.4-12.3) fL Immature Gran % (Auto) % Neut % (Auto) % Lymph % (Auto) % Dunn % (Auto) % Eos % (Auto) % Baso % (Auto) % Neut # (Auto) (1.4-6.5) K/uL Lymph # (Auto) (1.2-3.4) K/uL [place] # (Auto) (0.24-0.82) K/uL Eos # (Auto) (0-0.50) K/uL Baso # (Auto) (0-0.2) K/uL Immature Gran # (Auto) (0.00-0.02) K/uL Absolute Nucleated RBC (0-0) K/uL Nucleated RBC % (auto) % RBC Morphology Peripher Smr Path Cons Haptoglobin Sodium (136-145) mmol/L Potassium (3.5-5.1) mmol/L Chloride (98-107) mmol/L Carbon Dioxide (21-32) mmol/L Anion Gap (3-11) BUN (6-23) mg/dl Creatinine (0.6-1.2) mg/dl Est Cr Clr Drug Dosing ml/min Est GFR ( Amer) ml/min Est GFR (Non-Af Amer) ml/min BUN/Creatinine Ratio (10-20) Glucose (70-99(Fasting)) mg/dl Lactate 1.5 (0.4-2.0) mmol/L Calcium (8.5-10.1) mg/dl Lactate Dehydrogenase (86-244) U/L Serotonin Release Assay Pending Procalcitonin 0.67 H (0-0.5) ng/ml Urine Color Urine Appearance (Clear) Urine pH (4.5-7.5) Ur Specific [place] (1.000-1.030) Urine Protein (Negative) Urine Glucose (UA) (Negative) Urine Ketones (Negative) Urine Blood (Negative) Urine Nitrite (Negative) Urine Bilirubin (Negative) Urine Urobilinogen (Negative) Ur Leukocyte Esterase (Negative) Urine WBC (Auto) (0-5) /hpf Urine RBC (Auto) (0-4) /hpf U Hyaline Cast (Auto) (0-5) /lpf U Epithel Cells (Auto) (0-5) /lpf Urine Bacteria (Auto) (Negative) Ur Renal Epithelial Cell Urine Osmolality (500-800) mOsm/kg Ur Random Sodium mmol/L Heparin Depend Plt Ab Pending Crossmatch 05/27/22 05/27/22 Range/Units 08:20 06:43 WBC (4.8-10.8) K/ul RBC (3.93-5.22) M/uL Hgb (12.0-16.0) g/dl Hct (34.1-44.9) % MCV (80.0-100.0) fL MCH (25.0-34.0) pg MCHC (32.0-36.0) g/dL RDW Std Deviation (36.4-46.3) fL RDW Coeff of Elizabeth (11.5-14.5) % Plt Count (130-400) K/uL MPV (9.4-12.3) fL Immature Gran % (Auto) % Neut % (Auto) % Lymph % (Auto) % [place] % (Auto) % Eos % (Auto) % Baso % (Auto) % Neut # (Auto) (1.4-6.5) K/uL Lymph # (Auto) (1.2-3.4) K/uL [place] # (Auto) (0.24-0.82) K/uL Eos # (Auto) (0-0.50) K/uL Baso # (Auto) (0-0.2) K/uL Immature Gran # (Auto) (0.00-0.02) K/uL Absolute Nucleated RBC (0-0) K/uL Nucleated RBC % (auto) % RBC Morphology Peripher Smr Path Cons Pending Haptoglobin Sodium (136-145) mmol/L Potassium (3.5-5.1) mmol/L Chloride (98-107) mmol/L Carbon Dioxide (21-32) mmol/L Anion Gap (3-11) BUN (6-23) mg/dl Creatinine (0.6-1.2) mg/dl Est Cr Clr Drug Dosing ml/min Est GFR ( Amer) ml/min Est GFR (Non-Af Amer) ml/min BUN/Creatinine Ratio (10-20) Glucose (70-99(Fasting)) mg/dl Lactate (0.4-2.0) mmol/L Calcium (8.5-10.1) mg/dl Lactate Dehydrogenase (86-244) U/L Serotonin Release Assay Procalcitonin (0-0.5) ng/ml Urine Color Urine Appearance (Clear) Urine pH (4.5-7.5) Ur Specific [place] (1.000-1.030) Urine Protein (Negative) Urine Glucose (UA) (Negative) Urine Ketones (Negative) Urine Blood (Negative) Urine Nitrite (Negative) Urine Bilirubin (Negative) Urine Urobilinogen (Negative) Ur Leukocyte Esterase (Negative) Urine WBC (Auto) (0-5) /hpf Urine RBC (Auto) (0-4) /hpf U Hyaline Cast (Auto) (0-5) /lpf U Epithel Cells (Auto) (0-5) /lpf Urine Bacteria (Auto) (Negative) Ur Renal Epithelial Cell Urine Osmolality (500-800) mOsm/kg Ur Random Sodium mmol/L Heparin Depend Plt Ab Crossmatch See Detail Medications Administered Current Inpatient Medications Acetaminophen (Acetaminophen 325 Mg Tab) 650 mg PO Q6H PRN PRN Reason: Pain Stop: 06/21/22 23:49 Last Admin: 05/26/22 14:38 Dose: 650 mg Azithromycin (Azithromycin 250 Mg Tab) 250 mg PO QAM [facility]; Protocol Stop: 06/01/22 08:59 Last Admin: 05/28/22 10:14 Dose: 250 mg Escitalopram Oxalate (Escitalopram Oxalate 10 Mg Tab) 5 mg PO DAILY [facility] Stop: 06/22/22 08:59 Last Admin: 05/28/22 10:14 Dose: 5 mg Heparin Sodium/Dextrose (Heparin Sodium/Dextrose) 25,000 units in 500 mls @ 0 mls/hr IV .Q0M [facility]; Protocol Stop: 06/21/22 17:14 Last Titration: 05/27/22 19:22 Dose: Infused Ceftriaxone Sodium 1,000 mg/ (Dextrose) 60 mls @ 100 mls/hr IV DAILY [facility]; Protocol Stop: 05/31/22 07:29 Last Infusion: 05/28/22 10:49 Dose: Infused Lactobacillus Acidophilus (Advanced Probiotic 1250 Mg Capsule) 2 cap PO DAILY [facility] Stop: 06/27/22 11:14 Magnesium Oxide (Magnesium Oxide 400 Mg Tab) 400 mg PO QAM [facility] Stop: 06/23/22 08:59 Last Admin: 05/28/22 10:14 Dose: 400 mg Metoprolol Tartrate (Metoprolol Tartrate 25 Mg Tab) 12.5 mg PO BID [facility] Stop: 06/22/22 20:59 Last Admin: 05/28/22 10:13 Dose: 12.5 mg Oxycodone HCl (Oxycodone Hcl Ir 5 Mg Tab (Immediate Release)) 5 mg PO Q4 PRN PRN Reason: severe pain Stop: 06/05/22 17:34 Last Admin: 05/28/22 10:49 Dose: 5 mg Pantoprazole Sodium (Pantoprazole 40 Mg Tab) 40 mg PO DAILY [facility] Stop: 06/22/22 08:59 Last Admin: 05/28/22 10:15 Dose: 40 mg Sodium Chloride (Sodium Chloride 1 Gm Tablet) 1 gm PO DAILY [facility] Stop: 06/26/22 11:29 Last Admin: 05/28/22 10:15 Dose: 1 gm
[2022-05-28] MEDS: ADVANCED PROBIOTIC 1250 MG CAPSULE PO SCH (11:56)
[2022-05-28] MEDS: APIXABAN 5 MG TABLET PO SCH (13:33)
[2022-05-29] MEDS: APIXABAN 5 MG TABLET PO SCH ×2 (00:40→13:27)
[2022-05-29] MEDS: oxyCODONE HCL IR 5 MG TAB (IMMEDIATE RELEASE) PO PRN ×5 (03:32→22:50)
[2022-05-29 07:32] LABS: Hematocrit (blood only) 25.7 % (34.1-44.9); Hemoglobin 8.2 g/dl (12.0-16.0); Mean Corpuscular Hemoglobin 27.2 pg (25.0-34.0); Mean Corpuscular Hgb Conc 31.9 g/dL (32.0-36.0); Mean Corpuscular Volume 85.1 fL (80.0-100.0); Mean Platelet Volume 9.2 fL (9.4-12.3); Platelet Count 60 K/uL (130-400); RDW Coefficient of Variation 17.9 % (11.5-14.5); RDW Standard Deviation 53.9 fL (36.4-46.3); Red Blood Count 3.02 M/uL (3.93-5.22); White Blood Count 6.31 K/ul (4.8-10.8)
--- NOTE | 2022-05-29 07:44 | Pulmonology Progress Note ---
Date of Service May 29, 2022 Assessment & Plan (1) Large pleural effusion: (2) Acute dyspnea: (3) History of pulmonary embolism: (4) Acute respiratory failure with hypoxia: Plan CT chest 05/22/2022 personally reviewed: Large right-sided pleural effusion with complete collapse of the right lung Mediastinal shift to the left, small left-sided pleural effusion No mediastinal adenopathy 51-year-old female with a history of metastatic breast cancer and pulm embolism presenting to the hospital due to shortness of breath. She was found to have a very large right pleural effusion with mediastinal shift. -- Large right-sided pleural effusion Malignant from metastatic breast adenocarcinoma S/p pigtail catheter placement 05/23/2022 and removal of the fluid. Pigtail catheter discontinued 05/27/2022 Pleural fluid culture negative to date --Acute hypoxic respiratory failure Likely secondary to collapse of the right lung from large pleural effusion Continue with O2 supplementation to keep oxygen between 90-92% Plan: Repeat chest x-ray today. Patient is comfortable. No indication for Pleurx catheter on this admission. Can consider Pleurx catheter if the pleural effusion comes back as an outpatient. Patient will likely need oxygen on discharge. Recommend to start prior to discharge Incentive spirometry will be beneficial No further recommendation from pulmonary perspective. We will sign off. Please call directly with any questions Please note the above document was generated using voice recognition software. It may contain grammatical, syntax or spelling errors.Any formal questions or concerns about the content, text or information contained within the body of this dictation should be directly addressed to the provider for clarification. Admission and Anticipated Discharge Date Admission Date: May 22, 2022 Subjective Patient seen and examined at bedside. No acute distress, no adverse events overnight. Patient is overall her breathing is getting better compared to before Denies any chest pain, no nausea, no vomiting. She was saturating 95% on 2 L nasal cannula at rest at the time of examination. Fair appetite. Review of Systems Review of Systems: All systems reviewed & are unremarkable except as noted in Subjective Physical Exam Physical Exam: Constitutional: No acute distress HEENT: EOMI, PERRLA Respiratory system: Decreased air bilaterally, no wheeze, no rhonchi, positive crackles bilateral lower lobes more on the right side CVS: S1-S2 positive, no murmurs or gallops, tachycardia Abdomen: Soft, nontender, nondistended, positive bowel sounds x4 Extremities: +2 pulses bilaterally radialis/ dorsalis pedis, no cyanosis, +1 pitting edema bilateral lower extremity Neuro: Awake alert oriented x3 Psych: Normal mood and affect G/U: No Espinoza Skin: no rashes, warm and dry Lymphatic: no cervical or axillary lymphadenopathy Results & Data Results & Data ([facility]) Vital Signs (Past 12 Hours) Vital Signs Temp Pulse Pulse Resp BP Pulse Ox O2 Del Method 05/29/22 07:39 36.5 C 109 H 15 99/67 L 95 Nasal Cannula 05/29/22 03:51 36.7 C 116 H 19 103/68 94 Nasal Cannula 05/29/22 00:00 111 H 05/28/22 22:31 36.8 C 112 H 19 98/66 L 96 Nasal Cannula 05/28/22 21:07 Nasal Cannula O2 Flow Rate 05/29/22 07:39 05/29/22 03:51 2 05/29/22 00:00 05/28/22 22:31 2 05/28/22 21:07 2 Laboratory Results 05/29/22 07:24 PG Care Time/CCT Total # of Minutes Spent Total Time Spent with Patient: Total time spent is greater than 50% in coordination of care (as documented) at patient's floor/unit and/or counseling patient: Coding Level of Care Code 59425 Subseq Hosp Care Lvl 2 Diagnoses Large pleural effusion J90 Acute dyspnea R06.00 History of pulmonary embolism Z86.711 Acute respiratory failure with hypoxia J96.01
[2022-05-29 08:09] LABS: Anion Gap 6 (3-11); BUN Creatinine Ratio 34.4 (10-20); Blood Urea Nitrogen 11 mg/dl (6-23); Calcium 8.5 mg/dl (8.5-10.1); Carbon Dioxide 31 mmol/L (21-32); Chloride 88 mmol/L (98-107); Creatinine Clr Calc Pharmacy 187.2 ml/min; Est GFR (African American) > 150.0 ml/min; Est GFR (Non-African American) 129.8 ml/min; Glucose 98 mg/dl (70-99(Fasting)); Potassium 4.9 mmol/L (3.5-5.1); Sodium 125 mmol/L (136-145)
--- NOTE | 2022-05-29 08:58 | Hospitalist Progress Note ---
Date of Service May 29, 2022 Assessment & Plan (1) Large pleural effusion: Plan: Admitted to ICU initially Patient presenting from home with reports of worsening shortness of breath x 1 week In the ED, CXR shows large right pleural effusion resulting in mild left me diastinal shift On admission on 2 L O2, however no documented hypoxia. Tachycardic, BP stable Highly suspicious for malignant effusion due to currently active breast cancer Case discussed with loss prevention and safety manager, Dr. Hayden -- planning on chest tube placement Echocardiogram obtained Technically limited study with patient in sinus tachycardia. LV cavity is small. There is mild concentric LVH. No regional wall motion abnormality noted. EF greater than 70%. There is no gross valvular disease. There is trivial apical pericardial effusion of no hemodynamic significance. 05/23 -status post chest tube placement - about 3L of fluid removed Pleural fluid culture pending, cytology ordered Cytology Malignant cells present consistent with metastatic adenocarcinoma, breast primary. - Estrogen receptor: Negative (0%). - Progesterone receptor: Negative (0%). - HER-2/rosa overexpression by immunohistochemistry: Negative (score 1+). Poss. PNA 05/24 -significant infiltrate on the right based on today's chest x-ray. Procal 0.54 Started on azithromycin and Rocephin by Pulmonary for poss. pneumonia. Per pulm. 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 May need to consider a CT of her chest since the fluid has largely been drained. May need to consider placement of a Pleurx catheter depending on how fast the fluid reaccumulate's. Ok to switch to PO Abx and finish treatment as outpt Pl. culture negative (2) Breast cancer: Plan: S/p chemo and radiation, recently completed radiation treatment to the left breast Follows with [facility] medical oncology and [facility] radiation oncology Patient's oncologist, Dr. Murcia ([phone]) - contacted me on 05/24 and was updated. She also called and checked in with the patient. (3) Anemia: Plan: Hgb ~9 on admission Likely due to malignancy 05/27 - Now hemoglobin 6.9, obtained blood consent, transfused 1 unit of PRBCs No signs of bleeding at this time Monitor CBC Thrombocytopenia/ ? HIT -Patient has been on IV heparin on and off, during this admission -Plt count has been decreasing during this admission Recommend not to resume IV heparin, which was now stopped, as possible concern for HIT -At home patient is on Eliquis for DVT/PE -She was switched to IV heparin due to procedure/chest tube - discussed w/Rita (heme), ok to restart Eliquis -Follow-up pathology read of blood smear, LDH, T bili/ D bili, haptoglobin, and PF4 Ab Hyponatremia -Seems to be somewhat chronic, likely due to poor p.o. intake, on admission also fluid overload/ pl. effusion, SIADH -Sodium 124 (05/27) -Encourage p.o. intake -Obtain urine osmolality, urine sodium, recheck BMP in the afternoon -started sodium tab (4) History of DVT (deep vein thrombosis): (5) History of pulmonary embolism: Plan: Held Eliquis due to large pleural effusion requiring intervention on admission,was on IV heparin - now stopped, as above - restarted Eliquis (6) DVT prophylaxis: Plan: was on IV heparin, as above Admission and Anticipated Discharge Date Admission Date: May 22, 2022 Subjective Patient seen in follow-up of shortness of breath secondary to large pleural effusion, in the setting of metastatic breast cancer Patient w/ history of PE, on Eliquis, was switched to IV heparin on admission S/p chest tube placement w/ pulmonary (CT removed) Currently reports feeling better, she is now breathing on room air vs 2L Pt denies any fevers, chills, chest pain, abdominal pain, nausea or vomiting. Patient's oncologist at [facility], Dr. Murcia, phone #[phone], contacted me and was updated, she also contacted the patient. Patient anemic, thrombocytopenic, hyponatremic Blood consent obtained, transfused 1 unit of PRBCs IV Heparin stopped, recommend not to resume heparin products as possible concern for HIT Encourage p.o. intake, recheck sodium level, urine osm, urine sodium Discussed with Dr. Salinas, restarted Eliquis Review of Systems Review of Systems: All systems reviewed & are unremarkable except as noted in Subjective Physical Exam Physical Exam: Constitutional:L WD/WN, + chronica lly ill appearing; no acute distress Eyes: PERRL, EOMI, conju nctivae normal, an icteric sclerae ENMT: external ear and n ose normal, oropha rynx normal Respiratory: no respiratory dis tress, diminished breath sounds on r ight. no wheezing Cardiovascular:L Rate/Rhythm: regul ar rhythm and + ta chycardic Extrem ities: no edema Gastrointestinal ( Abdomen): normal bowel sound s, soft, nontender Musculoskeletal: extremities motor strength 5/5 Skin: no rashes, warm an d dry Neurologic: PERRL, EOMI, no fa ce palsy, no dysar thria, moves extre mities Psychiatric: A+Ox3, euthymic af fect Results & Data Results & [facility] ([facility]) Vital Signs (Past 12 Hours) Vital Signs Temp Pulse Pulse Resp BP Pulse Ox O2 Del Method 05/29/22 07:39 36.5 C 109 H 15 99/67 L 95 Nasal Cannula 05/29/22 03:51 36.7 C 116 H 19 103/68 94 Nasal Cannula 05/29/22 00:00 111 H 05/28/22 22:31 36.8 C 112 H 19 98/66 L 96 Nasal Cannula 05/28/22 21:07 Nasal Cannula O2 Flow Rate 05/29/22 07:39 05/29/22 03:51 2 05/29/22 00:00 05/28/22 22:31 2 05/28/22 21:07 2 Laboratory Results 05/29/22 05/29/22 Range/Units 07:24 07:24 WBC 6.31 (4.8-10.8) K/ul RBC 3.02 L (3.93-5.22) M/uL Hgb 8.2 L (12.0-16.0) g/dl Hct 25.7 L (34.1-44.9) % MCV 85.1 (80.0-100.0) fL MCH 27.2 (25.0-34.0) pg MCHC 31.9 L (32.0-36.0) g/dL RDW Std Deviation 53.9 H (36.4-46.3) fL RDW Coeff of Elizabeth 17.9 H (11.5-14.5) % Plt Count 60 L (130-400) K/uL MPV 9.2 L (9.4-12.3) fL Sodium 125 L (136-145) mmol/L Potassium 4.9 (3.5-5.1) mmol/L Chloride 88 L (98-107) mmol/L Carbon Dioxide 31 (21-32) mmol/L Anion Gap 6 (3-11) BUN 11 (6-23) mg/dl Creatinine 0.32 L (0.6-1.2) mg/dl Est Cr Clr Drug Dosing 187.2 ml/min Est GFR ( Amer) > 150.0 ml/min Est GFR (Non-Af Amer) 129.8 ml/min BUN/Creatinine Ratio 34.4 H (10-20) Glucose 98 (70-99(Fasting)) mg/dl Calcium 8.5 (8.5-10.1) mg/dl Medications Administered Current Inpatient Medications Acetaminophen (Acetaminophen 325 Mg Tab) 650 mg PO Q6H PRN PRN Reason: Pain Stop: 06/21/22 23:49 Last Admin: 05/26/22 14:38 Dose: 650 mg Apixaban (Apixaban 5 Mg Tablet) 5 mg PO Q12H JAREN Stop: 06/27/22 12:59 Last Admin: 05/29/22 00:40 Dose: 5 mg Azithromycin (Azithromycin 250 Mg Tab) 250 mg PO QAM JAREN; Protocol Stop: 06/01/22 08:59 Last Admin: 05/28/22 10:14 Dose: 250 mg Escitalopram Oxalate (Escitalopram Oxalate 10 Mg Tab) 5 mg PO DAILY JAREN Stop: 06/22/22 08:59 Last Admin: 05/28/22 10:14 Dose: 5 mg Heparin Sodium/Dextrose (Heparin Sodium/Dextrose) 25,000 units in 500 mls @ 0 mls/hr IV .Q0M JAREN; Protocol Stop: 06/21/22 17:14 Last Titration: 05/27/22 19:22 Dose: Infused Ceftriaxone Sodium 1,000 mg/ (Dextrose) 60 mls @ 100 mls/hr IV DAILY JAREN; Protocol Stop: 05/31/22 07:29 Last Infusion: 05/28/22 10:49 Dose: Infused Lactobacillus Acidophilus (Advanced Probiotic 1250 Mg Capsule) 2 cap PO DAILY JAREN Stop: 06/27/22 11:14 Last Admin: 05/28/22 11:56 Dose: 2 cap Magnesium Oxide (Magnesium Oxide 400 Mg Tab) 400 mg PO QAM JAREN Stop: 06/23/22 08:59 Last Admin: 05/28/22 10:14 Dose: 400 mg Metoprolol Tartrate (Metoprolol Tartrate 25 Mg Tab) 12.5 mg PO BID JAREN Stop: 06/22/22 20:59 Last Admin: 05/28/22 20:51 Dose: 12.5 mg Oxycodone HCl (Oxycodone Hcl Ir 5 Mg Tab (Immediate Release)) 5 mg PO Q4 PRN PRN Reason: severe pain Stop: 06/05/22 17:34 Last Admin: 05/29/22 07:57 Dose: 5 mg Pantoprazole Sodium (Pantoprazole 40 Mg Tab) 40 mg PO DAILY JAREN Stop: 06/22/22 08:59 Last Admin: 05/28/22 10:15 Dose: 40 mg Sodium Chloride (Sodium Chloride 1 Gm Tablet) 1 gm PO DAILY JAREN Stop: 06/26/22 11:29 Last Admin: 05/28/22 10:15 Dose: 1 gm
[2022-05-29] MEDS: cefTRIAXone SODIUM 1,000 MG in DEXTROSE 5% 50 ML IV SCH (09:41)
[2022-05-29] MEDS: ESCITALOPRAM OXALATE 10 MG TAB PO SCH (09:42)
[2022-05-29] MEDS: SODIUM CHLORIDE 1 GM TABLET PO SCH (09:45)
[2022-05-29] MEDS: METOPROLOL TARTRATE 25 MG TAB PO SCH ×2 (09:45→20:45)
[2022-05-29] MEDS: PANTOprazole 40 MG TAB PO SCH (09:45)
[2022-05-29] MEDS: ADVANCED PROBIOTIC 1250 MG CAPSULE PO SCH (09:45)
[2022-05-29] MEDS: MAGNESIUM OXIDE 400 MG TAB PO SCH (09:46)
[2022-05-29] MEDS: AZITHROMYCIN 250 MG TAB PO SCH (09:46)
--- NOTE | 2022-05-29 09:48 | XRay Report ---
XR chest 1V portable HISTORY: 51 years-old Female f/u follow-up study in a patient with pleural effusions COMPARISON: 05/28/2022 TECHNIQUE: AP view of the chest FINDINGS: Cardiac silhouette is enlarged. Unchanged positioning of the left subclavian [id number] catheter. Small to moderate right with small left pleural effusions appear stable. Persistent bibasilar opaciti es. No pneumothorax or overt pulmonary edema. Bones appear grossly intact. IMPRESSION: 1. Cardiomegaly without pulmonary edema. 2. Unchanged right greater than left layering pleural effusions with bibasilar opacities. ACT 112: Negative or not required by law. The above report was generated using voice recognition software. It may contain grammatical, syntax o r spelling errors. Electronically signed by: Haroon Aguirre M.D. 05/29/2022 9:47 AM
[2022-05-29 11:23] LABS: Bilirubin Direct 0.3 mg/dl (0-0.2); Bilirubin,Total 0.7 mg/dl (0.2-1.0)
[2022-05-29 13:21] LABS: Bilirubin Direct 0.2 mg/dl (0-0.2); Bilirubin,Total 0.6 mg/dl (0.2-1.0)
[2022-05-29 13:41] LABS: Folate (Folic Acid) 3.49 ng/ml (>5.38)
[2022-05-29] MEDS ORDERED: POLYETHYLENE (MIRALAX) 17 GM PACK PO PRN (15:11)
--- NOTE | 2022-05-29 18:33 | Nephrology Consultation ---
Date of Consultation May 29, 2022 Assessment & Plan (1) Hyponatremia: chronic hyponatremia (eg present longer than 48 hrs) w/o acute symptoms with challenging volume status : mild volume overload (pleural effusions) yet urine chemistries most c/w volume depletion and hemodynamics/VS reminiscent of mild high output heart failure, again possibly from anemia/intravascular volume depletion. her sodium has worsened slightly in the days since pigtail was pulled. doubt she would tolerate lasix therapy given BP/HR. carboplatin and pembrolizumab can also cause hyponatremia rather often; not clear that's affe cting her at this time however. -check bnp in am -low threshold to give 250 mL NS overnight if BP drops further -continue low dose salt tabs -recheck urine studies in AM -moderate fluid limit 1.8L recommended and protein shakes do not count toward this > encourage solute intake -will follow as needed as OP History of Present Illness Reason for Consultation: hyponatremia Requesting Physician: Dr Light Attending Physician: Quique Light MD History of Present Illness 51 y/o F whom I'm asked to see for hyponatremia was admitted here 05/22 for definitive management of a large right malignant pleural effusion. She is undergoing therapy for triple receptor negative L breast cancer diagnosed March 2021, s/p CTX with taxol/carboplatin and pembrolizumab (started 07/2021 ?), XRT. Also w/ PMH of DVT/PE on eliquis. her platelets have dropped in course of the admission and is being observed for that off of heparin. tentative plan is to d/c home tomorrow for close in oncology follow up. her bmp in [facility] in March 2022 ([facility]) had normal chemistries; no record of abnormal chemistries in [facility] the effusion was tapped 05/23 with a pigtail catheter placement, later d/c'd 05/27. CXR today shows no recurrence of effusion; pt for outpatient follow up w/ pulmonary. Her presenting sodium was 133; has drifted down to mid 120s since 05/27; this am was 125. She was started on salt tabs low dose 1 gm daily on 05/27. She has had no diuretics this admission. po intake is still borderline but a bit better than before; does take protein drink. no n/v. ambulates w/o assist. no sob. some discomfort/pain at times from lying in bed she thinks and controlled w/ meds. no edema. moved bowels today. some darker urine but no dysuria. Allergies Allergy/AdvReac Type Severity Reaction Status Date / Time No Known Allergies Allergy Verified 05/09/22 12:49 Home Medications Medication Instructions Recorded Confirmed Type escitalopram oxalate 5 mg tablet 5 mg PO DAILY 11/02/21 05/22/22 History apixaban 5 mg tablet (Eliquis) 5 mg PO Q12H #74 tabs 11/03/21 05/22/22 Rx oxycodone 5 mg tablet 5 mg PO BID PRN Pain 02/27/22 05/22/22 History omeprazole 20 mg capsule,delayed 20 mg PO DAILY 05/09/22 05/22/22 History release Patient History Medical History Acute anemia Anemia Breast cancer S/p chemo and radiation 2 cycles of AC, then 2 cycles of AC with pembrolizumab, then taxol/carbo with pembrolizumab. She had minimal response to neoadjuvant therapy, and was evaluated for surgery. Staging scans at that time revealed both PE and bilateral breast involvement with left axillary involvement consistent with metastatic disease. She was placed on anticoagulation--this development precluded surgery. She then had Trodelvy with minimal response and was referred for XRT to the right breast due to the bulk of the tumor. Then completed XRT to the left breast. Depression Fibroid uterus Heavy menstrual bleeding History of DVT (deep vein thrombosis) History of hysteroscopy "04/05/2017 hysteroscopy endometrial ablation" History of pulmonary embolism Hyponatremia Juvenile osteochondrosis of leg Menorrhagia Thrombocytopenia Uterine leiomyoma Wrist fracture, left Surgical repair Surgical History History of breast biopsy History of hysterectomy S/P section S/P laparoscopic hysterectomy S/P tubal ligation Family History Sister Breast cancer Father Prostate cancer Mother FH: pancreatic cancer Social History Smoking Status: Never smoker Hx Alcohol Use: No Hx Substance Use: No Preferred Language: Vietnamese Communication Ability: Effective Monitoring Engineer Required: No Beliefs That Will Affect Care: None marital status: Current Living Situation: Family current occupational status: employed Feels Safe at Home: Yes Diet Comment: healthier choices caffeine: Yes (tea daily) during the past year weight has: decreased > 10 lbs Assistive Devices: None Review of Systems Review of Systems: All systems reviewed & are unremarkable except as noted in HPI & below Physical Exam Constitutional: well developed and well nourished Eyes: EOM intact bilaterally ENMT: Ears: no external ear abnormality Nose: no external nose abnormality Mouth: + dry oral mucous membranes Neck: no nuchal rigidity Respiratory: normal respiratory effort (on 02nc) Auscultation: + diminished lung sounds (jonathan BL bases) Cardiovascular: Rate/Rhythm: + tachycardic Extremities: no edema Gastrointestinal (Abdomen): Inspection/Auscultation: normal bowel sounds Percussion/Palpation: abdomen soft; abdomen nontender Musculoskeletal: Extremities: strength 5/5 throughout Skin: no rashes, warm and dry Neurologic: storey, fluent speech, no tremor Psychiatric: Orientation: oriented x 3 Insight: good insight Judgement: good judgement Results & Data ([facility]) Vital Signs (Past 12 Hours) Vital Signs Temp Pulse Pulse Pulse Resp BP Pulse Ox 05/29/22 15:21 37.6 C H 116 H 17 102/74 95 05/29/22 14:14 117 H 05/29/22 08:00 05/29/22 11:25 36.4 C L 112 H 17 109/73 95 05/29/22 07:39 36.5 C 109 H 15 99/67 L 95 O2 Del Method O2 Flow Rate 05/29/22 15:21 Nasal Cannula 05/29/22 14:14 05/29/22 08:00 Nasal Cannula 2 05/29/22 11:25 Nasal Cannula 2 05/29/22 07:39 Nasal Cannula Laboratory Results 05/29/22 07:24 05/29/22 07:24 sOsm 262 Holley 11 uOsm 569 Diagnostic Findings TTE 05/23/22 EF > 70%, mild CLVH and small LV cavity; no WMA or valvular disease cxr Cardiac silhouette is enlarged. Unchanged positioning of the left subclavian Phsyer-[id number]-[id number] catheter. Small to moderate right with small left pleural effusions appear stable. Persistent bibasilar opacities. No pneumothorax or overt pulmonary edema. Bones appear grossly intact. IMPRESSION: 1. Cardiomegaly without pulmonary edema. 2. Unchanged right greater than left layering pleural effusions with bibasilar opacities.
[2022-05-29] MEDS: ACETAMINOPHEN 325 MG TAB PO PRN (22:50)
[2022-05-30] MEDS: APIXABAN 5 MG TABLET PO SCH ×3 (00:44→22:55)
[2022-05-30 02:39] LABS: Appearance Urine Clear (Clear); Bacteria Urine Automated Negative (Negative); Bilirubin Urine Negative (Negative); Blood Urine Negative (Negative); Epithelial Cell Urine Auto >30 /lpf (0-5); Glucose Urine UA Negative (Negative); Ketones Urine Trace (Negative); Leukocyte Esterase Urine Trace (Negative); Nitrite Urine Negative (Negative); Protein Urine 1+ (Negative); RBC Urine Automated 0-4 /hpf (0-4); Specific Gravity Urine 1.024 (1.000-1.030); Urobilinogen Urine Negative (Negative)
[2022-05-30 02:41] LABS: Color Urine Amber
[2022-05-30] MEDS: oxyCODONE HCL IR 5 MG TAB (IMMEDIATE RELEASE) PO PRN ×5 (04:11→22:54)
--- NOTE | 2022-05-30 07:12 | Hospitalist Progress Note ---
Date of Service May 30, 2022 Assessment & Plan (1) Large pleural effusion: Plan: Admitted to ICU initially Patient presenting from home with reports of worsening shortness of breath x 1 week In the ED, CXR shows large right pleural effusion resulting in mild left me diastinal shift On admission on 2 L O2, however no documented hypoxia. Tachycardic, BP stable Highly suspicious for malignant effusion due to currently active breast cancer Case discussed with gis physical scientist, Dr. Hayden -- planning on chest tube placement Echocardiogram obtained Technically limited study with patient in sinus tachycardia. LV cavity is small. There is mild concentric LVH. No regional wall motion abnormality noted. EF greater than 70%. There is no gross valvular disease. There is trivial apical pericardial effusion of no hemodynamic significance. 05/23 -status post chest tube placement - about 3L of fluid removed Pleural fluid culture pending, cytology ordered Cytology Malignant cells present consistent with metastatic adenocarcinoma, breast primary. - Estrogen receptor: Negative (0%). - Progesterone receptor: Negative (0%). - HER-2/rosa overexpression by immunohistochemistry: Negative (score 1+). Poss. PNA 05/24 -significant infiltrate on the right based on today's chest x-ray. Procal 0.54 Started on azithromycin and Rocephin by Pulmonary for poss. pneumonia. Per pulm. 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 May need to consider a CT of her chest since the fluid has largely been drained. May need to consider placement of a Pleurx catheter depending on how fast the fluid reaccumulate's. Ok to switch to PO Abx and finish treatment as outpt Pl. culture negative (2) Breast cancer: Plan: S/p chemo and radiation, recently completed radiation treatment to the left breast Follows with [facility] medical oncology and [facility] radiation oncology Patient's oncologist, Dr. Murcia ([phone]) - contacted me on 05/24 and was updated. She also called and checked in with the patient. (3) Anemia: Plan: Hgb ~9 on admission Likely due to malignancy 05/27 - Now hemoglobin 6.9, obtained blood consent, transfused 1 unit of PRBCs No signs of bleeding at this time Monitor CBC Thrombocytopenia/ ? HIT -Patient has been on IV heparin on and off, during this admission -Plt count has been decreasing during this admission Recommend not to resume IV heparin, which was now stopped, as possible concern for HIT -At home patient is on Eliquis for DVT/PE -She was switched to IV heparin due to procedure/chest tube - discussed w/Rita (heme), ok to restart Eliquis -Follow-up pathology read of blood smear, LDH, T bili/ D bili, haptoglobin and (PF4 Ab -pending) LDH down to 1700 T bili/ D bili normal haptoglobin elevated Pathology review of blood smear - Moderate complexity pathology consultation: The peripheral blood smear, associated testing and clinical history (Reason for request: thrombocytopenia, other history: breast cancer, pleural effusion with metastatic disease) are reviewed. The peripheral blood smear shows normochromic, normocytic appearing erythrocytes without significant anisopoikilocytosis. Polychromatophilic cells (a subset of reticulocytes) are noted. I do not see significant numbers of schistocytes or spherocytes indicative of a hemolytic process. Leukocytes appear normal in number, relative distribution and morphology. Platelets are decreased in number and are unremarkable in appearance. I do not see any significant number of plat elet clumps resulting in an artifactual thrombocytopenia. The associated CBC shows a HGB of 6.9 with low-normal MCV (81.5) and minimally decreased MCHC (31.9). Platelets are low (70,000). The MPV is normal. No overt morphologic abnormalities, including changes of a myelodysplastic syndrome or hemolytic anemia, are seen. No organisms are identified. The reviewed findings are consistent with a non-specific normocytic anemia and thrombocytopenia. Given the borderline low MCV and MCHC, iron studies are suggested. Levy Echevarria M.D. - no signs of hemolysis Hyponatremia -Seems to be somewhat chronic, likely due to poor p.o. intake, on admission also fluid overload/ pl. effusion, SIADH -Sodium 124 (05/27) -Encourage p.o. intake -Obtain urine osmolality, urine sodium, recheck BMP in the afternoon -started sodium tab - nephrology consulted -Na 124 (05/30) - give 500cc of IV Ns -> repeat Na level again 124-> give additional 500cc of NS, recheck Na AM (4) History of DVT (deep vein thrombosis): (5) History of pulmonary embolism: Plan: Held Eliquis due to large pleural effusion requiring intervention on admission,was on IV heparin - now stopped, as above - restarted Eliquis (6) DVT prophylaxis: Plan: was on IV heparin, as above Admission and Anticipated Discharge Date Admission Date: May 22, 2022 Subjective Patient seen in follow-up of shortness of breath secondary to large pleural effusion, in the setting of metastatic breast cancer Patient w/ history of PE, on Eliquis, was switched to IV heparin on admission S/p chest tube placement w/ pulmonary (CT removed) Currently reports feeling better, she is now breathing on room air vs 2L Pt denies any fevers, chills, chest pain, abdominal pain, nausea or vomiting. Patient's oncologist at [facility], Dr. Murcia, phone #[phone], contacted me and was updated, she also contacted the patient. Patient anemic, thrombocytopenic, hyponatremic Blood consent obtained, transfused 1 unit of PRBCs IV Heparin stopped, recommend not to resume heparin products as possible concern for HIT Encourage p.o. intake, recheck sodium level, urine osm, urine sodium Discussed with Dr. Salinas, restarted Eliquis Nephrology, Dr. Jeffries following for hyponatremia - will give gentle IVF NS today and will re-check sodium Review of Systems Review of Systems: All systems reviewed & are unremarkable except as noted in Subjective Physical Exam Physical Exam: Constitutional:L WD/WN, + chronica lly ill appearing; no acute distress Eyes: PERRL, EOMI, conju nctivae normal, an icteric sclerae ENMT: external ear and n ose normal, oropha rynx normal Respiratory: no respiratory dis tress, diminished breath sounds on r ight. no wheezing Cardiovascular:L Rate/Rhythm: regul ar rhythm and + ta chycardic Extrem ities: no edema Gastrointestinal ( Abdomen): normal bowel sound s, soft, nontender Musculoskeletal: extremities motor strength 5/5 Skin: no rashes, warm an d dry Neurologic: PERRL, EOMI, no fa ce palsy, no dysar thria, moves extre mities Psychiatric: A+Ox3, euthymic af fect Results & Data Results & Data ([facility]) Vital Signs (Past 12 Hours) Vital Signs Temp Pulse Pulse Resp BP BP Pulse Ox 05/30/22 06:44 36.5 C 108 H 18 119/83 95 05/30/22 03:11 36.5 C 112 H 18 118/76 95 05/29/22 23:17 116 H 05/29/22 22:32 36.7 C 123 H 18 111/78 95 05/29/22 20:00 05/29/22 19:35 36.2 C L 121 H 18 92/61 L 94 O2 Del Method O2 Flow Rate 05/30/22 06:44 Nasal Cannula 2 05/30/22 03:11 Nasal Cannula 2 05/29/22 23:17 05/29/22 22:32 Nasal Cannula 2 05/29/22 20:00 Nasal Cannula 2 05/29/22 19:35 Nasal Cannula 2 Laboratory Results labs reviewed - Na 124 after 500cc IVF NS re-check again 124 Medications Administered Current Inpatient Medications Acetaminophen (Acetaminophen 325 Mg Tab) 650 mg PO Q6H PRN PRN Reason: Pain Stop: 06/21/22 23:49 Last Admin: 05/29/22 22:50 Dose: 650 mg Apixaban (Apixaban 5 Mg Tablet) 5 mg PO Q12H JAREN Stop: 06/27/22 12:59 Last Admin: 05/30/22 00:44 Dose: 5 mg Azithromycin (Azithromycin 250 Mg Tab) 250 mg PO QAM JAREN; Protocol Stop: 06/01/22 08:59 Last Admin: 05/29/22 09:46 Dose: 250 mg Escitalopram Oxalate (Escitalopram Oxalate 10 Mg Tab) 5 mg PO DAILY JAREN Stop: 06/22/22 08:59 Last Admin: 05/29/22 09:42 Dose: 5 mg Heparin Sodium/Dextrose (Heparin Sodium/Dextrose) 25,000 units in 500 mls @ 0 mls/hr IV .Q0M JAREN; Protocol Stop: 06/21/22 17:14 Last Titration: 05/27/22 19:22 Dose: Infused Ceftriaxone Sodium 1,000 mg/ (Dextrose) 60 mls @ 100 mls/hr IV DAILY JAREN; Protocol Stop: 05/30/22 07:29 Last Infusion: 05/29/22 11:03 Dose: Infused Lactobacillus Acidophilus (Advanced Probiotic 1250 Mg Capsule) 2 cap PO DAILY JAREN Stop: 06/27/22 11:14 Last Admin: 05/29/22 09:45 Dose: 2 cap Magnesium Oxide (Magnesium Oxide 400 Mg Tab) 400 mg PO QAM JAREN Stop: 06/23/22 08:59 Last Admin: 05/29/22 09:46 Dose: 400 mg Metoprolol Tartrate (Metoprolol Tartrate 25 Mg Tab) 12.5 mg PO BID JAREN Stop: 06/22/22 20:59 Last Admin: 05/29/22 20:45 Dose: Not Given Oxycodone HCl (Oxycodone Hcl Ir 5 Mg Tab (Immediate Release)) 5 mg PO Q4 PRN PRN Reason: severe pain Stop: 06/05/22 17:34 Last Admin: 05/30/22 04:11 Dose: 5 mg Pantoprazole Sodium (Pantoprazole 40 Mg Tab) 40 mg PO DAILY JAREN Stop: 06/22/22 08:59 Last Admin: 05/29/22 09:45 Dose: 40 mg Polyethylene Glycol (Polyethylene (Miralax) 17 Gm Pack) 17 gm PO DAILY PRN PRN Reason: Constipation Stop: 06/28/22 15:10 Last Admin: 05/29/22 16:45 Dose: 17 gm Sodium Chloride (Sodium Chloride 1 Gm Tablet) 1 gm PO DAILY JAREN Stop: 06/26/22 11:29 Last Admin: 05/29/22 09:45 Dose: 1 gm
[2022-05-30 07:29] LABS: Hematocrit (blood only) 24.7 % (34.1-44.9); Hemoglobin 7.9 g/dl (12.0-16.0); Mean Corpuscular Hemoglobin 27.3 pg (25.0-34.0); Mean Corpuscular Volume 85.5 fL (80.0-100.0); Mean Platelet Volume 10.6 fL (9.4-12.3); Nucleated RBC # (auto) 0.03 K/uL (0-0); Nucleated RBC % (auto) 0.5 %; Platelet Count 61 K/uL (130-400); RDW Standard Deviation 54.8 fL (36.4-46.3); Red Blood Count 2.89 M/uL (3.93-5.22); White Blood Count 6.22 K/ul (4.8-10.8)
[2022-05-30 07:51] LABS: BUN Creatinine Ratio 36.1 (10-20); Calcium 8.4 mg/dl (8.5-10.1); Creatinine Clr Calc Pharmacy 166.4 ml/min; Est GFR (African American) 144.7 ml/min; Est GFR (Non-African American) 124.9 ml/min; Potassium 4.8 mmol/L (3.5-5.1)
[2022-05-30] MEDS ORDERED: SODIUM CHLORIDE 0.9% 1000ML 500 ML IV ONE ×2 (08:38→15:44)
[2022-05-30] MEDS: METOPROLOL TARTRATE 25 MG TAB PO SCH ×2 (08:57→19:45)
[2022-05-30] MEDS: ADVANCED PROBIOTIC 1250 MG CAPSULE PO SCH (08:57)
[2022-05-30] MEDS: ESCITALOPRAM OXALATE 10 MG TAB PO SCH (08:58)
[2022-05-30] MEDS: AZITHROMYCIN 250 MG TAB PO SCH (08:58)
[2022-05-30] MEDS: SODIUM CHLORIDE 1 GM TABLET PO SCH (08:58)
[2022-05-30] MEDS: MAGNESIUM OXIDE 400 MG TAB PO SCH (08:58)
[2022-05-30] MEDS: PANTOprazole 40 MG TAB PO SCH (08:58)
[2022-05-30] MEDS ORDERED: CYANOCOBALAMIN 1000 MCG/ML VIAL IM ONE (10:00)
--- NOTE | 2022-05-30 11:16 | Nephrology Progress Note ---
Date of Service May 30, 2022 Assessment & Plan (1) Hyponatremia: Plan: chronic hyponatremia (eg present longer than 48 hrs) w/o acute symptoms with challenging volume status : mild volume overload (pleural effusions) yet urine chemistries again today and hemodynamics (w/ negative BNP) most c/w volume depletion no evidence of mild high output heart failure, for which she is at risk from anemia/intravascular volume depletion. her sodium has worsened slightly in the days since pigtail was pulled. doubt she would tolerate lasix therapy given BP/HR. carboplatin and pembrolizumab can also cause hyponatremia rather often; but last doses of these were in January and she had normal chemistries in March in [facility] -give 500 mL NS and recheck bmp 1400 ordered -continue low dose salt tabs -continue strict I/O -moderate fluid limit 1.8L to continue and protein shakes do not count toward this > encourage solute intake -will follow as needed as OP Admission and Anticipated Discharge Date Admission Date: May 22, 2022 Subjective endorses frequent soaking night sweats>wet hair/gown; sticks to sheets; breathing stable, ambulating halls slowly; no n/v, no confusion, no uncontrolled pain Review of Systems Review of Systems: All systems reviewed & are unremarkable except as noted in Subjective Physical Exam Constitutional: well developed and well nourished Eyes: EOM intact bilaterally ENMT: Ears: no external ear abnormality Nose: no external nose abnormality Mouth: + dry oral mucous membranes Neck: no nuchal rigidity Respiratory: normal respiratory effort (on 02nc) Auscultation: + diminished lung sounds (jonathan BL bases) Cardiovascular: Rate/Rhythm: + tachycardic Extremities: no edema Gastrointestinal (Abdomen): Inspection/Auscultation: normal bowel sounds Percussion/Palpation: abdomen soft; abdomen nontender Musculoskeletal: Extremities: strength 5/5 throughout Skin: no rashes, warm and dry Neurologic: storey, fluent speech, no tremor Psychiatric: Orientation: oriented x 3 Insight: good insight Judgement: good judgement Results & Data ([place]) Vital Signs (Past 12 Hours) Vital Signs Temp Pulse Pulse Pulse Pulse Pulse Pulse 05/30/22 08:00 05/30/22 08:00 109 H 05/30/22 08:25 134 H 131 H 128 H 122 H 05/30/22 07:46 36.7 C 104 H 05/30/22 06:44 36.5 C 108 H 05/30/22 03:11 36.5 C 112 H 05/29/22 23:17 116 H Resp Resp Resp Resp Resp BP Pulse Ox 05/30/22 08:00 05/30/22 08:00 05/30/22 08:25 18 20 18 18 05/30/22 07:46 18 114/78 94 05/30/22 06:44 18 119/83 95 05/30/22 03:11 18 118/76 95 05/29/22 23:17 Pulse Ox Pulse Ox Pulse Ox Pulse Ox O2 Del Method O2 Flow Rate O2 Flow Rate 05/30/22 08:00 Nasal Cannula 2 05/30/22 08:00 05/30/22 08:25 92 86 L 89 L 89 L 2 05/30/22 07:46 Nasal Cannula 2 05/30/22 06:44 Nasal Cannula 2 05/30/22 03:11 Nasal Cannula 2 05/29/22 23:17 Laboratory Results 05/30/22 06:06 05/30/22 06:06 urine studies reviewed
--- NOTE | 2022-05-30 12:56 | Consultation Report ---
DATE OF SERVICE: 05/30/2022. REASON FOR CONSULTATION: Pancytopenia. HISTORY OF PRESENT ILLNESS: The patient is a 51-year-old female with history of metastatic breast cancer for which she has been followed by a breast oncologist at [facility]. 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 She, however, had suboptimal response to neoadjuvant systemic therapy and was subsequently started on Trodelvy in 11/2021. PET CT obtained in 01/2022, had revealed disease progression for which she received palliative radiation to the right chest in 03/2022 and subsequently received palliative radiation therapy to the right and left breasts in 03/2022. Patient presented to the ER at [facility] on 05/22/2022 with shortness of breath for which CTA chest was obtained on 05/22/2022, which revealed large right and small left pleural effusion with almost complete collapse of the right lung, prominent bilateral axillary lymph nodes, body wall edema with skin thickening and irregular appearance of the bones, possibly representing metastatic disease. Labs also noted anemia with initial hemoglobin of 9.1, which subsequently dropped to 6.9 and thrombocytopenia with platelet count initially normal at 170,000, but subsequently dropped to 60,000 yesterday. Of note, patient was placed on a heparin drip prior to right pigtail catheter placement. Due to concern for HIT, testing for PF4-heparin antibody with reflex ALEXANDRE was sent with results still pending. Of note, labs also revealed significantly elevated LDH of 2000, which has since improved to 1600. During my evaluation of patient today, she states that she is doing a lot better. Shortness of breath has significantly improved. Denies any other complaints. ALLERGIES: No known drug allergies. HOME MEDICATIONS: 1. Citalopram 5 mg p.o. daily. 2. Apixaban 5 mg p.o. b.i.d. 3. Oxycodone 5 mg p.o. b.i.d. p.r.n. 4. Omeprazole 20 mg p.o. daily. PAST MEDICAL HISTORY: 1. Metastatic breast cancer. 2. Depression. 3. History of DVT/PE. 4. Juvenile osteochondrosis of the legs. PAST SURGICAL HISTORY: 1. Hysterectomy. 2. section. FAMILY HISTORY: Significant for breast cancer in her sister and prostate cancer in her father as well as pancreatic cancer in her mother. SOCIAL HISTORY: Denies smoking, alcohol and illicit drug use. REVIEW OF SYSTEMS: Unremarkable except as noted in the HPI. PHYSICAL EXAMINATION: Essentially unremarkable. LABORATORY DATA: CBC on 05/30/2022, white cell count of 6.22, hemoglobin 7.9, hematocrit 24.7 with platelet count of 61,000. Chemistry: Sodium 124, potassium 4.8, chloride 86, BUN 13, creatinine 0.36. Serum osmolality 261, calcium 8.4. ASSESSMENT/PLAN: Pleasant female with metastatic triple negative breast cancer for which she follows up with oncologist at [facility] who presented with shortness of breath due to malignant pleural effusion. Labs since admission have demonstrated anemia and thrombocytopenia. Labs obtained yesterday including vitamin B12 and folate studies, were both low. Recommend starting her on oral folate supplementation as well as parenteral vitamin B12 supplementation 1000 mcg weekly x4 weeks followed by monthly. Also recommend workup for hyponatremia with urine osmolality and urine sodium. Regarding her thrombocytopenia, although suspicion for HIT is low based on low 4T score. Agree with testing for PF4 antibodies/ALEXANDRE. If this is positive, would not recommend further exposure to heparin. Although LDH is significantly elevated, she has no schistocytes or spherocytes on smear and bilirubin is normal going against hemolytic anemia. Thank you for this consult. Oncology will sign off at this time. She will continue to follow up with oncologist in [facility]. Please feel free to call if you have any further questions. Job ID: [id number] [facility]
[2022-05-30 15:11] LABS: BUN Creatinine Ratio 34.3 (10-20); Calcium 8.4 mg/dl (8.5-10.1); Creatinine Clr Calc Pharmacy 171.1 ml/min; Potassium 4.8 mmol/L (3.5-5.1)
[2022-05-31] MEDS: oxyCODONE HCL IR 5 MG TAB (IMMEDIATE RELEASE) PO PRN ×3 (03:27→12:40)
[2022-05-31 07:34] LABS: BUN Creatinine Ratio 29.3 (10-20); Calcium 8.5 mg/dl (8.5-10.1); Creatinine Clr Calc Pharmacy 146.1 ml/min; Est GFR (African American) 138.6 ml/min; Est GFR (Non-African American) 119.6 ml/min; Magnesium 1.9 mg/dl (1.7-2.4); Phosphorus 4.7 mg/dl (2.5-4.9)
[2022-05-31 07:45] LABS: Hematocrit (blood only) 25.7 % (34.1-44.9); Hemoglobin 8.1 g/dl (12.0-16.0); Mean Corpuscular Hemoglobin 26.9 pg (25.0-34.0); Mean Corpuscular Hgb Conc 31.5 g/dL (32.0-36.0); Mean Corpuscular Volume 85.4 fL (80.0-100.0); Mean Platelet Volume 9.4 fL (9.4-12.3); Nucleated RBC # (auto) 0.06 K/uL (0-0); Platelet Count 77 K/uL (130-400); Platelet Estimate Decreased (Normal); RDW Coefficient of Variation 18.3 % (11.5-14.5); RDW Standard Deviation 54.6 fL (36.4-46.3); Red Blood Count 3.01 M/uL (3.93-5.22); White Blood Count 5.91 K/ul (4.8-10.8)
[2022-05-31] MEDS: ESCITALOPRAM OXALATE 10 MG TAB PO SCH (08:21)
[2022-05-31] MEDS: MAGNESIUM OXIDE 400 MG TAB PO SCH (08:21)
[2022-05-31] MEDS: SODIUM CHLORIDE 1 GM TABLET PO SCH (08:21)
[2022-05-31] MEDS: PANTOprazole 40 MG TAB PO SCH (08:21)
[2022-05-31] MEDS: ADVANCED PROBIOTIC 1250 MG CAPSULE PO SCH (08:22)
[2022-05-31] MEDS: AZITHROMYCIN 250 MG TAB PO SCH (08:22)
[2022-05-31] MEDS: METOPROLOL TARTRATE 25 MG TAB PO SCH (08:22)
[2022-05-31] MEDS ORDERED: FOLIC ACID 1 MG TAB PO SCH (09:00)
--- NOTE | 2022-05-31 10:17 | Nephrology Progress Note ---
Date of Service May 31, 2022 Assessment & Plan (1) Hyponatremia: Plan: chronic hyponatremia (eg present longer than 48 hrs) w/o acute symptoms with challenging volume status : mild volume overload (pleural effusions) yet urine chemistries again05/30 and hemodynamics (w/ negative BNP) most c/w volume depletion no evidence of mild high output heart failure, for which she is at risk from anemia/intravascular volume depletion. her sodium worsened slightly in the days after pigtail was pulled. doubt she would tolerate lasix therapy given BP/HR. has tolerated NS resuscitation w/ some improvement in sodium. carboplatin and pembrolizumab can also cause hyponatremia rather often; but last doses of these were in January and she had normal chemistries in March in [facility] from sodium/renal standpoint, for d/c so that she can make oncology appt tomorrow -continue current low dose salt tab at d/c -recommend she check bmp, serum osms, urine osms, random urine sodium, u rinalysis tomorrow at oncology appt tomorrow at [facility] >>pls have [facility] d/c retail planner order same labs as above for q Mon, Th starting June 05 x 3 weeks at any [facility] -pt needs hospital discharge appt with me within 2-3 wks of d/c -if concerns from [facility] re sodium, pls have them contact [facility] hospitalist sewer connector and that person can contact me Admission and Anticipated Discharge Date Admission Date: May 22, 2022 Subjective no interval events. sodium improved today; pt still tired; breathing stable; no edema; ongoing poor appetite Review of Systems Review of Systems: All systems reviewed & are unremarkable except as noted in Subjective Physical Exam Constitutional: well developed and well nourished Eyes: EOM intact bilaterally ENMT: Ears: no external ear abnormality Nose: no external nose abnormality Mouth: + dry oral mucous membranes Neck: no nuchal rigidity Respiratory: normal respiratory effort (on 02nc) Auscultation: + diminished lung sounds (jonathan BL bases 1/2 way up) Cardiovascular: Rate/Rhythm: + tachycardic Extremities: no edema Gastrointestinal (Abdomen): Inspection/Auscultation: normal bowel sounds Percussion/Palpation: abdomen soft; abdomen nontender Musculoskeletal: Extremities: strength 5/5 throughout Skin: no rashes, warm and dry Psychiatric: Orientation: oriented x 3 Insight: good insight Judgement: good judgement Results & Data ([facility]) Vital Signs (Past 12 Hours) Vital Signs Temp Pulse Pulse Resp BP BP Pulse Ox 05/31/22 07:00 100 H 05/31/22 07:40 36.7 C 113 H 16 105/70 92 05/31/22 03:50 34.4 C L 104 H 14 112/75 96 05/30/22 22:59 36.5 C 107 H 16 105/70 95 O2 Del Method O2 Flow Rate 05/31/22 07:00 05/31/22 07:40 Nasal Cannula 2 05/31/22 03:50 Room Air 05/30/22 22:59 Nasal Cannula 2 Laboratory Results 05/31/22 07:01 05/31/22 07:01
[2022-05-31] MEDS: APIXABAN 5 MG TABLET PO SCH (12:40)
--- NOTE | 2022-05-31 14:32 | Discharge Summary ---
Date of Service May 31, 2022 Admission HPI Per Admitting Provider 51-year-old female with PMH active breast cancer s/p chemo and radiation, history of DVT and PE on Eliquis, and other problems to below who presents the ED for evaluation of shortness of breath. Patient reports progressive worsening shortness of breath over the past 1 week. Reports that she gets short of breath with minimal exertion and conversation. Patient reports she recently completed radiation to the left breast for breast cancer. She states that she had a PET scan completed today as well. Patient was to undergo surgery at the beginning of the year however due to DVT and PE, this was postponed. Patient also reports feelings of anxiety and palpitations. No chest pain. Reports having episodes of diaphoresis. No lightheadedness, dizziness, syncopal events. Reports that she has had about a 50 pound weight loss since her initial diagnosis. Weight has been maintained recently. Denies abdominal pain, nausea, vomiting, diarrhea. No other recent illnesses, fevers, chills. Denies urinary symptoms. In the ED, CXR shows A large right pleural effusion resulting in near complete opacification of the right hemithorax which results in mild left mediastinal shift. Patient is currently on 2 L of oxygen however no documented hypoxia. She is tachycardic, BP is stable. Labs unremarkable. Admission Exam Per Admitting Provider Constitutional: WD/WN, vitals as above + ill appearing; no acute distress Eyes: PERRL, conjunctivae normal, anicteric sclerae ENMT: external ear and nose normal, oropharynx normal Respiratory: + labored breathing; no respiratory dist ress and + not able to speak in complete sentence Auscultation: + diminished lung sounds (right) Cardiovascular: Rate/Rhythm: regular rhythm and + tachycardic Vessels: normal peripheral pulses Extremities: no edema Gastrointestinal (Abdomen): normal bowel sounds, soft, nontender, no hepatosplenomegaly Musculoskeletal: no cyanosis or clubbing, extremities motor strength 5/5 Skin: no rashes, warm and dry Neurologic: PERRL, EOMI, accommodation nl, no face palsy, no dysarthria Psychiatric: A+Ox3, euthymic affect Principal Diagnosis Large pleural effusion: Poss. PNA Breast cancer: Anemia: Thrombocytopenia Hyponatremia History of DVT (deep vein thrombosis) History of pulmonary embolism: Discharge Exam General- No acute distress Head- atraumatic Eyes- PERRL, EOMI, ENT- oropharynx clear Neck- supple, no JVD Lungs- +diminished BS Heart- regular rhythm; no murmur Abdomen- normal bowel sounds, soft, nontender Extremities- no calf tenderness Neuro- alert, oriented x 3; PERRL, EOMI; no facial palsy; no dysarthria Skin- warm & dry Discharge Data Allergies Allergy/AdvReac Type Severity Reaction Status Date / Time No Known Allergies Allergy Verified 05/09/22 12:49 Consultations 05/22/22 14:33 ED Decision to Admit Stat 05/22/22 17:35 Consult Scarfer Routine 05/27/22 11:20 Consult Hematology Routine 05/29/22 18:25 Consult Nephrology Routine Ordered Studies 05/22/22 12:23 CT angio chest PE protocol Stat 05/22/22 14:49 US point of care ultrasound Urgent 05/23/22 10:10 US point of care ultrasound Stat 05/26/22 07:41 US point of care ultrasound Urgent 05/27/22 09:26 US point of care ultrasound Urgent XR chest 1V portable HISTORY: 51 years-old Female f/u follow-up study in a patient with pleural effusions COMPARISON: 05/28/2022 TECHNIQUE: AP view of the chest FINDINGS: Cardiac silhouette is enlarged. Unchanged positioning of the left subclavian [id number] catheter. Small to moderate right with small left pleural effusions appear stable. Persistent bibasilar opacities. No pneumothorax or overt pulmonary edema. Bones appear grossly intact. IMPRESSION: 1. Cardiomegaly without pulmonary edema. 2. Unchanged right greater than left layering pleural effusions with bibasilar opacities. ACT 112: Negative or not required by law. The above report was generated using voice recognition software. It may contain grammatical, syntax or spelling errors. Electronically signed by: Haroon Aguirre M.D. 05/29/2022 9:47 AM Dictated:05/29/22945 Transcribed: 05/29/22945 XR chest 1V portable CLINICAL HISTORY: Pleural effusion. Breast cancer COMPARISON STUDY: Chest CT May 22, 2022. Chest radiograph May 27, 2022. FINDINGS: Left subclavian [id number] is in place. Cardiomediastinal silhouette is stable. There is no pneumothorax. Bilateral pleural effusions are similar to prior exam. Right pleural effusion has increased since size since chest radiograph May 25, 2022. No evidence for pulmonary edema. IMPRESSION: 1. Small to moderate right and small left pleural effusions. 2. No pneumothorax. ACT 112: Negative or not required by law. Electronically signed by: Zackery Adler M.D. 05/28/2022 8:20 AM Dictated:05/28/22 0815 Transcribed: 05/28/2215 SINGLE VIEW CHEST CLINICAL HISTORY: Pleural effusion. FINDINGS: An AP, portable, upright chest radiograph is compared to study dated 05/25/2022 and correlated with chest CT dated 05/22/2022. A left subclavian central venous infusion port is unchanged in position. The cardiomediastinal silhouette is unremarkable. A pleural drain at the right lung base has been [facility]. There are residual pleural effusions with right greater than left basilar consolidation. Wires obscure the right apex. No pneumothorax is clearly seen. The bony thorax is grossly intact. IMPRESSION: 1. A right pleural drain has been removed. No pneumothorax is clearly identified. 2. Residual pleural effusions with right greater than left basilar consolidation. This is similar to the 05/25/2022 examination. ACT 112: Negative or not required by law. Electronically signed by: Corky Hodges M.D. 05/27/2022 9:58 AM Dictated:05/27/22 0954 Transcribed: 05/27/22 0954 XR chest 1V portable HISTORY: Evaluate chest tube placement. COMPARISON: Chest 05/24/2022. FINDINGS: A right basilar chest tube remains unchanged in position. Small right pleural effusion and right mid to lower lung zone densities persist. A small left pleural effusions also unchanged. Left subclavian Port-A-Cath with its at the SVC. The heart remains borderline enlarged. IMPRESSION: 1. Right basilar pleural chest tube is unchanged in position. 2. Small bilateral pleural effusions persist. 3. Right mid to lower lung zone airspace opacities are also unchanged. ACT 112: Negative or not required by law. Electronically signed by: Vito Brewster M.D. 05/25/2022 7:58 AM Dictated:05/25/22 0757 Transcribed: 05/25/22 075 XR chest 1V portable CLINICAL HISTORY: Follow up chest tube. Evaluate for pleural effusion and pneumothorax. COMPARISON STUDY: No previous studies for comparison. TECHNIQUE: 1 view of the chest FINDINGS: Single frontal view of the chest demonstrates the heart size to again be enlarged. Pigtail catheter chest 2 is again seen in the right lung base. There has been interval decrease in right pleural effusion. However, there is a large confluent alveolar opacity within the right lung most characteristic of pneumonia. There is also very small left pleural effusion . The left hemithorax is clear. Central venous catheter is again seen. There is no evidence for vascular congestion. There is no acute osseous pathology. IMPRESSION: 1. Pigtail catheter at the right lung base with interval decrease in right pleural effusion and no evidence for pneumothorax. 2. Large confluent alveolar opacity involving the right lower lobe most characteristic of pneumonia. 3. Small left pleural effusion is also present. ACT 112: Negative or not required by law. Electronically signed by: Grant Hou M.D. 05/24/2022 7:48 AM Dictated:05/24/2245 Transcribed: 05/24/22744 XR chest 1V portable CLINICAL HISTORY: S/P Thoracentesis TECHNIQUE: Single frontal radiograph of the chest was obtained. Comparison: Comparison is made to chest radiograph 05/22/2022 FINDINGS: Left portacatheter stable. Interval placement of a right pleural drain with the tip in the right hemithorax. Cardiomegaly is noted. Moderate right pleural effusion has decreased in size from prior exam. There is small left pleural effusion. Mild airspace opacity in the right lung. IMPRESSION: 1. Interval placement of right pleural catheter. No evidence of pneumothorax. The right pleural effusion is slightly decreased in size, now moderate. There is a trace left pleural effusion. 2. Right airspace opacity likely reflects atelectasis with or without superimposed aspiration. ACT 112: Negative or not required by law. Electronically signed by: Mayco Casper M.D. 05/23/2022 11:10 AM Dictated:05/23/228 Transcribed: 05/23/221107 CT angio chest PE protocol CLINICAL HISTORY: SOB, breast CA, h/o PE, r/o new PE TECHNIQUE: Multidetector row helical CT of the chest was performed with angiographic protocol. Coronal and sagittal reformations were obtained. Coronal and sagittal MIPS were obtained from the axial data set and were submitted for review. Automated dose lowering techniques and/or adjustment according to patient size were utilized for this exam. CT DOSE: 525.07 mGycm Comparison: Comparison is made to CTA chest 04/05/2017 and PET/CT 01/25/2022 FINDINGS: Lungs and pleura: Large right and small left pleural effusions have developed in the interval. The right lung is almost entirely collapsed and enhances normally. Mild atelectasis is seen in the left lung. No suspicious pulmonary nodules are seen. Heart and pericardium: Heart size is normal. No pericardial effusion. Vessels: No evidence of pulmonary embolism. Mediastinum and akrla: Unremarkable. Chest wall and lower neck: A portacatheter seen. Body wall edema is seen bilaterally. Bilateral prominent lymph nodes are seen in the axilla measuring up to 12 mm in short axis. Abdomen: Unremarkable. Bones: Mottled appearance of the thoracic spine is seen, more heterogeneous than on prior exam. These may represent foci of bony metastasis. IMPRESSION: 1. No evidence of pulmonary embolism. 2. Large right and small left pleural effusion with almost complete collapse of the right lung. 3. Prominent bilateral axillary lymph nodes are seen. These are less prominent than on prior PET/CT. 4. Body wall edema and skin thickening is seen, right somewhat greater than left. These may represent post radiation changes. 5. Irregular appearance of the bones may represent metastatic disease, correlate with PET/CT and/or bone scan if desired. ACT 112: Negative or not required by law. Electronically signed by: Mayco Casper M.D. 05/22/2022 2:01 PM Dictated:05/22/22 1342 Transcribed: 05/22/22 1342 XR chest 1V portable HISTORY: Right-sided Chest Pain COMPARISON: Radiation oncology chest CT 04/04/2022. FINDINGS: There is a large right pleural effusion resulting in near-complete opacification of the right hemithorax. This has significantly increased in size in the interval. This results in mild left mediastinal shift. No pneumothorax. The heart is normal in size. Left subclavian Port-A-Cath terminates in the SVC. A few small patchy density at the left lung base favor subsegmental atelectasis. IMPRESSION: A large right pleural effusion resulting in near complete opacification of the right hemithorax. This has significantly increased in size in the interval. This results in mild left mediastinal shift. ACT 112: Negative or not required by law. Electronically signed by: Vito Brewster M.D. 05/22/2022 12:37 PM Dictated:05/22/22 1235 Transcribed: 05/22/22 1235 Hospital Course (1) Large pleural effusion: Admitted to ICU initially Patient presenting from home with reports of worsening shortness of breath x 1 week In the ED, CXR shows large right pleural effusion resulting in mild left mediastinal shift On admission on 2 L O2, however no documented hypoxia. Tachycardic, BP stable Highly suspicious for malignant effusion due to currently active breast cancer Case discussed with casting carrier, Dr. Hayden -- planning on chest tube placement Echocardiogram obtained Technically limited study with patient in sinus tachycardia. LV cavity is small. There is mild concentric LVH. No regional wall motion abnormality noted. EF greater than 70%. There is no gross valvular disease. There is trivial apical pericardial effusion of no hemodynamic significance. 05/23 -status post chest tube placement - about 3L of fluid removed Pleural fluid culture pending, cytology ordered Cytology Malignant cells present consistent with metastatic adenocarcinoma, breast primary. - Estrogen receptor: Negative (0%). - Progesterone receptor: Negative (0%). - HER-2/rosa overexpression by immunohistochemistry: Negative (score 1+). Poss. PNA 05/24 -significant infiltrate on the right based on today's chest x-ray. Procal 0.54 Started on azithromycin and Rocephin by Pulmonary for poss. pneumonia. Per pulm. 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 May need to consider a CT of her chest since the fluid has largely been drained. May need to consider placement of a Pleurx catheter depending on how fast the fluid reaccumulate's. Ok to switch to PO Abx and finish treatment as outpt Pl. culture negative (2) Breast cancer: S/p chemo and radiation, recently completed radiation treatment to the left breast Follows with [facility] medical oncology and [facility] radiation oncology Patient's oncologist, Dr. Murcia ([phone]) - contacted me on 05/24 and was updated. She also called and checked in with the patient. (3) Anemia: Hgb ~9 on admission Likely due to malignancy 05/27 - Now hemoglobin 6.9, obtained blood consent, transfused 1 unit of PRBCs No signs of bleeding at this time Monitor CBC Thrombocytopenia/ ? HIT -Patient has been on IV heparin on and off, during this admission -Plt count has been decreasing during this admission Recommend not to resume IV heparin, which was now stopped, as possible concern for HIT -At home patient is on Eliquis for DVT/PE -She was switched to IV heparin due to procedure/chest tube - discussed w/Rita (heme), ok to restart Eliquis Pending testing for PF4 antibodies/ALEXANDRE. If this is positive, would not recommend further exposure to heparin as per hematology -Follow-up pathology read of blood smear, LDH, T bili/ D bili, haptoglobin and (PF4 Ab -pending) LDH down to 1700 T bili/ D bili normal haptoglobin elevated Pathology review of blood smear - Moderate complexity pathology consultation: The peripheral blood smear, associated testing and clinical history (Reason for request: thrombocytopenia, other history: breast cancer, pleural effusion with metastatic disease) are reviewed. The peripheral blood smear shows normochromic, normocytic appearing erythrocytes without significant anisopoikilocytosis. Polychromatophilic cells (a subset of reticulocytes) are noted. I do not see significant numbers of schistocytes or spherocytes indicative of a hemolytic process. Leukocytes appear normal in number, relative distribution and morphology. Platelets are decreased in number and are unremarkable in appearance. I do not see any significant number of platelet clumps resulting in an artifactual thrombocytopenia. The associated CBC shows a HGB of 6.9 with low-normal MCV (81.5) and minimally decreased MCHC (31.9). Platelets are low (70,000). The MPV is normal. No overt morphologic abnormalities, including changes of a myelodysplastic syndrome or hemolytic anemia, are seen. No organisms are identified. The reviewed findings are consistent with a non-specific normocytic anemia and thrombocytopenia. Given the borderline low MCV and MCHC, iron studies are suggested. Levy Echevarria M.D. - no signs of hemolysis Hyponatremia -Seems to be somewhat chronic, likely due to poor p.o. intake, on admission also fluid overload/ pl. effusion, SIADH -Sodium 124 (05/27) -Encourage p.o. intake -Obtain urine osmolality, urine sodium, recheck BMP in the afternoon -started sodium tab - nephrology consulted -Na 124 (05/30) - give 500cc of IV Ns -> repeat Na level again 124-> give additional 500cc of NS, recheck Na AM (4) History of DVT (deep vein thrombosis): (5) History of pulmonary embolism: Held Eliquis due to large pleural effusion requiring intervention on admission,was on IV heparin - now stopped, as above - restarted Eliquis (6) DVT prophylaxis: was on IV heparin, as above Total Time Total Time Spent Total Time Spent (In Minutes): 35 minutes Discharge Plan Discharge Items Patient Disposition: Home - Self-Care Reason For Visit: SOB Discharge Diagnosis: Pleural effusion, metastatic, in the setting of breast cancer Activity: Per Instructions section Non-emergency contact: Primary Care Provider and Specialist Call non-emergency contact if: you have any medication questions and your symptoms worsen Follow-up/Referrals: Fartun Saunders DO [Primary Care Provider] - 06/06/22 10:20 am (Date & Time 06/06/2022 10:20 AM Provider Zander Centeno MD Department [facility] ) Jacobo Cote MD [Surgeon] - 06/06/22 1:20 pm (Date & Time 06/06/2022 1:20 PM Provider Jacobo Cote MD Department Nephrology, [facility] ) Diet: Regular Addtl Attending Provider Instructions: Follow-up with your engineering recruiter/oncologists, and primary care physician. Appointment with primary care physician was scheduled for you for June 06. In addition, you will need to follow-up with nephrology, regarding your low sodium level. You will need blood work : BMP, serum osmolarity, urine osmolarity, random urine sodium, urinalysis tomorrow at oncology appt tomorrow at [facility], then [facility] (notify nephrology with the results) Continue taking Eliquis. Start taking metoprolol, as prescribed. Continue folic acid daily Your provider or oncology will need to arrange for parenteral vitamin B12 supplementation 1000 mcg weekly x4 weeks followed by monthly. It is recommended that you use oxygen 2 L continuously, with exertion/ambulation. Seek medical attention if your symptoms worsening Pending Studies at Discharge: Yes Studies:: PF4 antibody, iron studies Stand-Alone Forms: [employer], Smoking Cessation Medications and DC Order Prescriptions: New magnesium oxide 400 mg (241.3 mg magnesium) Tablet 400 mg PO QAM 30 Days Qty: 30 0RF folic acid 1 mg Tablet 1 mg PO QAM 30 Days Qty: 30 0RF metoprolol tartrate 25 mg Tablet 12.5 mg PO BID 30 Days Qty: 30 0RF sodium chloride 1 gram Tablet 1 g PO DAILY Qty: 30 0RF Continued oxycodone 5 mg tablet 5 mg PO BID PRN (Reason: Pain) omeprazole 20 mg capsule,delayed release(DR/EC) 20 mg PO DAILY escitalopram oxalate 5 mg tablet 5 mg PO DAILY Eliquis 5 mg tablet 5 mg PO Q12H Qty: 74 0RF Discharge Orders: Discharge Order (Routine); Ordered 05/31/22 Ordered By: Hema Torres Admission Data Admit Date/Time: 05/22/22 14:44 Attending Provider: Hema Torres Admit Provider: Cresencio Lo Primary Care Provider: Fartun Saunders Other Providers: Cresencio Lo ; Prem Hayden Aderonke ; Wendy Jeffries ; Quique Light Other Interventions: Discharge Summary Assessment (RN) Last Done: 05/31/22 14:49
[2022-05-31 19:32] VITALS: BP 118/73; PULSE 63; TEMP 97.5; O2SAT 100
== END 2022-05-31 15:42 | disposition home or self-care (01) | DRG 597 ==
LOC: ED 11:07 → SUATTDRO 14:44 → 1E 14:44 → 2S 05-27 15:59

== ENCOUNTER 2022-06-05 16:42 | Inpatient (IN) ==
--- NOTE | 2022-06-05 17:01 | Emergency Department Note ---
Impression & Plan Respiratory failure, Hypoxia, Acute respiratory acidosis, Abnormal chest x-ray, Thrombocytopenia, Acute anemia, Acute dyspnea ED Provider Note EctopyNAME: ANITA HARMON AGE: 51 SEX: F : 1970 ARRIVES VIA: Ambulance INFORMANT: Patient, EMS ED PROVIDER(S): Jalen Mcdaniels DO CHIEF COMPLAINT: Shortness of breath HPI: The patient is a 51-year-old female who presented to the emergency department by ambulance for an evaluation of shortness of breath. The patient has a history of breast cancer. She also has a history of anemia requiring transfusion as well as respiratory failure. She does have a history of venous thromboembolic disease and receives blood thinners. The patient states that she is been compliant with her outpatient medications. She noticed today that she was having more shortness of breath than usual. She denies having any fever. She has had no hemoptysis. She has noticed some swelling in her lower legs. She was not seen for the symptoms by her primary care physician. She arrived via ambulance. She was noted to have oxygen saturation in the 60s prior to arrival. Oxygen saturation is improved on nonrebreather mask. She states that she feels somewhat improved. She denies having any recent trauma. She states symptoms are worsened with exertion or lying flat. ROS: See above HPI for pertinent positives & negatives. A total of 10 systems reviewed and were otherwise negative. PAST MEDICAL HISTORY: See Below PAST SURGICAL HISTORY: See Below FAMILY HISTORY: See Below SOCIAL HISTORY: See Below HOME MEDICATIONS: See Below ALLERGIES: See Below VITALS: See Below PHYSICAL EXAMINATION: GENERAL: The patient is awake and alert. She seems somewhat anxious appearing. EYES: The conjunctivae are pale. The pupils are round and reactive. EARS, NOSE, MOUTH AND THROAT: The nose is without any evidence of any deformity. NECK: The neck is nontender and supple. RESPIRATORY: Shallow respirations were noted. Diminished breath sounds noted throughout. There were rales in both lower lung basurto. CARDIOVASCULAR: Regular rate and rhythm noted there no murmurs rubs or gallops normal S1 normal S2. GASTROINTESTINAL: The abdomen is soft. Abdomen is nontender. MUSCULOSKELETAL/EXTREMITIES: There is no evidence of gross deformity full range of motion is noted in the hips and shoulders. SKIN: Pedal edema was noted bilaterally. NEUROLOGIC: Patient is awake alert and oriented x3 MEDICAL DECISION MAKING: The patient is a 51-year-old female who has a history of metastatic breast cancer who presented to the emergency department for an evaluation of difficulty breathing. The patient was having severe difficulty breathing upon arrival. She was placed on a nonrebreather mask. She was then switched to BiPAP after laboratory studies revealed that the patient had significant respiratory acidosis. I discussed the patient's laboratory and radiographic studies with her. She has a new white out of her left lung field. This could be infectious in nature so the patient was covered with antibiotics. The patient has a history of metastatic breast cancer. This could also represent a mucous plug or large pleural effusion. I discussed the patient's condition with the on-call [facility] hospitalist as well as the on-call pulmonary physician. The patient was reevaluated multiple times. Triage Nursing notes reviewed. Prior medical records reviewed Vital Signs: reviewed and remarkable for tachycardia tachypnea and relative hypoxia. Differential diagnosis: Reactive airway disease, pneumonia, pneumothorax, COPD, CHF, infections, cardiac ischemia, pulmonary embolism, musculoskeletal, gastrointestinal, as well as other pathologies. ER treatment provided: See below Diagnostics interpreted by me: ECG: EKG was obtained in the emergency department. My interpretation is sinus tachycardia 112 bpm.. Low voltage was noted throughout. This was compared to a previous tracing. There is no significant changes noted. Cardiac Monitoring: An order was placed for continuous cardiac monitoring. The monitor shows a rate of 108 bpm with sinus tachycardia. Laboratory studies: As stated above and show below. Imaging studies: See below Consultation(s): [facility] I discussed this case with Dr. Medrano who is on-call for pulmonary. He does recommend that the admitting team hold the patient's blood thinners and he will evaluate the patient tomorrow for possible placement of a drainage catheter for the pleural effusion. ED COURSE: Procedures: none Critical Care: I have personally spent greater than 45 minutes of critical care time in the direct management of this patient. This includes bedside care, interpretation of diagnostic studies, and testing, discussion with consultants, patient, and family members, and other required patient management activities. This 45 judith pawel is in excess of all separately billable procedures. Past Med/Surg History Medical History Acute anemia Anemia Breast cancer S/p chemo and radiation 2 cycles of AC, then 2 cycles of AC with pembrolizumab, then taxol/carbo with pembrolizumab. She had minimal response to neoadjuvant therapy, and was evaluated for surgery. Staging scans at that time revealed both PE and bilateral breast involvement with left axillary involvement consistent with metastatic disease. She was placed on anticoagulation--this development precluded surgery. She then had Trodelvy with minimal response and was referred for XRT to the right breast due to the bulk of the tumor. Then comp leted XRT to the left breast. Depression Fibroid uterus Heavy menstrual bleeding History of DVT (deep vein thrombosis) History of hysteroscopy "04/05/2017 hysteroscopy endometrial ablation" History of pulmonary embolism Hyponatremia Juvenile osteochondrosis of leg Menorrhagia Thrombocytopenia Uterine leiomyoma Wrist fracture, left Surgical repair Surgical History History of breast biopsy History of hysterectomy S/P section S/P laparoscopic hysterectomy S/P tubal ligation Family History Sister Breast cancer Father Prostate cancer Mother FH: pancreatic cancer Social History Smoking Status: Never smoker Hx Alcohol Use: No Hx Substance Use: No Preferred Language: Danish Communication Ability: Effective Pmp Project Manager Required: No Beliefs That Will Affect Care: None marital status: Current Living Situation: Family current occupational status: employed Feels Safe at Home: Yes Diet Comment: healthier choices caffeine: Yes (tea daily) during the past year weight has: decreased > 10 lbs Assistive Devices: None Allergies Allergies Allergy/AdvReac Type Severity Reaction Status Date / Time No Known Allergies Allergy Verified 06/05/22 19:01 Home Meds Home Medications Medication Instructions Recorded Confirmed escitalopram oxalate 5 mg tablet 5 mg PO DAILY 11/02/21 06/05/22 oxycodone 5 mg tablet 5 mg PO BID PRN Pain 02/27/22 06/05/22 omeprazole 20 mg capsule,delayed 20 mg PO DAILY 05/09/22 06/05/22 release prochlorperazine maleate 10 mg 10 mg PO Q6H PRN NAUSEA/VOMITING 06/05/22 06/05/22 tablet Previous Rx's Medication Instructions Recorded apixaban 5 mg tablet (Eliquis) 5 mg PO Q12H #74 tabs 11/03/21 folic acid 1 mg tablet 1 mg PO QAM 30 days #30 tabs 05/31/22 magnesium oxide 400 mg (241.3 mg 400 mg PO QAM 30 days #30 tabs 05/31/22 magnesium) tablet metoprolol tartrate 25 mg tablet 12.5 mg PO BID 30 days #30 tabs 05/31/22 sodium chloride 1 gram tablet 1 g PO DAILY #30 tabs 05/31/22 Results & Data (ED) Vital Signs Vital Signs - 24 hr 06/05/22 16:46 06/05/22 16:46 06/05/22 16:52 Temperature 36.6 C Temperature Source Axillary Pulse Rate 112 H Pulse Rate [Apical] Pulse Rate from SpO2 Sensor Pulse Rhythm Regular Pulse Rhythm [Apical] Pulse Strength Normal Pulse Strength [Apical] Respiratory Rate 26 H Respiratory Effort / Characteristics Labored Labored Respiratory Depth Respiratory Pattern Tachypnea Regular Tachypnea Blood Pressure 97/69 L Blood Pressure [Right Arm] Blood Pressure Mean 78 Blood Pressure Mean [Right Arm] Blood Pressure Position Sitting Blood Pressure Position [Right Arm] Pulse Oximetry 91 91 Oxygen Delivery Method Non-rebreather Non-rebreather Non-rebreather Oxygen Flow Rate 15 15 15 Fraction of Inspired Oxygen Sepsis Recent Fever Within 48 Hours No Sepsis New/Unexplained Change in Mental Status No Sepsis Action Taken by Nursing Physician Notified 06/05/22 16:57 06/05/22 16:47 06/05/22 16:48 Temperature 36.6 C Temperature Source Axillary Pulse Rate 109 H Pulse Rate [Apical] 107 H Pulse Rate from SpO2 Sensor 109 H Pulse Rhythm Pulse Rhythm [Apical] Regular Pulse Strength Pulse Strength [Apical] Normal Respiratory Rate 26 H 28 H Respiratory Effort / Characteristics Labored Respiratory Depth Deep Respiratory Pattern Tachypnea Blood Pressure 97/69 L Blood Pressure [Right Arm] 97/69 L Blood Pressure Mean 78 Blood Pressure Mean [Right Arm] 78 Blood Pressure Position Blood Pressure Position [Right Arm] Sitting Pulse Oximetry 91 89 L Oxygen Delivery Method Non-rebreather Oxygen Flow Rate 15 Fraction of Inspired Oxygen Sepsis Recent Fever Within 48 Hours Sepsis New/Unexplained Change in Mental Status Sepsis Action Taken by Nursing 06/05/22 17:00 06/05/22 17:15 06/05/22 17:28 Temperature Temperature Source Pulse Rate 116 H 112 H Pulse Rate [Apical] Pulse Rate from SpO2 Sensor 117 H 113 H Pulse Rhythm Pulse Rhythm [Apical] Pulse Strength Pulse Strength [Apical] Respiratory Rate 31 H 27 H Respiratory Effort / Characteristics Accessory Muscle Use SOB on Exertion Respiratory Depth Respiratory Pattern Blood Pressure Blood Pressure [Right Arm] Blood Pressure Mean Blood Pressure Mean [Right Arm] Blood Pressure Position Blood Pressure Position [Right Arm] Pulse Oximetry 90 92 Oxygen Delivery Method Oxygen Flow Rate 15 15 Fraction of Inspired Oxygen Sepsis Recent Fever Within 48 Hours Sepsis New/Unexplained Change in Mental Status Sepsis Action Taken by Nursing 06/05/22 17:43 06/05/22 17:30 06/05/22 17:45 Temperature Temperature Source Pulse Rate 100 H 113 H 96 H Pulse Rate [Apical] Pulse Rate from SpO2 Sensor 113 H 105 H Pulse Rhythm Pulse Rhythm [Apical] Pulse Strength Pulse Strength [Apical] Respiratory Rate 26 H 27 H 27 H Respiratory Effort / Characteristics Non-Labored Spontaneous Respiratory Depth Normal Respiratory Pattern Regular Blood Pressure Blood Pressure [Right Arm] Blood Pressure Mean Blood Pressure Mean [Right Arm] Blood Pressure Position Blood Pressure Position [Right Arm] Pulse Oximetry 95 92 94 Oxygen Delivery Method Oxygen Flow Rate Fraction of Inspired Oxygen 100 Sepsis Recent Fever Within 48 Hours Sepsis New/Unexplained Change in Mental Status Sepsis Action Taken by Nursing 06/05/22 18:00 06/05/22 18:02 06/05/22 18:02 Temperature Temperature Source Pulse Rate 107 H 111 H Pulse Rate [Apical] Pulse Rate from SpO2 Sensor 108 H 111 H Pulse Rhythm Pulse Rhythm [Apical] Pulse Strength Pulse Strength [Apical] Respiratory Rate 23 23 Respiratory Effort / Characteristics Respiratory Depth Respiratory Pattern Blood Pressure 98/68 L 113/64 Blood Pressure [Right Arm] Blood Pressure Mean 78 80 Blood Pressure Mean [Right Arm] Blood Pressure Position Blood Pressure Position [Right Arm] Pulse Oximetry 95 95 Oxygen Delivery Method Oxygen Flow Rate Fraction of Inspired Oxygen Sepsis Recent Fever Within 48 Hours Sepsis New/Unexplained Change in Mental Status Sepsis Action Taken by Nursing 06/05/22 18:15 06/05/22 18:30 06/05/22 18:30 Temperature Temperature Source Pulse Rate 108 H 111 H Pulse Rate [Apical] Pulse Rate from SpO2 Sensor 107 H Pulse Rhythm Pulse Rhythm [Apical] Pulse Strength Pulse Strength [Apical] Respiratory Rate 15 23 Respiratory Effort / Characteristics Respiratory Depth Respiratory Pattern Blood Pressure 107/69 Blood Pressure [Right Arm] Blood Pressure Mean 81 Blood Pressure Mean [Right Arm] Blood Pressure Position Blood Pressure Position [Right Arm] Pulse Oximetry 95 Oxygen Delivery Method Oxygen Flow Rate Fraction of Inspired Oxygen Sepsis Recent Fever Within 48 Hours Sepsis New/Unexplained Change in Mental Status Sepsis Action Taken by Nursing 06/05/22 19:10 06/05/22 18:58 Temperature Temperature Source Pulse Rate Pulse Rate [Apical] 108 H Pulse Rate from SpO2 Sensor Pulse Rhythm Pulse Rhythm [Apical] Pulse Strength Pulse Strength [Apical] Respiratory Rate 26 H 27 H Respiratory Effort / Characteristics Spontaneous Respiratory Depth Respiratory Pattern Blood Pressure Blood Pressure [Right Arm] 120/74 Blood Pressure Mean Blood Pressure Mean [Right Arm] 89 Blood Pressure Position Blood Pressure Position [Right Arm] Pulse Oximetry 92 93 Oxygen Delivery Method BiPAP Oxygen Flow Rate Fraction of Inspired Oxygen 80 Sepsis Recent Fever Within 48 Hours Sepsis New/Unexplained Change in Mental Status Sepsis Action Taken by Intermediate Medications Current Medication List: was personally reviewed by me Laboratory Data Attestation: I reviewed the patient's lab results. Result diagrams: 06/05/22 17:00 06/05/22 17:00 Lab Results 06/05/22 06/05/22 06/05/22 Range/Units 17:00 17:00 17:00 WBC 12.40 H (4.8-10.8) K/ul RBC 3.27 L (3.93-5.22) M/uL Hgb 8.9 L (12.0-16.0) g/dl Hct 30.3 L (34.1-44.9) % MCV 92.7 (80.0-100.0) fL MCH 27.2 (25.0-34.0) pg MCHC 29.4 L (32.0-36.0) g/dL RDW Std Deviation 60.8 H (36.4-46.3) fL RDW Coeff of Elizabeth 19.4 H (11.5-14.5) % Plt Count 84 L (130-400) K/uL MPV 10.5 (9.4-12.3) fL Absolute Nucleated RBC 0.47 H (0-0) K/uL Nucleated RBC % (auto) 3.8 % Neutrophils % (Manual) 90 % Lymphocytes % (Manual) 1 % Monocytes % (Manual) 3 % Basophils % (Manual) 1 % Metamyelocytes % (Man) 4 % Myelocytes % (Man) 2 % Neutrophils # (Manual) 11.16 H (1.4-6.5) K/uL Total Absolute Neuts 11.16 H (1.4-6.5) K/uL Lymphocytes # (Manual) 0.12 L (1.2-3.4) K/uL Total Abs Lymphocytes 0.12 L (1.2-3.4) K/uL Monocytes # (Manual) 0.37 (0.24-0.82) K/uL Basophils # (Manual) 0.12 (0-0.2) K/uL Metamyelocytes # (Man) 0.50 H (0-0) K/uL Myelocytes # (Manual) 0.25 H (0-0) K/uL Polychromasia 1+ Basophilic Stippling 1+ ESR 74 H (0-30) mm/hr PT 10.9 (9.0-12.0) Seconds INR 1.0 (0.9-1.1) APTT 24.8 (21.0-31.0) Seconds PTT Ratio 0.9 ABG pH (7.35-7.45) ABG pCO2 (35-46) mmHg ABG pO2 (80-95) mmHg ABG HCO3 (19-24) mmol/L ABG O2 Saturation (90-95) % ABG Base Excess (-9-1.8) mEq/L Fernando Test (Pos) VBG pH (7.36-7.41) VBG pCO2 (38-50) mmHg VBG pO2 mmHg VBG HCO3 mmol/L VBG O2 Saturation % VBG Base Excess mEq/L Oxygen Given Sodium (136-145) mmol/L Potassium (3.5-5.1) mmol/L Chloride (98-107) mmol/L Carbon Dioxide (21-32) mmol/L Anion Gap (3-11) BUN (6-23) mg/dl Creatinine (0.6-1.2) mg/dl Est Cr Clr Drug Dosing ml/min Est GFR ( Amer) ml/min Est GFR (Non-Af Amer) ml/min BUN/Creatinine Ratio (10-20) Glucose (70-99(Fasting)) mg/dl Lactate (0.4-2.0) mmol/L Calcium (8.5-10.1) mg/dl Magnesium (1.7-2.4) mg/dl Total Bilirubin (0.2-1.0) mg/dl AST (13-39) U/L ALT (7-52) U/L Alkaline Phosphatase (34-104) U/L Troponin I High Sens (0-14) pg/ml C-Reactive Protein (0-0.5) mg/dl B-Natriuretic Peptide (0-100) pg/ml Total Protein (6.0-8.3) gm/dl Albumin (3.4-5.0) gm/dl Globulin (2.5-4.0) gm/dl Albumin/Globulin Ratio (0.9-2) Procalcitonin (0-0.5) ng/ml SARS-CoV-2, RNA, NAAT (NEGATIVE) Blood Type Antibody Screen 06/05/22 06/05/22 06/05/22 Range/Units 17:00 17:00 17:00 WBC (4.8-10.8) K/ul RBC (3.93-5.22) M/uL Hgb (12.0-16.0) g/dl Hct (34.1-44.9) % MCV (80.0-100.0) fL MCH (25.0-34.0) pg MCHC (32.0-36.0) g/dL RDW Std Deviation (36.4-46.3) fL RDW Coeff of Elizabeth (11.5-14.5) % Plt Count (130-400) K/uL MPV (9.4-12.3) fL Absolute Nucleated RBC (0-0) K/uL Nucleated RBC % (auto) % Neutrophils % (Manual) % Lymphocytes % (Manual) % Monocytes % (Manual) % Basophils % (Manual) % Metamyelocytes % (Man) % Myelocytes % (Man) % Neutrophils # (Manual) (1.4-6.5) K/uL Total Absolute Neuts (1.4-6.5) K/uL Lymphocytes # (Manual) (1.2-3.4) K/uL Total Abs Lymphocytes (1.2-3.4) K/uL Monocytes # (Manual) (0.24-0.82) K/uL Basophils # (Manual) (0-0.2) K/uL Metamyelocytes # (Man) (0-0) K/uL Myelocytes # (Manual) (0-0) K/uL Polychromasia Basophilic Stippling ESR (0-30) mm/hr PT (9.0-12.0) Seconds INR (0.9-1.1) APTT (21.0-31.0) Seconds PTT Ratio ABG pH (7.35-7.45) ABG pCO2 (35-46) mmHg ABG pO2 (80-95) mmHg ABG HCO3 (19-24) mmol/L ABG O2 Saturation (90-95) % ABG Base Excess (-9-1.8) mEq/L Fernando Test (Pos) VBG pH (7.36-7.41) VBG pCO2 (38-50) mmHg VBG pO2 mmHg VBG HCO3 mmol/L VBG O2 Saturation % VBG Base Excess mEq/L Oxygen Given Sodium 129 L (136-145) mmol/L Potassium 5.7 H (3.5-5.1) mmol/L Chloride 91 L (98-107) mmol/L Carbon Dioxide 34 H (21-32) mmol/L Anion Gap 4 (3-11) BUN 24 H (6-23) mg/dl Creatinine 0.42 L (0.6-1.2) mg/dl Est Cr Clr Drug Dosing 149.6 ml/min Est GFR ( Amer) 137.5 ml/min Est GFR (Non-Af Amer) 118.7 ml/min BUN/Creatinine Ratio 57.1 H (10-20) Glucose 117 H (70-99(Fasting)) mg/dl Lactate (0.4-2.0) mmol/L Calcium 8.5 (8.5-10.1) mg/dl Magnesium 2.1 (1.7-2.4) mg/dl Total Bilirubin 0.5 (0.2-1.0) mg/dl AST 60 H (13-39) U/L ALT 41 (7-52) U/L Alkaline Phosphatase 286 H (34-104) U/L Troponin I High Sens 8.5 (0-14) pg/ml C-Reactive Protein 9.80 H (0-0.5) mg/dl B-Natriuretic Peptide 79 (0-100) pg/ml Total Protein 6.2 (6.0-8.3) gm/dl Albumin 3.1 L (3.4-5.0) gm/dl Globulin 3.1 (2.5-4.0) gm/dl Albumin/Globulin Ratio 1.0 (0.9-2) Procalcitonin 0.26 (0-0.5) ng/ml SARS-CoV-2, RNA, NAAT (NEGATIVE) Blood Type Antibody Screen 06/05/22 06/05/22 06/05/22 Range/Units 17:00 17:20 17:20 WBC (4.8-10.8) K/ul RBC (3.93-5.22) M/uL Hgb (12.0-16.0) g/dl Hct (34.1-44.9) % MCV (80.0-100.0) fL MCH (25.0-34.0) pg MCHC (32.0-36.0) g/dL RDW Std Deviation (36.4-46.3) fL RDW Coeff of Elizabeth (11.5-14.5) % Plt Count (130-400) K/uL MPV (9.4-12.3) fL Absolute Nucleated RBC (0-0) K/uL Nucleated RBC % (auto) % Neutrophils % (Manual) % Lymphocytes % (Manual) % Monocytes % (Manual) % Basophils % (Manual) % Metamyelocytes % (Man) % Myelocytes % (Man) % Neutrophils # (Manual) (1.4-6.5) K/uL Total Absolute Neuts (1.4-6.5) K/uL Lymphocytes # (Manual) (1.2-3.4) K/uL Total Abs Lymphocytes (1.2-3.4) K/uL Monocytes # (Manual) (0.24-0.82) K/uL Basophils # (Manual) (0-0.2) K/uL Metamyelocytes # (Man) (0-0) K/uL Myelocytes # (Manual) (0-0) K/uL Polychromasia Basophilic Stippling ESR (0-30) mm/hr PT (9.0-12.0) Seconds INR (0.9-1.1) APTT (21.0-31.0) Seconds PTT Ratio ABG pH (7.35-7.45) ABG pCO2 (35-46) mmHg ABG pO2 (80-95) mmHg ABG HCO3 (19-24) mmol/L ABG O2 Saturation (90-95) % ABG Base Excess (-9-1.8) mEq/L Fernando Test (Pos) VBG pH (7.36-7.41) VBG pCO2 (38-50) mmHg VBG pO2 mmHg VBG HCO3 mmol/L VBG O2 Saturation % VBG Base Excess mEq/L Oxygen Given Sodium (136-145) mmol/L Potassium (3.5-5.1) mmol/L Chloride (98-107) mmol/L Carbon Dioxide (21-32) mmol/L Anion Gap (3-11) BUN (6-23) mg/dl Creatinine (0.6-1.2) mg/dl Est Cr Clr Drug Dosing ml/min Est GFR ( Amer) ml/min Est GFR (Non-Af Amer) ml/min BUN/Creatinine Ratio (10-20) Glucose (70-99(Fasting)) mg/dl Lactate 1.2 (0.4-2.0) mmol/L Calcium (8.5-10.1) mg/dl Magnesium (1.7-2.4) mg/dl Total Bilirubin (0.2-1.0) mg/dl AST (13-39) U/L ALT (7-52) U/L Alkaline Phosphatase (34-104) U/L Troponin I High Sens (0-14) pg/ml C-Reactive Protein (0-0.5) mg/dl B-Natriuretic Peptide (0-100) pg/ml Total Protein (6.0-8.3) gm/dl Albumin (3.4-5.0) gm/dl Globulin (2.5-4.0) gm/dl Albumin/Globulin Ratio (0.9-2) Procalcitonin (0-0.5) ng/ml SARS-CoV-2, RNA, NAAT NEGATIVE (NEGATIVE) Blood Type A Positive Antibody Screen NEGATIVE 06/05/22 06/05/22 Range/Units 17:20 19:09 WBC (4.8-10.8) K/ul RBC (3.93-5.22) M/uL Hgb (12.0-16.0) g/dl Hct (34.1-44.9) % MCV (80.0-100.0) fL MCH (25.0-34.0) pg MCHC (32.0-36.0) g/dL RDW Std Deviation (36.4-46.3) fL RDW Coeff of Elizabeth (11.5-14.5) % Plt Count (130-400) K/uL MPV (9.4-12.3) fL Absolute Nucleated RBC (0-0) K/uL Nucleated RBC % (auto) % Neutrophils % (Manual) % Lymphocytes % (Manual) % Monocytes % (Manual) % Basophils % (Manual) % Metamyelocytes % (Man) % Myelocytes % (Man) % Neutrophils # (Manual) (1.4-6.5) K/uL Total Absolute Neuts (1.4-6.5) K/uL Lymphocytes # (Manual) (1.2-3.4) K/uL Total Abs Lymphocytes (1.2-3.4) K/uL Monocytes # (Manual) (0.24-0.82) K/uL Basophils # (Manual) (0-0.2) K/uL Metamyelocytes # (Man) (0-0) K/uL Myelocytes # (Manual) (0-0) K/uL Polychromasia Basophilic Stippling ESR (0-30) mm/hr PT (9.0-12.0) Seconds INR (0.9-1.1) APTT (21.0-31.0) Seconds PTT Ratio ABG pH 7.27 L (7.35-7.45) ABG pCO2 75 H (35-46) mmHg ABG pO2 89 (80-95) mmHg ABG HCO3 34 H (19-24) mmol/L ABG O2 Saturation > 100.0 H (90-95) % ABG Base Excess 4.9 H (-9-1.8) mEq/L Fernando Test POS (Pos) VBG pH 7.21 L (7.36-7.41) VBG pCO2 87 H (38-50) mmHg VBG pO2 41 mmHg VBG HCO3 35 mmol/L VBG O2 Saturation 68.3 % VBG Base Excess 3.9 mEq/L Oxygen Given 15L Sodium (136-145) mmol/L Potassium (3.5-5.1) mmol/L Chloride (98-107) mmol/L Carbon Dioxide (21-32) mmol/L Anion Gap (3-11) BUN (6-23) mg/dl Creatinine (0.6-1.2) mg/dl Est Cr Clr Drug Dosing ml/min Est GFR ( Amer) ml/min Est GFR (Non-Af Amer) ml/min BUN/Creatinine Ratio (10-20) Glucose (70-99(Fasting)) mg/dl Lactate (0.4-2.0) mmol/L Calcium (8.5-10.1) mg/dl Magnesium (1.7-2.4) mg/dl Total Bilirubin (0.2-1.0) mg/dl AST (13-39) U/L ALT (7-52) U/L Alkaline Phosphatase (34-104) U/L Troponin I High Sens (0-14) pg/ml C-Reactive Protein (0-0.5) mg/dl B-Natriuretic Peptide (0-100) pg/ml Total Protein (6.0-8.3) gm/dl Albumin (3.4-5.0) gm/dl Globulin (2.5-4.0) gm/dl Albumin/Globulin Ratio (0.9-2) Procalcitonin (0-0.5) ng/ml SARS-CoV-2, RNA, NAAT (NEGATIVE) Blood Type Antibody Screen Administered Medications Discontinued Medications Piperacillin Sod/Tazobactam Sod (Zosyn) 4.5 gm in 120 mls @ 240 mls/hr IV NOW ONE Stop: 06/05/22 18:05 Last Infusion: 06/05/22 18:23 Dose: 0 mls/hr Documented By: Admin: 06/05/22 17:50 Dose: 240 mls/hr Documented By: MONICA Imaging Data Radiologist's Impression: Chest X-Ray 06/05/22 16:56 XR chest 1V portable CLINICAL HISTORY: Sepsis. Breast cancer. COMPARISON STUDY: Chest CT May 22, 2022. Chest radiograph May 29, 2022. FINDINGS: Left subclavian [id number] is in place. No pneumothorax is present. Interval complete opacification of the left hemithorax is noted. There are bilateral pleural effusions, suboptimally assessed by radiography. A right pleural effusion with right lung airspace opacity has progressed since prior exam. IMPRESSION: 1. Interval development of complete opacification of the left hemithorax. 2. Bilateral pleural effusions, suboptimally assessed by radiography. The right pleural effusion with associated airspace opacity has increased. ACT 112: Negative or not required by law. Electronically signed by: Zackery Adler M.D. 06/05/2022 5:42 PM Discharge Plan Visit Data Chief Complaint: Shortness of Breath/Dyspnea Stated Complaint: SOB ED Provider: Jalen Mcdaniels Discharge Problem: Respiratory failure, Hypoxia, Acute respiratory acidosis, Abnormal chest x-ray, Thrombocytopenia, Acute anemia, Acute dyspnea Patient Disposition: Being Evaluated by Hospitalist Forms Stand Alone Forms: [facility] Prescriptions Prescriptions: No Action oxycodone 5 mg tablet 5 mg PO BID PRN (Reason: Pain) omeprazole 20 mg capsule,delayed release(DR/EC) 20 mg PO DAILY escitalopram oxalate 5 mg tablet 5 mg PO DAILY Eliquis 5 mg tablet 5 mg PO Q12H Qty: 74 0RF magnesium oxide 400 mg (241.3 mg magnesium) Tablet 400 mg PO QAM 30 Days Qty: 30 0RF folic acid 1 mg Tablet 1 mg PO QAM 30 Days Qty: 30 0RF metoprolol tartrate 25 mg Tablet 12.5 mg PO BID 30 Days Qty: 30 0RF sodium chloride 1 gram Tablet 1 g PO DAILY Qty: 30 0RF prochlorperazine maleate 10 mg tablet 10 mg PO Q6H PRN (Reason: NAUSEA/VOMITING) Referrals Referrals: Fartun Saunders DO [Primary Care Provider] -
[2022-06-05 17:20] LABS: Hematocrit (blood only) 30.3 % (34.1-44.9); Hemoglobin 8.9 g/dl (12.0-16.0); Mean Corpuscular Hemoglobin 27.2 pg (25.0-34.0); Mean Corpuscular Hgb Conc 29.4 g/dL (32.0-36.0); Mean Corpuscular Volume 92.7 fL (80.0-100.0); Mean Platelet Volume 10.5 fL (9.4-12.3); Nucleated RBC # (auto) 0.47 K/uL (0-0); Nucleated RBC % (auto) 3.8 %; Platelet Count 84 K/uL (130-400); RDW Coefficient of Variation 19.4 % (11.5-14.5); RDW Standard Deviation 60.8 fL (36.4-46.3); Red Blood Count 3.27 M/uL (3.93-5.22)
[2022-06-05 17:32] LABS: Partial Thromboplastin Ratio 0.9; Partial Thromboplastin Time 24.8 Seconds (21.0-31.0); Prothrombin Time 10.9 Seconds (9.0-12.0)
[2022-06-05] MEDS ORDERED: PIPERACILLIN/TAZOBACTAM 4.5 GM/120 ML BAG IV ONE (17:36)
[2022-06-05 17:42] LABS: ALC (manual) 0.12 K/uL (1.2-3.4); ANC (manual) 11.16 K/uL (1.4-6.5); Basophilic Stippling 1+; Basophils # (manual) 0.12 K/uL (0-0.2); Basophils % (manual) 1 %; Lymphocytes # (manual) 0.12 K/uL (1.2-3.4); Lymphocytes % (manual) 1 %; Metamyelocytes % (manual) 4 %; Monocytes # (manual) 0.37 K/uL (0.24-0.82); Monocytes % (manual) 3 %; Myelocytes # (manual) 0.25 K/uL (0-0); Myelocytes % (manual) 2 %; Neutrophils # (manual) 11.16 K/uL (1.4-6.5); Neutrophils % (manual) 90 %; Polychromasia 1+
--- NOTE | 2022-06-05 17:44 | XRay Report ---
XR chest 1V portable CLINICAL HISTORY: Sepsis. Breast cancer. COMPARISON STUDY: Chest CT May 22, 2022. Chest radiograph May 29, 2022. FINDINGS: Left subclavian [id number] is in place. No pneumothorax is present. Interval complete op acification of the left hemithorax is noted. There are bilateral pleural effusions, suboptimally asse ssed by radiography. A right pleural effusion with right lung airspace opacity has progressed since p rior exam. IMPRESSION: 1. Interval development of complete opacification of the left hemithorax. 2. Bilateral pleural effusions, suboptimally assessed by radiography. The right pleural effusion with associated airspace opacity has increased. ACT 112: Negative or not required by law. Electronically signed by: Zackery Adler M.D. 06/05/2022 5:42 PM
[2022-06-05 17:47] LABS: Base Excess VBG 3.9 mEq/L; HCO3 VBG 35 mmol/L; Oxygen Saturation VBG 68.3 %; PCO2 VBG 87 mmHg (38-50); PO2 VBG 41 mmHg; pH VBG 7.21 (7.36-7.41)
[2022-06-05 18:04] LABS: Troponin I High Sensitivity 8.5 pg/ml (0-14)
[2022-06-05 18:05] LABS: Albumin Level 3.1 gm/dl (3.4-5.0); BUN Creatinine Ratio 57.1 (10-20); Bilirubin,Total 0.5 mg/dl (0.2-1.0); C Reactive Protein 9.8 mg/dl (0-0.5); Calcium 8.5 mg/dl (8.5-10.1); Creatinine Clr Calc Pharmacy 149.6 ml/min; Est GFR (African American) 137.5 ml/min; Est GFR (Non-African American) 118.7 ml/min; Globulin 3.1 gm/dl (2.5-4.0); Magnesium 2.1 mg/dl (1.7-2.4); Potassium 5.7 mmol/L (3.5-5.1); Total Protein 6.2 gm/dl (6.0-8.3)
[2022-06-05] MEDS ORDERED: XOPENEX/ATROVENT 1.25mg/0.5MG NEB COMBO NEB STA (19:22)
[2022-06-05] MEDS ORDERED: DEXTROSE 50% 50 ML SYRINGE IV ONE (19:24)
[2022-06-05 19:27] LABS: Base Excess ABG 4.9 mEq/L (-9-1.8); HCO3 ABG 34 mmol/L (19-24); Oxygen Saturation ABG > 100.0 % (90-95); PCO2 ABG 75 mmHg (35-46); PO2 ABG 89 mmHg (80-95); pH ABG 7.27 (7.35-7.45)
[2022-06-05 19:38] LABS: Allen Test POS (Pos)
[2022-06-05] MEDS ORDERED: INSULIN HUMAN REGULAR PER UNIT 10 UNITS in SYRINGE 9.9 ML IV STA (19:40)
[2022-06-05] MEDS ORDERED: IPRATROPIUM BROMIDE NEB SOLN 0.02% 2.5 ML VIAL INH STA (19:47)
[2022-06-05] MEDS ORDERED: LEVALBUTEROL 1.25MG/0.5ML NEB INH STA (19:47)
--- NOTE | 2022-06-05 20:39 | History & Physical Report ---
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 Resume Eliquis post chest tube placement Full code Patient requesting updates from providers. Mr. Royce Rees, contact #[phone]. Text document was generated using [employer] voice recognition software. It may contain grammatical or spelling errors. Kindly contact undersigned for clarification of any documentation item in question. History of Present Illness Chief Complaint: Shortness of breath Primary Care Provider: Dr. Centeno Hx obtained from patient, family, and records. Limited history from patient secondary to BiPAP. 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 Last confinement May 22 to 2021 for large right pleural effusion status post chest tube placement. Cytology consistent with metastatic adenocarcinoma from the breast. Patient developed thrombocytopenia during confinement. HIT work-up sent out to [facility] [place] negative. Worsening shortness of breath over the last 2 days. Chest tightness. No cough symptoms. Patient denies fluid retention. O2 sats noted to be 60s at home by EMS. BiPAP initiated at the ER. Zosyn administered at the ER MEDICAL HISTORY: As above. SURGERIES:Breast biopsy, vascular device placement, BTL, hysteroscopy, section FAMILY HISTORY: Pancreatic cancer, ovarian cancer, blood clots. 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 Allergies Allergy/AdvReac Type Severity Reaction Status Date / Time No Known Allergies Allergy Verified 06/05/22 19:01 Home Medications Medication Instructions Recorded Confirmed Type escitalopram oxalate 5 mg tablet 5 mg PO DAILY 11/02/21 06/05/22 History apixaban 5 mg tablet (Eliquis) 5 mg PO Q12H #74 tabs 11/03/21 06/05/22 Rx oxycodone 5 mg tablet 5 mg PO BID PRN Pain 02/27/22 06/05/22 History omeprazole 20 mg capsule,delayed 20 mg PO DAILY 05/09/22 06/05/22 History release folic acid 1 mg tablet 1 mg PO QAM 30 days #30 tabs 05/31/22 06/05/22 Rx magnesium oxide 400 mg (241.3 mg 400 mg PO QAM 30 days #30 tabs 05/31/22 06/05/22 Rx magnesium) tablet metoprolol tartrate 25 mg tablet 12.5 mg PO BID 30 days #30 tabs 05/31/22 06/05/22 Rx sodium chloride 1 gram tablet 1 g PO DAILY #30 tabs 05/31/22 06/05/22 Rx prochlorperazine maleate 10 mg 10 mg PO Q6H PRN NAUSEA/VOMITING 06/05/22 06/05/22 History tablet Past Med/Surg History Medical History Acute anemia Anemia Breast cancer S/p chemo and radiation 2 cycles of AC, then 2 cycles of AC with pembrolizumab, then taxol/carbo with pembrolizumab. She had minimal response to neoadjuvant therapy, and was evaluated for surgery. Staging scans at that time revealed both PE and bilateral breast involvement with left axillary involvement consistent with metastatic disease. She was placed on anticoagulation--this development precluded surgery. She then had Trodelvy with minimal response and was referred for XRT to the right breast due to the bulk of the tumor. Then completed XRT to the left breast. Depression Fibroid uterus Heavy menstrual bleeding History of DVT (deep vein thrombosis) History of hysteroscopy "04/05/2017 hysteroscopy endometrial ablation" History of pulmonary embolism Hyponatremia Juvenile osteochondrosis of leg Menorrhagia Thrombocytopenia Uterine leiomyoma Wrist fracture, left Surgical repair Surgical History History of breast biopsy History of hysterectomy S/P section S/P laparoscopic hysterectomy S/P tubal ligation Family History Sister Breast cancer Father Prostate cancer Mother FH: pancreatic cancer Social History Smoking Status: Never smoker Second Hand Exposure: No; Do You Dip or Chew Tobacco: No; Tobacco Cessation Education Requested by Patient: No Hx Alcohol Use: No Hx Substance Use: No Preferred Language: Azeri Communication Ability: Effective Specialist 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: No Beliefs That Will Affect Care: None marital status: Current Living Situation: Family current occupational status: employed Other Information That Helps Us Care for You: No Feels Safe at Home: Yes Safety Concerns: Feels Safe At This Time Diet Comment: healthier choices caffeine: Yes (tea daily) during the past year weight has: decreased > 10 lbs Assistive Devices: Contacts and Glasses Review of Systems Review of Systems: Limited secondary to BiPAP Physical Exam Physical Exam: GENERAL: uncomfortable, respiratory distress SKIN: Pallor, warm HEENT: Pale palpebral conjunctivae, no ptosis, dry buccal mucosa, BiPAP in place NECK : Supple, no tenderness CHEST : Decreased breath sounds on the left,, no tenderness HEART : Tachycardic, no obvious murmurs ABDOMEN: Some distention, nontender EXTREMITIES : Minimal LE swelling, no LE tenderness, no other conspicuous deformities noted NEUROLOGIC : Coherent, no facial asymmetry, no other gross focality Results & Data Results & Data ([facility]) Vital Signs (Past 12 Hours) Vital Signs Temp Pulse Pulse Resp BP BP Pulse Ox 06/05/22 20:22 114 H 24 115/72 90 06/05/22 20:16 112 H 26 H 92 06/05/22 18:58 27 H 93 06/05/22 19:10 108 H 26 H 120/74 92 06/05/22 18:30 111 H 23 06/05/22 18:30 107/69 06/05/22 18:15 108 H 15 95 06/05/22 18:02 111 H 23 95 06/05/22 18:02 113/64 06/05/22 18:00 107 H 23 98/68 L 95 06/05/22 17:45 96 H 27 H 94 06/05/22 17:30 113 H 27 H 92 06/05/22 17:43 100 H 26 H 95 06/05/22 17:15 112 H 27 H 92 06/05/22 17:00 116 H 31 H 90 06/05/22 16:48 109 H 28 H 89 L 06/05/22 16:47 97/69 L 06/05/22 16:57 36.6 C 107 H 26 H 97/69 L 91 06/05/22 16:52 36.6 C 112 H 26 H 97/69 L 91 06/05/22 16:46 91 06/05/22 16:46 O2 Del Method O2 Flow Rate FiO2 06/05/22 20:22 BiPAP 06/05/22 20:16 BiPAP 80 06/05/22 18:58 80 06/05/22 19:10 BiPAP 06/05/22 18:30 06/05/22 18:30 06/05/22 18:15 06/05/22 18:02 06/05/22 18:02 06/05/22 18:00 06/05/22 17:45 06/05/22 17:30 06/05/22 17:43 100 06/05/22 17:15 15 06/05/22 17:00 15 06/05/22 16:48 15 06/05/22 16:47 06/05/22 16:57 Non-rebreather 06/05/22 16:52 Non-rebreather 15 06/05/22 16:46 Non-rebreather 15 06/05/22 16:46 Non-rebreather 15 Laboratory Results Laboratory Results WBC 8.45 K/ul (4.8-10.8) 06/06/22 04:57 RBC 2.42 M/uL (3.93-5.22) L 06/06/22 04:57 Hgb 6.6 g/dl (12.0-16.0) L* 06/06/22 04:57 Hct 22.0 % (34.1-44.9) L 06/06/22 04:57 MCV 90.9 fL (80.0-100.0) 06/06/22 04:57 MCH 27.3 pg (25.0-34.0) 06/06/22 04:57 MCHC 30.0 g/dL (32.0-36.0) L 06/06/22 04:57 RDW Std Deviation 59.2 fL (36.4-46.3) H 06/06/22 04:57 RDW Coeff of Elizabeth 18.5 % (11.5-14.5) H 06/06/22 04:57 Plt Count 47 K/uL (130-400) L 06/06/22 04:57 MPV 9.9 fL (9.4-12.3) 06/06/22 04:57 Immature Gran % (Auto) 7.5 % 06/06/22 04:57 Neut % (Auto) 83.3 % 06/06/22 04:57 Lymph % (Auto) 3.1 % 06/06/22 04:57 Austin % (Auto) 5.8 % 06/06/22 04:57 Eos % (Auto) 0.1 % 06/06/22 04:57 Baso % (Auto) 0.2 % 06/06/22 04:57 Neut # (Auto) 7.04 K/uL (1.4-6.5) H 06/06/22 04:57 Lymph # (Auto) 0.26 K/uL (1.2-3.4) L 06/06/22 04:57 Austin # (Auto) 0.49 K/uL (0.24-0.82) 06/06/22 04:57 Eos # (Auto) 0.01 K/uL (0-0.50) 06/06/22 04:57 Baso # (Auto) 0.02 K/uL (0-0.2) 06/06/22 04:57 Immature Gran # (Auto) 0.63 K/uL (0.00-0.02) H 06/06/22 04:57 Absolute Nucleated RBC 0.38 K/uL (0-0) H 06/06/22 04:57 Nucleated RBC % (auto) 4.5 % 06/06/22 04:57 Neutrophils % (Manual) 90 % 06/05/22 17:00 Lymphocytes % (Manual) 1 % 06/05/22 17:00 Monocytes % (Manual) 3 % 06/05/22 17:00 Basophils % (Manual) 1 % 06/05/22 17:00 Metamyelocytes % (Man) 4 % 06/05/22 17:00 Myelocytes % (Man) 2 % 06/05/22 17:00 Neutrophils # (Manual) 11.16 K/uL (1.4-6.5) H 06/05/22 17:00 Total Absolute Neuts 11.16 K/uL (1.4-6.5) H 06/05/22 17:00 Lymphocytes # (Manual) 0.12 K/uL (1.2-3.4) L 06/05/22 17:00 Total Abs Lymphocytes 0.12 K/uL (1.2-3.4) L 06/05/22 17:00 Monocytes # (Manual) 0.37 K/uL (0.24-0.82) 06/05/22 17:00 Basophils # (Manual) 0.12 K/uL (0-0.2) 06/05/22 17:00 Metamyelocytes # (Man) 0.50 K/uL (0-0) H 06/05/22 17:00 Myelocytes # (Manual) 0.25 K/uL (0-0) H 06/05/22 17:00 Polychromasia 1+ 06/06/22 04:57 Basophilic Stippling 1+ 06/06/22 04:57 Stomatocytes 1+ 06/06/22 04:57 ESR 74 mm/hr (0-30) H 06/05/22 17:00 PT 11.2 Seconds (9.0-12.0) 06/06/22 06:59 INR 1.1 (0.9-1.1) 06/06/22 06:59 APTT 24.8 Seconds (21.0-31.0) 06/05/22 17:00 PTT Ratio 0.9 06/05/22 17:00 Fibrinogen 367 mg/dl (184-400) 06/06/22 06:59 ABG pH 7.27 (7.35-7.45) L 06/05/22 19:09 ABG pCO2 75 mmHg (35-46) H 06/05/22 19:09 ABG pO2 89 mmHg (80-95) 06/05/22 19:09 ABG HCO3 34 mmol/L (19-24) H 06/05/22 19:09 ABG O2 Saturation > 100.0 % (90-95) H 06/05/22 19:09 ABG Base Excess 4.9 mEq/L (-9-1.8) H 06/05/22 19:09 Fernando Test POS (Pos) 06/05/22 19:09 VBG pH 7.21 (7.36-7.41) L 06/05/22 17:20 VBG pCO2 87 mmHg (38-50) H 06/05/22 17:20 VBG pO2 41 mmHg 06/05/22 17:20 VBG HCO3 35 mmol/L 06/05/22 17:20 VBG O2 Saturation 68.3 % 06/05/22 17:20 VBG Base Excess 3.9 mEq/L 06/05/22 17:20 Oxygen Given 15L 06/05/22 19:09 Sodium 130 mmol/L (136-145) L 06/06/22 04:57 Potassium 5.2 mmol/L (3.5-5.1) H 06/06/22 04:57 Chloride 92 mmol/L (98-107) L 06/06/22 04:57 Carbon Dioxide 33 mmol/L (21-32) H 06/06/22 04:57 Anion Gap 5 (3-11) 06/06/22 04:57 BUN 23 mg/dl (6-23) 06/06/22 04:57 Creatinine 0.43 mg/dl (0.6-1.2) L 06/06/22 04:57 Est Cr Clr Drug Dosing 146.2 ml/min 06/06/22 04:57 Est GFR ( Amer) 136.5 ml/min 06/06/22 04:57 Est GFR (Non-Af Amer) 117.8 ml/min 06/06/22 04:57 BUN/Creatinine Ratio 53.5 (10-20) H 06/06/22 04:57 Glucose 97 mg/dl (70-99(Fasting)) 06/06/22 04:57 POC Glucose 143 mg/dl (70-99) H 06/05/22 21:00 Osmolality 280 mOsm/kg (280-300) 06/05/22 17:12 Lactate 1.2 mmol/L (0.4-2.0) 06/05/22 17:20 Calcium 8.5 mg/dl (8.5-10.1) 06/06/22 04:57 Phosphorus 3.3 mg/dl (2.5-4.9) 06/06/22 04:57 Magnesium 2.1 mg/dl (1.7-2.4) 06/06/22 04:57 Total Bilirubin 0.8 mg/dl (0.2-1.0) 06/06/22 04:57 Direct Bilirubin 0.3 mg/dl (0-0.2) H 06/06/22 04:57 AST 42 U/L (13-39) H 06/06/22 04:57 ALT 22 U/L (7-52) 06/06/22 04:57 Alkaline Phosphatase 172 U/L (34-104) H 06/06/22 04:57 Lactate Dehydrogenase 1872 U/L (86-244) H 06/05/22 23:03 Troponin I High Sens 8.5 pg/ml (0-14) 06/05/22 17:00 C-Reactive Protein 9.80 mg/dl (0-0.5) H 06/05/22 17:00 B-Natriuretic Peptide 79 pg/ml (0-100) 06/05/22 17:00 Total Protein 5.6 gm/dl (6.0-8.3) L 06/06/22 04:57 Albumin 3.7 gm/dl (3.4-5.0) 06/06/22 04:57 Globulin 3.1 gm/dl (2.5-4.0) 06/05/22 17:00 Albumin/Globulin Ratio 1.0 (0.9-2) 06/05/22 17:00 Procalcitonin 0.27 ng/ml (0-0.5) 06/06/22 04:57 Fluid Slide Review 06/05/22 22:35 Fluid Comment 06/05/22 22:35 Pleural Fluid Source L.LUNG 06/05/22 22:35 Pleural Color Red 06/05/22 22:35 Pleural Appearance Cloudy 06/05/22 22:35 Pleural WBC 978 /uL 06/05/22 22:35 Pleural RBC 29080 /uL 06/05/22 22:35 Pleural Total Protein 3.1 gm/dl 06/05/22 22:35 Pleural LDH 2705 U/L 06/05/22 22:35 Pleural Glucose 111 mg/dl 06/05/22 22:35 Nasal Screen MRSA (PCR) Negative (Negative) 06/05/22 22:35 SARS-CoV-2, RNA, NAAT NEGATIVE (NEGATIVE) 06/05/22 17:00 Blood Type A Positive 06/05/22 17:20 Antibody Screen NEGATIVE 06/05/22 17:20 Crossmatch See Detail 06/05/22 17:[address] 06/05/22 20:06 CT chest diagnostic wo con CT DOSE: 570.12 mGy.cm CLINICAL HISTORY: 51 years-old Female with sob. Acute shortness of breath TECHNIQUE: Multiaxial CT images of the chest were performed without contrast. A dose lowering technique was utilized adhering to the principles of ALARA. COMPARISON: Chest radiograph of same day, CTA chest 05/22/2022, PET CT 01/25/2022. FINDINGS: No thyroid nodule. Pathologically enlarged bilateral axillary with supraclavicular, mediastinal and hilar adenopathy. These findings are not definitively changed from most recent comparison. The heart is upper limits of normal in size. No thoracic aortic aneurysm. Left subclavian [id number] catheter distal tip terminates within the superior cavoatrial junction. Limited study without the use of IV contrast. There is diffuse pleural thickening redemonstrated throughout the right greater than left hemithoraces. Moderate sized loculated right with large left pleural effusions. No pneumo thorax. Nodular intralobular septal thickening is noted within the aerated right lung. Right lung volume loss with bibasilar consolidation suggestive of atelectasis. There is near complete collapse of the left lung with mildly aerated left upper lobe. Study is degraded by respiratory motion artifact. The central airways appear patent. Multifocal hepatic metastasis are new from 01/25/2022. The largest lesion within the right hepatic lobe measures up to 3.7 cm. Upper abdominal lymphadenopathy. Anasarca. Skin thickening of the bilateral breasts. Asymmetric enlargement of the right pectoralis musculature. Multifocal osseous metastasis which appear to be both mixed lytic and blastic. No definite acute pathologic fracture is identified. Mild subacute appearing pathologic fractures are noted at the C7 vertebral body. Hepatic cysts are also again noted. IMPRESSION: 1. Loculated moderate sized right and large left pleural effusions. Volume loss of the right lung with near complete collapse of the left lung. 2. Bilateral pleural thickening suggestive of pleural metastatic disease. There is progressive metastatic disease which includes lymphatic, hepatic and osseous metastasis. Subtle subacute appearing pathologic fracture of the T7 vertebral body without retropulsion. 3. Lymphangitic carcinomatosis of the right lung. 4. Breast and right chest wall lesions are again noted along with anasarca. ACT 112: Negative or not required by law. Electronically signed by: Haroon Aguirre M.D. 06/05/2022 9:04 PM Diagnostic Findings EKG as per my interpretation : Rate 110, sinus tachycardia, normal axis, T wave flattening inferior leads, low voltage (1) Respiratory failure Chronicity: acute Respiratory failure complication: hypoxia and hypercapnia Qualified Code(s): J96.01 - Acute respiratory failure with hypoxia; J96.02 - Acute respiratory failure with hypercapnia
--- NOTE | 2022-06-05 21:06 | CT Scan Report ---
CT chest diagnostic wo con CT DOSE: 570.12 mGy.cm CLINICAL HISTORY: 51 years-old Female with sob. Acute shortness of breath TECHNIQUE: Multiaxial CT images of the chest were performed without contrast. A dose lowering techni que was utilized adhering to the principles of ALARA. COMPARISON: Chest radiograph of same day, CTA chest 05/22/2022, PET CT 01/25/2022. FINDINGS: No thyroid nodule. Pathologically enlarged bilateral axillary with supraclavicular, mediastinal and hilar adenopathy. Th matias findings are not definitively changed from most recent comparison. The heart is upper limits of n ormal in size. No thoracic aortic aneurysm. Left subclavian Gksbsz-t-Scja catheter distal tip termina pawel within the superior cavoatrial junction. Limited study without the use of IV contrast. There is diffuse pleural thickening redemonstrated thro ughout the right greater than left hemithoraces. Moderate sized loculated right with large left pleur al effusions. No pneumothorax. Nodular intralobular septal thickening is noted within the aerated rig ht lung. Right lung volume loss with bibasilar consolidation suggestive of atelectasis. There is near complete collapse of the left lung with mildly aerated left upper lobe. Study is degraded by respira tory motion artifact. The central airways appear patent. Multifocal hepatic metastasis are new from 01/25/2022. The largest lesion within the right hepatic lob e measures up to 3.7 cm. Upper abdominal lymphadenopathy. Anasarca. Skin thickening of the bilateral breasts. Asymmetric enlargement of the right pectoralis musculature. Multifocal osseous metastasis wh ich appear to be both mixed lytic and blastic. No definite acute pathologic fracture is identified. M ild subacute appearing pathologic fractures are noted at the C7 vertebral body. Hepatic cysts are als o again noted. IMPRESSION: 1. Loculated moderate sized right and large left pleural effusions. Volume loss of the right lung wit h near complete collapse of the left lung. 2. Bilateral pleural thickening suggestive of pleural metastatic disease. There is progressive metast atic disease which includes lymphatic, hepatic and osseous metastasis. Subtle subacute appearing path ologic fracture of the T7 vertebral body without retropulsion. 3. Lymphangitic carcinomatosis of the right lung. 4. Breast and right chest wall lesions are again noted along with anasarca. ACT 112: Negative or not required by law. Electronically signed by: Haroon Aguirre M.D. 06/05/2022 9:04 PM
[2022-06-05] MEDS ORDERED: ALBUMIN 25% 100 mL 25 GM/100 ML VIAL IV ONE (21:17)
[2022-06-05] MEDS ORDERED: MoRPHine SULFATE 2 MG/ML CARP IV STA (21:58)
[2022-06-05] MEDS ORDERED: MoRPHine SULFATE 2 MG/ML CARP ONE (21:58)
--- NOTE | 2022-06-05 22:51 | Critical Care Consultation ---
Date of Consultation June 05, 2022 Assessment & Plan (1) Respiratory failure: Reason Critically Ill: 51-year-old female with metastatic breast cancer presents to the ICU with acute hypoxic hypercapnic respiratory failure secondary to large left pleural and loculated right pleural effusions, requiring BiPAP support and undergoing thoracentesis. Neuro - [facility] ICU: Negative Pain management: Oxycodone and morphine as needed DepressionLexapro Cardiac - Tachycardialarge effusion likely contributing. Troponin unremarkable. Previous echo with grade 1 diastolic dysfunction. Expect to improve following thoracentesis. We will hold metoprolol for now as patient's pressures are soft and she is currently receiving albumin bolus. Continuous monitoring on telemetry. Respiratory - Acute hypoxic hypercapnic respiratory failuresecondary to large left and loculated right pleural effusions likely due to metastatic disease. She recently underwent drain of the right effusion with pigtail catheter [address] chest showed large left effusion with collapse of the left lung. She is now status post left thoracentesis with 2.2 L drained and repeat chest x-ray shows significant improvement of the left-sided effusion. Pleural labs and cultures are currently pending and she is on broad-spectrum antibiotics. She may need Pleurx catheter and pulmonology consulted. Repeat chest x-ray in a.m. We will continue weaning BiPAP as tolerated. Continue apixaban for history of PEs. Continuous monitoring pulse ox. GI - N.p.o. for now PPI RENAL/LYTES - Creatinine within normal limits, monitor routine BMPs and replete electrolytes as indicated - Strict I's and O's ENDO - No history of diabetes or thyroid disease. ICU hyperglycemic protocol HEME - Pancytopeniaplatelets stable at 80,000, continue to monitor with routine CBCs H&H stable. ID - Pleural fluid cultures pending. Mild leukocytosis but afebrile. Procalcitonin pending. LINES/IV ACCESS - Peripheral IVs DVT PROPHYLAXIS - SCDs, on apixaban Breast cancer with metastasisfollows with [place] [facility]. Has previously underwent multiple lines of neoadjuvant therapy with minimal response. Started palliative radiation therapy in March 2022 CODE STATUS: Currently full code. We will consult palliative as patient is currently undergoing palliative radiation with poor prognosis expected I have personally spent 60 minutes of critical care time in the direct management of this patient. This is a life/limb threatening event. This includes time spent evaluating patient, direct bedside care, chart review, placing orders, interpretation of diagnostic studies, discussion with consultants, patient, and family members, as well as other required patient management activities. This time is exclusive of all separately billable procedures, and teaching time and separate from and in addition to any other critical care service time. Thank you for allowing us to participate in the care of this patient. Please refer to my attending physician's documentation for any further recommendations. (2) Hypoxia: (3) Acute respiratory acidosis: (4) Bilateral malignant neoplasm of breast in female: (5) History of DVT (deep vein thrombosis): (6) History of pulmonary embolism: (7) Large pleural effusion: (8) Acute dyspnea: (9) Breast cancer: History of Present Illness Attending Physician: Hema Torres MD History of Present Illness Patient is a 51-year-old female with significant history of metastatic breast cancer with osseous, liver, and lung metastasis. She was recently admitted to the ICU with right sided effusion requiring pigtail chest tube. She underwent palliative radiation for breast cancer in March 2022. She presented to the emergency department earlier this evening with complaints of shortness of breath in which she was found to be significantly hypoxic with saturations in the 60s. Blood gas showed hypercapnic respiratory acidosis with hypoxia. She was placed on BiPAP but remained tachypneic and tachycardic. She showed marginal improvements of oxygenation on BiPAP and decision was made to transfer to ICU. She underwent CT chest which revealed large left pleural effusion with collapse of the left lung and loculated right effusion. Dr. Arie Vega was contacted and presented to the bedside. She underwent left thoracentesis with removal of 2.2 L of pleural fluid. She is now admitted to the ICU for further management this time. Patient complains of shortness of breath and difficulty breathing. She was on BiPAP and complained of anxiety with the mask. She denies any cough, congestion, fevers, headaches or dizziness, chest pain or palpitations, abdominal pain, nausea vomiting or diarrhea, swelling in hands or feet, changes in gait. Allergies Allergy/AdvReac Type Severity Reaction Status Date / Time No Known Allergies Allergy Verified 06/05/22 19:01 Home Medications Medication Instructions Recorded Confirmed Type escitalopram oxalate 5 mg tablet 5 mg PO DAILY 11/02/21 06/05/22 History apixaban 5 mg tablet (Eliquis) 5 mg PO Q12H #74 tabs 11/03/21 06/05/22 Rx oxycodone 5 mg tablet 5 mg PO BID PRN Pain 02/27/22 06/05/22 History omeprazole 20 mg capsule,delayed 20 mg PO DAILY 05/09/22 06/05/22 History release folic acid 1 mg tablet 1 mg PO QAM 30 days #30 tabs 05/31/22 06/05/22 Rx magnesium oxide 400 mg (241.3 mg 400 mg PO QAM 30 days #30 tabs 05/31/22 06/05/22 Rx magnesium) tablet metoprolol tartrate 25 mg tablet 12.5 mg PO BID 30 days #30 tabs 05/31/22 06/05/22 Rx sodium chloride 1 gram tablet 1 g PO DAILY #30 tabs 05/31/22 06/05/22 Rx prochlorperazine maleate 10 mg 10 mg PO Q6H PRN NAUSEA/VOMITING 06/05/22 06/05/22 History tablet Patient History Medical History Acute anemia Anemia Breast cancer S/p chemo and radiation 2 cycles of AC, then 2 cycles of AC with pembrolizumab, then taxol/carbo with pembrolizumab. She had minimal response to neoadjuvant therapy, and was evaluated for surgery. Staging scans at that time revealed both PE and bilateral breast involvement with left axillary involvement consistent with metastatic disease. She was placed on anticoagulation--this development precluded surgery. She then had Trodelvy with minimal response and was referred for XRT to the right breast due to the bulk of the tumor. Then completed XRT to the left breast. Depression Fibroid uterus Heavy menstrual bleeding History of DVT (deep vein thrombosis) History of hysteroscopy "04/05/2017 hysteroscopy endometrial ablation" History of pulmonary embolism Hyponatremia Juvenile osteochondrosis of leg Menorrhagia Thrombocytopenia Uterine leiomyoma Wrist fracture, left Surgical repair Surgical History History of breast biopsy History of hysterectomy S/P section S/P laparoscopic hysterectomy S/P tubal ligation Family History Sister Breast cancer Father Prostate cancer Mother FH: pancreatic cancer Social History Smoking Status: Never smoker Second Hand Exposure: No; Do You Dip or Chew Tobacco: No; Tobacco Cessation Education Requested by Patient: No Hx Alcohol Use: No Hx Substance Use: No Preferred Language: Kyrgyz Communication Ability: Effective Pin Sorter And Bagger Required: No Beliefs That Will Affect Care: None marital status: Current Living Situation: Family current occupational status: employed Other Information That Helps Us Care for You: No Feels Safe at Home: Yes Safety Concerns: Feels Safe At This Time Diet Comment: healthier choices caffeine: Yes (tea daily) during the past year weight has: decreased > 10 lbs Assistive Devices: Contacts and Glasses Review of Systems Review of Systems: All systems reviewed & are unremarkable except as noted in HPI & below Physical Exam Constitutional: + acute distress and cooperative Eyes: PERRL, conjunctivae normal, anicteric sclerae ENMT: external ear and nose normal, oropharynx normal Neck: trachea midline, no thyromegaly Respiratory: Left lung sounds absent with auscultation, right lung diminished in bases. No wheezing. Tachypnea without use of accessory muscles. Symmetrical chest wall movement Cardiovascular: Rate/Rhythm: regular rate, regular rhythm and + tachycardic Vessels: no JVD Extremities: no edema Gastrointestinal (Abdomen): normal bowel sounds, soft, nontender, no hepatosplenomegaly Musculoskeletal: no cyanosis or clubbing, extremities motor strength 5/5 Skin: Radiation burn and scarring over the breast. No rashes, warm and dry Neurologic: PERRL, EOMI, accommodation nl, no face palsy, no dysarthria Psychiatric: A+Ox3, euthymic affect Results & Data Results & Data ([facility]) Vital Signs (Past 12 Hours) Vital Signs Temp Pulse Pulse Resp BP BP Pulse Ox 06/05/22 21:55 121 H 24 93/51 L 97 06/05/22 21:00 06/05/22 21:05 120 H 24 99/65 L 93 06/05/22 20:22 114 H 24 115/72 90 06/05/22 20:16 112 H 26 H 92 06/05/22 18:58 27 H 93 06/05/22 19:10 108 H 26 H 120/74 92 06/05/22 18:30 111 H 23 06/05/22 18:30 107/69 08/01/22 18:15 108 H 15 95 06/05/22 18:02 111 H 23 95 06/05/22 18:02 113/64 06/05/22 18:00 107 H 23 98/68 L 95 06/05/22 17:45 96 H 27 H 94 06/05/22 17:30 113 H 27 H 92 06/05/22 17:43 100 H 26 H 95 06/05/22 17:15 112 H 27 H 92 06/05/22 17:00 116 H 31 H 90 06/05/22 16:48 109 H 28 H 89 L 06/05/22 16:47 97/69 L 06/05/22 16:57 36.6 C 107 H 26 H 97/69 L 91 06/05/22 16:52 36.6 C 112 H 26 H 97/69 L 91 06/05/22 16:46 91 06/05/22 16:46 O2 Del Method O2 Flow Rate FiO2 06/05/22 21:55 BiPAP 06/05/22 21:00 100 06/05/22 21:05 BiPAP 06/05/22 20:22 BiPAP 06/05/22 20:16 BiPAP 80 06/05/22 18:58 80 06/05/22 19:10 BiPAP 06/05/22 18:30 06/05/22 18:30 06/05/22 18:15 06/05/22 18:02 06/05/22 18:02 06/05/22 18:00 06/05/22 17:45 06/05/22 17:30 06/05/22 17:43 100 06/05/22 17:15 15 06/05/22 17:00 15 06/05/22 16:48 15 06/05/22 16:47 06/05/22 16:57 Non-rebreather 06/05/22 16:52 Non-rebreather 15 06/05/22 16:46 Non-rebreather 15 06/05/22 16:46 Non-rebreather 15 Coding Level of Care Code Critical Care 1st 30-74 mins Diagnoses Respiratory failure J96.01; J96.02 Chronicity: acute Respiratory failure complication: hypoxia and hypercapnia Hypoxia R09.02 Acute respiratory acidosis E87.2 Bilateral malignant neoplasm of breast in female C50.911; C50.912 History of DVT (deep vein thrombosis) Z86.718 History of pulmonary embolism Z86.711 Large pleural effusion J90 Acute dyspnea R06.00 Breast cancer C50.919 (1) Respiratory failure Chronicity: acute Respiratory failure complication: hypoxia and hypercapnia Qualified Code(s): J96.01 - Acute respiratory failure with hypoxia; J96.02 - Acute respiratory failure with hypercapnia
[2022-06-05] MEDS ORDERED: ACETAMINOPHEN 325 MG TAB PO PRN (22:54)
[2022-06-05] MEDS ORDERED: PROMETHAZINE HCL 12.5 MG in SODIUM CHLORIDE 0.9% 50 ML IV PRN (22:54)
[2022-06-05] MEDS ORDERED: ICU PROTOCOL FOR HYPERGLYCEMIA PRN (22:54)
--- NOTE | 2022-06-05 23:07 | Procedure Note ---
Procedure Note Date of Service June 05, 2022 Note INDICATION: Left pleural effusion PROCEDURE: Left thoracentesis DATE: 06/05/2022 TIME: 2235 PROVIDER: Lemuel WEAVER, with supervision of Dr. Arie Vega CONSENT: Was obtained prior to the procedure by Dr. Arie Vega and placed on the chart PROCEDURE SUMMARY: Bedside ultra sound was performed to identify an appropriate puncture site. Images were saved to the [employer] system. A time out was performed. The patient was prepped and draped in a sterile manner using chlorhexidine scrub after the appropriate level was confirmed by ultrasound. 1% lidocaine was used to numb the region. A finder needle was then used under negative pressure to locate fluid and instill lidocaine into the pleural space. A small incision was made with a #10 scalpel. A needle with overlying catheter was advanced using negative pressure on the syringe until a pleural flash was obtained. The thoracentesis catheter was then threaded without difficulty and without any bleeding. The patient had 2200 mL of straw- colored fluid removed. The incision site was then covered with two Band-Aids with no evidence of bleeding. No immediate complications were noted during the procedure. A post-procedure chest x-ray was completed and reviewed at bedside by this provider and no pneumothorax was identified. The patient tolerated the procedure well with no shortness of breath, no hypotension, no increase in heart rate, and no other acute symptoms. Supervising Physician Co-Signing Physician Notes I was present and assisted with the entire procedure Coding CPT Codes Pulmonary/Thoracic - Pulmonary and Thoracic: 31488 Thoracentesis w/o imaging ([id number]) [facility] [place] Codes (Charges) Pulmonary/Thoracic Procedure 1: Pulmonary and Thoracic: 77850 Thoracentesis w/o imaging
[2022-06-05 23:36] LABS: Albumin Level 3.1 gm/dl (3.4-5.0); BUN Creatinine Ratio 44.6 (10-20); Calcium 8.6 mg/dl (8.5-10.1); Creatinine Clr Calc Pharmacy 112.2 ml/min; Est GFR (African American) 125.1 ml/min; Potassium 5.3 mmol/L (3.5-5.1)
[2022-06-05] MEDS: MoRPHine SULFATE 2 MG/ML CARP IV PRN (23:52)
[2022-06-06 00:04] LABS: Total Protein Pleural Fluid 3.1 gm/dl
[2022-06-06] MEDS: ALBUMIN 25% 100 mL 25 GM/100 ML VIAL IV SCH ×2 (00:34→02:04)
[2022-06-06 00:37] LABS: Appearance Pleural Fluid Cloudy; Color Pleural Fluid Red; RBC Pleural Fluid (A) 43000 /uL; Source Pleural Fluid L.LUNG; WBC Pleural Fluid (A) 978 /uL
[2022-06-06] MEDS: MoRPHine SULFATE 2 MG/ML CARP IV PRN ×4 (02:34→14:12)
[2022-06-06] MEDS: oxyCODONE HCL IR 5 MG TAB (IMMEDIATE RELEASE) PO PRN ×5 (03:16→22:59)
[2022-06-06 05:45] LABS: Albumin Level 3.7 gm/dl (3.4-5.0); BUN Creatinine Ratio 53.5 (10-20); Bilirubin Direct 0.3 mg/dl (0-0.2); Bilirubin,Total 0.8 mg/dl (0.2-1.0); Calcium 8.5 mg/dl (8.5-10.1); Creatinine Clr Calc Pharmacy 146.2 ml/min; Est GFR (African American) 136.5 ml/min; Est GFR (Non-African American) 117.8 ml/min; Magnesium 2.1 mg/dl (1.7-2.4); Phosphorus 3.3 mg/dl (2.5-4.9); Potassium 5.2 mmol/L (3.5-5.1); Total Protein 5.6 gm/dl (6.0-8.3)
[2022-06-06 06:02] LABS: Hemoglobin 6.6 g/dl (12.0-16.0); Mean Corpuscular Hemoglobin 27.3 pg (25.0-34.0); Mean Corpuscular Volume 90.9 fL (80.0-100.0); Mean Platelet Volume 9.9 fL (9.4-12.3); Nucleated RBC # (auto) 0.38 K/uL (0-0); Nucleated RBC % (auto) 4.5 %; Platelet Count 47 K/uL (130-400); RDW Coefficient of Variation 18.5 % (11.5-14.5); RDW Standard Deviation 59.2 fL (36.4-46.3); Red Blood Count 2.42 M/uL (3.93-5.22); White Blood Count 8.45 K/ul (4.8-10.8)
[2022-06-06] MEDS ORDERED: SODIUM CHLORIDE 0.9% 250 ML IV PRN (06:05)
[2022-06-06 06:39] LABS: Basophilic Stippling 1+; Basophils # (auto) 0.02 K/uL (0-0.2); Basophils % (auto) 0.2 %; Eosinophils # (auto) 0.01 K/uL (0-0.50); Eosinophils % (auto) 0.1 %; Immature Granulocytes # (auto) 0.63 K/uL (0.00-0.02); Immature Granulocytes % (auto) 7.5 %; Lymphocytes # (auto) 0.26 K/uL (1.2-3.4); Lymphocytes % (auto) 3.1 %; Monocytes # (auto) 0.49 K/uL (0.24-0.82); Monocytes % (auto) 5.8 %; Neutrophils # (auto) 7.04 K/uL (1.4-6.5); Neutrophils % (auto) 83.3 %; Polychromasia 1+; Stomatocytes 1+
--- NOTE | 2022-06-06 07:04 | Critical Care Progress Note ---
Date of Service June 06, 2022 Assessment & Plan (1) Respiratory failure: (2) Hypoxia: (3) Bilateral malignant neoplasm of breast in female: (4) Large pleural effusion: (5) History of pulmonary embolism: Plan Patient is a 51 year old female w/ PmHx of metastatic breast cancer previously hospitalized 05/22-05/31 admitted to the ICU for acute hypoxemic respiratory failure requiring BiPap and thoracentesis. Neuro [facility] ICU: Negative Pain management: oxycodone and morphine PRN. Depression: continue home Lexapro daily. Cardiac Tachycardia: Troponin unremarkable, echo from 04/2021 unremarkable. Most likely 2/2 pleural effusions, mildly improved with thoracentesis. Continue to hold metoprolol in the setting of soft pressures. Respiratory Acute hypoxic hypercapnic respiratory failure 2/2 malignant effusions: CT Chest w/ evidence of large effusion left lung, moderate size loculated effusion right lung, lymphangitic carcinomatosis right lung. Most likely 2/2 pleural effusions from malignancy. Had ~2.2L drainage from thoracentesis night of admission. Pulmonology consulted -Near complete opacification of left hemithorax, loculated lesions on right, evidence of lymphangitic carcinomatosis. -?benefit from Pluerx catheter, will re-evaluate for potential later on. -Based on clinical picture and imaging, likely terminal illness, recommend discussions with palliative care on goals of care. -Empiric antibiotics reasonable to continue. Palliative care consulted -Switched oxycodone ER to fentanyl patch, morphine for breakthrough pain. -Dr. Bhandari spoke to patient and about current condition. Patient would like to continue to be there for 2 children/family. -Realizes her time with her family may be short however was not able to discuss goals of care today. -Outpatient arrangement for support at home, pain management, and further goals of care discussion. Wean off high flow. Continue to monitor vitals. GI Regular diet. PPI. Renal/Electrolytes Kidney function within normal limits, continue to replete electrolytes as needed. Strict I&O's. Endo No past history of diabetes or thyroid disease. ICU hyperglycemia protocol Heme Chronic anemia: Most likely related to malignancy. Hemoglobin 6.6 this AM, infused 1 Unit PRBCs. Recheck in AM. Thrombocytopenia: Platelets 84->47. Past history of low platelets at last admission suspicious for HIT however gene tested negative. May be related to malignancy along with anemia. Continue to monitor with CBC. ID Blood culture and pleural cultures pending, afebrile, WBC within normal limits. Lines/IV Access Peripheral. DVT Prophylaxis SCD's, apixaban on hold for possible Pleurx. Dispo: ICU. Admission and Anticipated Discharge Date Admission Date: June 05, 2022 Supervising Physician Co-Signing Physician Notes Dr. Mcclain was resident physician during care of patient. I separately evaluated patient for corado portions of the history and the exam. I was present during the critical portion of medical decision making, and I discussed the case with the resident. I generally agree with the findings and plan. D/W Dr. Hayden, hold eliquis (last dose 06/05 in the morning) for possible pluerX, borderline hypotension responded to colloid volume expansion. She has a significant oxygen requirement I suspect that this is secondary to lymphangitic spread into the lungs. Would likely benefit from palliative care discussion regarding goals of care. Received 1 unit packed red blood cells unclear etiology of anemia no black tarry stools or bloody stools, could represent extension into marrow. Stable to downgrade. Subjective Patient seen at the bedside today saying she feels like her shortness of breath is mildly better after the thoracentesis last night but has some residual pain at the site. She denies nausea, vomiting, fevers, chills. Denies chest pain but says she just feels a chest tightness. Review of Systems Constitutional: as per Subjective / HPI Physical Exam Constitutional: WD/WN, vitals as above Eyes: PERRL, conjunctivae normal, anicteric sclerae Respiratory: Clear to auscultation in upper lung basurto, diminished breath sounds in the lower lung basurto bilaterally. Cardiovascular: RRR, no murmur, no edema Gastrointestinal (Abdomen): normal bowel sounds, soft, nontender, no hepa tosplenomegaly Results & Data Results & Data ([facility]) Vital Signs (Past 12 Hours) Vital Signs Temp Pulse Pulse Resp BP BP BP 06/06/22 06:00 109 H 13 06/06/22 06:00 97/64 L 06/06/22 05:00 109 H 18 06/06/22 05:00 91/62 L 06/06/22 04:00 109 H 26 H 06/06/22 04:00 95/59 L 06/06/22 03:00 114 H 35 H 06/06/22 03:00 96/61 L 06/06/22 02:00 115 H 18 06/06/22 02:00 93/56 L 06/06/22 01:00 118 H 18 06/06/22 01:00 99/56 L 06/06/22 00:00 36.7 C 113 H 21 06/06/22 00:00 81/60 L 06/05/22 23:50 90/60 L 06/05/22 23:50 112 H 27 H 06/06/22 03:51 106 H 34 H 06/06/22 00:00 115 H 06/06/22 00:01 117 H 28 H 06/05/22 23:00 36.7 C 120 H 25 H 06/05/22 23:00 80/64 L 06/05/22 22:48 72/44 L 06/05/22 22:48 125 H 38 H 06/05/22 22:45 60/39 L 06/05/22 22:45 128 H 32 H 06/05/22 22:41 128 H 37 H 06/05/22 22:41 74/51 L 06/05/22 22:30 113 H 31 H 06/05/22 23:35 06/05/22 22:54 117 H 06/05/22 22:00 127 H 24 83/69 L 06/05/22 21:55 121 H 24 93/51 L 06/05/22 21:00 06/05/22 21:05 120 H 24 99/65 L 06/05/22 20:22 114 H 24 115/72 06/05/22 20:16 112 H 26 H 06/05/22 19:10 108 H 26 H 120/74 Pulse Ox O2 Del Method O2 Flow Rate FiO2 06/06/22 06:00 92 06/06/22 06:00 06/06/22 05:00 92 06/06/22 05:00 06/06/22 04:00 95 06/06/22 04:00 06/06/22 03:00 91 06/06/22 03:00 06/06/22 02:00 99 06/06/22 02:00 06/06/22 01:00 100 06/06/22 01:00 06/06/22 00:00 100 06/06/22 00:00 06/05/22 23:50 06/05/22 23:50 94 06/06/22 03:51 94 70 06/06/22 00:00 06/06/22 00:01 92 100 06/05/22 23:00 98 06/05/22 23:00 06/05/22 22:48 06/05/22 22:48 100 06/05/22 22:45 06/05/22 22:45 06/05/22 22:41 78 L 06/05/22 22:41 06/05/22 22:30 94 06/05/22 23:35 Oxymask 12 06/05/22 22:54 06/05/22 22:00 96 BiPAP 100 06/05/22 21:55 97 BiPAP 06/05/22 21:00 100 06/05/22 21:05 93 BiPAP 06/05/22 20:22 90 BiPAP 06/05/22 20:16 92 BiPAP 80 06/05/22 19:10 92 BiPAP (1) Respiratory failure Chronicity: acute Respiratory failure complication: hypoxia and hypercapnia Qualified Code(s): J96.01 - Acute respiratory failure with hypoxia; J96.02 - Acute respiratory failure with hypercapnia
[2022-06-06 07:34] LABS: Fibrinogen 367 mg/dl (184-400); INR 1.1 (0.9-1.1); Prothrombin Time 11.2 Seconds (9.0-12.0)
[2022-06-06] MEDS: ESCITALOPRAM OXALATE 10 MG TAB PO SCH (08:43)
[2022-06-06] MEDS: FOLIC ACID 1 MG TAB PO SCH (08:43)
[2022-06-06] MEDS: PANTOprazole 40 MG TAB PO SCH (08:43)
[2022-06-06] MEDS: SODIUM CHLORIDE 1 GM TABLET PO SCH (08:44)
[2022-06-06] MEDS ORDERED: METOPROLOL TARTRATE 25 MG TAB PO SCH (09:00)
[2022-06-06 09:41] LABS: Mono,Macrophage,Mesothelial 87 %; Neutrophils, Fluid 7 %
--- NOTE | 2022-06-06 09:41 | Billing Data ---
Date of Service June 06, 2022 Coding Level of Care Code 28390 Subseq Obs Care Lvl 3
[2022-06-06 09:42] LABS: Lymphocytes, Fluid 6 %
--- NOTE | 2022-06-06 09:44 | XRay Report ---
XR chest 1V portable HISTORY: s/p thoracentesis COMPARISON: Chest 06/05/2022. FINDINGS: The cardiac silhouette remains mildly enlarged. There is left subclavian Port-A-Cath which terminates in the distal SVC. Significant decrease in size in the now small left pleural effusion sta tus post thoracentesis. Partially loculated moderate right pleural effusion is similar to the prior s tudy. No pneumothorax. Right lower lung zone airspace opacities persist. IMPRESSION: 1. Significant decrease in size in the now small left pleural effusion status post thoracentesis. No pneumothorax. 2. No change in the moderate right pleural effusions and right base airspace opacities. ACT 112: Negative or not required by law. Electronically signed by: Vito Brewster M.D. 06/06/2022 9:19 AM
--- NOTE | 2022-06-06 10:08 | Pulmonary Consultation ---
Date of Consultation June 06, 2022 Assessment & Plan (1) Malignant pleural effusion: I performed a [id number] ultrasound of the left and right hemithorax. The left pleural effusion was drained yesterday by the ICU team. I suspect that this is a malignant effusion. Pleural fluid cultures are pending. There is no significant effusion on the left to tap at this time. The chest x-ray was reviewed which demonstrates an infiltrate at the left lower lobe which is likely related to atelectasis. I reviewed the CT chest from yesterday evening which revealed near complete opacification of the left hemithorax and loculated lesions on the right. 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 The right hemithorax demonstrates multiple loculated pockets of malignant effusion. I am uncertain that she would have a significant benefit from Pleurx catheter and there are significant risk at this time given that she took a dose of Eliquis yesterday. We will reevaluate how she is doing later today and tomorrow. We will consider Pleurx catheter at a later time depending on clinical picture. (2) Acute hypoxemic respiratory failure: Multifactorial related to tumor burden, lymphangitic carcinomatosis, bilateral pleural effusions, anemia and atelectasis. I highly suspect that this is likely a terminal illness and would recommend palliative measures. Empiric antibiotics are reasonable to continue for the time being. I discussed intubation and mechanical ventilation with the patient. I reiterated to her that I suspect that she would be very difficult to wean off the ventilator in the event that she required intubation. I asked her to consider a DNR/DNI status given her advanced malignancy. (3) Acute dyspnea: Secondary to all the above. History of Present Illness Reason for Consultation: Recurrent malignant pleural effusions and hypoxemic respiratory failure requiring high flow oxygen Attending Physician: Hema Torres MD History of Present Illness 51-year-old female with a history of metastatic breast cancer who was just in the hospital roughly 2 weeks ago for a very large right malignant pleural effusion which required drainage with the pigtail catheter. I saw her during that last hospitalization and inserted the pigtail catheter. Unfortunately, she presents back with a large left pleural effusion essentially opacifying her left hemithorax. She underwent a thoracentesis last night in the ICU and had 2.2 L of fluid removed. She does feel better since the drainage, but she is still requiring high flow oxygen and occasionally tripoding due to shortness of breath. She reports that shortness of breath started suddenly on Sunday. She denies any fever or chill. She does have occasional cough. Her appetite is very poor. She looks considerably more sick than she did even 2 weeks ago. Her labs suggest mild leukocytosis and thrombocytopenia. She also is anemic and receiving a unit of blood this morning. He has a history of PE and is chronically on Eliquis. She took her Eliquis yesterday. Unfortunately she was unable to make her oncology appointment last at [place] due to her illness. No documented fever. She has hypotensive, but her blood pressure is similar to how it was 2 weeks ago. Her metoprolol dosing has been held. I personally discussed the case with the inspector outside steam distribution, Dr. Vega. Allergies Allergy/AdvReac Type Severity Reaction Status Date / Time No Known Allergies Allergy Verified 06/05/22 19:01 Home Medications Medication Instructions Recorded Confirmed Type escitalopram oxalate 5 mg tablet 5 mg PO DAILY 11/02/21 06/05/22 History apixaban 5 mg tablet (Eliquis) 5 mg PO Q12H #74 tabs 11/03/21 06/05/22 Rx oxycodone 5 mg tablet 5 mg PO BID PRN Pain 02/27/22 06/05/22 History omeprazole 20 mg capsule,delayed 20 mg PO DAILY 05/09/22 06/05/22 History release folic acid 1 mg tablet 1 mg PO QAM 30 days #30 tabs 05/31/22 06/05/22 Rx magnesium oxide 400 mg (241.3 mg 400 mg PO QAM 30 days #30 tabs 05/31/22 06/05/22 Rx magnesium) tablet metoprolol tartrate 25 mg tablet 12.5 mg PO BID 30 days #30 tabs 05/31/22 06/05/22 Rx sodium chloride 1 gram tablet 1 g PO DAILY #30 tabs 05/31/22 06/05/22 Rx prochlorperazine maleate 10 mg 10 mg PO Q6H PRN NAUSEA/VOMITING 06/05/22 06/05/22 History tablet Patient History Medical History (Updated 06/06/22 @ 11:26 by Prem Hayden MD) Acute anemia Acute dyspnea Acute hypoxemic respiratory failure Anemia Breast cancer S/p chemo and radiation 2 cycles of AC, then 2 cycles of AC with pembrolizumab, then taxol/carbo with pembrolizumab. She had minimal response to neoadjuvant therapy, and was evaluated for surgery. Staging scans at that time revealed both PE and bilateral breast involvement with left axillary involvement consistent with metastatic disease. She was placed on anticoagulation--this development precluded surgery. She then had Trodelvy with minimal response and was referred for XRT to the right breast due to the bulk of the tumor. Then completed XRT to the left breast. Depression Fibroid uterus Heavy menstrual bleeding History of DVT (deep vein thrombosis) History of hysteroscopy "04/05/2017 hysteroscopy endometrial ablation" History of pulmonary embolism Hyponatremia Juvenile osteochondrosis of leg Malignant pleural effusion Menorrhagia Thrombocytopenia Uterine leiomyoma Wrist fracture, left Surgical repair Surgical History History of breast biopsy History of hysterectomy S/P section S/P laparoscopic hysterectomy S/P tubal ligation Family History Sister Breast cancer Father Prostate cancer Mother FH: pancreatic cancer Social History Smoking Status: Never smoker Second Hand Exposure: No; Do You Dip or Chew Tobacco: No; Tobacco Cessation Education Requested by Patient: No Hx Alcohol Use: No Hx Substance Use: No Preferred Language: [place] Communication Ability: Effective Fruit Stuffer Required: No Beliefs That Will Affect Care: None marital status: Current Living Situation: Family current occupational status: employed Other Information That Helps Us Care for You: No Feels Safe at Home: Yes Safety Concerns: Feels Safe At This Time Diet Comment: healthier choices caffeine: Yes (tea daily) during the past year weight has: decreased > 10 lbs Assistive Devices: Oxygen - Continuous Assistive Devices Comment: [employer] Review of Systems Review of Systems: All systems reviewed & are unremarkable except as noted in HPI & below Physical Exam Physical Exam: Constitutional: Frail appearing female in moderate distress. Eyes: Pupils are equal round and reactive to light. Conjunctivae are normal. Anicteric sclera. Ears nose, mouth and throat: Deferred. Neck: Trachea is midline. Visual inspection is normal. Respiratory: Diminished lung sounds bilaterally. Tachypneic. Conversational dyspnea. Cardiovascular: Tachycardic. Regular rhythm. No murmurs. Trace lower extremity edema. Gastrointestinal: Normal bowel sounds, soft, nontender and nondistended. No hepatosplenomegaly noted. Musculoskeletal: No cyanosis. Patient is able to move all extremities. Skin: No rashes, warm dry and intact. Neurologic: No obvious focal neurological deficits seen. Psychiatric: Alert and oriented x3 with an anxious mood. Results & Data Results & Data ([facility]) Vital Signs (Past 12 Hours) Vital Signs Temp Pulse Pulse Resp BP Pulse Ox O2 Del Method 06/06/22 09:57 37.0 C 95 H 27 H 118/72 92 06/06/22 09:03 37.0 C 105 H 26 H 112/66 90 06/06/22 07:45 103 H 32 H 100/65 94 High Flow Nasal Cannula 06/06/22 07:41 107 H 24 102/64 93 High Flow Nasal Cannula 06/06/22 07:30 107 H 23 101/60 91 Oxymask 06/06/22 07:27 106 H 28 H 91/61 L 91 Oxymask 06/06/22 07:23 108 H 26 H 93/62 L 92 Oxymask 06/06/22 07:15 107 H 23 107/61 93 Oxymask 06/06/22 07:00 106 H 21 100/61 93 Oxymask 06/06/22 08:02 36.7 C 98 H 27 H 105/67 90 06/06/22 07:47 98 H 26 H 93 High Flow Nasal Cannula 06/06/22 07:00 Oxymask 06/06/22 07:00 106 H 06/06/22 08:10 36.7 C 90 26 H 114/73 90 06/06/22 07:40 36.6 C 105 H 19 102/64 93 06/06/22 07:25 36.6 C 105 H 26 H 91/61 L 92 06/06/22 07:22 36.6 C 109 H 28 H 93/62 L 92 06/06/22 07:06 36.7 C 109 H 24 100/61 93 06/06/22 06:00 109 H 13 92 06/06/22 06:00 97/64 L 06/06/22 05:00 109 H 18 92 06/06/22 05:00 91/62 L 08/02/22 04:00 109 H 26 H 95 06/06/22 04:00 95/59 L 06/06/22 03:00 114 H 35 H 91 06/06/22 03:00 96/61 L 06/06/22 02:00 115 H 18 99 06/06/22 02:00 93/56 L 06/06/22 01:00 118 H 18 100 06/06/22 01:00 99/56 L 06/06/22 00:00 36.7 C 113 H 21 100 06/06/22 00:00 81/60 L 06/05/22 23:50 90/60 L 06/05/22 23:50 112 H 27 H 94 06/06/22 03:51 106 H 34 H 94 06/06/22 00:00 115 H 06/06/22 00:01 117 H 28 H 92 06/05/22 23:00 36.7 C 120 H 25 H 98 06/05/22 23:00 80/64 L 06/05/22 22:48 72/44 L 06/05/22 22:48 125 H 38 H 100 06/05/22 22:45 60/39 L 06/05/22 22:45 128 H 32 H 06/05/22 22:41 128 H 37 H 78 L 06/05/22 22:41 74/51 L 06/05/22 22:30 113 H 31 H 94 06/05/22 23:35 Oxymask 06/05/22 22:54 117 H O2 Flow Rate FiO2 06/06/22 09:57 60 06/06/22 09:03 60 06/06/22 07:45 40 80 06/06/22 07:41 40 80 06/06/22 07:30 15 06/06/22 07:27 15 06/06/22 07:23 15 06/06/22 07:15 10 06/06/22 07:00 10 06/06/22 08:02 40 06/06/22 07:47 40 80 06/06/22 07:00 10 06/06/22 07:00 06/06/22 08:10 60 06/06/22 07:40 15 06/06/22 07:25 10 06/06/22 07:22 10 06/06/22 07:06 06/06/22 06:00 06/06/22 06:00 06/06/22 05:00 06/06/22 05:00 06/06/22 04:00 06/06/22 04:00 06/06/22 03:00 06/06/22 03:00 06/06/22 02:00 06/06/22 02:00 06/06/22 01:00 06/06/22 01:00 06/06/22 00:00 06/06/22 00:00 06/05/22 23:50 06/05/22 23:50 06/06/22 03:51 70 06/06/22 00:00 06/06/22 00:01 100 06/05/22 23:00 06/05/22 23:00 06/05/22 22:48 06/05/22 22:48 06/05/22 22:45 06/05/22 22:45 06/05/22 22:41 06/05/22 22:41 06/05/22 22:30 06/05/22 23:35 12 06/05/22 22:54 PG Care Time/CCT Total # of Minutes Spent Total Time Spent with Patient: Total time spent is greater than 50% in coordination of care (as documented) at patient's floor/unit and/or counseling patient: Coding Level of Care Code 96366 Initial Inpt Care Lvl 3 Diagnoses Malignant pleural effusion J91.0 Acute hypoxemic respiratory failure J96.01 Acute dyspnea R06.00
--- NOTE | 2022-06-06 11:08 | XRay Report ---
XR chest 1V portable HISTORY: Resp failure COMPARISON: Chest 06/05/2022. FINDINGS: No pneumothorax. A moderate right pleural effusion and right basilar densities persist. The heart remains mildly enlarged. Interval development of left basilar consolidation/effusion. There is mild central pulmonary vascular congestion without overt edema. Left subclavian Port-A-Cath remains at the distal SVC. IMPRESSION: 1. Interval development of a left basilar consolidation/effusion. This could represent an aspiration pneumonia or progressive pleural effusion. 2. Mild central pulmonary vascular congestion without overt edema ACT 112: Negative or not required by law. Electronically signed by: Vito Brewster M.D. 06/06/2022 11:06 AM
--- NOTE | 2022-06-06 11:41 | Electrocardiogram Report ---
Test Reason : Blood Pressure : / mmHG Vent. Rate : 112 BPM Atrial Rate : 112 BPM P-R Int : 140 ms QRS Dur : 070 ms QT Int : 306 ms P-R-T Axes : 022 018 010 degrees QTc Int : 417 ms Sinus tachycardia Low voltage QRS Abnormal ECG Confirmed by Ghulam García ([id number]) on 06/06/2022 11:40:57 AM Referred By: REFERRED SELF Confirmed By:Don García
--- NOTE | 2022-06-06 14:58 | Palliative Care Consultation ---
Date of Consultation June 06, 2022 Assessment & Plan (1) Acute dyspnea: Improved with thoracentesis. She is being considered for pleurx catheter pending hold on her eliquis. (2) Right flank pain: Likely related to her primary tumor or malignant effusion. She did have some sludge and distended gallbladder on CT in the spring but pain is not consistent with biliary colic. With routine use of oxycodone every four hours, I think that she would benefit from long acting opioid. Discussed oxycodone ER versus fentanyl patch. I think fentanyl patch would be a better option for her. Will start 12mcg patch and monitor. Continue prn IV morphine for breakthrough pain. This can be converted to po opioid on discharge. (3) Palliative care encounter: I talked with Lin and her about how she is coping with her illness. This has been very stressful for her for obvious reasons but also because her two children are at very pivotal points in their lives. Her son recently completed grad school, is moving home and starting a new job. Her daughter is a sophomore at [employer]. She is worried that her illness is affecting the "normality" of their experiences and very much wants to be present to see their lives develop further. During our conversation, her daughter arrived also. We talked about communicating with each other about what feels like the best course of action for each person, for example, her daughter is considering taking a semester off. Lin realizes that her time with her family may be short but was not able to discuss goals of care further today. They are agreeable to ongoing palliative care support. Will try to arrange outpatient f/u prior to discharge and continue to provide support with symptom management and goals of care. They have also realized that they need help at home for her care. We talked about home nursing care to monitor her breathing and pain and perhaps drain pleurx catheter if placed. They would be very interested in that. (4) Malignant pleural effusion: s/p thoracentesis, ?pleurx (5) Bilateral malignant neoplasm of breast in female: History of Present Illness Reason for Consultation: goals of care Requesting Physician: Dr. Torres Attending Physician: MEG العراقي History of Present Illness 51 yo lady with T4N3 ER negative, WI negative, Her2/rosa negative breast cancer initially found in March of 2021. She was found to have an 8.5 x 4.4 x 6.1cm right breast mass with an additional smaller right breast mass and multiple axillary nodes. She did have neoadjuvant chemotherapy at [facility] in [place] with taxol/carboplatin and was scheduled for surgery which was postponed due to covid infection. She has had disease progression though PET scan showed activity in the contralateral breast and axilla but was negative for distant metastatic disease. She did also complete radiation therapy. She does also have a history of bilateral PEs. She was admitted earlier in May with dyspnea on exertion and large right malignant pleural effusion. She had chest tube placement and improvement and was discharged to home. At home, she had progressive dyspnea and was readmitted with bilateral pleural effusions. She has been on high flow O2. She did have thoracentesis for 2.2 L on the left side. Right effusion is loculated. She has had some improvement in dyspnea and O2 is being weaned. She is also complaining of a persistent discomfort in her right flank. She had been taking oxycodone prn at home but notes that pain is worse than it had been at home. She has been taking oxycodone every four hours with supplemental prn IV morphine. She denies constipation and has been moving her bowels about every other day but has miralax at home which she took during her chemo. Allergies Allergy/AdvReac Type Severity Reaction Status Date / Time No Known Allergies Allergy Verified 06/05/22 19:01 Home Medications Medication Instructions Recorded Confirmed Type escitalopram oxalate 5 mg tablet 5 mg PO DAILY 11/02/21 06/05/22 History apixaban 5 mg tablet (Eliquis) 5 mg PO Q12H #74 tabs 11/03/21 06/05/22 Rx oxycodone 5 mg tablet 5 mg PO BID PRN Pain 02/27/22 06/05/22 History omeprazole 20 mg capsule,delayed 20 mg PO DAILY 05/09/22 06/05/22 History release folic acid 1 mg tablet 1 mg PO QAM 30 days #30 tabs 05/31/22 06/05/22 Rx magnesium oxide 400 mg (241.3 mg 400 mg PO QAM 30 days #30 tabs 05/31/22 06/05/22 Rx magnesium) tablet metoprolol tartrate 25 mg tablet 12.5 mg PO BID 30 days #30 tabs 05/31/22 06/05/22 Rx sodium chloride 1 gram tablet 1 g PO DAILY #30 tabs 05/31/22 06/05/22 Rx prochlorperazine maleate 10 mg 10 mg PO Q6H PRN NAUSEA/VOMITING 06/05/22 2 History tablet Patient History Medical History Acute anemia Acute dyspnea Acute hypoxemic respiratory failure Anemia Breast cancer S/p chemo and radiation 2 cycles of AC, then 2 cycles of AC with pembrolizumab, then taxol/carbo with pembrolizumab. She had minimal response to neoadjuvant therapy, and was evaluated for surgery. Staging scans at that time revealed both PE and bilateral breast involvement with left axillary involvement consistent with metastatic disease. She was placed on anticoagulation--this development precluded surgery. She then had Trodelvy with minimal response and was referred for XRT to the right breast due to the bulk of the tumor. Then completed XRT to the left breast. Depression Fibroid uterus Heavy menstrual bleeding History of DVT (deep vein thrombosis) History of hysteroscopy "04/05/2017 hysteroscopy endometrial ablation" History of pulmonary embolism Hyponatremia Juvenile osteochondrosis of leg Malignant pleural effusion Menorrhagia Thrombocytopenia Uterine leiomyoma Wrist fracture, left Surgical repair Surgical History History of breast biopsy History of hysterectomy S/P section S/P laparoscopic hysterectomy S/P tubal ligation Family History Sister Breast cancer Father Prostate cancer Mother FH: pancreatic cancer Social History Smoking Status: Never smoker Second Hand Exposure: No; Do You Dip or Chew Tobacco: No; Tobacco Cessation Education Requested by Patient: No Hx Alcohol Use: No Hx Substance Use: No Preferred Language: Romansh Communication Ability: Effective Histology Tech Required: No Beliefs That Will Affect Care: None marital status: Current Living Situation: Family current occupational status: employed Other Information That Helps Us Care for You: No Feels Safe at Home: Yes Safety Concerns: Feels Safe At This Time Diet Comment: healthier choices caffeine: Yes (tea daily) during the past year weight has: decreased > 10 lbs Assistive Devices: Oxygen - Continuous Assistive Devices Comment: [employer] Review of Systems Review of Systems: ESAS Pain 2/3 Dyspnea 2/3 Nausea 0/3 Fatigue 2/3 Anxiety 1/3 Drowsiness 0/3 PPS 50% Physical Exam Constitutional: + ill appearing and + thin Respiratory: + uses accessory muscles Cardiovascular: Rate/Rhythm: regular rate and regular rhythm Musculoskeletal: Extremities: extremities normal to inspection Neurologic: awake; not confused Psychiatric: A+Ox3, euthymic affect Results & Data ([facility]) Vital Signs (Past 12 Hours) Vital Signs Temp Pulse Pulse Resp BP BP Pulse Ox 06/06/22 14:36 102 H 20 95/54 L 98 06/06/22 14:30 103 H 20 97/63 L 97 06/06/22 14:00 92 H 24 97/60 L 97 06/06/22 13:30 98 H 22 97/54 L 98 06/06/22 12:00 98.6 F 06/06/22 13:00 93 H 12 96/64 L 97 06/06/22 12:30 108 H 17 100/61 97 06/06/22 12:00 104 H 24 97/61 L 97 06/06/22 11:30 100 H 21 102/60 97 06/06/22 11:16 94 H 22 96 06/06/22 10:51 98.8 F 102 H 21 96/58 L 97 06/06/22 09:57 98.6 F 95 H 27 H 118/72 92 06/06/22 09:03 98.6 F 105 H 26 H 112/66 90 06/06/22 07:45 103 H 32 H 100/65 94 06/06/22 07:41 107 H 24 102/64 93 06/06/22 07:30 107 H 23 101/60 91 06/06/22 07:27 106 H 28 H 91/61 L 91 06/06/22 07:23 108 H 26 H 93/62 L 92 06/06/22 07:15 107 H 23 107/61 93 06/06/22 07:00 106 H 21 100/61 93 06/06/22 08:02 98.1 F 98 H 27 H 105/67 90 06/06/22 07:47 98 H 26 H 93 06/06/22 07:00 06/06/22 07:00 106 H 06/06/22 08:10 98.1 F 90 26 H 114/73 90 06/06/22 07:40 97.9 F 105 H 19 102/64 93 06/06/22 07:25 97.9 F 105 H 26 H 91/61 L 92 06/06/22 07:22 97.9 F 109 H 28 H 93/62 L 92 06/06/22 07:06 98.1 F 109 H 24 100/61 93 06/06/22 06:00 109 H 13 92 06/06/22 06:00 97/64 L 06/06/22 05:00 109 H 18 92 06/06/22 05:00 91/62 L 06/06/22 04:00 109 H 26 H 95 06/06/22 04:00 95/59 L 06/06/22 03:00 114 H 35 H 91 06/06/22 03:00 96/61 L 06/06/22 03:51 106 H 34 H 94 O2 Del Method O2 Flow Rate FiO2 06/06/22 14:36 High Flow Nasal Cannula 40 75 06/06/22 14:30 High Flow Nasal Cannula 40 75 06/06/22 14:00 High Flow Nasal Cannula 40 75 06/06/22 13:30 High Flow Nasal Cannula 40 75 06/06/22 12:00 06/06/22 13:00 High Flow Nasal Cannula 40 75 06/06/22 12:30 High Flow Nasal Cannula 40 75 06/06/22 12:00 High Flow Nasal Cannula 40 75 06/06/22 11:30 High Flow Nasal Cannula 40 75 06/06/22 11:16 High Flow Nasal Cannula 40 75 06/06/22 10:51 High Flow Nasal Cannula 60 80 06/06/22 09:57 60 06/06/22 09:03 60 06/06/22 07:45 High Flow Nasal Cannula 40 80 06/06/22 07:41 High Flow Nasal Cannula 40 80 06/06/22 07:30 Oxymask 15 06/06/22 07:27 Oxymask 15 06/06/22 07:23 Oxymask 15 06/06/22 07:15 Oxymask 10 06/06/22 07:00 Oxymask 10 06/06/22 08:02 40 06/06/22 07:47 High Flow Nasal Cannula 40 80 08/02/22 07:00 Oxymask 10 06/06/22 07:00 06/06/22 08:10 60 06/06/22 07:40 15 06/06/22 07:25 10 06/06/22 07:22 10 06/06/22 07:06 06/06/22 06:00 06/06/22 06:00 06/06/22 05:00 06/06/22 05:00 06/06/22 04:00 06/06/22 04:00 06/06/22 03:00 06/06/22 03:00 06/06/22 03:51 70 PG Care Time/CCT Total # of Minutes Spent Total Time Spent: 80 Total Time Spent with Patient: Total time spent is greater than 50% in coordination of care (as documented) at patient's floor/unit and/or counseling patient: symptom management, goals of care, patient and family education and support Coding Level of Care Code 88332 Initial Inpt Care Lvl 3 Diagnoses Acute dyspnea R06.00 Right flank pain R10.9 Palliative care encounter Z51.5 Malignant pleural effusion J91.0 Bilateral malignant neoplasm of breast in female C50.911; C50.912
--- NOTE | 2022-06-06 15:38 | Hospitalist Progress Note ---
Date of Service June 06, 2022 Assessment & Plan (1) Respiratory failure: Plan: Acute hypoxemic respiratory failure Likely secondary to malignant pleural effusion Recent admission weeks ago for Large pleural effusion - Cytology positive form last admisission showed Malignant cells present consistent with metastatic adenocarcinoma, breast primary. CT chest showed loculated moderate sized right and large left pleural effusions. Bilateral pleural thickening suggestive of pleural metastatic disease. Lymphangitic carcinomatosis of the right lung. Pt was placed on Bipap on admission CXR showed interval development of complete opacification of the left hemithorax. Bilateral pleural effusions S/P thoracentesis done where 2200 mL of straw-colored fluid removed by ICU team No post op complication Repeat CXR showed interval development of a left basilar consolidation/effusion. Mild central pulmonary vascular congestion without overt edema Pulmonology on board plan to eval for PleurX catheter Procalcitonin and WBC normal Received IV abx with Zosyn Blood culture and fluid from pleural effusion pending Consider to continue abx if cx positive ( abx management as per ICU team) Continue monitor closely Anemia Hgb dropped to 6.6 S/P 1 unit PRBC Will check H/H Comtinue monitor CBC Breast cancer: S/p chemo and radiation, recently completed radiation treatment to the left breast Follows with [facility] medical oncology and [facility] radiation oncology Patient's oncologist, Dr. Murcia ([phone]) - contacted me on 05/24 and was updated. She also called and checked in with the patient. Palliative care on board for [facility] Thrombocytopenia Platelet on admission 84 then dropped to Platelet 47 today -Patient has been on IV heparin on and off, during this admission No sign of active bleeding Continue monitor platelet History of PE/ DVT on Eliquis at home Last dose Eliquis yesterday Continue to resume eliquis if no plan for PleuX catheter later or in the morning Continue monitor hgb closely while on eliquis DVT prophylaxis. Resume Eliquis post chest tube placement Full code Patient requesting updates from providers. Mr. Royce Rees, contact #[phone]. Admission and Anticipated Discharge Date Admission Date: June 05, 2022 Subjective Pt was seen and examined for follow up of SOB Lying in bed on high flow oxygen with at bedside Pt said that her breathing is slightly better compare to when she came said that pt was so tired and sleepy yesterday Review of Systems Review of Systems: All systems reviewed & are unremarkable except as noted in Subjective Physical Exam Physical Exam: General- No acute distress Head- atraumatic Eyes- PERRL, EOMI, ENT- oropharynx clear Neck- supple, no JVD Lungs- +diminished BS Heart- regular rhythm; no murmur Abdomen- normal bowel sounds, soft, nontender Extremities- no calf tenderness Neuro- alert, oriented x 3; PERRL, EOMI; no facial palsy; no dysarthria Skin- warm & dry Results & Data Results & Data ([facility]) Vital Signs (Past 12 Hours) Vital Signs Temp Pulse Pulse Resp BP BP Pulse Ox 06/06/22 15:15 100 H 20 96 06/06/22 14:36 102 H 20 95/54 L 98 06/06/22 14:30 103 H 20 97/63 L 97 06/06/22 14:00 92 H 24 97/60 L 97 06/06/22 13:30 98 H 22 97/54 L 98 06/06/22 12:00 37 C 06/06/22 13:00 93 H 12 96/64 L 97 06/06/22 12:30 108 H 17 100/61 97 06/06/22 12:00 104 H 24 97/61 L 97 06/06/22 11:30 100 H 21 102/60 97 06/06/22 11:16 94 H 22 96 06/06/22 10:51 37.1 C 102 H 21 96/58 L 97 06/06/22 09:57 37.0 C 95 H 27 H 118/72 92 06/06/22 09:03 37.0 C 105 H 26 H 112/66 90 06/06/22 07:45 103 H 32 H 100/65 94 06/06/22 07:41 107 H 24 102/64 93 06/06/22 07:30 107 H 23 101/60 91 06/06/22 07:27 106 H 28 H 91/61 L 91 06/06/22 07:23 108 H 26 H 93/62 L 92 06/06/22 07:15 107 H 23 107/61 93 06/06/22 07:00 106 H 21 100/61 93 06/06/22 08:02 36.7 C 98 H 27 H 105/67 90 06/06/22 07:47 98 H 26 H 93 06/06/22 07:00 06/06/22 07:00 106 H 06/06/22 08:10 36.7 C 90 26 H 114/73 90 06/06/22 07:40 36.6 C 105 H 19 102/64 93 06/06/22 07:25 36.6 C 105 H 26 H 91/61 L 92 06/06/22 07:22 36.6 C 109 H 28 H 93/62 L 92 06/06/22 07:06 36.7 C 109 H 24 100/61 93 06/06/22 06:00 109 H 13 92 06/06/22 06:00 97/64 L 06/06/22 05:00 109 H 18 92 06/06/22 05:00 91/62 L 06/06/22 04:00 109 H 26 H 95 06/06/22 04:00 95/59 L 06/06/22 03:51 106 H 34 H 94 O2 Del Method O2 Flow Rate FiO2 06/06/22 15:15 High Flow Nasal Cannula 40 60 06/06/22 14:36 High Flow Nasal Cannula 40 75 06/06/22 14:30 High Flow Nasal Cannula 40 75 06/06/22 14:00 High Flow Nasal Cannula 40 75 06/06/22 13:30 High Flow Nasal Cannula 40 75 06/06/22 12:00 06/06/22 13:00 High Flow Nasal Cannula 40 75 06/06/22 12:30 High Flow Nasal Cannula 40 75 06/06/22 12:00 High Flow Nasal Cannula 40 75 06/06/22 11:30 High Flow Nasal Cannula 40 75 06/06/22 11:16 High Flow Nasal Cannula 40 75 06/06/22 10:51 High Flow Nasal Cannula 60 80 06/06/22 09:57 60 06/06/22 09:03 60 06/06/22 07:45 High Flow Nasal Cannula 40 80 06/06/22 07:41 High Flow Nasal Cannula 40 80 06/06/22 07:30 Oxymask 15 06/06/22 07:27 Oxymask 15 06/06/22 07:23 Oxymask 15 06/06/22 07:15 Oxymask 10 06/06/22 07:00 Oxymask 10 06/06/22 08:02 40 06/06/22 07:47 High Flow Nasal Cannula 40 80 06/06/22 07:00 Oxymask 10 06/06/22 07:00 06/06/22 08:10 60 06/06/22 07:40 15 06/06/22 07:25 10 06/06/22 07:22 10 06/06/22 07:06 06/06/22 06:00 06/06/22 06:00 06/06/22 05:00 06/06/22 05:00 06/06/22 04:00 06/06/22 04:00 06/06/22 03:51 70 (1) Respiratory failure Chronicity: acute Respiratory failure complication: hypoxia and hypercapnia Qualified Code(s): J96.01 - Acute respiratory failure with hypoxia; J96.02 - Acute respiratory failure with hypercapnia
[2022-06-06] MEDS: fentaNYL 12 MCG/HR TDSY TD SCH (15:49)
[2022-06-06] MEDS: CHECK fentaNYL PATCH PLACEMENT SCH ×2 (15:50→23:00)
[2022-06-06 20:18] LABS: Hemoglobin 8.4 g/dl (12.0-16.0)
[2022-06-07 05:51] LABS: Hematocrit (blood only) 25.1 % (34.1-44.9); Hemoglobin 7.9 g/dl (12.0-16.0); Mean Corpuscular Hemoglobin 28.5 pg (25.0-34.0); Mean Corpuscular Hgb Conc 31.5 g/dL (32.0-36.0); Mean Corpuscular Volume 90.6 fL (80.0-100.0); Mean Platelet Volume 10.4 fL (9.4-12.3); Nucleated RBC # (auto) 0.12 K/uL (0-0); Nucleated RBC % (auto) 1.6 %; Platelet Count 43 K/uL (130-400); RDW Coefficient of Variation 18.6 % (11.5-14.5); Red Blood Count 2.77 M/uL (3.93-5.22); White Blood Count 7.48 K/ul (4.8-10.8)
[2022-06-07 06:18] LABS: Basophils # (auto) 0.01 K/uL (0-0.2); Basophils % (auto) 0.1 %; Eosinophils # (auto) 0.01 K/uL (0-0.50); Eosinophils % (auto) 0.1 %; Immature Granulocytes # (auto) 0.45 K/uL (0.00-0.02); Lymphocytes # (auto) 0.24 K/uL (1.2-3.4); Lymphocytes % (auto) 3.2 %; Monocytes # (auto) 0.41 K/uL (0.24-0.82); Monocytes % (auto) 5.5 %; Neutrophils # (auto) 6.36 K/uL (1.4-6.5); Neutrophils % (auto) 85.1 %; Polychromasia 1+
[2022-06-07 06:19] LABS: BUN Creatinine Ratio 42.5 (10-20); Calcium 8.4 mg/dl (8.5-10.1); Creatinine Clr Calc Pharmacy 143.7 ml/min; Est GFR (African American) 139.8 ml/min; Est GFR (Non-African American) 120.6 ml/min; Phosphorus 3.2 mg/dl (2.5-4.9); Potassium 4.5 mmol/L (3.5-5.1)
--- NOTE | 2022-06-07 06:58 | Critical Care Progress Note ---
Date of Service June 07, 2022 Assessment & Plan (1) Respiratory failure: (2) Hypoxia: (3) Bilateral malignant neoplasm of breast in female: (4) Large pleural effusion: (5) History of pulmonary embolism: Plan Patient is a 51 year old female w/ PmHx of metastatic breast cancer previously hospitalized 05/22-05/31 admitted to the ICU for acute hypoxemic respiratory failure requiring BiPap and thoracentesis. Neuro CAM ICU: Negative Pain management: fentanyl patch and morphine PRN. Depression: continue home Lexapro daily. Cardiac Tachycardia: Troponin unremarkable, echo from 04/2021 unremarkable. Most likely 2/2 pleural effusions, mildly improved with thoracentesis. Continue to hold metoprolol in the setting of soft pressures. Respiratory Acute hypoxic hypercapnic respiratory failure 2/2 malignant effusions: CT Chest w/ evidence of large effusion left lung, moderate size loculated effusion right lung, lymphangitic carcinomatosis right lung. Most likely 2/2 pleural effusions from malignancy. Had ~2.2L drainage from thoracentesis night of admission. Pulmonology consulted -Near complete opacification of left hemithorax, loculated lesions on right, evidence of lymphangitic carcinomatosis. -Pleurx catheter planned for today possibly. -Based on clinical picture and imaging, likely terminal illness, recommend discussions with palliative care on goals of care. -Empiric antibiotics reasonable to continue. Palliative care consulted -Switched oxycodone ER to fentanyl patch, morphine for breakthrough pain. -Dr. Bhandari spoke to patient and about current condition. Patient would like to continue to be there for 2 children/family. -Realizes her time with her family may be short however was not able to discuss goals of care today. -Outpatient arrangement for support at home, pain management, and further goals of care discussion. Wean off high flow as tolerated, stable for downgrade. Continue to monitor vitals. GI Regular diet. PPI. Renal/Electrolytes Kidney function within normal limits, continue to replete electrolytes as needed. Strict I&O's. Endo No past history of diabetes or thyroid disease. ICU hyperglycemia protocol Heme Chronic anemia: Most likely related to malignancy. Hemoglobin 7.9 this AM, infused 1 Unit PRBCs after hgb 6.6. Recheck in AM. Thrombocytopenia: Platelets 84->47. Past history of low platelets at last admission suspicious for HIT however gene tested negative. May be related to malignancy along with anemia. Continue to monitor with CBC. ID Blood culture and pleural cultures pending, afebrile, WBC within normal limits. Lines/IV Access Peripheral. DVT Prophylaxis SCD's, apixaban on hold for possible Pleurx. Dispo: ICU, stable for downgrade. Admission and Anticipated Discharge Date Admission Date: June 05, 2022 Supervising Physician Co-Signing Physician Notes Dr. Mcclain was resident physician during care of patient. I separately evaluated patient for corado portions of the history and the exam. I was present during the critical portion of medical decision making, and I discussed the case with the resident. I generally agree with the findings and plan. D/W Dr. Hayden, hold eliquis (last dose 06/05 in the morning) for pluerX today. Seen by palliative care, reviewed notes: "Lin realizes that her time with her family may be short but was not able to discuss goals of care further today". She has a significant oxygen requirement I suspect that this is secondary to lymphangitic spread into the lungs. Stable to downgrade. Subjective Patient seen at the bedside this morning saying her breathing feels fine on the high flow this morning. She denies any fevers, chills, chest pain, shortness of breath. Review of Systems Constitutional: as per Subjective / HPI Physical Exam Constitutional: WD/WN, vitals as above Eyes: PERRL, conjunctivae normal, anicteric sclerae Respiratory: Clear to auscultation in upper lung basurto, diminished breath sounds in the lower lung basurto bilaterally. Cardiovascular: RRR, no murmur, no edema Gastrointestinal (Abdomen): normal bowel sounds, soft, nontender, no hepatosplenomegaly Results & Data Results & Data ([facility]) Vital Signs (Past 12 Hours) Vital Signs Temp Pulse Pulse Resp BP Pulse Ox O2 Del Method 06/07/22 05:00 101 H 20 94 06/07/22 05:00 104/64 06/07/22 04:30 89 17 06/07/22 04:30 98/61 L 06/07/22 04:00 96 H 19 93 06/07/22 04:00 104/66 06/07/22 03:30 99 H 19 06/07/22 03:30 107/64 06/07/22 03:00 101 H 17 06/07/22 03:00 104/62 06/07/22 02:30 100/58 L 06/07/22 02:30 96 H 12 06/07/22 03:32 110 H 21 96 High Flow Nasal Cannula 06/07/22 02:00 102 H 16 06/07/22 02:00 103/57 L 06/07/22 01:30 102/63 06/07/22 01:30 89 14 06/07/22 01:00 96 H 9 L 94 06/07/22 01:00 99/59 L 06/07/22 00:30 105 H 18 92 06/07/22 00:30 112/63 06/07/22 00:00 36.5 C 93 H 15 94 06/07/22 00:00 100/60 06/06/22 23:30 99 H 18 95 06/06/22 23:30 101/60 06/06/22 23:00 105 H 21 92 06/06/22 23:00 95/59 L 06/06/22 22:30 95/57 L 06/06/22 22:30 107 H 18 96 06/06/22 22:00 103 H 10 L 97 06/06/22 22:00 100/60 06/07/22 00:00 102 H 06/06/22 22:52 99 H 22 96 High Flow Nasal Cannula 06/06/22 21:30 100/57 L 06/06/22 21:30 105 H 18 96 06/06/22 21:00 103 H 18 96 06/06/22 21:00 98/60 L 06/06/22 20:30 98/59 L 06/06/22 20:30 100 H 31 H 95 06/06/22 20:01 92 H 25 H 92 06/06/22 20:01 90/65 L 06/06/22 20:00 97 H 32 H 06/06/22 19:30 94/59 L 06/06/22 19:30 112 H 13 94 06/06/22 19:00 108 H 17 95 06/06/22 19:00 101/67 06/06/22 20:00 High Flow Nasal Cannula 06/06/22 19:18 101 H 21 95 High Flow Nasal Cannula O2 Flow Rate FiO2 06/07/22 05:00 06/07/22 05:00 06/07/22 04:30 06/07/22 04:30 06/07/22 04:00 06/07/22 04:00 06/07/22 03:30 06/07/22 03:30 06/07/22 03:00 06/07/22 03:00 06/07/22 02:30 06/07/22 02:30 06/07/22 03:32 40 50 06/07/22 02:00 06/07/22 02:00 06/07/22 01:30 06/07/22 01:30 06/07/22 01:00 06/07/22 01:00 06/07/22 00:30 06/07/22 00:30 06/07/22 00:00 06/07/22 00:00 06/06/22 23:30 06/06/22 23:30 06/06/22 23:00 06/06/22 23:00 06/06/22 22:30 06/06/22 22:30 06/06/22 22:00 06/06/22 22:00 06/07/22 00:00 06/06/22 22:52 40 50 06/06/22 21:30 06/06/22 21:30 06/06/22 21:00 06/06/22 21:00 06/06/22 20:30 06/06/22 20:30 06/06/22 20:01 06/06/22 20:01 06/06/22 20:00 06/06/22 19:30 06/06/22 19:30 06/06/22 19:00 06/06/22 19:00 06/06/22 20:00 40 50 06/06/22 19:18 40 50 Resident Activity Tracking Resident Involvement: Resident Care Provided Care Provided: Adult Hospital Medicine (1) Respiratory failure Chronicity: acute Respiratory failure complication: hypoxia and hypercapnia Qualified Code(s): J96.01 - Acute respiratory failure with hypoxia; J96.02 - Acute respiratory failure with hypercapnia
[2022-06-07] MEDS: CHECK fentaNYL PATCH PLACEMENT SCH ×2 (08:00→15:33)
[2022-06-07] MEDS: PANTOprazole 40 MG TAB PO SCH (08:56)
[2022-06-07] MEDS: ESCITALOPRAM OXALATE 10 MG TAB PO SCH (08:56)
[2022-06-07] MEDS: FOLIC ACID 1 MG TAB PO SCH (08:56)
[2022-06-07] MEDS: SODIUM CHLORIDE 1 GM TABLET PO SCH (08:57)
[2022-06-07] MEDS: oxyCODONE HCL IR 5 MG TAB (IMMEDIATE RELEASE) PO PRN ×3 (08:58→18:20)
[2022-06-07] MEDS ORDERED: LIDOCAINE 1% LOCAL 20 ML VIAL ONE ×2 (09:35→10:02)
--- NOTE | 2022-06-07 09:35 | XRay Report ---
XR chest 1V portable HISTORY: 51 years-old Female Follow up effusions follow-up study in a patient with pleural effusions COMPARISON: Chest radiograph 06/06/2022 TECHNIQUE: Portable AP view of the chest FINDINGS: The cardiac silhouette is enlarged. No pneumothorax. Layering pleural effusions with bibasilar consol idation similar to yesterday's study. Pulmonary vascular congestion. Unchanged left subclavian Infuse -a-Port catheter. Surgical clip projects over the right axilla. Unchanged appearance of the osseous s tructures. IMPRESSION: 1. Cardiomegaly with pulmonary vascular congestion. 2. Unchanged pleural effusions with bibasilar predominant consolidation. ACT 112: Negative or not required by law. The above report was generated using voice recognition software. It may contain grammatical, syntax o r spelling errors. Electronically signed by: Haroon Aguirre M.D. 06/07/2022 9:33 AM
--- NOTE | 2022-06-07 10:59 | Procedure Note ---
Procedure Note Date of Service June 07, 2022 Note PREOPERATIVE DIAGNOSIS: Recurrent malignant right pleural effusion. POSTOPERATIVE DIAGNOSIS: Recurrent malignant right pleural effusion. PROCEDURE PERFORMED: Right PleurX catheter placement. ANESTHESIA: No IV sedation. Local lidocaine given (25ml) COMPLICATIONS: None. Written consent was obtained and placed on the chart. Timeout was done prior to the procedure. INDICATION FOR PROCEDURE: The patient is a 51-year-old female with metastatic triple negative breast cancer the patient has developed a recurrent right pleural effusion. In an effort to palliate her respiratory symptoms, the patient was referred for a PleurX catheter placement for home drainage. The patient and her family understood the risks and possible complications of the procedure and wished to proceed. OPERATIVE FINDINGS: The right chest was opacified on preoperative chest x-ray, and 300 ml of serous fluid was withdrawn before clamping the drainage tube. There were no bleeding complications, and the fluid was not blood tinged. DESCRIPTION OF PROCEDURE: The patient was placed in a semirecumbent position. I evaluated the right pleura with the ultrasound and located an adequate spot insert the finder needle to inject lidocaine and aspirate pleural fluid. The right chest and upper abdomen were prepped and draped in the usual sterile fashion. Lidocaine 1% was used to infiltrate two areas; one in the right upper quadrant where the tube would exit and the other along the anterior axillary line in the seventh intercostal space. A small counterincision was made in the right upper quadrant area. Through the anterior axillary line area, the pleural space was accessed by Seldinger technique. The counterincision was made around the guidewire and then the PleurX catheter was tunneled from the right upper quadrant small incision to the one o verlying the ribs. A sheath introducer was then passed over the wire and then the PleurX catheter was placed through the sheath introducer. There was good return of fluid. 300 ml of serous fluid was withdrawn slowly as the small counterincision was closed with Monocryl stitch. The catheter was capped off, and sterile dressings were applied. The patient tolerated the procedure well without any complications. Post chest x-ray demonstrated adequate placement of the catheter with a small apical pneumothorax Coding CPT Codes Pulmonary/Thoracic - Pulmonary and Thoracic: 83735 Insert pleural cathereter w/cuff ([id number]) Pulmonary/Thoracic - Pulmonary and Thoracic: 94197 US, Chest, real time with imaging documentation ([id number]) [facility] Procedure Codes (Charges) Pulmonary/Thoracic Procedure 1: Pulmonary and Thoracic: 06828 Insert pleural cathereter w/cuff Procedure 2: Pulmonary and Thoracic: 92054 US, Chest, real time with imaging documentation
[2022-06-07] MEDS ORDERED: PIPERACILLIN/TAZOBACTAM 4.5 GM in DEXTROSE 5% 100 ML IV ONE (12:00)
--- NOTE | 2022-06-07 12:02 | XRay Report ---
XR chest 1V portable HISTORY: Pleurx cath placement COMPARISON: Chest 06/07/2022. FINDINGS: Interval placement of a right basilar pleural catheter. Small right apical pneumothorax wit h a maximal pleural gap of 9 mm. Small right pleural effusion has decreased in size. Left pleural eff usions persist. Myocardial megaly, unchanged. Left subclavian Port-A-Cath remains at the distal SVC. There is mild pulmonary vascular congestion without overt edema. IMPRESSION: 1. Small right apical pneumothorax. 2. Right basilar pleural catheter is likely in good position. Interval decrease in size in the small right pleural effusion. 4. Moderate left pleural effusion persists ACT 112: Negative or not required by law. Electronically signed by: Vito Brewster M.D. 06/07/2022 12:01 PM
[2022-06-07 12:48] LABS: Glucose Pleural Fluid 96 mg/dl; LDH Pleural Fluid 2502 U/L
--- NOTE | 2022-06-07 13:02 | Pulmonology Progress Note ---
Date of Service June 07, 2022 Assessment & Plan (1) Malignant pleural effusion: Plan: Right Pleurx catheter was placed. There was a lot of local inflammatory skin changes and edema. There is a heightened risk of infection and the patient is aware of this. She wished to proceed with catheter placement. 300 cc of fluid was removed. I started the patient back on Zosyn for the possibility of a parapneumonic effusion given the loculations and turbid appearing fluid. Cultures and cell counts are sent. Would hold on mist2 protocol at this time given her thrombocytopenia and anemia. She may need a Pleurx catheter on the left as well if the fluid recurs. (2) Acute hypoxemic respiratory failure: Plan: Multifactorial related to tumor burden, lymphangitic carcinomatosis, bilateral pleural effusions, anemia and atelectasis. I highly suspect that this is likely a terminal illness and would recommend palliative measures. Appreciate ongoing discussion with palliative care physician. (3) Acute dyspnea: Plan: Secondary to all the above. Admission and Anticipated Discharge Date Admission Date: June 05, 2022 Subjective Patient was seen and examined. She continues to have shortness of breath with minimal exertion. She is requiring high flow nasal cannula. Pain is a bit better controlled now that the fentanyl patch is in place. Review of Systems Review of Systems: All systems reviewed & are unremarkable except as noted in HPI & below Physical Exam Physical Exam: Constitutional: Frail appearing female in moderate distress. Eyes: Pupils are equal round and reactive to light. Conjunctivae are normal. Anicteric sclera. Ears nose, mouth and throat: Deferred. Neck: Trachea is midline. Visual inspection is normal. Respiratory: Diminished lung sounds bilaterally. Tachypneic. Conversational dyspnea. Cardiovascular: Tachycardic. Regular rhythm. No murmurs. Trace lower extremity edema. Gastrointestinal: Normal bowel sounds, soft, nontender and nondistended. No hepatosplenomegaly noted. Musculoskeletal: No cyanosis. Patient is able to move all extremities. Skin: No rashes, warm dry and intact. Neurologic: No obvious focal neurological deficits seen. Psychiatric: Alert and oriented x3 with an anxious mood. Results & Data Results & Data ([facility]) Vital Signs (Past 12 Hours) Vital Signs Temp Pulse Pulse Resp BP Pulse Ox O2 Del Method 06/07/22 11:49 36.6 C 06/07/22 11:30 113 H 18 93/60 L 94 High Flow Nasal Cannula 06/07/22 11:00 124 H 32 H 101/66 89 L High Flow Nasal Cannula 06/07/22 10:30 120 H 24 120/67 88 L High Flow Nasal Cannula 06/07/22 10:29 122 H 23 132/76 89 L High Flow Nasal Cannula 06/07/22 10:00 123 H 21 116/68 90 High Flow Nasal Cannula 06/07/22 08:00 36.8 C 06/07/22 09:30 110 H 20 107/64 92 High Flow Nasal Cannula 06/07/22 09:00 123 H 24 109/65 92 High Flow Nasal Cannula 06/07/22 08:30 115 H 21 101/65 93 High Flow Nasal Cannula 06/07/22 08:00 117 H 20 94/65 L 94 High Flow Nasal Cannula 06/07/22 07:30 102 H 16 100/60 90 High Flow Nasal Cannula 06/07/22 07:00 106 H 21 106/67 94 High Flow Nasal Cannula 06/07/22 08:00 101 H 06/07/22 08:00 High Flow Nasal Cannula 06/07/22 07:05 109 H 26 H 94 High Flow Nasal Cannula 06/07/22 05:00 101 H 20 94 06/07/22 05:00 104/64 06/07/22 04:30 89 17 06/07/22 04:30 98/61 L 06/07/22 04:00 96 H 19 93 06/07/22 04:00 104/66 06/07/22 03:30 99 H 19 06/07/22 03:30 107/64 06/07/22 03:00 101 H 17 06/07/22 03:00 104/62 06/07/22 02:30 100/58 L 06/07/22 02:30 96 H 12 06/07/22 03:32 110 H 21 96 High Flow Nasal Cannula 06/07/22 02:00 102 H 16 06/07/22 02:00 103/57 L 06/07/22 01:30 102/63 06/07/22 01:30 89 14 O2 Flow Rate FiO2 06/07/22 11:49 06/07/22 11:30 40 50 06/07/22 11:00 40 50 06/07/22 10:30 40 50 06/07/22 10:29 40 50 06/07/22 10:00 40 50 06/07/22 08:00 06/07/22 09:30 40 50 06/07/22 09:00 40 50 06/07/22 08:30 40 50 06/07/22 08:00 40 50 06/07/22 07:30 40 50 06/07/22 07:00 40 50 06/07/22 08:00 06/07/22 08:00 40 50 06/07/22 07:05 40 50 06/07/22 05:00 06/07/22 05:00 06/07/22 04:30 06/07/22 04:30 06/07/22 04:00 06/07/22 04:00 06/07/22 03:30 06/07/22 03:30 06/07/22 03:00 06/07/22 03:00 06/07/22 02:30 06/07/22 02:30 06/07/22 03:32 40 50 06/07/22 02:00 06/07/22 02:00 06/07/22 01:30 06/07/22 01:30 PG Care Time/CCT Total # of Minutes Spent Total Time Spent with Patient: Total time spent is greater than 50% in coordination of care (as documented) at patient's floor/unit and/or counseling patient: Coding Level of Care Code 45601 Subseq Hosp Care Lvl 3 Diagnoses Malignant pleural effusion J91.0 Acute hypoxemic respiratory failure J96.01 Acute dyspnea R06.00
[2022-06-07] MEDS: MoRPHine SULFATE 2 MG/ML CARP IV PRN ×2 (13:51→19:39)
[2022-06-07 14:01] LABS: Appearance Pleural Fluid Cloudy; Color Pleural Fluid Orange; RBC Pleural Fluid (A) 19000 /uL; WBC Pleural Fluid (A) 61 /uL
[2022-06-07 14:02] LABS: Neutrophils, Fluid 58 %
[2022-06-07 14:03] LABS: Lymphocytes, Fluid 20 %; Mono,Macrophage,Mesothelial 22 %
[2022-06-07] MEDS: PIPERACILLIN/TAZOBACTAM 4.5 GM in DEXTROSE 5% 100 ML IV SCH (15:33)
[2022-06-07] MEDS ORDERED: CHLORASEPTIC 1.4% SOLN 180 ML BTL MT PRN (15:36)
[2022-06-07] MEDS ORDERED: FIRST - Mouthwash BLM 119 ML PO PRN (17:10)
[2022-06-07] MEDS ORDERED: FIRST - Mouthwash BLM 119 ML PO SCH (17:15)
--- NOTE | 2022-06-07 22:50 | Hospitalist Progress Note ---
Date of Service June 07, 2022 Assessment & Plan (1) Respiratory failure: Plan: Acute hypoxemic respiratory failure Likely secondary to malignant pleural effusion Recent admission weeks ago for Large pleural effusion - Cytology from last admission showed Malignant cells present consistent with metastatic adenocarcinoma, breast primary. CT chest showed loculated moderate sized right and large left pleural effusions. Bilateral pleural thickening suggestive of pleural metastatic disease. Lymphangitic carcinomatosis of the right lung. Pt was placed on Bipap on admission CXR showed interval development of complete opacification of the left hemithorax. Bilateral pleural effusions S/P thoracentesis done where 2200 mL of straw-colored fluid removed by the ICU team Repeat CXR showed interval development of a left basilar consolidation/effusion. Mild central pulmonary vascular congestion without overt edema Pulmonology consulted - PleurX catheterplaced today (06/07/22) Procalcitonin and WBC normal Received IV abx - Zosyn - will cont. Blood culture and fluid from pleural effusion pending Consider to continue abx if cx positive ( abx management as per ICU /pulmonary team) Continue monitor closely Anemia Hgb 6.6 S/P 1 unit PRBC Continue monitor CBC Breast cancer: S/p chemo and radiation, recently completed radiation treatment to the left breast Follows with [facility] medical oncology and [facility] radiation oncology Patient's oncologist, Dr. Murcia ([phone]) - contacted me on 05/24 and was updated. She also called and checked in with the patient. 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 Resume Eliquis post pleurex placement Full code Patient - Mr. Royce Rees, contact #[phone]. Admission and Anticipated Discharge Date Admission Date: June 05, 2022 Subjective Pt was seen and examined for follow up of hypoxic resp. failure, malignant pl. effusion Lying in bed on high flow oxygen with at bedside Pleurex placed on the right side today Pt reports that her breathing is slightly better compared to when she came Seen by palliative medicine - pt wants to be there for her family, remains full code Review of Systems Review of Systems: All systems reviewed & are unremarkable except as noted in Subjective Physical Exam Physical Exam: General- mild resp. distress, on HF NC Head- atraumatic Eyes- PERRL, EOMI, ENT- oropharynx clear Neck- supple, no JVD Lungs- +diminished BS Heart- regular rhythm; no murmur Abdomen- normal bowel sounds, soft, nontender Extremities- no calf tenderness, moves extremities Neuro- alert, oriented x 3; PERRL, EOMI; no facial palsy; no dysarthria, moves extremities Skin- warm & dry Results & Data Results & Data ([facility]) Vital Signs (Past 12 Hours) Vital Signs Temp Pulse Pulse Resp BP Pulse Ox O2 Del Method 06/07/22 20:00 High Flow Nasal Cannula 06/07/22 19:00 36.6 C 114 H 15 92 06/07/22 19:24 120 H 24 92 High Flow Nasal Cannula, Other 06/07/22 16:00 111 H 15 100/65 92 High Flow Nasal Cannula 06/07/22 16:00 37.0 C 06/07/22 15:00 119 H 22 97/56 L 91 High Flow Nasal Cannula 06/07/22 14:30 112 H 12 102/58 L 91 High Flow Nasal Cannula 06/07/22 14:00 111 H 12 93/62 L 93 High Flow Nasal Cannula 06/07/22 14:10 107 H 20 96 06/07/22 10:49 115 H 28 H 92 High Flow Nasal Cannula 06/07/22 13:46 119 H 18 101/69 93 High Flow Nasal Cannula 06/07/22 13:30 113 H 13 94/62 L 95 High Flow Nasal Cannula 06/07/22 13:00 116 H 20 102/62 95 High Flow Nasal Cannula 06/07/22 12:30 118 H 22 106/62 93 High Flow Nasal Cannula 06/07/22 12:00 118 H 20 98/57 L 94 High Flow Nasal Cannula 06/07/22 11:55 118 H 22 94/61 L 94 High Flow Nasal Cannula 06/07/22 11:49 36.6 C 06/07/22 11:30 113 H 18 93/60 L 94 High Flow Nasal Cannula 06/07/22 11:00 124 H 32 H 101/66 89 L High Flow Nasal Cannula O2 Flow Rate FiO2 06/07/22 20:00 20 40 06/07/22 19:00 06/07/22 19:24 20 40 06/07/22 16:00 30 40 06/07/22 16:00 06/07/22 15:00 30 40 06/07/22 14:30 30 40 06/07/22 14:00 30 40 06/07/22 14:10 40 50 06/07/22 10:49 40 50 06/07/22 13:46 40 50 06/07/22 13:30 40 50 06/07/22 13:00 40 50 06/07/22 12:30 40 50 06/07/22 12:00 40 50 06/07/22 11:55 40 50 06/07/22 11:49 06/07/22 11:30 40 50 06/07/22 11:00 40 50 Laboratory Results 06/07/22 06/07/22 06/07/22 Range/Units 10:57 10:57 10:57 WBC (4.8-10.8) K/ul RBC (3.93-5.22) M/uL Hgb (12.0-16.0) g/dl Hct (34.1-44.9) % MCV (80.0-100.0) fL MCH (25.0-34.0) pg MCHC (32.0-36.0) g/dL RDW Std Deviation (36.4-46.3) fL RDW Coeff of Elizabeth (11.5-14.5) % Plt Count (130-400) K/uL MPV (9.4-12.3) fL Immature Gran % (Auto) % Neut % (Auto) % Lymph % (Auto) % [place] % (Auto) % Eos % (Auto) % Baso % (Auto) % Neut # (Auto) (1.4-6.5) K/uL Lymph # (Auto) (1.2-3.4) K/uL [place] # (Auto) (0.24-0.82) K/uL Eos # (Auto) (0-0.50) K/uL Baso # (Auto) (0-0.2) K/uL Immature Gran # (Auto) (0.00-0.02) K/uL Absolute Nucleated RBC (0-0) K/uL Nucleated RBC % (auto) % Polychromasia Sodium (136-145) mmol/L Potassium (3.5-5.1) mmol/L Chloride (98-107) mmol/L Carbon Dioxide (21-32) mmol/L Anion Gap (3-11) BUN (6-23) mg/dl Creatinine (0.6-1.2) mg/dl Est Cr Clr Drug Dosing ml/min Est GFR ( Amer) ml/min Est GFR (Non-Af Amer) ml/min BUN/Creatinine Ratio (10-20) Glucose (70-99(Fasting)) mg/dl Calcium (8.5-10.1) mg/dl Phosphorus (2.5-4.9) mg/dl Magnesium (1.7-2.4) mg/dl Fluid Neutrophils % 58 % Fluid Lymphocytes % 20 % Fluid Meso/Macro/[place] % 22 % Fluid Comment Pleural Fluid Source R.LUNG Pleural Color [place] Pleural Appearance Cloudy Pleural pH 7.64 H (7.3-7.4) Pleural WBC 61 /uL Pleural RBC 98753 /uL Pleural LDH 2502 U/L Pleural Glucose 96 mg/dl 06/07/22 06/07/22 Range/Units 05:20 05:20 WBC 7.48 (4.8-10.8) K/ul RBC 2.77 L (3.93-5.22) M/uL Hgb 7.9 L (12.0-16.0) g/dl Hct 25.1 L (34.1-44.9) % MCV 90.6 (80.0-100.0) fL MCH 28.5 (25.0-34.0) pg MCHC 31.5 L (32.0-36.0) g/dL RDW Std Deviation 58.0 H (36.4-46.3) fL RDW Coeff of Elizabeth 18.6 H (11.5-14.5) % Plt Count 43 L (130-400) K/uL MPV 10.4 (9.4-12.3) fL Immature Gran % (Auto) 6.0 % Neut % (Auto) 85.1 % Lymph % (Auto) 3.2 % [place] % (Auto) 5.5 % Eos % (Auto) 0.1 % Baso % (Auto) 0.1 % Neut # (Auto) 6.36 (1.4-6.5) K/uL Lymph # (Auto) 0.24 L (1.2-3.4) K/uL [place] # (Auto) 0.41 (0.24-0.82) K/uL Eos # (Auto) 0.01 (0-0.50) K/uL Baso # (Auto) 0.01 (0-0.2) K/uL Immature Gran # (Auto) 0.45 H (0.00-0.02) K/uL Absolute Nucleated RBC 0.12 H (0-0) K/uL Nucleated RBC % (auto) 1.6 % Polychromasia 1+ Sodium 134 L (136-145) mmol/L Potassium 4.5 (3.5-5.1) mmol/L Chloride 93 L (98-107) mmol/L Carbon Dioxide 35 H (21-32) mmol/L Anion Gap 6 (3-11) BUN 17 (6-23) mg/dl Creatinine 0.40 L (0.6-1.2) mg/dl Est Cr Clr Drug Dosing 143.7 ml/min Est GFR ( Amer) 139.8 ml/min Est GFR (Non-Af Amer) 120.6 ml/min BUN/Creatinine Ratio 42.5 H (10-20) Glucose 98 (70-99(Fasting)) mg/dl Calcium 8.4 L (8.5-10.1) mg/dl Phosphorus 3.2 (2.5-4.9) mg/dl Magnesium 2.0 (1.7-2.4) mg/dl Fluid Neutrophils % % Fluid Lymphocytes % % Fluid Meso/Macro/[place] % % Fluid Comment Pleural Fluid Source Pleural Color Pleural Appearance Pleural pH (7.3-7.4) Pleural WBC /uL Pleural RBC /uL Pleural LDH U/L Pleural Glucose mg/dl Medications Administered Current Inpatient Medications Acetaminophen (Acetaminophen 325 Mg Tab) 650 mg PO Q6H PRN PRN Reason: Fever/pain Stop: 07/05/22 22:53 Escitalopram Oxalate (Escitalopram Oxalate 10 Mg Tab) 5 mg PO DAILY JAREN Stop: 07/06/22 08:59 Last Admin: 06/07/22 08:56 Dose: 5 mg Fentanyl (Fentanyl 12 Mcg/Hr Tdsy) 12 mcg TD Q3D [facility] Stop: 06/20/22 15:29 Last Admin: 06/06/22 15:49 Dose: 12 mcg Folic Acid (Folic Acid 1 Mg Tab) 1 mg PO QAM [facility] Stop: 07/06/22 08:59 Last Admin: 06/07/22 08:56 Dose: 1 mg Piperacillin Sod/Tazobactam (Sod 4.5 gm/ Dextrose) 120 mls @ 30 mls/hr IV Q8H JAREN; Protocol Stop: 06/14/22 15:59 Last Infusion: 06/07/22 19:32 Dose: Infused Miscellaneous (Icu Protocol For Hyperglycemia) 1 each N/A PRN PRN; Protocol PRN Reason: Hyperglycemia Protocol Stop: 06/07/22 22:53 Miscellaneous (Fentanyl Patch Remove & Waste) 1 each N/A Q3D [facility] Stop: 07/06/22 15:29 Last Admin: 06/06/22 15:45 Dose: Not Given Miscellaneous (Check Fentanyl Patch Placement) 1 each N/A QS [facility] Stop: 07/06/22 15:59 Last Admin: 06/07/22 15:33 Dose: 1 each Morphine Sulfate (Morphine Sulfate 2 Mg/Ml Carp) 2 mg IV Q3H PRN PRN Reason: Pain Stop: 06/19/22 22:53 Last Admin: 06/07/22 19:39 Dose: 2 mg Multi-Ingredient Mouthwash/Gargle (First - Mouthwash Blm 119 Ml) 5 ml PO Q3H PRN PRN Reason: Sore Throat Stop: 07/07/22 17:08 Oxycodone HCl (Oxycodone Hcl Ir 5 Mg Tab (Immediate Release)) 5 mg PO Q4H PRN PRN Reason: Pain Stop: 06/19/22 22:53 Last Admin: 06/07/22 18:20 Dose: 5 mg Pantoprazole Sodium (Pantoprazole 40 Mg Tab) 40 mg PO DAILY [facility] Stop: 07/06/22 08:59 Last Admin: 06/07/22 08:56 Dose: 40 mg Phenol (Chloraseptic 1.4% Soln 180 Ml Btl) 1 sprays MT Q4 PRN PRN Reason: Sore Throat Stop: 07/07/22 15:35 Last Admin: 06/07/22 16:45 Dose: 1 sprays Sodium Chloride (Sodium Chloride 1 Gm Tablet) 1 gm PO DAILY JAREN Stop: 07/06/22 08:59 Last Admin: 06/07/22 08:57 Dose: 1 gm (1) Respiratory failure Chronicity: acute Respiratory failure complication: hypoxia and hypercapnia Qualified Code(s): J96.01 - Acute respiratory failure with hypoxia; J96.02 - Acute respiratory failure with hypercapnia
[2022-06-08] MEDS: PIPERACILLIN/TAZOBACTAM 4.5 GM in DEXTROSE 5% 100 ML IV SCH ×3 (00:44→15:54)
[2022-06-08] MEDS: CHECK fentaNYL PATCH PLACEMENT SCH ×3 (00:44→15:54)
[2022-06-08] MEDS: MoRPHine SULFATE 2 MG/ML CARP IV PRN ×4 (03:56→22:49)
[2022-06-08 07:19] LABS: Hematocrit (blood only) 24.6 % (34.1-44.9); Hemoglobin 7.7 g/dl (12.0-16.0); Mean Corpuscular Hemoglobin 28.6 pg (25.0-34.0); Mean Corpuscular Hgb Conc 31.3 g/dL (32.0-36.0); Mean Corpuscular Volume 91.4 fL (80.0-100.0); Mean Platelet Volume 11.6 fL (9.4-12.3); Nucleated RBC # (auto) 0.09 K/uL (0-0); Nucleated RBC % (auto) 1.4 %; Platelet Count 37 K/uL (130-400); RDW Coefficient of Variation 19.2 % (11.5-14.5); RDW Standard Deviation 58.4 fL (36.4-46.3); Red Blood Count 2.69 M/uL (3.93-5.22); White Blood Count 6.28 K/ul (4.8-10.8)
[2022-06-08 07:20] LABS: Basophils # (auto) 0.01 K/uL (0-0.2); Basophils % (auto) 0.2 %; Eosinophils # (auto) 0.01 K/uL (0-0.50); Eosinophils % (auto) 0.2 %; Immature Granulocytes # (auto) 0.28 K/uL (0.00-0.02); Immature Granulocytes % (auto) 4.5 %; Lymphocytes % (auto) 3.2 %; Monocytes # (auto) 0.32 K/uL (0.24-0.82); Monocytes % (auto) 5.1 %; Neutrophils # (auto) 5.46 K/uL (1.4-6.5); Neutrophils % (auto) 86.8 %; RBC Morphology Unremarkable
--- NOTE | 2022-06-08 07:30 | Hospitalist Progress Note ---
Date of Service June 08, 2022 Assessment & Plan (1) Respiratory failure: Plan: Acute hypoxemic respiratory failure Likely secondary to malignant pleural effusion Recent admission weeks ago for Large pleural effusion - Cytology from last admission showed Malignant cells present consistent with metastatic adenocarcinoma, breast primary. CT chest showed loculated moderate sized right and large left pleural effusions. Bilateral pleural thickening suggestive of pleural metastatic disease. Lymphangitic carcinomatosis of the right lung. Pt was placed on Bipap on admission CXR showed interval development of complete opacification of the left hemithorax. Bilateral pleural effusions S/P thoracentesis done where 2200 mL of straw-colored fluid removed by the ICU team Repeat CXR showed interval development of a left basilar consolidation/effusion. Mild central pulmonary vascular congestion without overt edema Pulmonology consulted - PleurX catheter placed on the right (06/07/22) Procalcitonin and WBC normal Received IV abx - Zosyn - will cont. - per pulm. Blood culture and fluid from pleural effusion pending Consider to continue abx if cx positive ( abx management as per ICU /pulmonary team) Continue monitor closely Anemia Hgb 6.6 S/P 1 unit PRBC Continue monitor CBC Breast cancer: S/p chemo and radiation, recently completed radiation treatment to the left breast Follows with [facility] medical oncology and [facility] radiation oncology Patient's oncologist, Dr. Murcia ([phone]) - contacted me on 05/24 and was updated. She also called and checked in with the patient. 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 ?Resume Eliquis post pleurex placement / thrombocytopenia Full code Patient - Mr. Royce Rees, contact #[phone]. Admission and Anticipated Discharge Date Admission Date: June 05, 2022 Subjective Pt was seen and examined for follow up of hypoxic resp. failure, malignant pl. effusion Lying in bed in NAD, on 3L of suppl.O2 [facility] at the bedide Pleurex placed on the right side yesterday - she complains of some pain there Seen by palliative medicine - pt wants to be there for her family, remains full code Helping w/ pain management Review of Systems Review of Systems: All systems reviewed & are unremarkable except as noted in Subjective Physical Exam Physical Exam: General- mild resp. distress, on 3L NC Head- atraumatic Eyes- PERRL, EOMI, ENT- oropharynx clear Neck- supple, no JVD Lungs- +diminished BS Heart- regular rhythm; no murmur Abdomen- normal bowel sounds, soft, nontender Extremities- no calf tenderness, moves extremities Neuro- alert, oriented x 3; PERRL, EOMI; no facial palsy; no dysarthria, moves extremities Skin- warm & dry Results & Data Results & Data ([place]) Vital Signs (Past 12 Hours) Vital Signs Pulse Pulse Resp Pulse Ox O2 Del Method O2 Flow Rate FiO2 06/08/22 03:08 109 H 20 94 High Flow Nasal Cannula 20 40 06/08/22 00:00 109 H 06/07/22 22:56 106 H 16 93 High Flow Nasal Cannula 20 40 06/07/22 20:00 High Flow Nasal Cannula 20 40 Medications Administered Current Inpatient Medications Acetaminophen (Acetaminophen 325 Mg Tab) 650 mg PO Q6H PRN PRN Reason: Fever/pain Stop: 07/05/22 22:53 Escitalopram Oxalate (Escitalopram Oxalate 10 Mg Tab) 5 mg PO DAILY JAREN Stop: 07/06/22 08:59 Last Admin: 06/07/22 08:56 Dose: 5 mg Fentanyl (Fentanyl 12 Mcg/Hr Tdsy) 12 mcg TD Q3D [facility]EN Stop: 06/20/22 15:29 Last Admin: 06/06/22 15:49 Dose: 12 mcg Folic Acid (Folic Acid 1 Mg Tab) 1 mg PO QAM [facility] Stop: 07/06/22 08:59 Last Admin: 06/07/22 08:56 Dose: 1 mg Piperacillin Sod/Tazobactam (Sod 4.5 gm/ Dextrose) 120 mls @ 30 mls/hr IV Q8H [facility]; Protocol Stop: 06/14/22 15:59 Last Infusion: 06/08/22 04:30 Dose: Infused Miscellaneous (Fentanyl Patch Remove & Waste) 1 each N/A Q3D [facility]AREN Stop: 07/06/22 15:29 Last Admin: 06/06/22 15:45 Dose: Not Given Miscellaneous (Check Fentanyl Patch Placement) 1 each N/A QS [facility]AREN Stop: 07/06/22 15:59 Last Admin: 06/08/22 00:44 Dose: 1 each Morphine Sulfate (Morphine Sulfate 2 Mg/Ml Carp) 2 mg IV Q3H PRN PRN Reason: Pain Stop: 06/19/22 22:53 Last Admin: 06/08/22 03:56 Dose: 2 mg Multi-Ingredient Mouthwash/Gargle (First - Mouthwash Blm 119 Ml) 5 ml PO Q3H [place] [facility] PRN Reason: Sore Throat Stop: 07/07/22 17:08 Oxycodone HCl (Oxycodone Hcl Ir 5 Mg Tab (Immediate Release)) 5 mg PO Q4H PRN PRN Reason: Pain Stop: 06/19/22 22:53 Last Admin: 06/07/22 18:20 Dose: 5 mg Pantoprazole Sodium (Pantoprazole 40 Mg Tab) 40 mg PO DAILY JAREN Stop: 07/06/22 08:59 Last Admin: 06/07/22 08:56 Dose: 40 mg Phenol (Chloraseptic 1.4% Soln 180 Ml Btl) 1 sprays MT Q4 PRN PRN Reason: Sore Throat Stop: 07/07/22 15:35 Last Admin: 06/07/22 16:45 Dose: 1 sprays Sodium Chloride (Sodium Chloride 1 Gm Tablet) 1 gm PO DAILY JAREN Stop: 07/06/22 08:59 Last Admin: 06/07/22 08:57 Dose: 1 gm (1) Respiratory failure Chronicity: acute Respiratory failure complication: hypoxia and hypercapnia Qualified Code(s): J96.01 - Acute respiratory failure with hypoxia; J96.02 - Acute respiratory failure with hypercapnia
[2022-06-08 07:54] LABS: BUN Creatinine Ratio 47.4 (10-20); Calcium 8.3 mg/dl (8.5-10.1); Creatinine Clr Calc Pharmacy 166.8 ml/min; Est GFR (African American) 142.2 ml/min; Est GFR (Non-African American) 122.7 ml/min; Phosphorus 3.6 mg/dl (2.5-4.9); Potassium 4.6 mmol/L (3.5-5.1)
[2022-06-08] MEDS: ESCITALOPRAM OXALATE 10 MG TAB PO SCH (08:08)
[2022-06-08] MEDS: oxyCODONE HCL IR 5 MG TAB (IMMEDIATE RELEASE) PO PRN (08:08)
[2022-06-08] MEDS: SODIUM CHLORIDE 1 GM TABLET PO SCH (08:09)
[2022-06-08] MEDS: PANTOprazole 40 MG TAB PO SCH (08:09)
[2022-06-08] MEDS: FOLIC ACID 1 MG TAB PO SCH (08:09)
--- NOTE | 2022-06-08 09:29 | Pulmonology Progress Note ---
Date of Service June 08, 2022 Assessment & Plan (1) Malignant pleural effusion: Plan: Right Pleurx catheter placed 06/07/2022. Attempted drainage today with essentially no fluid removed. This may be secondary to loculations in the pleural space. Can consider instillation of tPA and dornase once her platelet count improves to help break up these loculations. Continue with antibiotics for the time being until cultures finalize. May also need a Pleurx catheter on the left if fluid recurs quickly. Chest x-ray from today reviewed with bibasilar atelectasis and small effusions. Initiate incentive spirometry and flutter valve. (2) Acute hypoxemic respiratory failure: Plan: Multifactorial related to tumor burden, lymphangitic carcinomatosis, bilateral pleural effusions, anemia and atelectasis. I highly suspect that this is likely a terminal illness and would recommend palliative measures. Appreciate ongoing discussion with palliative care physician. (3) Acute dyspnea: Plan: Secondary to all the above. If improved today. Admission and Anticipated Discharge Date Admission Date: June 05, 2022 Subjective Patient seen and examined today. She relates that her breathing is much easier today. She is now on 3 L of oxygen. She denies any chest pain. She does have some pain around the Pleurx catheter insertion site. No fevers or chills overnight. Heart rate remains elevated 120-130 Review of Systems Review of Systems: All systems reviewed & are unremarkable except as noted in HPI & below Physical Exam Physical Exam: Constitutional: Frail appearing female in moderate distress. Eyes: Pupils are equal round and reactive to light. Conjunctivae are normal. Anicteric sclera. Ears nose, mouth and throat: Deferred. Neck: Trachea is midline. Visual inspection is normal. Respiratory: Diminished lung sounds bilaterally. More aeration than yesterday. Cardiovascular: Tachycardic. Regular rhythm. No murmurs. Trace lower extremity edema. Gastrointestinal: Normal bowel sounds, soft, nontender and nondistended. No hep atosplenomegaly noted. Musculoskeletal: No cyanosis. Patient is able to move all extremities. Skin: Inflammatory skin changes noted around her breast and chest wall. Pleurx catheter intact in the right hemithorax. Bandaging in place. Neurologic: No obvious focal neurological deficits seen. Psychiatric: Alert and oriented x3 with an anxious mood. Results & Data Results & Data ([facility]) Vital Signs (Past 12 Hours) Vital Signs Pulse Pulse Resp Pulse Ox O2 Del Method O2 Flow Rate FiO2 06/08/22 03:08 109 H 20 94 High Flow Nasal Cannula 20 40 06/08/22 00:00 109 H 06/07/22 22:56 106 H 16 93 High Flow Nasal Cannula 20 40 PG Care Time/CCT Total # of Minutes Spent Total Time Spent with Patient: Total time spent is greater than 50% in coordination of care (as documented) at patient's floor/unit and/or counseling patient: Coding Level of Care Code 98829 Subseq Hosp Care Lvl 3 Diagnoses Malignant pleural effusion J91.0 Acute hypoxemic respiratory failure J96.01 Acute dyspnea R06.00
[2022-06-08] MEDS ORDERED: POLYETHYLENE (MIRALAX) 17 GM PACK ONE (09:30)
[2022-06-08] MEDS ORDERED: POLYETHYLENE (MIRALAX) 17 GM PACK PO ONE (09:33)
--- NOTE | 2022-06-08 09:57 | Procedure Note ---
Procedure Note Date of Service June 08, 2022 Note Pleurx catheter site was accessed by removing the Tegaderm dressing and the 4 x 4's. The catheter was connected to a Pleurx drainage Vacutainer. Minimal fluid was aspirated. There was a small ornelas of air. The patient tolerated the pr ocedure well. The Vacutainer was disconnected. Was placed over the Pleurx catheter after it was cleaned with an alcohol swab. The dressing and Tegaderm were placed back on. Coding CPT Codes Pulmonary/Thoracic - Pulmonary and Thoracic: 94769 Pleural drainage w/o imaging ([id number]) [facility] Procedure Codes ([place]) Pulmonary/Thoracic Procedure 1: Pulmonary and Thoracic: 69244 Pleural drainage w/o imaging
[2022-06-08] MEDS ORDERED: METOPROLOL TARTRATE 25 MG TAB PO ONE (10:06)
--- NOTE | 2022-06-08 12:13 | XRay Report ---
SINGLE VIEW CHEST CLINICAL HISTORY: Follow-up pleural effusions. Pneumothorax. FINDINGS: An AP, portable, upright chest radiograph is compared to study dated 06/07/2022 and correlate d with chest CT dated 06/05/2022. A left subclavian central venous infusion port is unchanged in positi on. The cardiomediastinal silhouette is unremarkable. A chest tube is seen at the right lung base. A small residual right apical pneumothorax is unchanged. There are layering pleural effusions with depe ndent consolidation. No left-sided pneumothorax is seen. The bony thorax is grossly intact. IMPRESSION: 1. A small right apical pneumothorax is unchanged. 2. A right sided chest tube is unchanged in position. 3. Left larger than right pleural effusions with associated bibasilar consolidation. There is increas ing pleural effusion or consolidation at the right lung base as compared to yesterday there ACT 112: Negative or not required by law. Electronically signed by: Corky Hodges M.D. 06/08/2022 12:12 PM
--- NOTE | 2022-06-08 13:08 | Palliative Care Progress Note ---
Date of Service June 08, 2022 Assessment & Plan (1) Right flank pain: Plan: Improved with fentanyl patch. Should monitor at least a week before adjusting fentanyl dose given long half life. Continue prn dosing. Will simplify regimen to IV morphine only at this time which can be converted to po when needed. (2) Palliative care encounter: Plan: I talked with Lin and her about she and her family are coping. Lin is having difficulty with unpredictable course of her disease. She thaddeus by not allowing herself to think about the negatives. Her biggest concern is being physically and mentally present for her son and daughter. Her feels that they are coping ok but feels that they would definitely need additional help and support at home for discharge planning. We talked about hoping for the best outcome, that she would continue to improve and be able to be discharged home with home care support. We also discussed that this may not be the outcome that they hope for. We talked about the importance of understanding her wishes and concerns to ensure that if time were short, we would know how best to support and care for her and her family. They acknowledge this. Royce tells me that they have discussed "the worst case scenario" and he feels that he would know what Lin wants. He also noted that he thinks that the two of them should talk about it again. I let them know that I am available if they have any questions or concerns regarding this. (3) Malignant pleural effusion: (4) Bilateral malignant neoplasm of breast in female: Admission and Anticipated Discharge Date Admission Date: June 05, 2022 Subjective Feels that breathing is a little better today. FIiO2 50 at 20 lpm. She had more discomfort in right flank yesterday after procedure but feels it is better today. She tells me that she is needing extra doses of pain medication less often. She has had approximately 40mg OME in prn dosing in last 24 hours. Her notes that she was more sleepy yesterday. She is awake and alert at time of visit. Review of Systems Review of Systems: ESAS Pain 1/3 Dyspnea 2/3 Fatigue 2/3 Drowsiness 0/3 PPS 30% Physical Exam Constitutional: + ill appearing; no acute distress ENMT: Mouth: + dry oral mucous membranes Respiratory: + uses accessory muscles Neurologic: awake; not confused Psychiatric: Orientation: oriented x 3 Results & Data ([facility]) Vital Signs (Past 12 Hours) Vital Signs Temp Pulse Pulse Resp BP Pulse Ox O2 Del Method 06/08/22 08:00 131 H 06/08/22 11:34 High Flow Nasal Cannula 06/08/22 11:14 99.0 F 06/08/22 11:00 112 H 20 90 06/08/22 10:00 119 H 14 94 06/08/22 10:00 104/63 06/08/22 09:00 128 H 24 92 06/08/22 08:00 118 H 26 H 91 06/08/22 08:00 119/70 06/08/22 07:00 104 H 20 93 06/08/22 08:00 97.9 F 06/08/22 07:10 110 H 22 93 Nasal Cannula 06/08/22 03:08 109 H 20 94 High Flow Nasal Cannula O2 Flow Rate FiO2 06/08/22 08:00 06/08/22 11:34 20 50 06/08/22 11:14 06/08/22 11:00 06/08/22 10:00 06/08/22 10:00 06/08/22 09:00 06/08/22 08:00 06/08/22 08:00 06/08/22 07:00 06/08/22 08:00 06/08/22 07:10 3 06/08/22 03:08 20 40 PG Care Time/CCT Total # of Minutes Spent Total Time Spent: 31 Total Time Spent with Patient: Total time spent is greater than 50% in coordination of care (as documented) at patient's floor/unit and/or counseling patient: symptom management, goals of care, patient and family support Coding Level of Care Code 26261 Subseq Hosp Care Lvl 2 Diagnoses Right flank pain R10.9 Palliative care encounter Z51.5 Malignant pleural effusion J91.0 Bilateral malignant neoplasm of breast in female C50.911; C50.912
[2022-06-08] MEDS: METOPROLOL TARTRATE 25 MG TAB PO SCH (20:36)
[2022-06-09] MEDS: PIPERACILLIN/TAZOBACTAM 4.5 GM in DEXTROSE 5% 100 ML IV SCH ×3 (00:54→15:56)
[2022-06-09] MEDS: CHECK fentaNYL PATCH PLACEMENT SCH ×3 (00:54→15:56)
[2022-06-09] MEDS: MoRPHine SULFATE 2 MG/ML CARP IV PRN ×8 (03:38→23:02)
[2022-06-09 06:38] LABS: BUN Creatinine Ratio 38.1 (10-20); Calcium 8.3 mg/dl (8.5-10.1); Creatinine Clr Calc Pharmacy 150.9 ml/min; Est GFR (African American) 137.5 ml/min; Est GFR (Non-African American) 118.7 ml/min; Potassium 4.6 mmol/L (3.5-5.1)
--- NOTE | 2022-06-09 07:41 | Hospitalist Progress Note ---
Date of Service June 09, 2022 Assessment & Plan (1) Respiratory failure: Plan: Acute hypoxemic respiratory failure Likely secondary to malignant pleural effusion Recent admission weeks ago for Large pleural effusion - Cytology from last admission showed Malignant cells present consistent with metastatic adenocarcinoma, breast primary. CT chest showed loculated moderate sized right and large left pleural effusions. Bilateral pleural thickening suggestive of pleural metastatic disease. Lymphangitic carcinomatosis of the right lung. Pt was placed on Bipap on admission CXR showed interval development of complete opacification of the left hemithorax. Bilateral pleural effusions S/P thoracentesis done where 2200 mL of straw-colored fluid removed by the ICU team Repeat CXR showed interval development of a left basilar consolidation/effusion. Mild central pulmonary vascular congestion without overt edema Pulmonology consulted - PleurX catheter placed on the right (06/07/22) Procalcitonin and WBC normal Received IV abx - Zosyn - will cont. - per pulm. Blood culture and fluid from pleural effusion pending Consider to continue abx if cx positive ( abx management as per ICU /pulmonary team) Continue monitor closely Anemia Hgb 6.6 S/P 1 unit PRBC Continue monitor CBC 06/09 Hgb 7.2 - will provide 1 unit of pRBC Breast cancer: S/p chemo and radiation, recently completed radiation treatment to the left breast Follows with [facility] medical oncology and [facility] radiation oncology Patient's oncologist, Dr. Murcia ([phone]) - contacted me on 05/24 and was updated. She also called and checked in with the patient. Pt was supposed to follow up after last DC but did not make it [place] to her appointment Next appointment 06/15 Palliative care consulted for goals of care- pt wants to be there for her family Palliative medicine helping w/ pain management - started on fentanyl patch + prn oxy 06/09 Discussed with patient's oncologist, Dr. Murcia again. May consider transfer to [facility]. 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 ?Resume Eliquis post pleurex placement / thrombocytopenia Full code Patient - Mr. Royce Rees, contact #[phone]. Admission and Anticipated Discharge Date Admission Date: June 05, 2022 Subjective Pt was seen and examined for follow up of hypoxic resp. failure, malignant pl. effusion Lying in bed in NAD, on 3L of suppl.O2 Sisters at the bedide Pleurex placed on the right side - she complains of some discomfort there, otherwise pain well controlled Seen by palliative medicine - pt wants to be there for her family, remains full code Helping w/ pain management Discussed with pulmonology, and Dr. Murcia, (oncologist at [facility]). May consider transfer to [facility]. Discussed this with the patient, she wants to further discuss with her . Review of Systems Review of Systems: All systems reviewed & are unremarkable except as noted in Subjective Physical Exam Physical Exam: General- min. resp. distress, on 3L NC Head- atraumatic Eyes- PERRL, EOMI, ENT- oropharynx clear Neck- supple, no JVD Lungs- +diminished BS Heart- regular rhythm; no murmur Abdomen- normal bowel sounds, soft, nontender Extremities- no calf tenderness, moves extremities Neuro- alert, oriented x 3; PERRL, EOMI; no facial palsy; no dysarthria, moves extremities Skin- warm & dry Results & Data Results & Data ([facility]) Vital Signs (Past 12 Hours) Vital Signs Pulse Resp BP Pulse Ox 06/09/22 07:00 99 H 12 94 06/09/22 06:00 106 H 15 96 06/09/22 06:00 106/68 06/09/22 07:05 100 H 06/09/22 05:00 103 H 16 95 06/09/22 04:00 104 H 18 102/66 96 06/09/22 03:00 107 H 17 95 06/09/22 02:00 106 H 17 106/70 96 06/09/22 01:00 104 H 17 95 06/09/22 00:00 103 H 14 93/62 L 94 06/08/22 23:35 105 H 14 105/66 94 06/08/22 22:00 104 H 16 94/64 L 95 06/09/22 00:00 103 H 06/08/22 20:00 121 H 25 H 106/64 93 Medications Administered Current Inpatient Medications Acetaminophen (Acetaminophen 325 Mg Tab) 650 mg PO Q6H PRN PRN Reason: Fever/pain Stop: 07/05/22 22:53 Escitalopram Oxalate (Escitalopram Oxalate 10 Mg Tab) 5 mg PO DAILY [facility] Stop: 07/06/22 08:59 Last Admin: 06/08/22 08:08 Dose: 5 mg Fentanyl (Fentanyl 12 Mcg/Hr Tdsy) 12 mcg TD Q3D [facility] Stop: 06/20/22 15:29 Last Admin: 06/06/22 15:49 Dose: 12 mcg Folic Acid (Folic Acid 1 Mg Tab) 1 mg PO QAM [facility] Stop: 07/06/22 08:59 Last Admin: 06/08/22 08:09 Dose: 1 mg Piperacillin Sod/Tazobactam (Sod 4.5 gm/ Dextrose) 120 mls @ 30 mls/hr IV Q8H [facility]; Protocol Stop: 06/14/22 15:59 Last Infusion: 06/09/22 04:58 Dose: Infused Metoprolol Tartrate (Metoprolol Tartrate 25 Mg Tab) 12.5 mg PO BID [facility] Stop: 07/08/22 20:59 Last Admin: 06/08/22 20:36 Dose: 12.5 mg Miscellaneous (Fentanyl Patch Remove & Waste) 1 each N/A Q3D [facility] Stop: 07/06/22 15:29 Last Admin: 06/06/22 15:45 Dose: Not Given Miscellaneous (Check Fentanyl Patch Placement) 1 each N/A QS [facility] Stop: 07/06/22 15:59 Last Admin: 06/09/22 00:54 Dose: 1 each Morphine Sulfate (Morphine Sulfate 2 Mg/Ml Carp) 2 mg IV Q2H PRN PRN Reason: Pain or dyspnea Stop: 06/19/22 22:53 Last Admin: 06/09/22 06:19 Dose: 2 mg Multi-Ingredient Mouthwash/Gargle (First - Mouthwash Blm 119 Ml) 5 ml PO Q3H PRN PRN Reason: Sore Throat Stop: 07/07/22 17:08 Oxycodone HCl (Oxycodone Hcl Ir 5 Mg Tab (Immediate Release)) 5 mg PO Q4H PRN PRN Reason: Pain Stop: 06/19/22 22:53 Last Admin: 06/08/22 08:08 Dose: 5 mg Pantoprazole Sodium (Pantoprazole 40 Mg Tab) 40 mg PO DAILY [facility] Stop: 07/06/22 08:59 Last Admin: 06/08/22 08:09 Dose: 40 mg Phenol (Chloraseptic 1.4% Soln 180 Ml Btl) 1 sprays MT Q4 PRN PRN Reason: Sore Throat Stop: 07/07/22 15:35 Last Admin: 06/07/22 16:45 Dose: 1 sprays Sodium Chloride (Sodium Chloride 1 Gm Tablet) 1 gm PO DAILY [facility] Stop: 07/06/22 08:59 Last Admin: 06/08/22 08:09 Dose: 1 gm (1) Respiratory failure Chronicity: acute Respiratory failure complication: hypoxia and hypercapnia Qualified Code(s): J96.01 - Acute respiratory failure with hypoxia; J96.02 - Acute respiratory failure with hypercapnia
[2022-06-09] MEDS: SODIUM CHLORIDE 1 GM TABLET PO SCH (07:50)
[2022-06-09] MEDS: PANTOprazole 40 MG TAB PO SCH (07:50)
[2022-06-09] MEDS: METOPROLOL TARTRATE 25 MG TAB PO SCH ×2 (07:50→20:01)
[2022-06-09] MEDS: ESCITALOPRAM OXALATE 10 MG TAB PO SCH (07:51)
[2022-06-09] MEDS: FOLIC ACID 1 MG TAB PO SCH (07:51)
[2022-06-09 08:23] LABS: Hematocrit (blood only) 23.8 % (34.1-44.9); Hemoglobin 7.2 g/dl (12.0-16.0); Mean Corpuscular Hemoglobin 28.5 pg (25.0-34.0); Mean Corpuscular Hgb Conc 30.3 g/dL (32.0-36.0); Mean Corpuscular Volume 94.1 fL (80.0-100.0); Mean Platelet Volume 10.9 fL (9.4-12.3); Nucleated RBC # (auto) 0.07 K/uL (0-0); Nucleated RBC % (auto) 1.1 %; Platelet Count 41 K/uL (130-400); RDW Coefficient of Variation 19.9 % (11.5-14.5); RDW Standard Deviation 61.9 fL (36.4-46.3); Red Blood Count 2.53 M/uL (3.93-5.22); White Blood Count 6.28 K/ul (4.8-10.8)
[2022-06-09] MEDS ORDERED: SODIUM CHLORIDE 0.9% 250 ML IV PRN (13:01)
--- NOTE | 2022-06-09 13:36 | XRay Report ---
XR chest 1V portable CLINICAL HISTORY: follow up effusions COMPARISON STUDY: Chest CT June 05, 2022. Chest radiograph June 08, 2022. FINDINGS: Left subclavian [id number] and right pleural catheter remains in place. Cardiomediastina l silhouette is stable. Right hydropneumothorax is noted. Amount of pleural gas has decreased. There are moderate bilateral pleural effusions with bibasilar opacities. Pulmonary vascular congestion pers ists. IMPRESSION: 1. Right pleural catheter in place. Right hydropneumothorax with decrease in right pleural gas since prior chest radiograph. 2. Moderate bilateral pleural effusions with bibasilar opacities. ACT 112: Negative or not required by law. Electronically signed by: Zackery Adler M.D. 06/09/2022 1:35 PM
--- NOTE | 2022-06-09 15:17 | Palliative Care Progress Note ---
Date of Service June 09, 2022 Assessment & Plan (1) Acute dyspnea: Plan: O2 requirement decreasing. Currently getting transfusion. Pleurx on right. Continue prn opioid. (2) Right flank pain: Plan: Controlled with fentanyl patch and prn opioid. (3) Palliative care encounter: Admission and Anticipated Discharge Date Admission Date: June 05, 2022 Subjective Getting another transfusion today. She has had iv morphine x 5 for total 30 OME last 24 hours in addition to fentanyl patch. She feels that pain is controlled. LBM 8/4 which is first one in several days. Review of Systems Review of Systems: ESAS Pain 1/3 Dyspnea 1/3 Drowsiness 0/3 PPS 40% Physical Exam Constitutional: no acute distress Respiratory: + uses accessory muscles Musculoskeletal: Extremities: + muscle atrophy Skin: warm and dry Neurologic: Speech / Cognition: normal cognition Results & Data ([facility]) Vital Signs (Past 12 Hours) Vital Signs Temp Pulse Resp BP Pulse Ox O2 Flow Rate 06/09/22 15:02 98.1 F 112 H 15 112/73 95 3 06/09/22 12:00 112 H 20 93 06/09/22 12:00 102/65 06/09/22 11:00 108 H 17 94 06/09/22 10:00 103 H 15 95 06/09/22 10:00 100/58 L 06/09/22 09:00 103 H 14 96 06/09/22 12:00 98.6 F 06/09/22 07:00 4 06/09/22 08:00 110 H 20 93 06/09/22 08:00 108/65 06/09/22 07:55 108 H 16 93 06/09/22 07:55 111/64 06/09/22 08:23 98.6 F 06/09/22 07:00 99 H 12 94 06/09/22 06:00 106 H 15 96 06/09/22 06:00 106/68 06/09/22 07:05 100 H 06/09/22 05:00 103 H 16 95 06/09/22 04:00 104 H 18 102/66 96 PG Care Time/CCT Total # of Minutes Spent Total Time Spent with Patient: Total time spent is greater than 50% in coordination of care (as documented) at patient's floor/unit and/or counseling patient: Coding Level of Care Code 75228 Subseq Hosp Care Lvl 1 Diagnoses Acute dyspnea R06.00 Right flank pain R10.9 Palliative care encounter Z51.5
--- NOTE | 2022-06-09 15:50 | Pulmonology Progress Note ---
Date of Service June 09, 2022 Assessment & Plan (1) Malignant pleural effusion: Plan: Chest x-ray from today demonstrates stable right and left bilateral effusions and infiltrates. We will attempt Pleurx drainage tomorrow. Platelet count continues to improve, will consider instillation of tPA/dornase to help break up the loculations. May need to consider Pleurx catheter placement on the left if effusion becomes significant. Incentive spirometry and flutter valve for airway clearance. (2) Acute hypoxemic respiratory failure: Plan: Multifactorial related to tumor burden, lymphangitic carcinomatosis, bilateral pleural effusions, anemia and atelectasis. I highly suspect that this is likely a terminal illness and would recommend palliative measures. Appreciate ongoing discussion with palliative care physician. (3) Acute dyspnea: Plan: Secondary to the above. Improved. Admission and Anticipated Discharge Date Admission Date: June 05, 2022 Subjective Patient appears comfortable at present. Currently on 3 L of oxygen. No chest pain. No fevers or chills. She does have some mild pain around the Pleurx insertion site. at bedside. Discussed case extensively with patient's hospitalist and bedside nurse. Review of Systems Review of Systems: All systems reviewed & are unremarkable except as noted in HPI & below Physical Exam Physical Exam: Constitutional: Frail appearing female in no significant distress. Eyes: Pupils are equal round and reactive to light. Conjunctivae are normal. Anicteric sclera. Ears nose, mouth and throat: Deferred. Neck: Trachea is midline. Visual inspection is normal. Respiratory: Diminished lung sounds bilaterally. More aeration than yesterday. Cardiovascular: Tachycardic. Regular rhythm. No murmurs. Trace lower extremity edema. Gastrointestinal: Normal bowel sounds, soft, nontender and nondistended. No hepatosplenomegaly noted. Musculoskeletal: No cyanosis. Patient is able to move all extremities. Skin: Inflammatory skin changes noted around her breast and chest wall. Pleurx catheter intact in the right hemithorax. Bandaging in place. Neurologic: No obvious focal neurological deficits seen. Psychiatric: Alert and oriented x3 with an anxious mood. Results & Data Results & Data ([facility]) Vital Signs (Past 12 Hours) Vital Signs Temp Pulse Resp BP Pulse Ox O2 Flow Rate 06/09/22 15:00 110 H 24 94 06/09/22 14:00 116 H 22 93 06/09/22 14:00 112/73 06/09/22 13:00 115 H 25 H 88 L 06/09/22 15:17 36.7 C 114 H 15 112/73 94 3 06/09/22 15:02 36.7 C 112 H 15 112/73 95 3 06/09/22 12:00 112 H 20 93 06/09/22 12:00 102/65 06/09/22 11:00 108 H 17 94 06/09/22 10:00 103 H 15 95 06/09/22 10:00 100/58 L 06/09/22 09:00 103 H 14 96 06/09/22 12:00 37 C 06/09/22 07:00 4 06/09/22 08:00 110 H 20 93 06/09/22 08:00 108/65 06/09/22 07:55 108 H 16 93 06/09/22 07:55 111/64 06/09/22 08:23 37 C 06/09/22 07:00 99 H 12 94 06/09/22 06:00 106 H 15 96 06/09/22 06:00 106/68 06/09/22 07:05 100 H 06/09/22 05:00 103 H 16 95 06/09/22 04:00 104 H 18 102/66 96 PG Care Time/CCT Total # of Minutes Spent Total Time Spent with Patient: Total time spent is greater than 50% in coordination of care (as documented) at patient's floor/unit and/or counseling patient: Coding Level of Care Code 06607 Subseq Hosp Care Lvl 2 Diagnoses Malignant pleural effusion J91.0 Acute hypoxemic respiratory failure J96.01 Acute dyspnea R06.00
[2022-06-09] MEDS: fentaNYL 12 MCG/HR TDSY TD SCH (15:54)
[2022-06-09] MEDS: SENNA 8.6 MG TAB PO SCH (20:01)
[2022-06-09 20:02] LABS: Basophils # (auto) 0.01 K/uL (0-0.2); Basophils % (auto) 0.2 %; Eosinophils # (auto) 0.02 K/uL (0-0.50); Eosinophils % (auto) 0.3 %; Hematocrit (blood only) 26.4 % (34.1-44.9); Hemoglobin 8.4 g/dl (12.0-16.0); Immature Granulocytes # (auto) 0.21 K/uL (0.00-0.02); Immature Granulocytes % (auto) 3.3 %; Lymphocytes # (auto) 0.21 K/uL (1.2-3.4); Lymphocytes % (auto) 3.3 %; Mean Corpuscular Hemoglobin 29.2 pg (25.0-34.0); Mean Corpuscular Hgb Conc 31.8 g/dL (32.0-36.0); Mean Corpuscular Volume 91.7 fL (80.0-100.0); Mean Platelet Volume 9.9 fL (9.4-12.3); Monocytes # (auto) 0.38 K/uL (0.24-0.82); Neutrophils # (auto) 5.51 K/uL (1.4-6.5); Neutrophils % (auto) 86.9 %; Nucleated RBC % (auto) 1.6 %; Platelet Count 39 K/uL (130-400); RDW Coefficient of Variation 18.5 % (11.5-14.5); RDW Standard Deviation 56.1 fL (36.4-46.3); Red Blood Count 2.88 M/uL (3.93-5.22); White Blood Count 6.34 K/ul (4.8-10.8)
[2022-06-10] MEDS: MoRPHine SULFATE 2 MG/ML CARP IV PRN ×5 (04:43→20:04)
[2022-06-10 06:21] LABS: Hematocrit (blood only) 26.9 % (34.1-44.9); Hemoglobin 8.5 g/dl (12.0-16.0); Mean Corpuscular Hemoglobin 29.2 pg (25.0-34.0); Mean Corpuscular Hgb Conc 31.6 g/dL (32.0-36.0); Mean Corpuscular Volume 92.4 fL (80.0-100.0); Mean Platelet Volume 10.1 fL (9.4-12.3); Nucleated RBC % (auto) 1.5 %; Platelet Count 41 K/uL (130-400); RDW Coefficient of Variation 18.6 % (11.5-14.5); RDW Standard Deviation 56.1 fL (36.4-46.3); Red Blood Count 2.91 M/uL (3.93-5.22); White Blood Count 6.74 K/ul (4.8-10.8)
[2022-06-10 06:41] LABS: Anion Gap 6 (3-11); BUN Creatinine Ratio 51.6 (10-20); Blood Urea Nitrogen 16 mg/dl (6-23); Calcium 8.6 mg/dl (8.5-10.1); Carbon Dioxide 35 mmol/L (21-32); Chloride 93 mmol/L (98-107); Creatinine Clr Calc Pharmacy 204.5 ml/min; Est GFR (African American) > 150.0 ml/min; Est GFR (Non-African American) 131.2 ml/min; Glucose 98 mg/dl (70-99(Fasting)); Magnesium 1.9 mg/dl (1.7-2.4); Phosphorus 3.8 mg/dl (2.5-4.9); Potassium 4.8 mmol/L (3.5-5.1); Sodium 134 mmol/L (136-145)
[2022-06-10] MEDS: PIPERACILLIN/TAZOBACTAM 4.5 GM in DEXTROSE 5% 100 ML IV SCH ×3 (07:33→15:46)
--- NOTE | 2022-06-10 08:06 | Hospitalist Progress Note ---
Date of Service June 10, 2022 Assessment & Plan (1) Respiratory failure: Plan: Acute hypoxemic respiratory failure Likely secondary to malignant pleural effusion Recent admission weeks ago for Large pleural effusion - Cytology from last admission showed Malignant cells present consistent with metastatic adenocarcinoma, breast primary. CT chest showed loculated moderate sized right and large left pleural effusions. Bilateral pleural thickening suggestive of pleural metastatic disease. Lymphangitic carcinomatosis of the right lung. Pt was placed on Bipap on admission CXR showed interval development of complete opacification of the left hemithorax. Bilateral pleural effusions S/P thoracentesis done where 2200 mL of straw-colored fluid removed by the ICU team Repeat CXR showed interval development of a left basilar consolidation/effusion. Mild central pulmonary vascular congestion without overt edema Pulmonology consulted - PleurX catheter placed on the right (06/07/22) Procalcitonin and WBC normal Received IV abx - Zosyn - will cont. - per pulm. Blood culture and fluid from pleural effusion pending Consider to continue abx if cx positive ( abx management as per ICU /pulmonary team) Continue monitor closely Anemia Hgb 6.6 S/P 1 unit PRBC Continue monitor CBC on 06/09 Hgb 7.2 - 1 unit of pRBC given current Hgb above 8 Breast cancer: S/p chemo and radiation, recently completed radiation treatment to the left breast Follows with [facility] medical oncology and [facility] radiation oncology Patient's oncologist, Dr. Murcia ([phone]) - contacted me on 05/24 and was updated. She also called and checked in with the patient. Pt was supposed to follow up after last DC but did not make it [place] to her appointment Next appointment 06/15 Palliative care consulted for goals of care- pt wants to be there for her family Palliative medicine helping w/ pain management - started on fentanyl patch + prn oxy 06/09 Discussed with patient's oncologist, Dr. Murcia again. May consider transfer to [facility]. 06/10 -patient open to transfer, therefore I contacted [facility] transfer center. Patient was accepted to their care. 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 ?Resume Eliquis post pleurex placement / thrombocytopenia Full code Patient - Mr. Royce Rees, contact #[phone]. Admission and Anticipated Discharge Date Admission Date: June 05, 2022 Subjective Pt was seen and examined for follow up of hypoxic resp. failure, malignant pl. effusion Lying in bed in NAD, on 3-4L of suppl.O2 at the bedside Pleurex placed on the right side - has some discomfort there, otherwise pain well controlled Seen by palliative medicine - pt wants to be there for her family, remains full code Helping w/ pain management Discussed with pulmonology, and Dr. Murcia, (oncologist at [facility]). Discussed possible transfer to [facility] -Per Dr. Murcia, [facility] may have more support for the patient/ possible onc. treatment. Patient is open for transfer. I contacted [facility] transfer center, and patient was accepted to their care. Review of Systems Review of Systems: All systems reviewed & are unremarkable except as noted in Subjective Physical Exam Physical Exam: General- mild resp. distress, on 3-4L NC Head- atraumatic Eyes- PERRL, EOMI, ENT- oropharynx clear Neck- supple, no JVD Lungs- +diminished BS, R pleurex Heart- regular rhythm; no murmur Abdomen- normal bowel sounds, soft, nontender Extremities- no calf tenderness, moves extremities Neuro- alert, oriented x 3; PERRL, EOMI; no facial palsy; no dysarthria, moves extremities Skin- warm & dry Results & Data Results & Data ([facility]) Vital Signs (Past 12 Hours) Vital Signs Temp Pulse Resp BP Pulse Ox O2 Del Method O2 Flow Rate 06/10/22 07:47 Nasal Cannula 4 06/10/22 00:00 37.2 C 06/10/22 06:45 37.2 C 06/10/22 06:00 108 H 17 122/75 95 06/10/22 04:00 108 H 21 116/71 94 06/10/22 02:00 103 H 18 121/73 93 06/10/22 00:00 102 H 17 116/70 92 06/09/22 22:00 102 H 17 106/69 94 06/10/22 00:00 102 H Laboratory Results 06/10/22 06/10/22 06/09/22 Range/Units 05:26 05:26 19:56 WBC 6.74 6.34 (4.8-10.8) K/ul RBC 2.91 L 2.88 L (3.93-5.22) M/uL Hgb 8.5 L 8.4 L (12.0-16.0) g/dl Hct 26.9 L 26.4 L (34.1-44.9) % MCV 92.4 91.7 (80.0-100.0) fL MCH 29.2 29.2 (25.0-34.0) pg MCHC 31.6 L 31.8 L (32.0-36.0) g/dL RDW Std Deviation 56.1 H 56.1 H (36.4-46.3) fL RDW Coeff of Elizabeth 18.6 H 18.5 H (11.5-14.5) % Plt Count 41 L 39 L (130-400) K/uL MPV 10.1 9.9 (9.4-12.3) fL Immature Gran % (Auto) 3.3 % Neut % (Auto) 86.9 % Lymph % (Auto) 3.3 % Holmes % (Auto) 6.0 % Eos % (Auto) 0.3 % Baso % (Auto) 0.2 % Neut # (Auto) 5.51 (1.4-6.5) K/uL Lymph # (Auto) 0.21 L (1.2-3.4) K/uL Holmes # (Auto) 0.38 (0.24-0.82) K/uL Eos # (Auto) 0.02 (0-0.50) K/uL Baso # (Auto) 0.01 (0-0.2) K/uL Immature Gran # (Auto) 0.21 H (0.00-0.02) K/uL Absolute Nucleated RBC 0.10 H 0.10 H (0-0) K/uL Nucleated RBC % (auto) 1.5 1.6 % Sodium 134 L (136-145) mmol/L Potassium 4.8 (3.5-5.1) mmol/L Chloride 93 L (98-107) mmol/L Carbon Dioxide 35 H (21-32) mmol/L Anion Gap 6 (3-11) BUN 16 (6-23) mg/dl Creatinine 0.31 L (0.6-1.2) mg/dl Est Cr Clr Drug Dosing 204.5 ml/min Est GFR ( Amer) > 150.0 ml/min Est GFR (Non-Af Amer) 131.2 ml/min BUN/Creatinine Ratio 51.6 H (10-20) Glucose 98 (70-99(Fasting)) mg/dl Calcium 8.6 (8.5-10.1) mg/dl Phosphorus 3.8 (2.5-4.9) mg/dl Magnesium 1.9 (1.7-2.4) mg/dl Blood Type Antibody Screen Crossmatch 06/09/22 06/09/22 06/09/22 Range/Units 13:12 05:45 05:40 WBC 6.28 (4.8-10.8) K/ul RBC 2.53 L (3.93-5.22) M/uL Hgb 7.2 L (12.0-16.0) g/dl Hct 23.8 L (34.1-44.9) % MCV 94.1 (80.0-100.0) fL MCH 28.5 (25.0-34.0) pg MCHC 30.3 L (32.0-36.0) g/dL RDW Std Deviation 61.9 H (36.4-46.3) fL RDW Coeff of Elizabeth 19.9 H (11.5-14.5) % Plt Count 41 L (130-400) K/uL MPV 10.9 (9.4-12.3) fL Immature Gran % (Auto) % Neut % (Auto) % Lymph % (Auto) % Holmes % (Auto) % Eos % (Auto) % Baso % (Auto) % Neut # (Auto) (1.4-6.5) K/uL Lymph # (Auto) (1.2-3.4) K/uL Holmes # (Auto) (0.24-0.82) K/uL Eos # (Auto) (0-0.50) K/uL Baso # (Auto) (0-0.2) K/uL Immature Gran # (Auto) (0.00-0.02) K/uL Absolute Nucleated RBC 0.07 H (0-0) K/uL Nucleated RBC % (auto) 1.1 % Sodium (136-145) mmol/L Potassium (3.5-5.1) mmol/L Chloride (98-107) mmol/L Carbon Dioxide (21-32) mmol/L Anion Gap (3-11) BUN (6-23) mg/dl Creatinine (0.6-1.2) mg/dl Est Cr Clr Drug Dosing ml/min Est GFR ( Amer) ml/min Est GFR (Non-Af Amer) ml/min BUN/Creatinine Ratio (10-20) Glucose (70-99(Fasting)) mg/dl Calcium (8.5-10.1) mg/dl Phosphorus 4.0 (2.5-4.9) mg/dl Magnesium 2.0 (1.7-2.4) mg/dl Blood Type A Positive Antibody Screen NEGATIVE Crossmatch See Detail Medications Administered Current Inpatient Medications Acetaminophen (Acetaminophen 325 Mg Tab) 650 mg PO Q6H PRN PRN Reason: Fever/pain Stop: 07/05/22 22:53 Escitalopram Oxalate (Escitalopram Oxalate 10 Mg Tab) 5 mg PO DAILY [facility] Stop: 07/06/22 08:59 Last Admin: 06/09/22 07:51 Dose: 5 mg Fentanyl (Fentanyl 12 Mcg/Hr Tdsy) 12 mcg TD Q3D [facility] Stop: 06/20/22 15:29 Last Admin: 06/09/22 15:54 Dose: 12 mcg Folic Acid (Folic Acid 1 Mg Tab) 1 mg PO QAM [facility] Stop: 07/06/22 08:59 Last Admin: 06/09/22 07:51 Dose: 1 mg Piperacillin Sod/Tazobactam (Sod 4.5 gm/ Dextrose) 120 mls @ 30 mls/hr IV Q8H [facility]; Protocol Stop: 06/14/22 15:59 Last Admin: 06/10/22 07:33 Dose: 30 mls/hr Metoprolol Tartrate (Metoprolol Tartrate 25 Mg Tab) 12.5 mg PO BID [facility] Stop: 07/08/22 20:59 Last Admin: 06/09/22 20:01 Dose: 12.5 mg Miscellaneous (Fentanyl Patch Remove & Waste) 1 each N/A Q3D [facility] Stop: 07/06/22 15:29 Last Admin: 06/09/22 15:54 Dose: 1 each Miscellaneous (Check Fentanyl Patch Placement) 1 each N/A QS [facility] Stop: 07/06/22 15:59 Last Admin: 06/10/22 00:00 Dose: 1 each Morphine Sulfate (Morphine Sulfate 2 Mg/Ml Carp) 2 mg IV Q2H PRN PRN Reason: Pain or dyspnea Stop: 06/19/22 22:53 Last Admin: 06/10/22 07:41 Dose: 2 mg Multi-Ingredient Mouthwash/Gargle (First - Mouthwash Blm 119 Ml) 5 ml PO Q3H PRN PRN Reason: Sore Throat Stop: 07/07/22 17:08 Oxycodone HCl (Oxycodone Hcl Ir 5 Mg Tab (Immediate Release)) 5 mg PO Q4H PRN PRN Reason: Pain Stop: 06/19/22 22:53 Last Admin: 06/08/22 08:08 Dose: 5 mg Pantoprazole Sodium (Pantoprazole 40 Mg Tab) 40 mg PO DAILY [facility] Stop: 07/06/22 08:59 Last Admin: 06/09/22 07:50 Dose: 40 mg Phenol (Chloraseptic 1.4% Soln 180 Ml Btl) 1 sprays MT Q4 PRN PRN Reason: Sore Throat Stop: 07/07/22 15:35 Last Admin: 06/07/22 16:45 Dose: 1 sprays Sennosides (Senna 8.6 Mg Tab) 8.6 mg PO BID [facility] Stop: 07/09/22 20:59 Last Admin: 06/09/22 20:01 Dose: 8.6 mg Sodium Chloride (Sodium Chloride 1 Gm Tablet) 1 gm PO DAILY [facility] Stop: 07/06/22 08:59 Last Admin: 06/09/22 07:50 Dose: 1 gm (1) Respiratory failure Chronicity: acute Respiratory failure complication: hypoxia and hypercapnia Qualified Code(s): J96.01 - Acute respiratory failure with hypoxia; J96.02 - Acu te respiratory failure with hypercapnia
[2022-06-10] MEDS: PANTOprazole 40 MG TAB PO SCH (08:26)
[2022-06-10] MEDS: FOLIC ACID 1 MG TAB PO SCH (08:26)
[2022-06-10] MEDS: SENNA 8.6 MG TAB PO SCH ×2 (08:26→20:04)
[2022-06-10] MEDS: METOPROLOL TARTRATE 25 MG TAB PO SCH ×2 (08:26→20:04)
[2022-06-10] MEDS: SODIUM CHLORIDE 1 GM TABLET PO SCH (08:26)
[2022-06-10] MEDS: CHECK fentaNYL PATCH PLACEMENT SCH ×3 (08:27→15:42)
[2022-06-10] MEDS: ESCITALOPRAM OXALATE 10 MG TAB PO SCH (08:27)
[2022-06-10] MEDS ORDERED: DORNASE ALFA 5 ML in SYRINGE 25 ML IPL SCH (13:15)
--- NOTE | 2022-06-10 14:34 | Pulmonology Progress Note ---
Date of Service June 10, 2022 Assessment & Plan (1) Malignant pleural effusion: Plan: Attempted Pleurx catheter drainage this morning and was only able to remove approximately 50 mL of fluid. We will instilled dornase to see if we can break up the loculations. We will consider the instillation of tPA depending on clinical picture and how she responds to dornase. Incentive spirometry and flutter valve for airway clearance. (2) Acute hypoxemic respiratory failure: Plan: Multifactorial related to tumor burden, lymphangitic carcinomatosis, bilateral pleural effusions, anemia and atelectasis. I highly suspect that this is likely a terminal illness and would recommend palliative measures. Appreciate ongoing discussion with palliative care physician. (3) Acute dyspnea: Plan: Secondary to the above. Improved. Admission and Anticipated Discharge Date Admission Date: June 05, 2022 Subjective PainPatient seen and examined. Bed. Saturating 93 to 94% on 3 to 4 L of oxygen. Denies any significant shortness of breath at rest. No fevers or chills overnight. Pain well-tolerated. Right Pleurx catheter site intact. Review of Systems Review of Systems: All systems reviewed & are unremarkable except as noted in HPI & below Physical Exam Physical Exam: Constitutional: Frail appearing female in no significant distress. Eyes: Pupils are equal round and reactive to light. Conjunctivae are normal. Anicteric sclera. Ears nose, mouth and throat: Deferred. Neck: Trachea is midline. Visual inspection is normal. Respiratory: Diminished lung sounds bilaterally. More aeration than yesterday. Cardiovascular: Tachycardic. Regular rhythm. No murmurs. Trace lower extremity edema. Gastrointestinal: Normal bowel sounds, soft, nontender and nondistended. No hepatosplenomegaly noted. Musculoskeletal: No cyanosis. Patient is able to move all extremities. Skin: Inflammatory skin changes noted around her breast and chest wall. Pleurx catheter intact in the right hemithorax. Bandaging in place. Neurologic: No obvious focal neurological deficits seen. Psychiatric: Alert and oriented x3 with an anxious mood. Results & Data Results & Data ([facility]) Vital Signs (Past 12 Hours) Vital Signs Temp Pulse Resp BP Pulse Ox O2 Del Method O2 Flow Rate 06/10/22 13:00 114 H 19 93 06/10/22 12:00 111 H 24 92 06/10/22 12:00 109/75 06/10/22 11:00 102 H 17 92 06/10/22 10:00 95 H 18 97 06/10/22 09:00 121 H 20 95 06/10/22 08:31 113 H 17 93 06/10/22 08:31 106/62 06/10/22 08:00 110 H 18 94 06/10/22 07:00 107 H 13 96 06/10/22 08:00 108 H 06/10/22 08:00 37.0 C 06/10/22 07:47 Nasal Cannula 4 06/10/22 06:45 37.2 C 06/10/22 06:00 108 H 17 122/75 95 06/10/22 04:00 108 H 21 116/71 94 PG Care Time/CCT Total # of Minutes Spent Total Time Spent with Patient: Total time spent is greater than 50% in coordination of care (as documented) at patient's floor/unit and/or counseling patient: Coding Level of Care Code 88670 Subseq Hosp Care Lvl 3 Diagnoses Malignant pleural effusion J91.0 Acute hypoxemic respiratory failure J96.01 Acute dyspnea R06.00
--- NOTE | 2022-06-10 14:37 | Procedure Note ---
Procedure Note Date of Service June 10, 2022 Note Pleurx catheter site was accessed by removing the Tegaderm dressing and the 4 x 4's. The catheter was removed from the Pleurx catheter. I instilled 50 mL of saline and sequential aliquots to try to break up the loculations. This veda ter was then attached to the Pleurx Vacutainer. Approximately 50 mL of fluid was aspirated back. Patient tolerated procedure without issue. Dressing was reapplied. Dornase alpha instilled today. We will leave it to dwell for 1 hour. Patient tolerating thus far. Coding CPT Codes Pulmonary/Thoracic - Pulmonary and Thoracic: 04368 [place] chest fibrin initial day ([id number]) Pulmonary/Thoracic - Pulmonary and Thoracic: 22789 Pleural drainage w/o imaging ([id number]) [facility] [place] Codes (Charges) Pulmonary/Thoracic Procedure 1: Pulmonary and Thoracic: 58100 [place] chest fibrin initial day Procedure 2: Pulmonary and Thoracic: 09545 Pleural drainage w/o imaging
[2022-06-10] MEDS ORDERED: ADVANCED PROBIOTIC 1250 MG CAPSULE PO SCH (17:30)
[2022-06-10 18:51] VITALS: TEMP 99
[2022-06-10 21:21] VITALS: O2SAT 96
[2022-06-10 21:25] VITALS: BP 93/51; PULSE 110
--- NOTE | 2022-06-11 08:09 | Discharge Summary ---
Date of Service June 10, 2022 Admission HPI Per Admitting Provider Hx obtained from patient, family, and records. Limited history from patient secondary to BiPAP. 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 Last confinement May 22 to 2021 for large right pleural effusion status post chest tube placement. Cytology consistent with metastatic adenocarcinoma from the breast. Patient developed thrombocytopenia during confinement. HIT work-up sent out [place] [facility] [place]. Worsening shortness of breath over the last 2 days. Chest tightness. No cough symptoms. Patient denies fluid retention. O2 sats noted to be 60s at home by EMS. BiPAP initiated at the ER. Zosyn administered at the ER MEDICAL HISTORY: As above. SURGERIES:Breast biopsy, vascular device placement, BTL, hysteroscopy, section FAMILY HISTORY: Pancreatic cancer, ovarian cancer, blood clots. 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 Admission Exam Per Admitting Provider GENERAL: uncomfortable, respiratory distress SKIN: Pallor, warm HEENT: Pale palpebral conjunctivae, no ptosis, dry buccal mucosa, BiPAP in place NECK : Supple, no tenderness CHEST : Decreased breath sounds on the left,, no tenderness HEART : Tachycardic, no obvious murmurs ABDOMEN: Some distention, nontender EXTREMITIES : Minimal LE swelling, no LE tenderness, no other conspicuous deformities noted NEUROLOGIC : Coherent, no facial asymmetry, no other gross focality Principal Diagnosis Breast cancer, malignant pleural effusion status post right Pleurx Anemia, thrombocytopenia Hypoxia Hyponatremia Discharge Exam General- mild resp. distress, on 3-4L NC Head- atraumatic Eyes- PERRL, EOMI, ENT- oropharynx clear Neck- supple, no JVD Lungs- +diminished BS, R pleurex Heart- regular rhythm; no murmur Abdomen- normal bowel sounds, soft, nontender Extremities- no calf tenderness, moves extremities Neuro- alert, oriented x 3; PERRL, EOMI; no facial palsy; no dysarthria, moves extremities Skin- warm & dry Discharge Data Allergies Allergy/AdvReac Type Severity Reaction Status Date / Time No Known Allergies Allergy Verified 06/05/22 19:01 Consultations 06/05/22 18:48 ED Decision to Admit Stat 06/05/22 22:54 Consult File Drawer Finisher Routine 06/06/22 01:01 Consult Palliative Care Routine Consult Pulmonology Routine 06/10/22 14:51 Burn CD for patient Stat Ordered Studies 06/05/22 20:06 CT chest diagnostic wo con Stat FINDINGS: No thyroid nodule. Pathologically enlarged bilateral axillary with supraclavicular, mediastinal and hilar adenopathy. These findings are not definitively changed from most recent comparison. The heart is upper limits of normal in size. No thoracic aortic an eurysm. Left subclavian [id number] catheter distal tip terminates within the superior cavoatrial junction. Limited study without the use of IV contrast. There is diffuse pleural thickening redemonstrated throughout the right greater than left hemithoraces. Moderate sized loculated right with large left pleural effusions. No pneumothorax. Nodular intralobular septal thickening is noted within the aerated right lung. Right lung volume loss with bibasilar consolidation suggestive of atelectasis. There is near complete collapse of the left lung with mildly aerated left upper lobe. Study is degraded by respiratory motion artifact. The central airways appear patent. Multifocal hepatic metastasis are new from 01/25/2022. The largest lesion within the right hepatic lobe measures up to 3.7 cm. Upper abdominal lymphadenopathy. Anasarca. Skin thickening of the bilateral breasts. Asymmetric enlargement of the right pectoralis musculature. Multifocal osseous metastasis which appear to be both mixed lytic and blastic. No definite acute pathologic fracture is identified. Mild subacute appearing pathologic fractures are noted at the C7 vertebral body. Hepatic cysts are also again noted. IMPRESSION: 1. Loculated moderate sized right and large left pleural effusions. Volume loss of the right lung with near complete collapse of the left lung. 2. Bilateral pleural thickening suggestive of pleural metastatic disease. There is progressive metastatic disease which includes lymphatic, hepatic and osseous metastasis. Subtle subacute appearing pathologic fracture of the T7 vertebral body without retropulsion. 3. Lymphangitic carcinomatosis of the right lung. 4. Breast and right chest wall lesions are again noted along with anasarca. 06/05/22 22:11 US point of care ultrasound Stat US point of care ultrasound Stat 06/07/22 09:31 US point of care ultrasound Urgent Hospital Course (1) Respiratory failure: Acute hypoxemic respiratory failure Likely secondary to malignant pleural effusion Recent admission weeks ago for Large pleural effusion - Cytology from last admission showed Malignant cells present consistent with metastatic adenocarcinoma, breast primary. CT chest showed loculated moderate sized right and large left pleural effusions. Bilateral pleural thickening suggestive of pleural metastatic disease. Lymphangitic carcinomatosis of the right lung. Pt was placed on Bipap on admission CXR showed interval development of complete opacification of the left hemithorax. Bilateral pleural effusions S/P thoracentesis done where 2200 mL of straw-colored fluid removed by the ICU team Repeat CXR showed interval development of a left basilar consolidation/effusion. Mild central pulmonary vascular congestion without overt edema Pulmonology consulted - PleurX catheter placed on the right (06/07/22) Procalcitonin and WBC normal Received IV abx - Zosyn - will cont. - per pulm. Blood culture and fluid from pleural effusion pending Consider to continue abx if cx positive ( abx management as per ICU /pulmonary team) 06/10 - per pulm. Attempted Pleurx catheter drainage this morning and was only able to remove approximately 50 mL of fluid. We instilled dornase to see if we can break up the loculations. We will consider the instillation of tPA depending on clinical picture and how she responds to dornase. Incentive spirometry and flutter valve for airway clearance. Continue monitor closely Anemia Hgb 6.6 S/P 1 unit PRBC Continue monitor CBC on 06/09 Hgb 7.2 - 1 unit of pRBC given current Hgb above 8 Breast cancer: S/p chemo and radiation, recently completed radiation treatment to the left breast Follows with [facility] medical oncology and [facility] radiation oncology Patient's oncologist, Dr. Murcia ([phone]) - contacted me on 05/24 and was updated. She also called and checked in with the patient. Pt was supposed to follow up after last DC but did not make it [place] to her appointment Next appointment 06/15 Palliative care consulted for goals of care- pt wants to be there for her family Palliative medicine helping w/ pain management - started on fentanyl patch + prn oxy 06/09 Discussed with patient's oncologist, Dr. Murcia again. May consider transfer to [facility]. 06/10 -patient open to transfer, therefore I contacted [facility] transfer center. Patient was accepted to their care. Thrombocytopenia Platelet on admission 84 then dropped to 47 Patient on IV heparin on and off, during last admission, and there was concern for HIT PF4 antibody negative thrombocytopenia likely 2/2 malignancy No sign of active bleeding Continue monitor platelet History of PE/ DVT on Eliquis at home now on hold for procedure/thrombocytopenia now s/p PleuX catheter placement on Right Continue monitor hgb closely Full code Patient - Mr. Royce Rees, contact #[phone]. Dispo: Patient to be transferred to [facility] for further evaluation and treatment. Total Time Total Time Spent Total Time Spent (In Minutes): 40 Discharge Plan Discharge Items Patient Disposition: Transfer Acute Care Hospital Reason For Visit: RESP FAILURE Discharge Diagnosis: Breast cancer, malignant pleural effusion status post right Pleurx Anemia, thrombocytopenia Hypoxia Hyponatremia Activity: Per Instructions section Non-emergency contact: Primary Care Provider, Oncologist and [place] Call non-emergency contact if: you have any medication questions and your symptoms worsen Follow-up/Referrals: Fartun Saunders, [Primary Care Provider] - Diet: Regular Addtl Attending Provider Instructions: Patient to be transferred to [facility] for further evaluation and care, accepting physician, Dr. Metz. Pending Studies at Discharge: Yes Studies:: Final culture of pleural fluid Stand-Alone Forms: My [facility] Skilled Items Patient informed of condition?: Yes DNR: No Discharge Level of Care: Other Communicable Disease: No Discharge Prognosis: Other Lines: Peripheral IV Urinary Catheter: No Medications and DC Order Prescriptions: No Action oxycodone 5 mg tablet 5 mg PO BID PRN (Reason: Pain) omeprazole 20 mg capsule,delayed release(DR/EC) 20 mg PO DAILY escitalopram oxalate 5 mg tablet 5 mg PO DAILY Eliquis 5 mg tablet 5 mg PO Q12H Qty: 74 0RF magnesium oxide 400 mg (241.3 mg magnesium) Tablet 400 mg PO QAM 30 Days Qty: 30 0RF folic acid 1 mg Tablet 1 mg PO QAM 30 Days Qty: 30 0RF metoprolol tartrate 25 mg Tablet 12.5 mg PO BID 30 Days Qty: 30 0RF sodium chloride 1 gram Tablet 1 g PO DAILY Qty: 30 0RF prochlorperazine maleate 10 mg tablet 10 mg PO Q6H PRN (Reason: NAUSEA/VOMITING) Discharge Orders: Discharge Order (Routine); Ordered 06/10/22 Ordered By: Quique Light Admission Data Admit Date/Time: 06/05/22 21:21 Attending Provider: Quique Light Admit Provider: Jude Jiménez Primary Care Provider: Fartun Saunders Other Providers: Prem Hayden ; Hema Torres ; Jude Jiménez ; Kusum Bhandari ; [facility] Other Interventions: Discharge Summary Assessment (RN) Last Done: 06/10/22 21:21
== END 2022-06-10 21:26 | disposition short-term general hospital (02) | DRG 597 ==
LOC: ED 16:42 → SUATTDRO 21:21 → 1E 21:21
DX: Z17.1 Estrogen receptor negative status [ER-]; R00.0 Tachycardia, unspecified; C50.912 Malignant neoplasm of unspecified site of left female breast; D63.0 Anemia in neoplastic disease; Z80.0 Family history of malignant neoplasm of digestive organs; J91.0 Malignant pleural effusion; Z79.01 Long term (current) use of anticoagulants; E87.5 Hyperkalemia; E87.1 Hypo-osmolality and hyponatremia; Z80.3 Family history of malignant neoplasm of breast; Z86.718 Personal history of other venous thrombosis and embolism; Z80.41 Family history of malignant neoplasm of ovary; D69.59 Other secondary thrombocytopenia; Z92.3 Personal history of irradiation; Z79.899 Other long term (current) drug therapy; C78.01 Secondary malignant neoplasm of right lung; J96.01 Acute respiratory failure with hypoxia; C78.7 Secondary malignant neoplasm of liver and intrahepatic bile duct; C79.51 Secondary malignant neoplasm of bone; C50.911 Malignant neoplasm of unspecified site of right female breast; C77.3 Secondary and unspecified malignant neoplasm of axilla and upper limb lymph nodes; Z92.21 Personal history of antineoplastic chemotherapy; Z86.711 Personal history of pulmonary embolism; F32.A Depression, unspecified; R10.9 Unspecified abdominal pain